=== PATIENT | male | born 1965 | race Caucasian/White ===

== ENCOUNTER → 2018-07-18 08:03 | Outpatient (CLI) | payer OTHER, SELFPAY ==
[2018-07-06 13:18] VITALS: BMI 31.9
--- NOTE | 2018-07-18 08:10 | US_ITS ---
STUDY: ABDOMINAL ULTRASOUND REASON FOR EXAM: Male, 53 years old. Abdominal pain. TECHNIQUE: Transabdominal ultrasound was performed with real-time and static gunn scale imaging. TECHNICAL QUALITY: Adequate. COMPARISON: None. FINDINGS: Liver: The liver measures 16.3 cm. There is normal echogenicity of the liver. The bile ducts are within normal limits. There is hepatic color flow. The direction of portal flow is hepatopetal. There is no demonstrated mass lesion. Gallbladder: Normal distended gallbladder. The gallbladder wall measures 2 mm. There is a negative sonographic Lewis's sign. There is no pericholecystic fluid. There are no gallstones. Common Bile Duct (C.B.D.): The common bile duct measures 4 mm. Pancreas: Normal size of the head, body and tail of the pancreas. There is normal echogenicity of the pancreas. There is no demonstrated pancreatic mass or cyst. Spleen: Normal size of the spleen. The spleen measures 11.6 cm. Right Kidney: Normal size of the right kidney. The right kidney measures 10.8 cm. Normal renal cortex. The right cortex measures 2.2 cm. There is no demonstrated renal mass or cyst. There is no right hydronephrosis. Left Kidney: Normal size of the left kidney. The left kidney measures 10.3 cm. Normal renal cortex. The left cortex measures 1.9 cm. There is no demonstrated renal mass or cyst. There is no left hydronephrosis. Aorta: Not dilated. I.V.C.: The IVC is patent. There is no ascites. US/Abdomen Complete IMPRESSION: Normal abdominal ultrasound examination. Electronically Signed: Jude Sawyer MD at 7:53 EDT , Service support ,
== END ==
PROVIDERS: Family Provider Family Medicine; PCP Family Medicine
DX: K21.9 Gastro-esophageal reflux disease without esophagitis (principal); R10.13 Epigastric pain
CPT/HCPCS: 76700

== ENCOUNTER → 2018-07-20 06:29 | Outpatient (CLI) | payer OTHER, SELFPAY ==
[2018-07-06 13:18] VITALS: BMI 31.9
--- NOTE | 2018-07-20 06:31 | ECHOD_ITS ---
Left Ventricle Normal size and thickness. The estimated ejection fraction is 60 %. Normal diastology for age. There is mild global hypokinesis of the left ventricle. Right Ventricle Mildly dilated right ventricle. Normal systolic function. Atria Normal left atrium. Normal right atrium. Normal atrial septum. Mitral Valve Mild diffuse mitral valve thickening. Equivocal mitral valve prolapse. Tricuspid Valve Normal tricuspid valve. Mild (1+) tricuspid valve insufficiency. Right ventricular systolic pressure estimated to be 29 mmHg. Aortic Valve Normal aortic valve. Trisinus/trileaflet aortic valve. Pulmonic Valve Normal pulmonic valve. Great Vessels Normal aortic root. Normal arch. Normal inferior vena cava. Inferior vena cava collapse with sniff. Pericardium/Pleural No pericardial effusion. MMode/2D Measurements & Calculations LVIDd: 4.8 cm IVSd: 1.1 cm LVOT diam: 2.0 cm LVIDs: 3.4 cm LVPWd: 1.0 cm LVOT area: 3.1 cm2 RVDd: 4.8 cm FS: 28.8 % Ao root diam: 3.0 cm LAV(MOD-sp4): 45.6 ml LVAd ap4: 34.0 cm2 EDV(MOD-sp4): 103.6 ml EDV(sp4-el): 105.3 ml LVAs ap4: 21.0 cm2 ESV(MOD-sp4): 48.6 ml ESV(sp4-el): 46.8 ml EF(MOD-sp4): 53.1 % EF(sp4-el): 55.5 % SV(MOD-sp4): 54.9 ml SV(sp4-el): 58.4 ml LA A4 area: 17.1 cm2 LA dimension(2D): 3.6 cm RA A4 area: 19.0 cm2 Time Measurements MV dec time: 0.19 sec Doppler Measurements & Calculations MV E max kvng: 77.7 cm/sec Lat Peak E' Kvng: 7.8 cm/sec Med Peak E' Kvng: 7.2 cm/sec MV A max kvng: 44.1 cm/sec E/E' lat: 10.0 E/E' med: 10.8 MV E/A: 1.8 Ao V2 max: 96.8 cm/sec LV V1 max: 84.0 cm/sec PA V2 max: 128.9 cm/sec Ao max P.7 mmHg LV V1 max P.8 mmHg SEE(V,D): 2.7 cm2 TR max kvng: 237.8 cm/sec TR max P.6 mmHg Interpretation Summary The estimated ejection fraction is 60 %. Normal diastology for age. There is mild global hypokinesis of the left ventricle. Mild (1+) tricuspid valve insufficiency. Right ventricular systolic pressure estimated to be 29 mmHg. Copared to echo report dated 12/15/2010, no appreciable changes noted. Ordering Physician: Gio Teixeira Referring Physician: Gio Teixeira
--- NOTE | 2018-07-20 10:33 | STRESSREP_ITS ---
Stress Test Report Exercise myocardial perfusion stress test. 53-year-old male with a history of chest pain. Medications Multivite vitamin D. Stress protocol: Resting EKG demonstrates sinus bradycardia with a rate of 57 bpm normal intervals noted resting blood pressure 110/80 mmHg. Patient exercised according to regular Alfred protocol for total duration of 10 minutes and 30 seconds the maximum heart rate attained was 162 bpm which was 97% of maximum predicted heart rate the maximum workload was 12.5 metabolic equivalents. Patient completed 1 minute and 30 seconds of stage IV of the Alfred protocol. At rest there were no ST or T wave changes noticed ischemia peak exercise upsloping ST changes only were noted with no meet the criteria for ischemia the resting blood pressure 110/80 with a peak blood pressure 158/72 mmHg rate pressure product was 23,000. Myocardial perfusion protocol. 11.1 mCi of technetium 99m sestamibi was injected at rest. The patient exercised according to regular Alfred protocol at peak exercise 33.4 mCi of technetium 99m sestamibi was injected stress images were obtained stress and rest images were reconstructed and compared in the short axis vertical and horizontal long axis. Gated images were also obtained Perfusion SPECT analysis: Review of the stress images demonstrate normal uptake of tracer noted in all a reas of myocardium the resting images similarly demonstrate normal uptake of tracer noted in all areas of the myocardium. No areas of reversibility are noted suggest ischemia no previous infarct is noted. Gated SPECT analysis: The gated ejection fraction is noted to be 68%. Conclusion: Normal exercise myocardial perfusion stress test at a high workload. Preserved ejection fraction.
== END ==
PROVIDERS: Family Provider Family Medicine; PCP Family Medicine; Referring Provider Internal Medicine Cardiovascular Disease; Visit Provider Internal Medicine Cardiovascular Disease
DX: R07.9 Chest pain, unspecified (principal); I48.0 Paroxysmal atrial fibrillation; I49.1 Atrial premature depolarization; I49.3 Ventricular premature depolarization; I34.1 Nonrheumatic mitral (valve) prolapse
CPT/HCPCS: 78452; 93017; 93306; A9500

== ENCOUNTER → 2018-07-25 09:02 | Outpatient (CLI) | payer OTHER, SELFPAY ==
[2018-07-06 13:18] VITALS: BMI 31.9
== END ==
PROVIDERS: Family Provider Family Medicine; PCP Family Medicine; Referring Provider Internal Medicine Cardiovascular Disease; Visit Provider Internal Medicine Cardiovascular Disease
DX: I34.1 Nonrheumatic mitral (valve) prolapse (principal); I48.0 Paroxysmal atrial fibrillation; I49.1 Atrial premature depolarization; I49.3 Ventricular premature depolarization; R07.9 Chest pain, unspecified
CPT/HCPCS: 93225; 93226

== ENCOUNTER 2020-07-09 16:00 | Outpatient (RCR) | payer OTHER, SELFPAY ==
[2018-07-06 13:18] VITALS: BMI 31.9
--- NOTE | 2020-04-21 10:14 | HP.PTEVAL_ITS ---
Patient's Visit Information JACINTO COSTA is a 55 year old M referred to Physical Therapy by Out of Town Doctor with a diagnosis of Left Total Hip Replacement. Date of Evaluation: 04/21/20 Physical Therapist: Maribel Wasserman DPT - Visit Plan Frequency: 3x /Week Duration: 4 Weeks Plan: Left THR posterior approch precautions-04/07/2020. Focus on LE and core strength/stabilization. Caution back issues - 2011 started running- 5K a month- sedentary prior to this-family runs. Shortly after he was having nerve pain in the hip- PT- was not helping- changed it to back therapy and hip pain went away. Continued to be active Triath[employer]- 5-6x a week lots of training- has had back pain for years. 1-1.5 years ago he started hip pain- tried to encorporate exercises again- did not help- was able to squat and deadlift but he was miserable the next day. 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 Left THR 04/07 by MD at [facility]. Did have home PT but is ready to get back to moving. Goals: back to running, gym and being active. Worst: 10 Hip Back: / Back is worse in the AM-gives some traction on his island and he can be straight. Prefers to be standing. Back pain is L3-4 and achy below the belt line. Incisional pain - groin pain thats getting better- No new radiating pain but does have achy with a side of electricity- when driving for long periods of time. Agg: being sedentary- lifting heavy items. Eases: being active, medication. Best: 06/18. Has had injections 2x in his left hip 1x in his backa nd 1x in the right hip. First time it was helpful 2nd time not so much. Numbness down to the knee. Has had recent MRI on his back- hopes that the hip takes care of his back. The back pain resumed Tuesday due to decrease in medication. Sleep: light sleeper- pain wakes him up- typically side sleeper- pillow between knees and ankles. Wear and Tear to his body vs. Trauma. PMHx: extra heart beat, potential valve issue, Bilateral Foot surgert (2008 and 2010). Meds: antidepressent, asprin. 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 Gait: antalgic- decreased stance on the left LE with flat foot progression- straight cane. Observation: incision healing well - no s/s of infection. Does not sit during evaluation and paces the room. ROM: Ankle/Knee: WNL, Hip: WNL to precautions of 90 degrees of hip flexion. Strength: Ankle: 5/5, Knee: 5/5, Hip: 4/5 throughout Core: fair minus. SLR: no lag. Flex: HS: mild, Gastroc: mild. Stairs: asc/desc 8 non recip with 1 HR and cane - Goals Goal 1:: Patient will be I with HEP and progression Goal 2:: Patient will ambulate >300 feet with a normalized gait pattern Goal Time Frame: 4-6 Weeks Goal 3:: Patient will asc/desc 8 stairs recip with 1 HR and good technique. Goal Time Frame: 4-6 Weeks Goal 4:: Patient will report 0/10 pain for 1 week with ADL's. - Rehabilitation Potential Physical Therapy Diagnosis: Patient presents with hypomobility- he has decreased painfree ROM, strength and muscular endurance s/p left THR Rehabilitation Potential: Good - Anticipated Interventions Patient/Client Instruction: Educate patient on: Benefits of Fitness Program Therapeutic Exercise to Include: Strength training, Endurance training, Balance training, Agility training, Body mechanics, Postural training, Flexibilty training, Gait and locomotor training, Neuromotor development, Passive ROM, Acti ve ROM, Dynamic Lumbar Stabilization, Scapular Strength/Stabilization For the Purpose of:: To improve muscle performance and motor function TENS: Yes Cryotherapy (ice pack, ice massage): Yes Thermo therapy (hot pack): Yes Ultrasound (thermal/non thermal): No For the Purpose of:: To improve muscle performance and motor function Thank you for the opportunity to evaluate your patient. For Medicare and Medicare HMO plans, please review the plan of care and approve it. It will need to be FAXED BACK to us at [phone] for Medicare purposes. For Medicare only, by signing this I certify the plan of care. Please let me know if there are questions or concerns regarding this plan of care. Physician Signature: Date:
--- NOTE | 2020-05-19 16:52 | HP.PTREVAL ---
ANTONINA MALDONADO, It has been my pleasure to treat JACINTO OCSTA over the last 12 visits for Left Total Hip Replacement. Please see the progress note below for an update on the physical therapy plan of care! Subjective: Patient reports that he had a good day. He feels like his back is stiff in the AM but he still has groin and anterior hip uncomfortable tight. Does have some pain when he gets in a certain point. His back is still the main issues- he feels like it get stuck. Every day his hip gets better. Went up/down stairs without his cane today. Multiple chiros, physiotherapist, PA's at Dr. Babatunde Lua. No has made his back better. Functionally he feels that he is 80-85%. Objective/Function: Posture: good throughout treatment session- does transition between sitting and standing frequently due to back. Gait: slightly antalgic- uses straight cane during the day but is able to go without. Decreased stride length on the right. ROM: Ankle/Knee: WNL, Hip: WNL to precautions of 90 degrees of hip flexion. Strength: Ankle: 5/5, Knee:flexion: 64.5, Extn: 108.7, Hip: flexion: 49.4 extn: 69.4 Core: fair minus. Flex: HS: mild, Gastroc: mild. Stairs: asc/desc 8 reciprocally with no HR- good control with descent. Slight inreased push off on the left. SLS: 30 sec without LOB. TU.98 WONMAC: 23.96 Plan Plan: IE: Left THR posterior approch precautions-04/07/2020. Focus on LE and core strength/stabilization. Caution back issues. 05/19/2020: Continue to progress towards POC goals- focus on HEP for continuation in gym and functional mobility Goals Goal 1:: Patient will be I with HEP and progression Goal Progress: Progressing Goal 2:: Patient will ambulate >300 feet with a normalized gait pattern Goal Time Frame: 4-6 Weeks Goal Progress: Progressing Goal 3:: Patient will asc/desc 8 stairs recip with 1 HR and good technique. Goal Time Frame: 4-6 Weeks Goal Progress: Progressing Goal 4:: Patient will report 0/10 pain for 1 week with ADL's. Goal Progress: Progressing Anticipated Interventions Patient/Client Instruction: Educate patient on: Benefits of Fitness Program Therapeutic Exercise to Include: Strength training, Endurance training, Balance training, Agility training, Body mechanics, Postural training, Flexibilty training, Gait and locomotor training, Neuromotor development, Passive ROM, Active ROM, Dynamic Lumbar Stabilization, Scapular Strength/Stabilization For the Purpose of:: To improve muscle performance and motor function TENS: Yes Cryotherapy (ice pack, ice massage): Yes Thermo therapy (hot pack): Yes Ultrasound (thermal/non thermal): No For the Purpose of:: To improve muscle performance and motor function Please do not hesitate to contact me at [phone] by phone or if you have questions or concerns regarding this new plan of care! Sincerely, PHILIP BarryT
--- NOTE | 2020-05-23 16:09 | HP.PTREVAL_ITS ---
ANTONINA MALDONADO, It has been my pleasure to treat JACINTO COSTA over the last 14 visits for Left Total Hip Replacement. Please see the progress note below for an update on the physical therapy plan of care! 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 Disability: NO. Present symptoms: SHAWN LOW BACK PAIN AND MUSCULAR TIGHTNESS. LLE PAIN BUTTOCK PAIN AND LEFT THIGH NUMBNESS. H/O LLE PAIN, NUMBNESS AND TINGLING TO THE ANKLE RECENT DEC 2019. PATIENT DENIES RIGHT LE SX'S. Present since: SINCE THE . Pain Scale: WORST 6/10, LEAST 0/10. Currently: 2/10 (IN SITTING). Commenced as a result of: NO APPARENT REASON. Symptoms at onset: LOW BACK. Worse: MANUAL LABOR, POOR POSTURE, BENDING OVER TO PICK THINGS UP, PROLONGED SITTING, PRONLONGED LYING, MOTION OF RAKING, RISING FROM SITTING, DRIVING, STANDING IN LINE, WEIGHT GAIN. IT IS ALWAYS WORSE IN THE MORNING. Better: SITTING IN CERTAIN CHAIRS, TRUCK SEAT, NARCOTICS, HEAT, LUMBAR SUPPORT, MASSAGE, SOMETIMES PRESS UPS, PT FOR HIP, HIP SURGERY. LYING DOWN. Disturbed sleep: YES. Previous history/Previous treatment: NO BACK SURGERY, ONE MARQUES - SOME BENEFIT (ABOUT A YEAR AGO), PRESCRIPTION MEDICATIONS - NOT CURRENTLY ON PAIN MEDS. ABOUT 10 YEARS AGO HAD PT FOR LEFT HIP FOR ABOUT 3-4 SESSIONS THEN CHANGED TO BACK THERAPY AND HELPED HIP PAIN. H/O CHIROPRACTOR OFF AND ON NEEDED FOR ABOUT 20 YEARS. LAST CHIROPRACTIC VISIT WAS ABOUT 2 YEARS AGO BECAUSE IT SEEMED TO STOP HELPING. CONSULT WITH PA AT DR. ERMIAS BETHEA OFFICE - IMAGING DONE BUT NO SURGERY RECOMMENDATED (ABOUT 18 MONTHS AGO). Treatment this episode: L THR. Coughing/sneezing/straining: POSITIVE WHEN IN PAIN. Gait: PATIENT REPORTS LEFT HIP STILL FEELS TIGHT AND LIMITS STRIDE COMPARED TO RIGHT. TIME AND DISTANCE LIMITED DUE TO BACK PAIN. Difficulty initiating urinatin: NO. Accidents: NO. Unexplained weight loss: NO. Imaging: NONE RECENT BUT DID HAVE X-RAYS AND MAYBE MRI OF LOW BACK THROUGH [facility] ABOUT 18 MONTHS AGO AND PATIENTS UNDERSTANDING WAS THAT THEY JUST SAW SOME ARTHRITIS. PARTIAL SACRALIZATION OF LAST VERTABREA FUSED ON THE RIGHT SIDE BUT NOT LEFT. PMH: ENLARGED THYROID, DEPRESSION. Recent major surgery: SHAWN FOOT SURGERIES. L THR. OTHER: PATIENT REPORTS HE HAS TO TAKE A LOT OF REST PERIODS AND THIS BACK PAIN IS REALLY LIMITING HIS FUNCTION. CAN NOT DO A LOT OF DOING WHAT HE ENJOYS DOING (TIATHALONES, WORKING OUT, HIKING, GARDENING, YARD WORK, RUNNING). STATES IT DOESN'T TAKE MUCH TO THROW BACK OUT. PATIENT REPORTS HE REALLY WANTS TO GET BACK TO RUNNING (6-8 MILES ON A TRAIL IN THE [place] BUT HIP DOCTOR NOT KEEN ON THAT). PATIENT HAS A HOME TENS UNIT BUT HASN'T BEEN USING IT. RESTRICTIONS: P ATTHERESA REPORTS HIP DOCTOR PRETTY MUCH LIFTED ALL RESTRICTIONS EXCEPT A LOT OF HIP OR BACK TWISITNG. Objective/Function: PATIENT WAS SEEN TODAY FOR RE-EVAL FOR LOW BACK PAIN RE FERRAL FROM DR. ROY. UPON EXAM TODAY: Sitting/Standing Posture: POOR. Lordosis: NORMAL. Lateral shift: NO. Relevant shift: NO. Active Correction of posture: A LITTLE BETTER. Other Observations: INDEP GAIT AND TRANSFERS LIMPING ON LLE AND USING CANE. Motor deficit: SHAWN LE'S GROSSLY 5/5 WITH MMT'ING EXCEPT L HIP 4/5. Sensory deficit: SHAWN LE LIGHT TOUCH SENSATION INTACT AND SYMMETRICAL EXCEPT DISTAL 2/3 OF L LATERAL THIGH. ROM deficit: TIGHT SHAWN HIP ROTATORS LEFT > RIGHT. Reflexes: NT. Dural Signs: POSITIVE LLE. Lumbar mvmt loss: flex - MIN. ext - MOD. R SG - MIN. L SG - MOD. PATIENT DENIES INCREASED LBP OR RADIATING PAIN WITH LUMBAR ROM TESTING ALL PLANES TODAY. Core strength: POOR. Palpation: TENDERNESS AND SOME SHOOTING BACK PAINS WITH LUMBAR PALPATION. TREATMENT: NEUROMUSCULAR REEDUCATION - RETRAINING OF MVMT AND POSTURE FOR SITTING, LYING AND STANDING ACTIVITIES. Plan Plan: CONT THR POC: IE: Left THR posterior approch precautions-04/07/2020. Focus on LE and core strength/stabilization. Caution back issues. 05/19/2020: Continue to progress towards POC goals- focus on HEP for continuation in gym and functional mobility. ADD: *NO US OR E-STIM*. POSTURE CORRECTION/STRENGTHENING, INSTRUCTION IN APPROPRIATE BODY MECHANICS AND ACTIVITY MODIFICATIONS. DLS STARTING WITH A NEUTRAL SPINE PROGRESSING ROM TOLERATED. SHAWN LE ROM, STRETCHING AND STRENGTHENING. HEP INSTRUCTION. Goals Goal 1:: Patient will be I with HEP and progression Goal Progress: Progressing Goal 2:: Patient will ambulate >300 feet with a normalized gait pattern Goal Time Frame: 4-6 Weeks Goal Progress: Progressing Goal 3:: Patient will asc/desc 8 stairs recip with 1 HR and good technique. Goal Time Frame: 4-6 Weeks Goal Progress: Progressing Goal 4:: Patient will report 0/10 pain for 1 week with ADL's. Goal Progress: Progressing Goal 5:: DECREASE C/O LBP Goal Time Frame: 4-6 Weeks Goal 6:: IMPROVE PERSONAL CARE, LIFTING, SITTING, STANDING, SLEEP, SOCIAL LIFE, TRAVEL, WORK AND HOMEMAKING FUNCTION. Anticipated Interventions Patient/Client Instruction: Educate patient on: Benefits of Fitness Program Therapeutic Exercise to Include: Strength training, Endurance training, Balance training, Agility training, Body mechanics, Postural training, Flexibilty training, Gait and locomotor training, Neuromotor development, Passive ROM, Active ROM, Dynamic Lumbar Stabilization, Scapular Strength/Stabilization For the Purpose of:: To improve muscle performance and motor function TENS: Yes Cryotherapy (ice pack, ice massage): Yes Thermo therapy (hot pack): Yes Ultrasound (thermal/non thermal): No For the Purpose of:: To improve muscle performance and motor function Please do not hesitate to contact me at [phone] by phone or if you have questions or concerns regarding this new plan of care! Sincerely, Jaquelin Rice, PT, Cert MDT
--- NOTE | 2020-06-09 16:34 | HP.PTREVAL ---
ANTONINA MALDONADO, It has been my pleasure to treat JACINTO COSTA over the last 20 visits for Left Total Hip Replacement. Please see the progress note below for an update on the physical therapy plan of care! Subjective: PATIENT REPORTS HIS HIP IS GETTING BETTER BUT HARD TO RATE CHANGE IN HIS BACK PAIN BECAUSE OF TIME OF DAY AND REHAB'ING HIP. PATIENT REPORTS FOLLOW UP WITH REFERRING DR (DR. ROY) IS NEEDED FOR HIS BACK AT THIS TIME. PATIENT DENIES ANY WORSENING OF HIS BACK SINCE BACK EVAL AND HIS BACK FEELS STRONGER. FEELS LIKE HE IS IN BETTER CONTROL WHEN HE HAS TO BEND, LIFT OR TWIST NOW BUT MORNINGS ARE STILL REALLY ROUGH. PROLONGED STANDING ALSO INCREASES BACK PAIN/TIGHTNESS. PATIENT REPORTS HE LOOKED UP HIS MRI AND IT SHOWED STENOSIS. Objective/Function: PATIENT WAS SEEN TODAY FOR RE-ASSESSMENT OF PROGRESS TOWARD THE SET PT GOALS AND THE NEED FOR FURTHER PHYSICAL THERAPY VS READINESS FOR DISCHARGE. PATIENT IS MAKING SOME SLOW PROGRESS IN TERMS OF INCREASED CORE STABILITY, BETTER POSTURE CONTROL AND INCREASED APPROPRIATE ACTIVITY MODIFICATION KNOWLEDGE BUT HIS BACK PAIN IS STILL EASILY PROVOKED WITH ADL'S. UPON EXAM TODAY: PATIENT DEMO'S. INDEP GAIT AND TRANSFERS BUT IT IS DIFFICULT FOR HIM TO STAND UP TALL AND INITIATE GAIT AFTER SITTING FOR EVEN SHORT PERIODS OF TIME AND THIS WAS OBVIOUS DURING SESSION TODAY. STILL MILDLY LIMPING ON LLE BUT NO LONGER NEEDING CANE. PATIENT REPORTS HIS GAIT IS MUCH WORSE AFTER GETTING OUT OF VEHICLE. GAIT IS BETTER NOW AFTER WARMING UP ON ELYPTICAL. Motor deficit: SHAWN LE'S GROSSLY 5/5 WITH MMT'ING EXCEPT L HIP 4/5. TESTING L HIP ADD PROVOKES SOME RIGHT GROIN PAIN AND PATIENT HAS STOPPED USING HIP ADD MACHINE DUE TO THIS. Sensory deficit: SHAWN LE LIGHT TOUCH SENSATION INTACT AND SYMMETRICAL EXCEPT DISTAL 2/3 OF L LATERAL THIGH. Dural Signs: NEGATIVE SHAWN LE'S. Lumbar mvmt loss: flex - MIN. ext - MOD. R SG - MIN. L SG - MOD. PATIENT DENIES INCREASED LBP OR RADIATING PAIN WITH LUMBAR ROM TESTING ALL PLANES TODAY BUT FLEXION IS VERY STIFF AND GUARDED. Core strength: FAIR. OTHER: PATIENT HAD A LOT OF GOOD QUESTIONS ABOUT HIS CONDITION TODAY AND THIS PT ANSWERED THEM TO THE BEST OF MY ABILITY. HE IS A GOOD CANDIDATE FOR AQUATIC THERAPY AND PROGRESSION OF LAND PT BASED ON PROGRESS MADE AND ROOM FOR FURTHER IMPROVEMENT. HE IS VERY INTERESTED IN AQUATIC TEHRAPY AND STATES HE HAS FELT SOME BENEFIT RECENTLY FROM GETTING IN A POOL BUT HAS JUST DONE SOME SWIMMING NOT SPECIFIC CORE EX'S. Plan Plan: RECOMMEND CONTINUED PT ON LAND AND IN THE WATER FOR BACK. RE-ASSESSMENT OF HIP PENDING THIS WEEK BY LISA Wilson DPT. BACK POC: CONTINUE PT 3X'S A WK X 4 WKS FOR LAND AND. AQUATIC THERAPY FOR PAIN RELEIF, POSTURE CORRECTION/STRENGTHENING, INSTRUCTION IN APPROPRIATE BODY MECHANICS AND ACTIVITY MODIFICATIONS. DLS STARTING WITH A NEUTRAL SPINE PROGRESSING ROM TOLERATED. SHAWN LE ROM, STRETCHING AND STRENGTHENING. HEP INSTRUCTION. ISSUE TBANDS INDICATED FOR HOME EX PROGRAM FOR WHEN PATIENT TRAVELS OR IS UNABLE TO GET TO GYM OR POOL. CONSIDER STANDING ROWING, LAT PULL DOWNS AND SIDE ROWS. EVEN CONSIDER MODIFIED PLANKS TOLERATED. PATIENT DENIES ANY PHYSICIAN RESTRICTIONS. Goals Goal 1:: Patient will be I with HEP and progression Goal Progress: Progressing Goal 2:: Patient will ambulate >300 feet with a normalized gait pattern Goal Time Frame: 4-6 Weeks Goal Progress: Progressing Goal 3:: Patient will asc/desc 8 stairs recip with 1 HR and good technique. Goal Time Frame: 4-6 Weeks Goal Progress: Progressing Goal 4:: Patient will report 0/10 pain for 1 week with ADL's. Goal Progress: Progressing Goal 5:: DECREASE C/O LBP Goal Time Frame: 4-6 Weeks Goal Progress: Progressing Goal 6:: IMPROVE PERSONAL CARE, LIFTING, SITTING, STANDING, SLEEP, SOCIAL LIFE, TRAVEL, WORK AND HOMEMAKING FUNCTION. Goal Time Frame: 4-6 Weeks Goal Progress: Progressing Anticipated Interventions Patient/Client Instruction: Educate patient on: Benefits of Fitness Program Therapeutic Exercise to Include: Strength training, Endurance training, Balance training, Agility training, Body mechanics, Postural training, Flexibilty training, Gait and locomotor training, Neuromotor development, Passive ROM, Active ROM, Dynamic Lumbar Stabilization, Scapular Strength/Stabilization For the Purpose of:: To improve muscle performance and motor function TENS: Yes Cryotherapy (ice pack, ice massage): Yes Thermo therapy (hot pack): Yes Ultrasound (thermal/non thermal): No For the Purpose of:: To improve muscle performance and motor function Please do not hesitate to contact me at [phone] by phone or if you have questions or concerns regarding this new plan of care! Sincerely, Jaquelin Rice, PT, Cert MDT
== END 2020-07-09 19:00 | disposition home or self-care (01) ==
LOC: PT 16:00
PROVIDERS: PCP Family Medicine
DX: Z47.1 Aftercare following joint replacement surgery (principal); M16.10 Unilateral primary osteoarthritis, unspecified hip; Z96.642 Presence of left artificial hip joint
CPT/HCPCS: 97014; 97110; 97112; 97113; 97161; 97164; G0283

== ENCOUNTER 2020-09-10 18:30 | Outpatient (RCR) | payer OTHER, SELFPAY ==
[2020-07-23 15:30] VITALS: BMI 32.7
--- NOTE | 2020-08-06 16:28 | HP.PTEVAL_ITS ---
Patient's Visit Information JACINTO COSTA is a 55 year old M referred to Physical Therapy by Dr. Trevon Almanzar DO with a diagnosis of R shoulder biceps tendonitis, labral tear chronic. 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 He used to be active and fit. He has chronic back issues and a L THR and has put on weight and has done some PT with hip and back and has done some moderate lifting and flared things up... sleeping on the R shoulder wakes him up. Now it aches throughout the day now. He is retiring at the end of the year. He is R handed. He says that the pain prohibits him from lifting he thinks. He generally has no N&T in that arm. 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 Injection to the shoulder has helped with the achiness throughout the day but still can not do much with lifting (saw etc). Driving his truck seems to bother his shoulder. Dr thinks that he has a torn labrum, chronic and small amount of arthritis, and bicep tendonitis. Dr said if old injury they will do injections and PT. Steering and picking up object are hard for the pateint. - Pain R shoulder pain Pain Intensity (Out of 10): 3 Pain Intensity Range: 7 Comment: with lifting - Objective R handed: R 140# L 137#. Shoulder MMT: ER on the R 3-/5, L 4/5, IR B 4/5, flex R 4-/5 and L 4/5, L shld abd 4-/5 and R 4/5, L shld flex 4/5 and R shld flex 4/5, B bicep 4+/5. +HK for pain on the R. + empty can for weakness on the R. Tender along the R bicep groove. Tender with PROM at end range abduction and end range flexion. Pt sits with rounded shoulders - Goals Goal 1:: I HEP Goal Time Frame: 4-6 Weeks Goal 2:: Be able to lift his saw without having to wince in pain and not have the strength to lift it with his R arm. Goal Time Frame: 4-6 Weeks Goal 3:: Be able to roll over onto his R shoulder at night and not wake up in pain Goal Time Frame: 4-6 Weeks Goal 4:: Increase R shoulder strength by 1/2 muscle grade (at time of the eval: Shoulder MMT: ER on the R 3-/5, L 4/5, IR B 4/5, flex R 4-/5 and L 4/5, L shld abd 4-/5 and R 4/5, L shld flex 4/5 and R shld flex 4/5, B bicep 4+/5). Goal Time Frame: 4-6 Weeks Goal 5:: Pt to report at home/work and observe upright posture here in the clinic Goal Time Frame: 4-6 Weeks - Rehabilitation Potential Rehabilitation Potential: Good - Anticipated Interventions Patient/Client Instruction: Educate patient on: Condition, Plan of Care For the Purpose of:: To decrease pain, To increase ROM, To improve nutrient delivery to tissue, To improve muscle performance and motor function, To improve ability to perform ADL's, To increase tolerance to activity/condition/position, To improve health of tissue, To decrease soft tissue restriction, To increase flexibility/ROM Therapeutic Exercise to Include: Strength training, Body mechanics, Postural training, Flexibilty training, Passive ROM, Active ROM, Scapular Strength/Stabilization For the Purpose of:: To decrease pain, To increase ROM, To improve muscle performance and motor function, To improve ability to perform ADL's, To improve performance and independence with ADL's, To decrease level of supervision to perform tasks, To improve ability of physical actions for home/community/work/leisure, To improve health of tissue, To decrease soft tissue restriction, To increase flexibility/ROM Manual Therapy Techniques to Include: Passive ROM, Soft tissue mobilization For the Purpose of:: To increase ROM, To improve nutrient delivery to tissue Thank you for the opportunity to evaluate your patient. For Medicare and Medicare HMO plans, please review the plan of care and approve it. It will need to be FAXED BACK to us at [phone] for Medicare purposes. For Medicare only, by signing this I certify the plan of care. Please let me know if there are questions or concerns regarding this plan of care. Physician Signature: Date:
--- NOTE | 2020-09-10 18:56 | HP.PTDCSUM ---
It has been my pleasure to treat JACINTO COSTA referred by Dr. Trevon Almanzar DO, with the diagnosis of R shoulder biceps tendonitis, labral tear chronic for a total of 7 visit(s). Discharge Date: 09/10/20 Please see the following information for a summary of their discharge status. Subjective: Pt reports that his constand pain is gone. Strength is not where it should be. He does not sleep because his shoulder discomfort wakes him up at night. Sleeping with a pillow under his shoulder helps when sleeping on the L side. 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 If someone kicks a ball at him and he reaches out with arm it will hurt.... and went back to aching for 2 days.... it was a reactive motion. He has not been the best pt and doing his HEP. 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 He was taking Celebrex and took one in AM and one at lunch and he feels great and thinks that might help with pain management.. R shoulder pain Pain Intensity (Out of 10): 0 % Improvement: 58 Objective/Function: Full shoulder AROM. R shoulder: ER 3+/5, IR 4/5, flex 4/5, abd 4/5. Pain at night if he rolls over on it. Pt sits with upright posture... Goal 1:: I HEP Goal 2:: Be able to lift his saw without having to wince in pain and not have the strength to lift it with his R arm. Goal Progress: Progressing Goal 3:: Be able to roll over onto his R shoulder at night and not wake up in pain Goal Progress: Goal Met Goal 4:: Increase R shoulder strength by 1/2 muscle grade (at time of the eval: Shoulder MMT: ER on the R 3-/5, L 4/5, IR B 4/5, flex R 4-/5 and L 4/5, L shld abd 4-/5 and R 4/5, L shld flex 4/5 and R shld flex 4/5, B bicep 4+/5). Goal 5:: Pt to report at home/work and observe upright posture here in the clinic Goal Progress: Goal Met Plan: DC PT at this time back to physician reassessment and possible further diagnostics Discharge Comments: DC PT to physician If there are questions or concerns regarding this patient's physical therapy, please feel free to call me at [phone]. Thank you for the referral of this patient. Sincerely, Kaley Quinn, MPT
== END 2020-09-10 19:00 | disposition home or self-care (01) ==
LOC: PT 18:30
PROVIDERS: PCP Family Medicine; Referring Provider Orthopaedic Surgery; Visit Provider Orthopaedic Surgery
DX: M75.21 Bicipital tendinitis, right shoulder (principal); S43.401D Unspecified sprain of right shoulder joint, subsequent encounter
CPT/HCPCS: 97110; 97113; 97161; 97164; 97530

== ENCOUNTER → 2020-10-08 14:19 | Outpatient (CLI) | payer OTHER, SELFPAY ==
[2020-07-23 15:30] VITALS: BMI 32.7
--- NOTE | 2020-10-08 14:28 | MRI_ITS ---
STUDY: MRI ARTHROGRAM RIGHT SHOULDER REASON FOR EXAM: Male, 55 years old. PAIN /PREV INJURY, SUP GLENOID LABRUM LESION TECHNIQUE: Intra-articular injection of 10 ml of YES YES mixed with additional contrast material was performed by Dr. Kinney. T1, T2, and fat suppressed images were obtained in all three orthogonal planes. COMPARISON: Right shoulder x-ray dated July 23, 2020. Right shoulder arthrogram dated OCTOBER 08, 2020 FINDINGS: There is intra-articular contrast distention of the glenohumeral articulation, secondary to the gadolinium injection, with adequate capsular distention. A high-grade partial tear of the supraspinatus tendon is present with preservation of the bursal surface fibers. Normal infraspinatus tendon. Normal subscapularis tendon. Normal teres minor tendon. Normal supraspinatus muscle. Normal infraspinatus muscle. Normal subscapularis muscle. Normal teres minor muscle. Normal glenohumeral articulation. There is a cortical erosion at the insertion of the supraspinatus tendon. Normal biceps labral complex. Normal intracapsular long biceps tendon. Normal labrum. Normal capsulo- ligamentous complex. Normal rotator interval. There is mild osteoarthritis of the acromioclavicular articulation. There is a Type II morphology (curved), with a neutral orientation. There is minimal fluid distention of the subacromial bursa, consistent with mild subacromial-subdeltoid bursitis. Normal visualized coracohumeral and coracoacromial ligaments. Normal quadrilateral space. Normal axillary space. Normal deltoid muscle. Normal trapezius muscle MRI/Upper Ext Jt Only W/Contrast IMPRESSION: 1. High-grade partial interstitial tear of the supraspinatus tendon. The overlying bursal surface fibers remains intact. Electronically Signed: Noé Cabrales MD at 20:35 EDT , Service support ,
--- NOTE | 2020-10-08 14:35 | RAD_ITS ---
CLINICAL HISTORY: Male, 55 years old. Chronic right shoulder pain. PROCEDURE: ARTHROGRAM - RIGHT SHOULDER CONSENT: The procedure as well as the benefits and possible complications including infection and bleeding were explained to the patient. Informed consent was obtained. FLUOROSCOPY TIME (if supplied): (30 seconds) minutes/seconds Injection Information: 10 cc of dilute MRI contrast. Number of images obtained: 5 TECHNIQUE: (All elements of maximal sterile barrier technique followed, including US elements as applicable) The patient was in the supine position. The overlying skin was prepped and draped in the usual sterile fashion. Following local anesthetic application and under direct fluoroscopic guidance, a 22-gauge spinal needle was placed into the shoulder joint. 2 cc of ISOVUE 300 was injected for confirmation. Following this, 10 cc of diluted MR contrast was injected. The patient tolerated the procedure well. RAD/Arthrogram Shoulder w/ MRI IMPRESSION: Successful right shoulder arthrogram with injection of 10 cc of dilute MRI contrast. Electronically Signed: Renny Kinney MD at 15:25 EDT , Service support ,
== END ==
PROVIDERS: PCP Family Medicine
DX: M25.511 Pain in right shoulder (principal); G89.29 Other chronic pain
CPT/HCPCS: 23350; 73222; 77002; A9575; Q9967

== ENCOUNTER 2021-07-21 10:32 | Day surgery (SDC) | payer OTHER, SELFPAY ==
--- NOTE | 2021-07-20 09:03 | EKG12_ITS ---
Test Reason : PREOP Blood Pressure : / mmHG Vent. Rate : 068 BPM Atrial Rate : 068 BPM P-R Int : 178 ms QRS Dur : 108 ms QT Int : 392 ms P-R-T Axes : 040 049 039 degrees QTc Int : 416 ms Normal sinus rhythm Normal ECG Confirmed by ANEUDY JENKINS, ЮЛИЯ ([id number]), managing editor MARYSOL BAHENA ([id number]) on 07/21/2021 9:21:11 AM Referred By: Trevon Almanzar Confirmed By:ЮЛИЯ AMADO MD
[2021-07-20 10:15] LABS: Hematocrit 39.4 % (40-54); Hemoglobin 13.9 g/dL (13.0-16.5); Mean Corp Hgb Conc 35.3 g/dL (32-36); Mean Corpuscular Hgb 32.8 pg (27.0-32.0); Mean Corpuscular Volume 92.9 fL (80-94); Platelet Count 177 K/mm3 (150-450); RBC Distribution Width CV 12.2 % (11.6-14.6); RBC Distribution Width SD 41.9 fl (35.1-43.9); Red Blood Count 4.24 M/mm3 (4.6-6.2); White Blood Count 4.7 K/mm3 (4.4-11.0)
[2021-07-20 10:57] LABS: Anion Gap 4 (5-15); BUN 18 mg/dL (7-18); BUN/Creat Ratio 21.4 RATIO (10-20); Calcium,Total 8.7 mg/dL (8.5-10.1); Chloride 106 mmol/L (98-107); Creatinine, Serum 0.84 mg/dL (0.70-1.30); EST Glomerular Filtration Rate 100 mL/min (>60); Est Glom Filt Rate - Afr Amer 121 mL/min (>60); Glucose 102 mg/dL (74-106); Potassium 4.3 mmol/L (3.5-5.1); Sodium Level 138 mmol/L (136-145)
[2021-07-21 11:01] VITALS: BP 137/96; PULSE 75; RESP 16; TEMP 35.7; O2SAT 100; BMI 34.8
[2021-07-21] MEDS: Lactated Ringers 1,000 ML 15 ML IV (11:15)
[2021-07-21] MEDS: Cefazolin 2 GM in 0.9% Normal Saline 100 ML IV (12:05)
[2021-07-21] MEDS: Lidocaine 1% /Epi 1:100 (50ml) 50 ML VIAL (12:19)
[2021-07-21] MEDS: Epinephrine (1 mg/ml) 1 MG/ML VIAL (12:19)
[2021-07-21] MEDS: Bupivacaine Mpf 0.5% 30 ML VIAL (13:15)
[2021-07-21] MEDS: MethylPREDNISolone Acetate 40 MG/ML Vial IM (13:15)
--- NOTE | 2021-07-21 13:25 | HP.PCM_ITS ---
History and Physical Date of Admission: 07/21/21 Date of Service: 05/25/21 MR#:[id number]:[id number]: JACINTO COSTA PRep #:[id number] Provider:Dr. Trevon Almanzar DOAge/Sex: 56/M Location:[facility]:Signed Intake Intake Visit Reasons: right shoulder Allergies No Known Allergies Allergy (Verified 11/28/20 08:43) Medications multivitamin 1 tab PO DAILY 07/06/18 [History Confirmed 05/25/21] omega-3 fatty acids 1,000 mg capsule 1,000 mg PO DAILY 07/06/18 [History Confirmed 05/25/21] duloxetine 30 mg capsule,delayed release ea PO 07/23/20 [History Confirmed 05/25/21] celecoxib 200 mg capsule 200 mg PO DAILY #30 cap 11/27/20 [Rx Confirmed 05/25/21] antiarthritic combination no.2 900 mg tablet mg PO 05/25/21 [History Confirmed 05/25/21] cholecalciferol (vitamin D3) 125 mcg (5,000 unit) capsule 125 mcg PO DAILY 05/25/21 [History Confirmed 05/25/21] coenzyme Q10 75 mg capsule 75 mg PO DAILY 05/25/21 [History Confirmed 05/25/21] [facility] Medical History (Updated 05/25/21 @ 10:[address] Trevon Almanzar DO) Lumbar radiculopathy Nonrheumatic mitral (valve) prolapse Palpitations Paroxysmal atrial fibrillation Premature atrial contraction Premature ventricular contraction Surgical History History of foot surgery History of nasal surgery Family History Father CAD (coronary artery disease) History of coronary artery bypass surgery, Onset Age: 53 Grandmother Diabetes Congestive heart failure Mother Diabetes Social History Smoking Status: Never smoker alcohol intake: current details: occasional HPI right shoulder Details: Parts of this documentation were recorded by a scribe, this documentation accurately reflects the service provided and the decisions made by pa, Dr. Trevon Almanzar DO 05/25/21 0837. JACINTO COSTA is a 56 year old M here today for follow up on right shoulder. Pt had subacromial injection on 10/21/20. Pt states injection was effective until about 3 weeks ago. Pt would like to discuss surgery options. Pt states he is having increased with most activities. Pt not sleeping well at night due to increased pain. Pain in anterior deltoid. Pt states he has tightness in trap. Pt also states he is having numbness and tingling into right arm and hands at times. Worse with overhead reaching and certain positions Ortho Exam General General: Yes no acute distress Neurologic: Yes alert and Yes oriented x3 Psychologic: Yes reasonable and appropriate Right Shoulder Skin/Wound: No ecchymosis, No erythema and No swelling Testing: Positive Hawkin's, Neer's, Speed's, TTP Biceps and belly press normal; Negative TTP AC Joint, Drop Arm or Apprehension Test SHOULDER: no ac joint tenderness 158 forward elevation 115 abduction 35 external rotation He has 5 out of 5 rotator cuff strength in all directions Supplemental Info 10/08/2020 MRI arthrogram right shoulder: High-grade partial tearing of the supraspinatus tendon, osteoarthritis of the AC joint with type II acromion morphology subdeltoid bursitis Coding Level of Care Code Off vis,est,level 3 Diagnoses Impingement syndrome of right shoulder M75.41 Incomplete rotator cuff tear M75.111 Rotator cuff tear trauma status: nontraumatic Laterality: right Biceps tendinitis of right shoulder M75.21 Assessment and Plan Assessment and Plan (1) Impingement syndrome of right shoulder: Status: Acute (2) Incomplete rotator cuff tear: Status: Acute Qualifiers: Rotator cuff tear trauma status: nontraumatic Laterality: right Qualified Code(s): M75.111 - Incomplete rotator cuff tear or rupture of right shoulder, not specified as traumatic (3) Biceps tendinitis of right shoulder: Status: Acute Comment: A refill was sent in for Celebrex. If he needs any after this, we will order labs. Plan - Dr. Trevon Almanzar, DO: Once again Jacinto is here for his right shoulder he feels this is an ongoing problem. We once again reviewed the MRI showing a high-grade partial-thickness tear of the supraspinatus as well as subdeltoid bursitis and AC joint arthritis clinically he also has some symptoms of biceps tendinitis. He also has polyarthralgia and we discussed consultation with rheumatology for which she wishes to proceed. He also does not have a primary care doctor and we did recommend some doctor for him to get established with. Specifically in regards to the shoulder we discussed repeat injection versus arthroscopy patient does wish to proceed with the surgical option at this point he understands risk benefits and alternatives of surgery including risk of bleeding infection nerve artery tissue damage need for further surgery continued pain postoperative stiffness and expected postoperative course course including physical therapy, Stroke. We discussed proceeding with a right shoulder arthroscopic evaluation of rotator cuff debridement versus repair subacromial decompression with acromioplasty possible biceps tenotomy and surgery as indicated. 05/25/21 1102<Electronically signed by Trevon Almanzar DO>Date Trevon Almanzar DO Cosigner Signature:Date (if applicable) I have examined the patient the following changes are noted:I have re-examined the patient. There are no clinical changes since date of exam
--- NOTE | 2021-07-21 13:27 | PCM.OPRPT ---
Report of Operation Date of Procedure: 07/21/21 Description of Surgical Findings:: Preoperative diagnosis: Right shoulder impingement bursitis biceps tendinitis partial-thickness subscapularis tear Postoperative diagnosis: Right shoulder type II SLAP degenerative labral tearing partial-thickness superior leading edge subscapularis tear partial-thickness undersurface anterior supraspinatus tear impingement, bursitis Procedure: Arthroscopic labral debridement biceps tenotomy rotator cuff debridement subscapularis and supraspinatus subacromial decompression Anesthesia: General with interscalane block; EBL: 10 cc Complications: none Indication for procedure: 56-year-old male with 30 years of right shoulder pain who had an injury 30 years ago where his arm was twisted behind his back and is had pain ever since he has failed conservative treatment including injection therapy and physical therapy he has had relief temporarily in the subacromial space and biceps tendon with injections he did have an MRI arthrogram which did not demonstrate any labral pathology but did demonstrate an undersurface partial-thickness tear of the supraspinatus as well as bursitis and impingement patient did wish to proceed with an arthroscopic subacromial decompression possible biceps tenotomy evaluation possible repair of rotator cuff. risks benefits and alternatives of the procedure were reviewed including risk of bleeding infection nerve artery tissue damage need for further surgery continued pain postoperative stiffness and need for postoperative physical therapy and continued pain. Procedure : Patient was met in the preoperative holding area the operative extremity was identified by both the patient and the physician and was marked. Patient was met by anesthesia and brought back to the operating room on a wheeled cart. She was transferred to the operating table in the supine position. Anesthesia was started. Patient was then positioned in the beachchair configuration. Bony prominences were well-padded. The patient was prepped and draped in the usual sterile fashion. A timeout was called to ensure the proper patient procedure and extremity were being contemplated. Anatomic landmarks were palpated and marked with a marking pen. A 0.25% Marcaine with epinephrine was injected into the planned portal sites. An 11 blade scalpel was used to make a stab incision in the posterior lateral portal. Arthroscope was inserted into the glenohumeral space with ease. Inflow and outflow tubes were attached and arthroscopic visualization began. An anterior portal was established with an 18-gauge spinal needle. Immediately there was noted to be circumferential degenerative tearing of the labrum and there was detachment of the superior labrum underneath the biceps labral anchor the biceps itself did have some degenerative changes as well with the use of an ArthroCare wand a biceps tenotomy was performed and the remainder of the degenerative labral tissue that was frayed was removed with a shaver. The subscapularis had a superior leading edge partial-thickness tear which was debrided with a shaver as well as the undersurface of the supraspinatus but was not full-thickness and was not more than 50% of thickness tear. The arthroscope was then repositioned into the subacromial space there was significant bursal thickening of acromial decompression of bursal tissue as well as acromioplasty were performed there is large anterior acromial spurring which was removed bursal side of the cuff was evaluated and there was no full-thickness tear seen or palpated with probe probe the wound was thoroughly irrigated through the scope followed by a subacromial injection with 40 mg Depo-Medrol 4 mg of morphine and 8 cc of 0.5% Marcaine plain. Suture portals were closed with 3-0 nylon arthroscopic stitches followed by Xeroform 4 x 4 ABD and a Ioban dressing. A regular sling was placed. Anesthesia was reversed and patient tolerated the procedure well was and was transferred to the PACU all counts were correct patient will follow-up in the office in 2 weeks patient may begin active range of motion immediately
--- NOTE | 2021-07-21 13:32 | EX.PCM.DISCH ---
Discharge Instructions Dressing / Incision Additional Dressing/Incision Instructions:: Leave the dressing on and intact for 48 hours. Then may remove and shower with warm water and antibacterial soap. But do not submerge in tub for 3 weeks. ice shoulder 15 min on and 15 mins off next 72 hrs. May remove sling for elbow range of motion and pendulum exercises may preform active range of motion of shoulder when pain allows. discontinue sling over the course to the week as pain allow. DC completely by 1 week. Do not lift push or pull greater then 1 lbs with operative extremity. Encourage finger and wrist range of motion. If any concerns call Dr. Almanzar's office. Follow Up Care Please Follow Up With: Trevon Almanzar DO When: 2 weeks Test Results: Test results from this visit will be discussed in further detail at your follow-up appointment, if applicable. Discharge Plan Admission Attending Provider: Trevon Almanzar Primary Care Provider: Roberta Stanford Discharge Orders/Prescriptions Prescriptions: New oxycodone 5 mg tablet 5 mg PO Q4H PRN (Reason: pain) 5 Days Qty: 40 RF: 0 No Action multivitamin tablet 1 tab PO DAILY RF: 0 omega-3 fatty acids [Fish Oil Concentrate] 1,000 mg capsule 1,000 mg PO DAILY RF: 0 duloxetine 30 mg capsule,delayed release(DR/EC) 30 mg PO DAILY RF: 0 cholecalciferol (vitamin D3) 125 mcg (5,000 unit) capsule 125 mcg PO DAILY RF: 0 glucosamine-chondroitin 900 mg tablet 900 mg PO DAILY RF: 0 Ultra CoQ10 75 mg capsule 75 mg PO DAILY RF: 0 acetaminophen 650 mg tablet extended release 1,300 mg PO Q12H PRN (Reason: pain) RF: 0 acetaminophen [Tylenol Arthritis] 650 mg Tablet Extended Release 1,300 mg PO Q12H PRN (Reason: Pain) RF: 0 vitamin B complex Tablet 1 tab PO DAILY RF: 0 turmeric 400 mg Capsule 400 mg PO DAILY RF: 0 Dim 400 mg PO/SL DAILY RF: 0 celecoxib [Celebrex] 200 mg capsule 200 mg PO DAILY Qty: 30 RF: 1 Referrals / Follow Up: Roberta Stanford MD [Primary Care Provider] - Disposition Disposition (needs filled in before D/C Order can be placed): Home, Self Care
[2021-07-21 13:41] VITALS: BP 126/89; BP 137/96; PULSE 71; RESP 16; TEMP 36.4; O2SAT 96
[2021-07-21 13:45] VITALS: BP 134/78; BP 137/96; PULSE 69; RESP 16; O2SAT 95
[2021-07-21 14:00] VITALS: BP 137/96; BP 145/74; PULSE 63; RESP 16; O2SAT 98
[2021-07-21 14:15] VITALS: BP 129/74; BP 137/96; PULSE 59; RESP 14; TEMP 36.4; O2SAT 98
[2021-07-21 15:04] VITALS: BP 137/96; BP 142/80; PULSE 60; RESP 16; TEMP 36.3; O2SAT 95
== END 2021-07-21 23:59 | disposition home or self-care (01) ==
LOC: SDC 10:37 → AC 10:37
PROVIDERS: Anesthesiology; Referring Provider Orthopaedic Surgery; Visit Provider Orthopaedic Surgery
PROC: (CPT 29827; principal; 2021-07-21 11:40)
DX: S43.431A Superior glenoid labrum lesion of right shoulder, initial encounter (principal); M75.41 Impingement syndrome of right shoulder; X50.1XXA Overexertion from prolonged static or awkward postures, initial encounter; M75.51 Bursitis of right shoulder; M75.111 Incomplete rotator cuff tear or rupture of right shoulder, not specified as traumatic; M75.21 Bicipital tendinitis, right shoulder; I48.0 Paroxysmal atrial fibrillation; E78.00 Pure hypercholesterolemia, unspecified; Z79.899 Other long term (current) drug therapy
CPT/HCPCS: 29826; 29822; 64415; 36415; 80048; 85027; 87426; 93005; C9803; J7120; J2405

== ENCOUNTER 2021-08-06 06:31 | Outpatient (CLI) | payer OTHER, SELFPAY ==
--- NOTE | 2021-08-06 06:42 | MRI_ITS ---
STUDY: MRI LUMBAR SPINE WITHOUT CONTRAST REASON FOR EXAM: Male, 56 years old. SPONDYLOLISTHESIS, STENOSIS, chronic low back pain TECHNIQUE: Standardized fat and water weighted pulse sequences were obtained in the sagittal and axial planes. COMPARISON: None FINDINGS: T12-L1: Normal endplates. Normal disc height, hydration and morphology. Normal bilateral facet joints. Normal central canal and bilateral lateral recesses. Normal bilateral intervertebral neural foramina. No marrow edema or fracture or compression deformity. Normal lumbar lordosis. There is a dextroscoliosis of the lumbar spine. Normal conus medullaris that terminates at the T12 level. L1-2: Normal endplates. Normal disc height, hydration and morphology. Normal bilateral facet joints. Normal central canal and bilateral lateral recesses. Normal bilateral intervertebral neural foramina. L2-3: Normal endplates. Diffuse disc desiccation. Moderate facet joint and ligamenta flava hypertrophy results in bilateral lateral recess stenosis with compression on the left but not on the right and moderate central canal stenosis. Posterior epidural lipomatosis contributes to central canal stenosis Normal bilateral intervertebral neural foramina. L3-4: Diffuse disc desiccation, mild disc space narrowing and diffuse disc spur complex combined with mild to moderate facet joint and ligamenta flava hypertrophy results in bilateral lateral recess stenosis with nerve root compression and mild to moderate central canal stenosis. Posterior epidural lipomatosis contributes to central canal stenosis. Normal bilateral intervertebral neural foramina. L4-5: Normal endplates. Diffuse disc desiccation and mild disc space narrowing and minimal annular bulging. Moderate central canal and bilateral lateral recess stenosis is present accentuated by posterior epidural lipomatosis and moderate facet joint and ligamenta flava hypertrophy. Normal bilateral intervertebral neural foramina. L5-S1: Normal endplates. Normal disc height, hydration and morphology. Normal bilateral facet joints. Normal central canal and bilateral lateral recesses. Normal bilateral intervertebral neural foramina. Normal visualized sacral ala. Normal visualized paraspinous soft tissue structures. MRI/Spine Lumbar (Routine) IMPRESSION: 1. Multilevel degenerative changes, as described above. 2. Mild to moderate central canal stenosis from L2-L3 down to L4-L5 primarily due to facet joint and ligament of flava hypertrophy. Electronically Signed: Noé Cabrales MD at 9:03 EDT ,
== END 2021-08-06 23:59 | disposition home or self-care (01) ==
PROVIDERS: Visit Provider Nurse Practitioner Acute Care
DX: M43.16 Spondylolisthesis, lumbar region (principal); M48.061 Spinal stenosis, lumbar region without neurogenic claudication
CPT/HCPCS: 72148

== ENCOUNTER 2021-09-07 08:30 | Outpatient (RCR) | payer OTHER, SELFPAY ==
--- NOTE | 2021-08-11 07:49 | HP.PTEVAL ---
Patient's Visit Information JACINTO COSTA is a 56 year old M referred to Physical Therapy by Dr. Trevon Almanzar DO with a diagnosis of S/P R SAD, debridement of subscap and supraspinatus a biceps tendonotomy. Date of Evaluation: 08/11/21 Physical Therapist: MODE Rivas - Visit Plan Frequency: 2x /Week Duration: 6 Weeks Plan: Dr ladd says to progress pt as pain limitations allow. 2X/ week for 4-6 weeks for PROM, AAROM, and AROM of the R shoulder, scapular stabilization, RC strengthening starting below 90 degrees and progressing as tolerated above 90 degrees, with HEP and modalities as needed.,. HEP: supine wand flex, standing wand abd, standing wand IR - Subjective On 07-21-2021 pt had subacromial decompression, debridement of subscap and supraspinatus and biceps tendotomy. He was in a sling for a few days. He is not sleeping well due to the pain. He has a 6 pillow system going. R handed. He has a constant ache. He reached for his sock a few weeks ago and he had a sharp pain and not sure if that was the bicep and Dr said it could have been. He is not on pain meds. He is retired. He is sleeping in his bed with 6 pillows. He was given restrictions of no more than 1#. then said that he could get back to biking 6 weeks post of surgery. - Pain R shoulder pain Pain Intensity (Out of 10): 4 - Objective R handed 105# and L handed 120#. R shoulder AROM: flex 130 degrees, ABD 110 degrees, ER 55 degrees, IR L1. L shoulder AROM: flex 145 degrees, ABD 150 degrees, ER 65 degrees, IR T12. R shoulder PROM: painful at end ranges (especially flex and abd). Posture: good upright posture - Balance/Special Test Scores Quick DASH Score: 31.8175 - Goals Goal 1:: I HEP Goal Time Frame: 6-8 Weeks Goal 2:: Increase R shoulder AROM flex and abd to equal that of the L (L shoulder flex 145 degrees and 150 degrees abd at initial eval). Goal Time Frame: 6-8 Weeks Goal 3:: Be able to have full use of R UE with all ADL's without pain Goal Time Frame: 6-8 Weeks - Rehabilitation Potential Rehabilitation Potential: Good - Anticipated Interventions Patient/Client Instruction: Educate patient on: Condition, Plan of Care For the Purpose of:: To decrease pain, To decrease swelling/inflammation, To increase ROM, To improve nutrient delivery to tissue, To improve muscle performance and motor function, To improve ability to perform ADL's, To increase tolerance to activity/condition/position, To improve performance and independence with ADL's, To decrease level of supervision to perform tasks, To improve ability of physical actions for home/community/work/leisure, To improve health of tissue, To decrease soft tissue restriction, To increase flexibility/ROM Therapeutic Exercise to Include: Strength training, Postural training, Flexibilty training, Neuromotor development, Passive ROM, Active ROM, Scapular Strength/Stabilization For the Purpose of:: To decrease pain, To increase ROM, To improve nutrient delivery to tissue, To increase oxygenation perfusion, To improve muscle performance and motor function, To improve ability to perform ADL's, To increase tolerance to activity/condition/position, To improve performance and independence with ADL's, To improve health of tissue, To decrease soft tissue restriction, To increase flexibility/ROM Manual Therapy Techniques to Include: Mobilization, Passive ROM For the Purpose of:: To decrease pain, To increase ROM, To improve nutrient delivery to tissue, To improve muscle performance and motor function, To increase tolerance to activity/condition/position, To improve health of tissue, To decrease soft tissue restriction, To increase flexibility/ROM IF ES: Yes Cryotherapy (ice pack, ice massage): Yes For the Purpose of:: To decrease pain, To increase ROM, To improve nutrient delivery to tissue, To improve muscle performance and motor function, To improve ability to perform ADL's, To increase tolerance to activity/condition/position, To improve performance and independence with ADL's, To decrease level of supervision to perform tasks, To improve ability of physical actions for home/community/work/leisure Thank you for the opportunity to evaluate your patient. For Medicare and Medicare HMO plans, please review the plan of care and approve it. It will need to be FAXED BACK to us at [phone] for Medicare purposes. For Medicare only, by signing this I certify the plan of care. Please let me know if there are questions or concerns regarding this plan of care. Physician Signature: Date:
--- NOTE | 2021-09-07 09:00 | HP.PTDCSUM ---
It has been my pleasure to treat JACINTO COSTA referred by Dr. Trevon Almanzar DO, with the diagnosis of S/P R SAD, debridement of subscap and supraspinatus a biceps tendonotomy for a total of 8 visit(s). Discharge Date: 09/07/21 Please see the following information for a summary of their discharge status. Subjective: Pt feels much better after the injection. He is going to have back surgery on October 02. He is ready to do HEP on his own after today. R shoulder pain Pain Intensity (Out of 10): 0 % Improvement: 92 Objective/Function: AROM R shoulder flex 162 degrees. AROM L shoulder abd 153. Pt still needs to work on posture. Goal 1:: I HEP Goal Progress: Goal Met Goal 2:: Increase R shoulder AROM flex and abd to equal that of the L (L shoulder flex 145 degrees and 150 degrees abd at initial eval). Goal Progress: Goal Met Goal 3:: Be able to have full use of R UE with all ADL's without pain Goal Progress: Goal Met Plan: DC PT to HEP Discharge Comments: DC PT to HEP If there are questions or concerns regarding this patient's physical therapy, please feel free to call me at [phone]. Thank you for the referral of this patient. Sincerely, Kaley Quinn, MPT Balance/Gait/Functional tests - Balance/Special Test Scores Quick DASH Score: [phone]
== END 2021-09-07 19:00 | disposition home or self-care (01) ==
LOC: PT 08:30
PROVIDERS: Referring Provider Orthopaedic Surgery; Visit Provider Orthopaedic Surgery
DX: Z98.890 Other specified postprocedural states (principal)
CPT/HCPCS: 97110; 97161; 97530

== ENCOUNTER 2021-12-18 07:00 | Outpatient (RCR) | payer OTHER, SELFPAY ==
--- NOTE | 2021-10-27 10:48 | HP.PTEVAL ---
Patient's Visit Information JACINTO COSTA is a 56 year old M referred to Physical Therapy by ARISTIDES Terrazas with a diagnosis of S/P L2-5 LAMINECTOMY, PARTIAL FACETECTOMY, FORAMINOTOMIES AND MICRODISECTOM. Date of Evaluation: 10/27/21 Physical Therapist: Jaquelin Rice, PT, Cert MDT - Visit Plan Frequency: 2-3x /Week Duration: 4-6 Weeks Plan: MH OR CP NEEDED. POSTURE CORRECTION/STRENGTHENING, INSTRUCTION IN APPROPRIATE BODY MECHANICS AND ACTIVITY MODIFICATIONS. DLS STARTING WITH A NEUTRAL SPINE PROGRESSING ROM (STARTING 11/17/21) TOLERATED. NEUTRAL SPINE ONLY X 3 WKS. AT 3 WKS CAN INITIATE SKTC AND LTR IN SUPINE LYING TOLERATED. SHAWN LE ROM, STRETCHING AND STRENGTHENING. HEP INSTRUCTION. - Subjective *DOS 09/30/21*. 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 Present symptoms: INTERMITTENT LOW BACK SORNESS/PAIN. NUMBNESS AND TINGLING LEFT THIGH. MY BIGGEST ISSUE IS THE INABILITY TO BEND, TWIST AND LIFT. PATIENT REPORTS DR. 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 SOMETIMES L THIGH PAIN IF FLARED UP. Present since: CHRONIC. Pain Scale: WORST 5/10 (DOESN'T LAST LONG), LEAST 1/10. Currently: 05/18. Commenced as a result of: NO APPARENT REASON OTHER THAN HS WRESTLING INJURY. Symptoms at onset: LOW BACK PAIN. Worse: BENDING, LISTING AND TWISTING. CARRYING GROCERIES TO THE TRUCK, SLIGHT BEND CUTTING VEGETABLES. Better: ICE, SITTING, RESTING, PAIN MEDS, CELEBREX. Disturbed sleep: NO - NOT DUE TO BACK OR LEG PAIN. Previous history/Previous treatment: PHYSICAL THERAPY, ABOUT 2 MARQUES'S, CHIROPRACTIC FOR YEARS. DRUGS AND DRINKING. Coughing/sneezing/straining: NEGATIVE NOW. Gait: NO AD'S. TIME AND DISTANCE LIMITED. ABLE TO STAND UP STRAIGHT NOW AND COULDN'T BEFORE SURGERY. MORE EVEN STRIDE NOW. FEELS WIERD WHEN HE WALKS. NOT SURE HOW TO DESCRIBE BUT GAIT FEELS UNCOORDINATED. Difficulty initiating urination: NO. Bowel or Bladder Dysfunction: NO. Unexplained weight loss: NO. Imaging: NO IMAGING SINCE SURGERY. PMH/Recent major surgery: MAR 2021 L THR. R SX AUGUST 2021. SHAWN FOOT SX'S. DEPRESSION. MILD ANGINA AT TIMES. - Objective Sitting/Standing Posture: FAIR. REDUCED LORDOSIS. Lordosis: REDUCED. Other Observations: THIS PATIENT AMBULATES INDEP'LY INTO PT TODAY WITHOUT ANY ASSISTVE DEVICES OR LOB. Sensory deficit: DECREASED L LATERAL THIGH LIGHT TOUCH SENSATION. ROM deficit: TIGHT SHAWN LE HS'S AND GASTROC SOLEUS COMPLEXS'. Motor deficit: SHAWN LE'S 5/5 EXCEPT HIPS 4/5. Reflexes: 2/3 SHAWN LE'S. Dural Signs: NEGATIVE SHAWN LE'S. Lumbar mvmt loss: NT. Core strength: POOR. Palpation: INCISION LOOKS GOOD WITHOUT ANY SIGNS OF INFECTION. TREATMENT: NEUROMUSCULAR REEDUCATION - INTRO TO RETRAINING OF MVMT AND POSTURE FOR SITTING, LYING AND STANDING ACTIVITIES. INITIATED HEP WITH SUPINE ISO ABDOMINALS AND SHAWN LE DURAL STRETCHING. TOLERATED EX WELL. EDUCATED PATIENT ON APPROPRIATE HEALING TIME AND PRECAUTIONS - AVOID BENDING, LIFTING AND TWISTING. OTHER: PATIENT REPORTS HE IS IN A HURRY TO GET BETTER. STATES HE EXPECTED TO BE ABLE TO GET BACK TO NORMAL ACTIVITY AT ABOUT 6 WKS POST OP. 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 - Balance/Special Test Scores Oswestry Low Back Score: 12 - Goals Goal 1:: DECREASE C/O LOW BACK AND LEFT THIGH SX'S. Goal Time Frame: 4-6 Weeks Goal 2:: IMPROVE PERSONAL CARE, LIFTING, WALKING, STANDING, SITTING, SOCIAL LIFE, TRAVEL AND WORK FUNCTION. Goal Time Frame: 4-6 Weeks Goal 3:: INSTRUCT IN PROPHYLAXIS Goal Time Frame: 4-6 Weeks - Anticipated Interventions Patient/Client Instruction: Educate patient on: Condition, Plan of Care, Risk Factors For the Purpose of:: To improve self management Therapeutic Exercise to Include: Strength training, Body mechanics, Postural training, Flexibilty training, Gait and locomotor training, Neuromotor development, In an aquatic setting, Dynamic Lumbar Stabilization Comment: CONSIDER AQUATIC THERAPY IN THE FUTURE IF NEEDED AND OK'D BY DR. BRIDGES. For the Purpose of:: To decrease pain, To increase ROM, To improve muscle performance and motor function, To increase tolerance to activity/condition/position, To improve ability of physical actions for home/community/work/leisure, To improve gait and locomotor functions Thank you for the opportunity to evaluate your patient. For Medicare and Medicare HMO plans, please review the plan of care and approve it. It will need to be FAXED BACK to us at [phone] for Medicare purposes. For Medicare only, by signing this I certify the plan of care. Please let me know if there are questions or concerns regarding this plan of care. Physician Signature: Date:
--- NOTE | 2022-02-16 12:57 | HP.PT.NRP ---
JACINTO COSTA was seen in my office for initial evaluation on 10/27/21. The following Plan of Care was established for this patient: Initial Frequency: 2-3x /Week Initial Duration: 4-6 Weeks Patient/Client Instruction: Educate patient on: Condition, Plan of Care, Risk Factors For the Purpose of:: To improve self management Therapeutic Exercise to Include: Strength training, Body mechanics, Postural training, Flexibilty training, Gait and locomotor training, Neuromotor development, In an aquatic setting, Dynamic Lumbar Stabilization For the Purpose of:: To decrease pain, To increase ROM, To improve muscle performance and motor function, To increase tolerance to activity/condition/position, To improve ability of physical actions for home/community/work/leisure, To improve gait and locomotor functions This patient was last seen in our office 12/18/21. Pertinent comments regarding their Physical therapy will appear below: This patient has not returned to Physical Therapy and is appropriate to return to MD for further follow-up as needed. At this point I will be discontinuing this patient from physical therapy. I would be happy to see this patient again in the future if found appropriate by the physician. Thank you! Jaquelin Rice, PT, Cert MDT Balance/Gait/Functional tests - Balance/Special Test Scores Oswestry Low Back Score: 12
== END 2021-12-18 19:00 | disposition home or self-care (01) ==
LOC: PT 07:00
PROVIDERS: Referring Provider Nurse Practitioner Acute Care; Visit Provider Nurse Practitioner Acute Care
DX: Z48.89 Encounter for other specified surgical aftercare (principal)
CPT/HCPCS: 97110; 97112; 97162; 97530

== ENCOUNTER → 2022-03-23 | Outpatient (CLI) | payer OTHER, SELFPAY ==
[2022-03-23 16:30] LABS: Bacteria 0 SEEN /hpf (None Seen); Mucous, Urine 0 SEEN /hpf (<or=2+); Red Blood Cells-Urine 0 SEEN /hpf (0-5); Squamous Epithelial Cells - UA 0 SEEN /hpf (0-5); White Blood Cells 0 SEEN /hpf (0-5)
[2022-03-23 17:04] LABS: Color, Urine Yellow (Yellow); Glucose, Dipstick Normal (Normal); Ketone-Dipstick 5 mg/dl (Negative); Leukocyte Esterase-Dipstick Negative /ul (Negative); Nitrite-Dipstick Negative (Negative); Occult Blood-Urine Negative /ul (Negative); Protein-Dipstick Negative (Negative); Urine Bilirubin Dipstick Negative (Negative); Urine Clarity Clear (Clear); Urine Urobilinogen Normal (Normal)
== END | disposition home or self-care (01) ==
LOC: LABSPEC 16:27
PROVIDERS: Referring Provider Physician Assistant; Visit Provider Physician Assistant
DX: N23 Unspecified renal colic (principal)
CPT/HCPCS: 81001; 87086; 87088

== ENCOUNTER 2022-03-28 01:48 | Emergency (ER) | payer OTHER, SELFPAY ==
[2022-03-28] VITALS (11 sets, daily range): BP systolic 106–160; BP diastolic 74–101; PULSE 61–144; RESP 14–20; TEMP 35.7; O2SAT 96–99; BMI 36.0
--- NOTE | 2022-03-28 02:21 | EKG12_ITS ---
Test Reason : DYSRYTHMIA Blood Pressure : / mmHG Vent. Rate : 126 BPM Atrial Rate : 129 BPM P-R Int : 000 ms QRS Dur : 096 ms QT Int : 320 ms P-R-T Axes : 000 058 025 degrees QTc Int : 463 ms Atrial fibrillation with RVR Nonspecific ST abnormality Abnormal ECG Confirmed by ANEUDY JENKINS, ЮЛИЯ ([id number]), editor continuity and script MARYSOL BAHENA ([id number]) on 03/30/2022 8:08:28 AM Referred By: MAGALI Confirmed By:ЮЛИЯ AMADO MD
[2022-03-28 02:30] LABS: Absolute Lymphocyte Count 2.53 X10^3/uL (0.83-4.51); Absolute Neutrophil Count 2.2 X10^3/uL (2.0-7.7); Basophil# 0.04 X10^3/uL; Basophil% 0.7 % (0-1); Eosinophil# 0.13 X10^3/uL; Eosinophils% 2.4 % (0-5); Hematocrit 42.5 % (40-54); Hemoglobin 14.9 g/dL (13.0-16.5); Lymphocyte # 2.53 X10^3/ul (0.83-4.51); Lymphocyte % 46.9 % (19-41); Mean Corp Hgb Conc 35.1 g/dL (32-36); Mean Corpuscular Hgb 31.9 pg (27.0-32.0); Mean Platelet Vol. 9.2 fl (6.2-12.0); Monocyte# 0.49 X10^3/uL; Monocyte% 9.1 % (0-10); NRBC Flagged by Analyzer 0 % (0-5); Neutrophil # 2.19 X10^3/uL (2.7-7.7); Neutrophil % 40.7 % (47-70); Platelet Count 210 K/mm3 (150-450); RBC Distribution Width CV 12.4 % (11.6-14.6); Red Blood Count 4.67 M/mm3 (4.6-6.2); White Blood Count 5.4 K/mm3 (4.4-11.0)
[2022-03-28] MEDS: dilTIAZem 25 MG/5 ML Vial 20 MG IV BOLUS (02:33)
[2022-03-28 02:39] LABS: International Normalized Ratio 0.9; Prothrombin Time (Protime)PT. 11.3 SECONDS (11.7-14.9)
[2022-03-28 02:40] LABS: Partial Thromboplast Time 31.4 Seconds (24.1-36.2)
[2022-03-28 02:54] LABS: Anion Gap 8 (5-15); BUN 13 mg/dL (7-18); BUN/Creat Ratio 13.6 RATIO (10-20); Calcium,Total 8.6 mg/dL (8.5-10.1); Chloride 108 mmol/L (98-107); Creatinine, Serum 0.96 mg/dL (0.70-1.30); EST Glomerular Filtration Rate 86 mL/min (>60); Est Glom Filt Rate - Afr Amer 104 mL/min (>60); Estimated Creatinine Clearance 97.52 ml/min; Glucose 163 mg/dL (74-106); Magnesium 2.2 mg/dL (1.6-2.6); Potassium 3.7 mmol/L (3.5-5.1); Sodium Level 140 mmol/L (136-145); Thyroid Stim Hormone (TSH) 3.32 uIU/mL (0.358-3.74); Troponin-I HS 8 pg/mL (3.0-78.0)
[2022-03-28 02:58] LABS: D-Dimer Quantitative (DVT/PE) 0.68 FEU/ug/m (0.27-0.49)
--- NOTE | 2022-03-28 03:22 | CT_ITS ---
EXAM: CT pulmonary angiogram. HISTORY: elevated d-dimer with chest pain TECHNIQUE: CTA Chest WO/W Contrast Injection A radiation dose optimization technique was used for this scan. Multiplanar reconstructions were obtained. 3-D postprocessing was performed. COMPARISON: None. LIMITATIONS: None. LUNGS: No confluent airspace disease. PULMONARY VESSELS: No pulmonary emboli identified. PLEURA: Normal. MEDIASTINUM: Normal. HEART: Not enlarged. Trace pericardial effusion. AORTA: No thoracic aortic aneurysm or dissection. UPPER ABDOMEN: Fatty infiltration of the liver. BONES/SOFT TISSUES: No acute fracture. OTHER: The thyroid gland is heterogeneous and likely contains several nodules including a punctate calcified nodule. CONCLUSION: No evidence of pulmonary embolism. Electronically Signed: Facundo Anderson MD at 4:25 EST , CT/CTA Chest W/WO Contrast IMPRESSION: undefined
[2022-03-28] MEDS: 0.9% Normal Saline 1,000 ML 999 ML IV (03:49)
[2022-03-28] MEDS: Metoprolol Tartrate 25 MG Tablet 50 MG PO (05:03)
--- NOTE | 2022-03-28 05:08 | ED.RN ---
cardizem drip stopped.
[2022-03-28] MEDS: dilTIAZem 60 MG Tablet PO (06:10)
[2022-03-28] MEDS: APIXABAN 5 MG TABLET PO (07:12)
--- NOTE | 2022-03-28 07:32 | EDS_ITS ---
HPI History of Present Illness Chief Complaint: Palpitations Narrative Narrative: Patient is a 57-year-old male with remote history of paroxysmal atrial fibrillation. He states he was at home this evening when he began to feel his heart race and checked his smart watch which recorded his heart rate up to 160. He states he is done this in the past multiple years ago but only lasted for few minutes and resolved. He states that this evening its been going on for a few hours. He denies any excessive stimulant or illicit drug use. He denies any chest pain or shortness of breath associated with this. He states there is been no excessive nausea vomiting diarrhea. He reports that as his irregular heart rate will not resolve he presents to the hospital for evaluation [facility] Medical History Alcohol use Anxiety Arthritis Back pain Back pain Bone fracture Cardiology follow-up encounter Chest pain Depression History of atrial fibrillation History of echocardiogram History of irregular heartbeat History of steroid therapy History of stress test Lumbar radiculopathy Nonrheumatic mitral (valve) prolapse Palpitations Paroxysmal atrial fibrillation Premature atrial contraction Premature ventricular contraction Thyroid disease Wears glasses Home Medications multivitamin 1 tab PO DAILY 07/06/18 [History Last Taken Unknown] omega-3 fatty acids 1,000 mg capsule (Fish Oil Concentrate) 1,000 mg PO DAILY 07/06/18 [History Last Taken Unknown] duloxetine 30 mg capsule,delayed release 30 mg PO DAILY 07/23/20 [History Last Taken Unknown] cholecalciferol (vitamin D3) 125 mcg (5,000 unit) capsule 125 mcg PO DAILY 05/25/21 [History Last Taken Unknown] coenzyme Q10 75 mg capsule (Ultra CoQ10) 75 mg PO DAILY 05/25/21 [History Last Taken Unknown] acetaminophen 650 mg tablet,extended release 1,300 mg PO Q12H PRN pain 07/02/21 [History Last Taken Unknown] Dim 400 mg PO/SL DAILY 07/07/21 [History Last Taken Unknown] turmeric 400 mg capsule 400 mg PO DAILY 07/07/21 [History Last Taken Unknown] vitamin B complex 1 tab PO DAILY 07/07/21 [History Last Taken Unknown] apixaban 5 mg tablet (Eliquis) 5 mg PO BID 30 days #60 tabs 03/28/22 [Rx Last Taken Unknown] apixaban 5 mg tablet (Eliquis) 5 mg PO BID 30 days #60 tabs 03/28/22 [Rx Last Taken Unknown] diltiazem HCl 60 mg tablet (Cardizem) 60 mg PO 4X/DAY 30 days #120 tabs 03/28/22 [Rx Last Taken Unknown] diltiazem HCl 60 mg tablet (Cardizem) 60 mg PO 4X/DAY 30 days #120 tabs 03/28/22 [Rx Last Taken Unknown] metoprolol tartrate 50 mg tablet 50 mg PO BID 30 days #60 tabs 03/28/22 [Rx Last Taken Unknown] metoprolol tartrate 50 mg tablet 50 mg PO BID 30 days #60 tabs 03/28/22 [Rx Last Taken Unknown] Allergy/AdvReac Type Severity Reaction Status Date / Time No Known Allergies Allergy Verified 03/28/22 01:52 Family History Father CAD (coronary artery disease) History of coronary artery bypass surgery, Onset Age: 53 Depression Hypertension COPD (chronic obstructive pulmonary disease) Grandmother Diabetes Congestive heart failure Myocardial infarction Mother Diabetes Thyroid disorder Sister Anxiety Radha's disease Depression Thyroid disorder Grandfather Parkinson disease Surgical History H/O foot surgery History of foot surgery History of hip replacement History of lumbar surgery History of nasal surgery Hx of colonoscopy Social History Smoking Status: Never smoker alcohol intake: current alcohol intake frequency: 0-2 drinks per day details: occasional substance use type: does not use ROS ROS ED Constitutional Constitutional ED: Denies chills or fever(s) ENT ENT ED: Denies sore throat Cardiovascular Cardiovascular: Reports palpitations and racing heartbeat; Denies chest pain Respiratory/Chest Respiratory/Chest: Denies cough or dyspnea Gastrointestinal Gastrointestinal: Denies abdominal pain, diarrhea, nausea or vomiting Genitourinary Genitourinary ED: Denies dysuria Musculoskeletal Musculoskeletal: Denies myalgias Integumentary Denies rash Neurologic Neurologic: Denies headache(s) Hematologic/Lymphatic Hematologic/Lymphatic: Denies easy bleeding or easy bruising EXAM Physical Exam Const Vital Signs: 03/28/22 01:49 03/28/22 01:51 03/28/22 01:53 Temperature 96.2 F L 96.2 F L Temperature Source Temporal Temporal Pulse Rate 61 67 Respiratory Rate 18 18 Respiratory Effort Normal Non-Labored Respiratory Pattern Normal Blood Pressure 160/101 H 160/101 H Blood Pressure Mean 120 120 Blood Pressure Source Blood Pressure Position Blood Pressure Location Pulse Ox 99 96 Oxygen Delivery Method Room Air Room Air 03/28/22 02:50 03/28/22 03:00 03/28/22 03:49 Temperature Temperature Source Pulse Rate 87 103 H 115 H Respiratory Rate 20 H 18 16 Respiratory Effort Respiratory Pattern Blood Pressure 106/82 H 113/86 H 140/87 H Blood Pressure Mean 90 95 104 Blood Pressure Source Monitor Blood Pressure Position Supine Blood Pressure Location Right Arm Pulse Ox 97 96 96 Oxygen Delivery Method Room Air Room Air Room Air 03/28/22 04:21 03/28/22 05:00 03/28/22 06:00 Temperature Temperature Source Pulse Rate 99 97 123 H Respiratory Rate 14 20 H 15 Respiratory Effort Respiratory Pattern Blood Pressure 116/81 H 117/88 H 109/92 H Blood Pressure Mean 92 97 97 Blood Pressure Source Blood Pressure Position Blood Pressure Location Pulse Ox 98 97 98 Oxygen Delivery Method Room Air Room Air Room Air 03/28/22 06:20 03/28/22 06:35 Temperature Temperature Source Pulse Rate 144 H 96 Respiratory Rate 18 Respiratory Effort Respiratory Pattern Blood Pressure 118/91 H Blood Pressure Mean 100 Blood Pressure Source Blood Pressure Position Blood Pressure Location Pulse Ox 97 Oxygen Delivery Method Room Air Positive well nourished and well developed General Appearance ED: well developed HEENT Reports moist mucous membranes Eyes PERRL and EOMs intact bilaterally Neck supple Neck Narrative: Thyroid is without nodule or goiter Resp normal respiratory effort and clear to auscultation bilaterally Cardio Rate: tachycardic and other Other Details: Irregularly irregular rhythm with tachycardic rate consistent with atrial fibrillation with RVR GI normal to inspection, nondistended, normoactive bowel sounds, non-tender and non-distended GI Narrative: No voluntary guarding or rigidity no pulsatile mass Auscultation: normoactive bowel sounds Palpation: soft Extremity normal to inspection Extremity Narrative: No asymmetric edema no pitting edema negative Homans' sign bilaterally Neuro oriented x3 and CN's II-XII intact bilaterally Sensorium / Orientation: alert Psych mental status grossly normal Skin no rashes or lesions noted MDM MDM MDM Narrative Medical decision making narrative: Patient presented to the ER in atrial fibrillation with RVR but otherwise in no acute distress. Secondary to his irregular heart rhythm a basic work-up was obtained to check for possible cause. Labs revealed no clinically significant findings but his D-dimer was slightly elevated so CTA was added. CTA showed no PE. Patient was initially started on Cardizem drip and this did reduce his heart rate to approximately 90 to 100 bpm. The case was discussed with cardiology on-call and they recommend trying the patient on oral rate control medication and observing for approximately 2 hours. They feel that if the oral medication controls his rate then he can be discharged with that medication and anticoagulation. Patient will start Eliquis and he was given oral metoprolol. This did not reduce the rate so approximately half hour to an hour after the metoprolol was given he was given oral Cardizem. With the addition of oral Cardizem his heart reduced into the 80s and remained this way for approximately 2 hours. Therefore at this time as he is now rate controlled on oral medication and is anticoagulated with the remainder of his work-up showing no acute findings he can follow-up on an outpatient basis Lab Data Attestation: I reviewed the patient's lab results. Labs: Laboratory Results - last 24 hr 03/28/22 03/28/22 03/28/22 02:05 02:05 02:05 WBC 5.4 RBC 4.67 Hgb 14.9 Hct 42.5 MCV 91.0 MCH 31.9 MCHC 35.1 RDW Std Deviation 41.0 RDW Coeff of Holger 12.4 Plt Count 210 MPV 9.2 Immature Gran % (Auto) 0.200 Neut % (Auto) 40.7 L Lymph % (Auto) 46.9 H Cottle % (Auto) 9.1 Eos % (Auto) 2.4 Baso % (Auto) 0.7 Absolute Neuts (auto) 2.2 Absolute Lymphs (auto) 2.53 Nucleated RBC % 0 PT 11.3 L INR 0.9 APTT 31.4 D-Dimer Quant (PE/DVT) 0.68 H* Sodium 140 Potassium 3.7 Chloride 108 H Carbon Dioxide 24.0 Anion Gap 8 BUN 13 Creatinine 0.96 Estim Creat Clear Calc 97.52 Est GFR (MDRD) Af Amer 104 Est GFR (MDRD) Non-Af 86 BUN/Creatinine Ratio 13.6 Glucose 163 H Calcium 8.6 Magnesium 2.2 Troponin I High Sens 8 TSH 3.32 Radiography Diagnostic Testing: Clinical Impression(s) from Imaging Studies Chest CTA 03/28/22 03:22 IMPRESSION: undefined Discharge Plan Triage Chief Complaint: Palpitations ED Provider: Yony Mccord Dx/Rx/DC Orders Clinical Impression: Atrial fibrillation with rapid ventricular response Instructions: AFib Dc Prescriptions: New metoprolol tartrate 50 mg tablet 50 mg PO BID 30 Days Qty: 60 0RF diltiazem HCl [Cardizem] 60 mg tablet 60 mg PO 4X/DAY 30 Days Qty: 120 0RF Eliquis 5 mg tablet 5 mg PO BID 30 Days Qty: 60 0RF Eliquis 5 mg tablet 5 mg PO BID 30 Days Qty: 60 0RF metoprolol tartrate 50 mg tablet 50 mg PO BID 30 Days Qty: 60 0RF diltiazem HCl [Cardizem] 60 mg tablet 60 mg PO 4X/DAY 30 Days Qty: 120 0RF No Action multivitamin tablet 1 tab PO DAILY omega-3 fatty acids [Fish Oil Concentrate] 1,000 mg capsule 1,000 mg PO DAILY duloxetine 30 mg capsule,delayed release(DR/EC) 30 mg PO DAILY Label Comments: TAKE 1 CAPSULE BY MOUTH EVERY DAY cholecalciferol (vitamin D3) 125 mcg (5,000 unit) capsule 125 mcg PO DAILY Ultra CoQ10 75 mg capsule 75 mg PO DAILY acetaminophen 650 mg tablet extended release 1,300 mg PO Q12H PRN (Reason: pain) vitamin B complex Tablet 1 tab PO DAILY turmeric 400 mg Capsule 400 mg PO DAILY Dim 400 mg PO/SL DAILY Primary Care Provider: Roberta Stanford Referrals: Melva Alvares MD [Med Staff - Active Staff] - Roberta Stanford MD [Primary Care Provider] - Activity Restrictions/Additional Instructions: Please take the medication as directed to control your heart rate and prevent blood clots. Follow-up with cardiology to discuss continuing or changing medication and possible cardioversion. If you have worsening symptoms or any further concerns return to the ER for repeat evaluation Disposition Disposition: Home, Self Care Discharge Date/Time: 03/28/22 07:54
== END 2022-03-28 07:54 | disposition home or self-care (01) ==
PROVIDERS: Emergency Provider Emergency Medicine; Visit Provider Emergency Medicine
DX: I48.0 Paroxysmal atrial fibrillation (principal); Z79.899 Other long term (current) drug therapy
CPT/HCPCS: 71275; 80048; 83735; 84443; 84484; 85025; 85379; 85610; 85730; 93005; 96365; 96366; 96376; 99284; J7030; Q9967; A4216

== ENCOUNTER → 2022-05-17 | Outpatient (CLI) | payer OTHER, SELFPAY ==
--- NOTE | 2022-05-17 16:52 | CT_ITS ---
STUDY: CT ABDOMEN AND PELVIS WITH CONTRAST REASON FOR EXAM: Male, 57 years old. Right flank pain, right lateral abdominal pain RADIATION DOSAGE (If Supplied By Facility): CTDIvol = ( 16.57 ) mGy, DLP = ( 1347.85 ) mGycm TECHNIQUE: Transaxial images were obtained from the dome of the diaphragm to the symphysis pubis with oral contrast. Oral and amp; IV Readi-CAT and amp; 100mL Isovue-370 was administered. Sagittal and coronal images were reconstructed. Individualized dose optimization techniques were used for this CT. COMPARISON: None. FINDINGS: The visualized lung bases are unremarkable. The visualized portions of the heart are within normal limits. There is decreased attenuation of the liver consistent with steatosis. Normal gallbladder and extrahepatic biliary system. Normal spleen. Normal pancreas. Normal bilateral adrenal glands. Normal right kidney. Normal left kidney. Normal visualized stomach. Normal small intestine. Normal colon. The appendix is visualized and appears normal. Appendix seen on coronal recon images 69 through 78 Normal abdominal aorta. Normal inferior vena cava. Normal retroperitoneum. Normal urinary bladder. Normal abdominal wall. Bony structures show degenerative change. Replaced left hip joint is free of complication CT/Abdomen/Pelvis WITH Contrast IMPRESSION: Fatty liver, no discrete lesion No obstructive uropathy or suspicious solid renal lesion. No free intraperitoneal fluid, air, or suspicious adenopathy, normal appendix visualized. Electronically Signed: Bigg Metcalf MD at 9:55 EST ,
== END | disposition home or self-care (01) ==
LOC: CT 16:45
PROVIDERS: Referring Provider Internal Medicine; Visit Provider Internal Medicine
DX: K76.0 Fatty (change of) liver, not elsewhere classified (principal); M19.90 Unspecified osteoarthritis, unspecified site; Z96.642 Presence of left artificial hip joint; R19.7 Diarrhea, unspecified; R10.9 Unspecified abdominal pain
CPT/HCPCS: 74177; Q9967

== ENCOUNTER → 2022-06-02 | Outpatient (CLI) | payer OTHER, SELFPAY ==
[2022-06-02 11:10] LABS: Hematocrit 44.1 % (40-54); Mean Corpuscular Hgb 31.3 pg (27.0-32.0); Mean Corpuscular Volume 92.1 fL (80-94); Mean Platelet Vol. 9.2 fl (6.2-12.0); Platelet Count 209 K/mm3 (150-450); RBC Distribution Width CV 12.4 % (11.6-14.6); RBC Distribution Width SD 42.3 fl (35.1-43.9); Red Blood Count 4.79 M/mm3 (4.6-6.2); White Blood Count 5.3 K/mm3 (4.4-11.0)
[2022-06-02 11:28] LABS: Hemoglobin A1c 5.4 % (3.8-5.6)
[2022-06-02 11:38] LABS: Insulin 8.5 mU/L (2.6-37.6); Vitamin D,25 Hydroxy 34.7 ng/mL
[2022-06-02 11:45] LABS: ALB/GLOB Ratio 0.9 RATIO (0.9-2.4); AST(SGOT) 29 U/L (15-37); Alanine Aminotransfer ALT/SGPT 59 U/L (16-61); Albumin, Serum 3.5 g/dL (3.2-5.0); Alkaline Phosphatase 57 U/L (45-117); Anion Gap 4 (5-15); BUN 11 mg/dL (7-18); BUN/Creat Ratio 11.9 RATIO (10-20); CRP, High Sensitivity Cardiac 2.66 mg/L; Calcium,Total 8.7 mg/dL (8.5-10.1); Chloride 105 mmol/L (98-107); Cholesterol 241 mg/dL (200); Creatinine, Serum 0.92 mg/dL (0.70-1.30); EST Glomerular Filtration Rate 90 mL/min (>60); Est Glom Filt Rate - Afr Amer 108 mL/min (>60); Glucose 116 mg/dL (74-106); High Density Lipoprotein 35 mg/dL; PSA,Total - Annual Screen 2.51 ng/mL (0.00-4.00); Potassium 4.5 mmol/L (3.5-5.1); Protein, Total 7.5 g/dL (6.4-8.2); Sodium Level 139 mmol/L (136-145); Thyroid Stim Hormone (TSH) 1.13 uIU/mL (0.358-3.74); Triglycerides 226 mg/dL; Very Low Density Lipoprotein 45 mg/dL (5-40)
== END | disposition home or self-care (01) ==
LOC: LAB 10:33
PROVIDERS: Visit Provider Internal Medicine
DX: I48.0 Paroxysmal atrial fibrillation (principal); I49.3 Ventricular premature depolarization; R07.9 Chest pain, unspecified; Z68.34 Body mass index [BMI] 34.0-34.9, adult; E55.9 Vitamin D deficiency, unspecified; Z12.5 Encounter for screening for malignant neoplasm of prostate; E78.1 Pure hyperglyceridemia; E07.9 Disorder of thyroid, unspecified; E78.00 Pure hypercholesterolemia, unspecified
CPT/HCPCS: 36415; 80053; 80061; 82306; 83036; 83525; 84153; 84443; 85027; 86141; G0103

== ENCOUNTER 2022-06-16 15:00 | Outpatient (RCR) | payer OTHER, SELFPAY ==
--- NOTE | 2022-03-23 15:40 | HP.PTEVAL ---
Patient's Visit Information JACINTO COSTA is a 57 year old M referred to Physical Therapy by Dr. Roberta Stanford MD with a diagnosis of dorsalgia. Date of Evaluation: 03/23/22 Physical Therapist: Liborio Rodríguez DPT, OCS, CSCS - Visit Plan Frequency: 2-3x /Week Duration: 4-6 Weeks Plan: 2-3x/week for 4-6 weeks for. 1. rollout and stretch quads. 2. teach core strengtyh and yoga stretches for HEP for LB ROM. 3. Teach gym based core and general strength and CV and progress to gym HEP. Pt has L JANE in history and recent back surgery this year. - Subjective Chronic pain. PT helped in past but backslid. Gets R sided LBP, typically his pain has been L LB and leg pain. R side started about a month ago. 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 Standing has always hurt him. Walking is not so bad. Pain gets up to 1-8/10 adn limping. Has cane in truck that he uses on bad days. Lying on back helps. Ice helps. He has a antiinflammatory prescription which helps., as well as vicodin. Typically things feel loose and needs to strengthen. 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 Basic ADLs are getting done at most times. Hobbies include property and lots of chores. Blowing leaves did not bother him too much. - Pain R LB Pain Intensity (Out of 10): 1 Pain Intensity Range: 1, 9 - Objective Walks normal and I today. transfers bed adn chair I. Steps reciprocal without rail. L/S AROM ext mod limited and flexion min limited with some tightness centrally posterior at end range of both, SB min deficits B without pain. Core strength abs 3+ and back extension 3. hip AROM WFL L to 100 flexion without pain. Careful with rotations. extension to about 8 B. knee AROM WFL but quads max tight and limits knee flexion in prone. HS min tight at -20 90/90 test. hip strength 4- ext adn abd B, flexion 3+ B with some back discomfort. knee strength 5/5, ankle strength 5/5 B. reflexes 2/3 patella and achilles. Sensation WNL in LE. PA pressure painful lower thoracic and lumbar generally but no soft tissue tenderness to palpation. - slumo. - SLR. - Balance/Special Test Scores Oswestry Low Back Score: 12 - Goals Goal 1:: Pt I in appropriate gym based core and general ex program and LB ROM, quad stretching ex to manage Goal Time Frame: 4-6 Weeks Goal 2:: Pain 2-3/10 at worst and manageable with ex Goal Time Frame: 4-6 Weeks Goal 3:: Pt feel 75% better overall activity and pain Goal Time Frame: 4-6 Weeks Goal 4:: Oswestry 5 or better Goal Time Frame: 4-6 Weeks - Rehabilitation Potential Physical Therapy Diagnosis: LB pain and tightness and stiffness causing pain and limiting funciton, poorly managed. Rehabilitation Potential: Good - Anticipated Interventions Patient/Client Instruction: Educate patient on: Condition, Plan of Care For the Purpose of:: To decrease pain, To increase ROM, To improve nutrient delivery to tissue, To improve muscle performance and motor function, To increase tolerance to activity/condition/position Therapeutic Exercise to Include: Strength training, Body mechanics, Postural training, Flexibilty training, Passive ROM, Active ROM, Dynamic Lumbar Stabilization For the Purpose of:: To decrease pain, To increase ROM, To improve nutrient delivery to tissue, To improve muscle performance and motor function, To increase tolerance to activity/condition/position, To improve ability of physical actions for home/community/work/leisure Manual Therapy Techniques to Include: Passive ROM, Soft tissue mobilization For the Purpose of:: To increase ROM Thank you for the opportunity to evaluate your patient. For Medicare and Medicare HMO plans, please review the plan of care and approve it. It will need to be FAXED BACK to us at [phone] for Medicare purposes. For Medicare only, by signing this I certify the plan of care. Please let me know if there are questions or concerns regarding this plan of care. Physician Signature: Date:
--- NOTE | 2022-05-12 16:45 | HP.PTREVAL_ITS ---
Dr. Roberta Stanford MD, It has been my pleasure to treat JACINTO COSTA over the last 3 visits for dorsalgia. Please see the progress note below for an update on the physical therapy plan of care! 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 Also had covid. Portfolio Analyst released him to moderate exe rcise and continue meds from ER. Had EKG and stress test to possibly get off meds but will have cardiac MRI. Stress test is next week. back has been doing pretty good. has not been very active in last 6 weeks. Less discomfort in back. Up to 3/10 in last week. Lying around when sick makes him worse. Sitting at desk(today was first day back to school) is still worse. Back still stiff in am and when still for a long time. Objective/Function: no c/o with exercises. Has been resting for last 6 weeks per doctor order due to afib and appropriate to continue POC from this point FW. Plan Plan: give today's ex via HEP and move on to gym core, LE postural and general strength adn CV ex, continue manual. 2-3x/week for 4-6 weeks for. 1. rollout and stretch quads. 2. teach core strengtyh and yoga stretches for HEP for LB ROM. 3. Teach gym based core and general strength and CV and progress to gym HEP. Pt has L JANE in history and recent back surgery this year. Balance/Gait/Functional tests - Balance/Special Test Scores Oswestry Low Back Score: 12 Goals Goal 1:: Pt I in appropriate gym based core and general ex program and LB ROM, quad stretching ex to manage Goal Time Frame: 4-6 Weeks Goal 2:: Pain 2-3/10 at worst and manageable with ex Goal Time Frame: 4-6 Weeks Goal 3:: Pt feel 75% better overall activity and pain Goal Time Frame: 4-6 Weeks Goal 4:: Oswestry 5 or better Goal Time Frame: 4-6 Weeks Anticipated Interventions Patient/Client Instruction: Educate patient on: Condition, Plan of Care For the Purpose of:: To decrease pain, To increase ROM, To improve nutrient delivery to tissue, To improve muscle performance and motor function, To increase tolerance to activity/condition/position Therapeutic Exercise to Include: Strength training, Body mechanics, Postural training, Flexibilty training, Passive ROM, Active ROM, Dynamic Lumbar Stabilization For the Purpose of:: To decrease pain, To increase ROM, To improve nutrient delivery to tissue, To improve muscle performance and motor function, To increase tolerance to activity/condition/position, To improve ability of physical actions for home/community/work/leisure Manual Therapy Techniques to Include: Passive ROM, Soft tissue mobilization For the Purpose of:: To increase ROM Please do not hesitate to contact me at [phone] by phone or if you have questions or concerns regarding this new plan of care! Sincerely, Liborio Rodríguez, DPT, OCS, CSCS
--- NOTE | 2022-08-18 10:31 | HP.PT.NRP ---
JACINTO COSTA was seen in my office for initial evaluation on 03/23/22. The following Plan of Care was established for this patient: Initial Frequency: 2-3x /Week Initial Duration: 4-6 Weeks Patient/Client Instruction: Educate patient on: Condition, Plan of Care For the Purpose of:: To decrease pain, To increase ROM, To improve nutrient delivery to tissue, To improve muscle performance and motor function, To increase tolerance to activity/condition/position Therapeutic Exercise to Include: Strength training, Body mechanics, Postural training, Flexibilty training, Passive ROM, Active ROM, Dynamic Lumbar Stabilization For the Purpose of:: To decrease pain, To increase ROM, To improve nutrient delivery to tissue, To improve muscle performance and motor function, To increase tolerance to activity/condition/position, To improve ability of physical actions for home/community/work/leisure Manual Therapy Techniques to Include: Passive ROM, Soft tissue mobilization For the Purpose of:: To increase ROM This patient was last seen in our office 06/16/22. Pertinent comments regarding their Physical therapy will appear below: Pt seen 11 visits of POC and was 50% improved. he did not attend his final visit. At this point, it has been over two months and I will discontinue due to nonattendance. At this point I will be discontinuing this patient from physical therapy. I would be happy to see this patient again in the future if found appropriate by the physician. Thank you! Liborio Rodríguez, DPT, OCS, CSCS Balance/Gait/Functional tests - Balance/Special Test Scores Oswestry Low Back Score: 4
== END 2022-06-16 19:00 | disposition home or self-care (01) ==
LOC: PT 15:00
PROVIDERS: Referring Provider Internal Medicine; Visit Provider Internal Medicine
DX: M54.9 Dorsalgia, unspecified (principal)
CPT/HCPCS: 97110; 97140; 97161; 97530

== ENCOUNTER 2023-02-09 14:58 | Emergency (ER) | payer OTHER, SELFPAY ==
[2023-02-09 14:59] VITALS: BP 148/89; PULSE 79; RESP 18; TEMP 36.2; O2SAT 98; BMI 34.7
--- NOTE | 2023-02-09 15:33 | EDS_ITS ---
HPI History of Present Illness HPI Narrative: Patient presents with a laceration to his left index finger that occurred today. Patient states he was using a saw when he accidentally cut his left index finger. Patient is unsure of his last tetanus. Patient denies any paresthesias or weakness. Patient states he applied a dressing immediately. Patient states he wrapped it fairly tightly. Patient states he was having throbbing pain initially. Patient states this has improved. Patient denies any paresthesias or weakness. Patient denies any other injuries. Chief Complaint: Laceration Informant: patient Occured/Mechanism Mechanism/Context: Yes work related Comment: Laceration with saw Onset/Context/Timing Onset: Today Context: Sudden Onset Timing: Continuous Quality of Pain: Throbbing Location: Left index finger. Worsened by: Nothing Relieved by: Nothing Associated Symptoms Associated Symptoms: Negative for Parasthesia or Weakness Narrative Tetanus Immunization: Unknown [facility] Medical History Afib Alcohol use Anxiety Arthritis Back pain Back pain Bone fracture Cardiology follow-up encounter Chest pain Depression History of atrial fibrillation History of echocardiogram History of irregular heartbeat History of steroid therapy History of stress test Lumbar radiculopathy Nonrheumatic mitral (valve) prolapse Palpitations Paroxysmal atrial fibrillation Premature atrial contraction Premature ventricular contraction Thyroid disease Wears glasses Home Medications acetaminophen 650 mg tablet,extended release 1,300 mg PO Q12H PRN pain 07/02/21 [History Last Taken Unknown] aspirin 81 mg tablet,delayed release 81 mg PO DAILY 08/23/22 [History Last Taken Unknown] duloxetine 40 mg capsule,delayed release 40 mg PO DAILY #90 caps 08/23/22 [Rx Last Taken Unknown] metoprolol tartrate 50 mg tablet 50 mg PO BID 08/23/22 [History Last Taken Unknown] olopatadine 0.1 % eye drops 1 drp ophthalmic (eye) BID PRN itching eyes #5 mL 08/23/22 [Rx Last Taken Unknown] Allergy/AdvReac Type Severity Reaction Status Date / Time Seasonal Allergies: Uncoded Allergy NEEDS Verified 01/03/23 10:50 FOLLOW-UP Family History Father CAD (coronary artery disease) History of coronary artery bypass surgery, Onset Age: 53 Depression Hypertension COPD (chronic obstructive pulmonary disease) Grandmother Diabetes Congestive heart failure Myocardial infarction Mother Diabetes Thyroid disorder Sister Anxiety Radha's disease Depression Thyroid disorder Grandfather Parkinson disease Surgical History H/O foot surgery History of foot surgery History of hip replacement History of lumbar surgery History of nasal surgery Hx of colonoscopy Social History Smoking Status: Never smoker alcohol intake: current alcohol intake frequency: 0-2 drinks per day details: occasional substance use type: does not use ROS ROS ED Constitutional Constitutional ED: Denies chills or fever(s) Eyes Eyes: Denies blurry vision or change in vision ENT ENT ED: Denies rhinorrhea or sore throat Cardiovascular Cardiovascular: Denies chest pain or palpitations Respiratory/Chest Respiratory/Chest: Denies cough or dyspnea Gastrointestinal Gastrointestinal: Denies nausea or vomiting Genitourinary Genitourinary ED: Denies dysuria or hematuria Musculoskeletal Musculoskeletal: Denies back pain or neck pain Integumentary Denies abscess or rash Neurologic Neurologic: Denies headache(s) or weakness Allergic/Immunologic Allergic/Immunologic ED: Denies mouth swelling or urticaria EXAM Physical Exam Const Vital Signs: 02/09/23 14:59 Temperature 97.2 F L Temperature Source Temporal Pulse Rate 79 Respiratory Rate 18 Blood Pressure 148/89 H Blood Pressure Mean 108 Pulse Ox 98 Oxygen Delivery Method Room Air Positive well nourished and well developed General Appearance ED: well developed and NAD HEENT Reports moist mucous membranes Neck full ROM and supple Neuro oriented x3, CN's II-XII intact bilaterally, moves all extremities, no focal motor deficits and no sensory deficits noted Sensorium / Orientation: alert Motor Exam: strength 5/5 throughout Psych mental status grossly normal Skin Skin Narrative: There is a 2.5 cm full-thickness curvilinear laceration over the dorsal aspect of the left index finger over the PIP joint. There is no bony crepitance or step-off. There is no obvious deformity noted. There is no tendon laceration noted. There is no joint involvement. Strength is 5/5 in flexion extension of the MP, PIP, and DIP joints of the left index finger. Sensation was intact to light touch in all digits. Capillary refill was less than 2 seconds in all digits. Strength is 5/5 in the radial, median, and ulnar areas. Radial pulses are equal bilaterally. MDM MDM MDM Narrative Medical decision making narrative: Patient was given a tetanus booster. The wound was cleaned and irrigated with copious amounts of normal saline. The wound was anesthetized with 1% plain l idocaine via digital block. The wound was closed with 6 simple interrupted #4-0 nylon sutures under sterile technique. Patient tolerated the procedure well. Bacitracin dressing was applied. Patient was instructed to keep the wound clean and dry. Patient was instructed to follow-up with his primary care physician or the [facility] in 7 days for wound recheck and suture removal. Patient unders tood and was agreeable with the plan. All questions were answered. Discharge Plan Triage Chief Complaint: Laceration ED Provider: Liborio Aguilar Dx/Rx/DC Orders Clinical Impression: Laceration of left index finger without foreign body without damage to nail Instructions: ED Laceration, Hand: All Closures Prescriptions: No Action acetaminophen 650 mg tablet extended release 1,300 mg PO Q12H PRN (Reason: pain) metoprolol tartrate 50 mg tablet 50 mg PO BID Patient Comments: ON HOLD aspirin 81 mg tablet,delayed release (DR/EC) 81 mg PO DAILY duloxetine 40 mg capsule,delayed release(DR/EC) 40 mg PO DAILY Qty: 90 3RF olopatadine 0.1 % drops 1 drp ophthalmic (eye) BID PRN (Reason: itching eyes) Qty: 5 1RF Rx Instructions: separate doses by at least 6-8 hours Stand Alone Forms: Work Status Form Primary Care Provider: Roberta Stanford Referrals: Roberta Stanford MD [Primary Care Provider] - 7 Days for suture removal [facility] [Non-Staff] - 7 Days for suture removal Disposition Disposition: Home, Self Care
[2023-02-09] MEDS: Diphth,Pertuss(Acell),Tet Vac 0.5 ML Vial IM (15:50)
[2023-02-09] MEDS: Lidocaine 1% (20 ml mdv) 20 ML Vial INFILT (15:51)
== END 2023-02-09 16:36 | disposition home or self-care (01) ==
PROVIDERS: Emergency Provider Emergency Medicine; PCP Internal Medicine; Visit Provider Emergency Medicine
DX: S61.211A Laceration without foreign body of left index finger without damage to nail, initial encounter (principal); W29.8XXA Contact with other powered hand tools and household machinery, initial encounter; Y99.0 Civilian activity done for income or pay; F41.9 Anxiety disorder, unspecified; F32.A Depression, unspecified; Z79.899 Other long term (current) drug therapy; Z96.649 Presence of unspecified artificial hip joint; Z23 Encounter for immunization
CPT/HCPCS: 12001; 90471; 90715; 99284

== ENCOUNTER → 2023-08-29 | Outpatient (CLI) | payer OTHER, SELFPAY ==
[2023-08-29 07:16] LABS: Absolute Neutrophil Count 2.1 X10^3/uL (2.0-7.7); Basophil# 0.06 X10^3/uL; Basophil% 1.1 % (0-1); Eosinophil# 0.21 X10^3/uL; Eosinophils% 3.7 % (0-5); Hematocrit 41.4 % (40-54); Hemoglobin 14.1 g/dL (13.0-16.5); Lymphocyte % 49.7 % (19-41); Mean Corp Hgb Conc 34.1 g/dL (32-36); Mean Corpuscular Hgb 31.4 pg (27.0-32.0); Mean Corpuscular Volume 92.2 fL (80-94); Mean Platelet Vol. 9.3 fl (6.2-12.0); Monocyte# 0.44 X10^3/uL; Monocyte% 7.8 % (0-10); NRBC Flagged by Analyzer 0 % (0-5); Neutrophil # 2.11 X10^3/uL (2.7-7.7); Neutrophil % 37.5 % (47-70); Platelet Count 195 K/mm3 (150-450); RBC Distribution Width CV 12.5 % (11.6-14.6); RBC Distribution Width SD 42.4 fl (35.1-43.9); Red Blood Count 4.49 M/mm3 (4.6-6.2); White Blood Count 5.6 K/mm3 (4.4-11.0)
[2023-08-29 07:38] LABS: Hemoglobin A1c 5.3 % (3.8-5.6)
[2023-08-29 07:55] LABS: AST(SGOT) 32 U/L (15-37); Alanine Aminotransfer ALT/SGPT 69 U/L (16-61); Albumin, Serum 3.5 g/dL (3.2-5.0); Alkaline Phosphatase 52 U/L (45-117); Anion Gap 3 (5-15); BUN 15 mg/dL (7-18); BUN/Creat Ratio 16.8 RATIO (10-20); Calcium,Total 8.3 mg/dL (8.5-10.1); Chloride 109 mmol/L (98-107); Cholesterol 235 mg/dL (200); Creatinine, Serum 0.89 mg/dL (0.70-1.30); EST Glomerular Filtration Rate 92 mL/min (>60); Est Glom Filt Rate - Afr Amer 112 mL/min (>60); Free T3 2.6 pg/mL (2.18-3.98); Globulin 3.4 g/dL (2.2-4.2); Glucose 104 mg/dL (74-106); High Density Lipoprotein 32 mg/dL; PSA,Total - Annual Screen 1.82 ng/mL (0.00-4.00); Potassium 4.1 mmol/L (3.5-5.1); Protein, Total 6.9 g/dL (6.4-8.2); Sodium Level 139 mmol/L (136-145); T4 Free Direct 0.83 ng/dL (0.76-1.46); Thyroid Stim Hormone (TSH) 3.92 uIU/mL (0.358-3.74); Triglycerides 206 mg/dL; Very Low Density Lipoprotein 41 mg/dL (5-40)
[2023-08-29 08:11] LABS: Vitamin D,25 Hydroxy 42.8 ng/mL
== END | disposition home or self-care (01) ==
LOC: LAB 06:00
PROVIDERS: PCP Internal Medicine; Referring Provider Internal Medicine; Visit Provider Internal Medicine
DX: Z12.5 Encounter for screening for malignant neoplasm of prostate (principal); I48.0 Paroxysmal atrial fibrillation; R73.9 Hyperglycemia, unspecified; F32.A Depression, unspecified; E78.00 Pure hypercholesterolemia, unspecified; E07.9 Disorder of thyroid, unspecified; E55.9 Vitamin D deficiency, unspecified
CPT/HCPCS: 36415; 80053; 80061; 82306; 83036; 84153; 84439; 84443; 84481; 85025; G0103

== ENCOUNTER → 2023-08-30 | Outpatient (CLI) | payer OTHER, SELFPAY ==
--- NOTE | 2023-08-30 16:10 | RAD_ITS ---
EXAM: XR CERVICAL SPINE, 4 OR 5 VIEWS CLINICAL INDICATION: CERVICALGIA TECHNIQUE: Frontal, lateral and bilateral oblique views of the cervical spine. COMPARISON: No relevant prior studies available. FINDINGS: VERTEBRAE: Multilevel facet, uncovertebral joint, and endplate osteophytosis. Maintained cervical lordosis. No fracture or traumatic subluxation. No spondylolisthesis. DISC SPACES: Multilevel intervertebral disc height loss. No critical osseous encroachment of the neural foramina is identified. SOFT TISSUES: No significant abnormality. No prevertebral soft tissue widening. LUNG APICES: Clear. RAD/Cerv Spine 4 or 5 Views IMPRESSION: Degenerative changes. No acute osseous findings. Electronically Signed: Marcelino Freedman DO at 0:05 EDT ,
== END | disposition home or self-care (01) ==
LOC: RAD 15:52
PROVIDERS: PCP Internal Medicine; Referring Provider Chiropractor; Visit Provider Chiropractor
DX: M50.93 Cervical disc disorder, unspecified, cervicothoracic region (principal); M99.05 Segmental and somatic dysfunction of pelvic region; M99.03 Segmental and somatic dysfunction of lumbar region; M54.17 Radiculopathy, lumbosacral region
CPT/HCPCS: 72050

== ENCOUNTER 2023-09-25 10:14 | Emergency (ER) | payer OTHER, SELFPAY ==
[2023-09-25 10:14] VITALS: BP 186/100; PULSE 85; RESP 16; TEMP 36.4; O2SAT 99; BMI 35.7
--- NOTE | 2023-09-25 10:40 | VDLE_ITS ---
Reason For Study: RLE Pain RIGHT LEFT GSV is normal. FV is compressible, spontaneous, phasic, CFV is compressible, spontaneous, phasic, competent and demonstrates normal competent and demonstrates normal augmentation. augmentation. FV is compressible, spontaneous, phasic, competent and demonstrates normal augmentation. POP V is compressible, spontaneous, phasic, competent and demonstrates normal augmentation. T/P Trunk is compressible. PTV is compressible. RT PerV is compressible. RT Distal medial thigh ASV/VV is dilated and NONCOMPRESSIBLE with intraluminal echoes. Procedure This is a venous duplex using B-mode, color flow and spectral Doppler. Exam performed portable in ED. The exam was diagnostic. A preliminary report was called and/or faxed to Dr. Chi. VL/Venous Duplex US, Unilateral Interpretation Summary There is no evidence of right lower extremity deep vein thrombosis. Superficial thrombophlebitis right distal medial thigh accessory saphenous vein and varicose veins. Normal flow patterns left common femoral vein Ordering Physician: Sammy Chi Referring Physician: Roberta Stanford M.D. Performed By: Jarred Siddiqi RVT
--- NOTE | 2023-09-25 10:41 | EX.ED.DYSGE1 ---
HPI History of Present Illness Chief Complaint: Lower Extremity Injury Informant: patient Narrative Narrative: 58-year-old male presenting to the emergency room out of concern for DVT. Patient states he has had some varicose veins in his distal medial right thigh. He states that he noticed yesterday that they became painful and more firm than normal. He is taking a bus trip with a local school to [facility] tomorrow was concerned about a possible DVT. He denies any distal swelling of the toes foot or lower leg. No calf pain. He denies any of the typical DVT risk factors. No chest pain shortness of breath. [facility] Medical History Thoracic myofascial strain Cervical myofascial strain Tension headache Afib Wears glasses Depression Anxiety Alcohol use History of steroid therapy Thyroid disease Arthritis Back pain History of echocardiogram History of stress test Chest pain History of irregular heartbeat History of atrial fibrillation Cardiology follow-up encounter Bone fracture Back pain Lumbar radiculopathy Nonrheumatic mitral (valve) prolapse Paroxysmal atrial fibrillation Premature ventricular contraction Premature atrial contraction Palpitations Home Medications ?Medication ?Instructions ?Recorded ?Last Taken ?Type duloxetine 40 mg capsule,delayed 40 mg PO DAILY #90 caps 08/23/22 Unknown Rx release cholecalciferol (vitamin D3) 25 25 mcg PO DAILY PRN 08/25/23 Unknown History mcg (1,000 unit) tablet cyclobenzaprine 10 mg tablet 10 mg PO TID PRN muscle spasm #30 09/21/23 Unknown Rx tabs prednisone 10 mg tablet 10 mg PO DAILY #30 tabs 09/21/23 Unknown Rx Allergy/AdvReac Type Severity Reaction Status Date / Time Seasonal Allergies: Uncoded Allergy NEEDS Verified 09/21/23 15:32 FOLLOW-UP Family History Father CAD (coronary artery disease) History of coronary artery bypass surgery, Onset Age: 53 Depression Hypertension COPD (chronic obstructive pulmonary disease) Grandmother Diabetes Congestive heart failure Myocardial infarction Mother Diabetes Thyroid disorder Sister Anxiety Radha's disease Depression Thyroid disorder Grandfather Parkinson disease Surgical History History of lumbar surgery Hx of colonoscopy H/O foot surgery History of hip replacement History of nasal surgery History of foot surgery Social History Smoking Status: Never smoker alcohol intake: current alcohol intake frequency: 0-2 drinks per day details: occasional substance use type: does not use ROS ROS ED Constitutional Constitutional ED: Denies chills, fever(s) or weight loss Eyes Eyes: Denies change in vision or diplopia ENT ENT ED: Denies ear pain, rhinorrhea or sore throat Cardiovascular Cardiovascular: Denies chest pain, orthopnea, palpitations or racing heartbeat Respiratory/Chest Respiratory/Chest: Denies cough, dyspnea or orthopnea Gastrointestinal Gastrointestinal: Denies abdominal pain, diarrhea, nausea or vomiting Genitourinary Genitourinary ED: Denies dysuria, hematuria or urinary frequency Musculoskeletal Musculoskeletal: Reports other Details: See history of present illness ; Denies arthralgias or myalgias Integumentary Denies abscess or rash Neurologic Neurologic: Denies headache(s) or weakness Psychiatric Psychiatric: Denies anxiety, depression, suicidal ideation or suicidal thoughts Endocrine Endocrinology: Denies polydipsia, polyphagia or polyuria Allergic/Immunologic Allergic/Immunologic ED: Denies mouth swelling, tongue swelling or urticaria EXAM Physical Exam Const Vital Signs: 09/25/23 10:14 Temperature 97.6 F L Temperature Source Oral Pulse Rate 85 Respiratory Rate 16 Blood Pressure 186/100 H Blood Pressure Mean 128 Pulse Ox 99 Oxygen Delivery Method Room Air Positive well nourished and well developed General Appearance ED: well developed HEENT Reports normocephalic, head/scalp atraumatic and moist mucous membranes Eyes PERRL and EOMs intact bilaterally Neck no lymphadenopathy, supple and no JVD Resp normal respiratory effort and clear to auscultation bilaterally Cardio regular rate, regular rhythm and no murmurs GI normal to inspection, nondistended, normoactive bowel sounds and non-tender Palpation: soft Back/Spine no CVA tenderness and normal ROM Extremity Extremity Narrative: Patient has tenderness along some varicose veins over the medial distal aspect of the right thigh. I do not appreciate significant erythema though the exam on this aspect is limited due to the patient's tattoo of a large Octopus. General Extremety ED: Negative for edema General Extremity: Negative for edema Neuro oriented x3 and CN's II-XII intact bilaterally Sensorium / Orientation: alert Motor Exam: strength 5/5 throughout Psych mental status grossly normal Mood & Affect: Negative for depressed or tearful Skin no rashes or lesions noted and no wounds MDM MDM MDM Narrative Medical decision making narrative: I performed a quick bedside ultrasound which appears to show a intact deep venous system. Superficially however there appears to be some thrombosis of the varicose vein right where the patient is noting pain. We obtained a formal duplex ultrasound. This was negative for DVT. There is some superficial thrombosis in the varicose vein. Home treatment was discussed. As well as the potential need for follow-up should he develop any worsening symptoms which were discussed with him. He was also advised to have frequent leg movement on his trip to [place]. Repeat blood pressure is improved. History & Record Review Discussion w/independent historian: Patient Discharge Plan Triage Chief Complaint: Lower Extremity Injury ED Provider: Sammy Chi Dx/Rx/DC Orders Clinical Impression: Acute pain of right thigh, Superficial thrombophlebitis Instructions: ED Thrombophlebitis, Superficial Prescriptions: No Action duloxetine 40 mg capsule,delayed release(DR/EC) 40 mg PO DAILY Qty: 90 3RF cholecalciferol (vitamin D3) 25 mcg (1,000 unit) tablet 25 mcg PO DAILY PRN prednisone 10 mg tablet 10 mg PO DAILY Qty: 30 0RF Rx Instructions: 4 tablets daily x3 days, then 3 tablets daily x3 days, then 2 tablets daily x3 days, then 1 tablet daily x3 days cyclobenzaprine 10 mg tablet 10 mg PO TID PRN (Reason: muscle spasm) Qty: 30 0RF Primary Care Provider: Roberta Stanford Referrals: Roberta Stanford MD [Primary Care Provider] - 3-5 Days if not improving Print Language: Faroese Disposition Disposition: Home, Self Care
[2023-09-25 13:16] VITALS: BP 159/99; PULSE 71; RESP 18; TEMP 36.4; O2SAT 98
== END 2023-09-25 13:17 | disposition home or self-care (01) ==
LOC: ED 11:06
PROVIDERS: Emergency Provider Emergency Medicine; PCP Internal Medicine; Visit Provider Emergency Medicine
DX: I80.01 Phlebitis and thrombophlebitis of superficial vessels of right lower extremity (principal); I48.0 Paroxysmal atrial fibrillation; Z79.899 Other long term (current) drug therapy
CPT/HCPCS: 93971; 99282

== ENCOUNTER → 2023-09-29 | Outpatient (CLI) | payer OTHER, SELFPAY ==
--- NOTE | 2023-09-29 15:33 | US_ITS ---
STUDY: THYROID ULTRASOUND REASON FOR EXAM: Male, 58 years old. Known nodules TECHNIQUE: Ultrasound evaluation of the thyroid was performed with real-time and static gunn-scale imaging. COMPARISON: Prior comparison studies are not available for review at this time. FINDINGS: RIGHT LOBE: The right lobe of the thyroid gland measures 7.8 x 1.8 x 2.4 cm. There is a heterogeneous echotexture. Multiple stable solid nodules largest measures 1.8 x 1.2 x 1.0 cm. LEFT LOBE: The left lobe of the thyroid gland measures 5.8 x 3.5 x 2.7 cm. There is a heterogeneous echotexture. There is a stable 3.6 x 2.8 x 2.3 cm solid hypoechoic nodule ISTHMUS: The isthmus measures 0.2 cm. There is a 0.9 x 0.6 x 0.7 cm solid mass The regional lymph nodes are normal. US/Thyroid IMPRESSION: Enlarged heterogeneous thyroid gland with bilateral solid nodules. These are apparently unchanged dating back to previous studies from 2019 but I do not have those studies or reports available for comparison. If they are stable and unchanged for that long, no specific intervention would be needed for yearly follow-up would be recommended. An addendum will be performed if/when previous studies are available for comparison Electronically Signed: Bigg Metcalf MD at 9:34 EDT ,
== END | disposition home or self-care (01) ==
PROVIDERS: PCP Internal Medicine; Referring Provider Internal Medicine; Visit Provider Internal Medicine
DX: E04.1 Nontoxic single thyroid nodule (principal)
CPT/HCPCS: 76536

== ENCOUNTER → 2023-10-05 | Outpatient (CLI) | payer OTHER, SELFPAY ==
--- NOTE | 2023-10-05 15:05 | VDLE_ITS ---
Reason For Study: Pain RLE RIGHT LEFT GSV is normal. CFV is compressible, spontaneous, phasic, CFV is compressible, spontaneous, phasic, competent, and demonstrates normal competent and demonstrates normal augmentation. augmentation. FV is compressible, spontaneous, phasic, competent and demonstrates normal augmentation. POP V is compressible, spontaneous, phasic, competent and demonstrates normal augmentation. T/P Trunk is compressible. PTV is compressible. RT PerV is compressible. Rt Varicose vein in the medial, distal thigh is dilated and NON COMPRESSIBLE consistent with acute SVT Rt ASV at distal calf is dilated and NON COMPRESSIBLE consistent with acute SVT; perferator noted at this location but SVT does not extend into PTV. Procedure This is a venous duplex using B-mode, color flow and spectral Doppler. Exam performed in department. A preliminary report was called and/or faxed to Dr. Stanford. VL/Venous Duplex US, Unilateral Interpretation Summary There is no evidence of right lower extremity deep vein thrombosis. Right great saphenous vein appears patent and compressible segmentally. Superficial thrombophlebitis right accessory saphenous vein at the distal calf and varicose veins in the medial distal thigh. Normal flow patterns left common femoral vein The varicose vein involvement is new since the previous examination of September 25, 2023 Ordering Physician: Roberta Stanford Referring Physician: Roberta Stanford Performed By: Nelly Christianson, HUMBLE, RVT
== END | disposition home or self-care (01) ==
PROVIDERS: PCP Internal Medicine; Referring Provider Internal Medicine; Visit Provider Internal Medicine
DX: I82.409 Acute embolism and thrombosis of unspecified deep veins of unspecified lower extremity (principal); M79.604 Pain in right leg
CPT/HCPCS: 93971

== ENCOUNTER 2023-11-12 18:43 | Emergency (ER) | payer OTHER, SELFPAY ==
[2023-11-12 18:44] VITALS: BP 171/93; PULSE 116; RESP 18; TEMP 37.2; O2SAT 99; BMI 37.0
--- NOTE | 2023-11-12 19:05 | EDS_ITS ---
HPI History of Present Illness Chief Complaint: General Illness Informant: patient Narrative Narrative: 58-year-old male states he woke up with pruritus on his abdomen today, reported showed up and noticed that he had would look like hives. Unknown etiology but sheba garcía [place] He states he took some Veronique and the itching went away for most of the day and then it came back. He woke up from a nap on a hammock and noticed that he had cold chills and a headache. He is felt a little nauseated denies any abdominal pain. No recent cough, runny nose or congestion, vomiting or diarrhea or any other symptoms of an illness. He denies neck stiffness he has chronic neck pain. He has had no confusion, changes in his vision, numbness or weakness in an arm or leg acutely with any of this or any other acute neurologic symptoms. He has not been bit by any ticks that he knows of. [facility] Medical History Thoracic myofascial strain Cervical myofascial strain Tension headache Afib Wears glasses Depression Anxiety Alcohol use History of steroid therapy Thyroid disease Arthritis Back pain History of echocardiogram History of stress test Chest pain History of irregular heartbeat History of atrial fibrillation Cardiology follow-up encounter Bone fracture Back pain Lumbar radiculopathy Nonrheumatic mitral (valve) prolapse Paroxysmal atrial fibrillation Premature ventricular contraction Premature atrial contraction Palpitations Home Medications ?Medication ?Instructions ?Recorded ?Last Taken ?Type duloxetine 40 mg capsule,delayed 40 mg PO DAILY #90 caps 08/23/22 Unknown Rx release cholecalciferol (vitamin D3) 25 25 mcg PO DAILY PRN 08/25/23 Unknown History mcg (1,000 unit) tablet cyclobenzaprine 10 mg tablet 10 mg PO TID PRN muscle spasm #30 09/21/23 Unknown Rx tabs prednisone 10 mg tablet 10 mg PO DAILY #30 tabs 09/21/23 Unknown Rx aspirin 81 mg tablet,delayed 243 mg PO DAILY 11/12/23 Unknown History release (Adult Aspirin Regimen) cyclobenzaprine 10 mg tablet 10 mg PO TID PRN muscle spasm #20 11/12/23 Unknown Rx tabs prednisone 20 mg tablet 40 mg (2 x 20 mg) PO DAILY 3 days 11/12/23 Unknown Rx #6 TABLETS Allergy/AdvReac Type Severity Reaction Status Date / Time Seasonal Allergies: Uncoded Allergy NEEDS Verified 11/12/23 18:46 FOLLOW-UP Family History Father CAD (coronary artery disease) History of coronary artery bypass surgery, Onset Age: 53 Depression Hypertension COPD (chronic obstructive pulmonary disease) Grandmother Diabetes Congestive heart failure Myocardial infarction Mother Diabetes Thyroid disorder Sister Anxiety Radha's disease Depression Thyroid disorder Grandfather Parkinson disease Surgical History History of lumbar surgery Hx of colonoscopy H/O foot surgery History of hip replacement History of nasal surgery History of foot surgery Social History Smoking Status: Never smoker alcohol intake: current alcohol intake frequency: 0-2 drinks per day details: occasional substance use type: does not use ROS ROS ED Constitutional Constitutional ED: Denies chills or fever(s) Eyes Eyes: Denies change in vision or diplopia ENT ENT ED: Denies rhinorrhea or sore throat Cardiovascular Cardiovascular: Denies chest pain or palpitations Respiratory/Chest Respiratory/Chest: Denies cough or dyspnea Gastrointestinal Gastrointestinal: Reports nausea; Denies abdominal pain, diarrhea or vomiting Genitourinary Genitourinary ED: Denies dysuria or hematuria Musculoskeletal Musculoskeletal: Denies back pain or neck pain Integumentary Reports as per HPI, pruritus and rash; Denies abscess or wounds Neurologic Neurologic: Reports headache(s); Denies paresthesias or weakness Psychiatric Psychiatric: Denies anxiety or suicidal thoughts EXAM Physical Exam Const Vital Signs: 11/12/23 18:44 11/12/23 18:55 11/12/23 19:24 Temperature 98.9 F Temperature Source Temporal Pulse Rate 116 H 97 Respiratory Rate 18 18 Respiratory Pattern Normal Blood Pressure 171/93 H 174/93 H Blood Pressure Mean 119 120 Pulse Ox 99 95 Oxygen Delivery Method Room Air Room Air 11/12/23 21:14 Temperature Temperature Source Pulse Rate 97 Respiratory Rate 16 Respiratory Pattern Blood Pressure 154/86 H Blood Pressure Mean 108 Pulse Ox 97 Oxygen Delivery Method Room Air Positive well nourished and well developed Constitutional Narrative: well-appearing General Appearance ED: well developed and NAD HEENT Reports moist mucous membranes HEENT Narrative: no oral mucosal lesions normocephalic and atraumatic Eyes PERRL and EOMs intact bilaterally Neck full ROM, no lymphadenopathy and supple Neck Narrative: Able to touch his chest with his chin without any difficulty. Chest Wall inspection of chest normal and palpation of chest normal Resp normal respiratory effort and clear to auscultation bilaterally Cardio regular rate, regular rhythm and no murmurs GI non-tender and non-distended GI Narrative: Scattered nontender blanching urticaria mid abdomen worse on the left than the right but it does cross the midline Auscultation: normoactive bowel sounds Palpation: soft Back/Spine no CVA tenderness General Back: other FROM Extremity normal to inspection General Extremety ED: Negative for edema, pulses abnormal or tenderness General Extremity: Negative for edema or pulses abnormal Neuro oriented x3, CN's II-XII intact bilaterally and no sensory deficits noted Sensorium / Orientation: awake and alert Motor Exam: strength 5/5 throughout Psych mental status grossly normal Skin no wounds Skin Narrative: Scattered urticaria on left abdominal wall, it does cross the midline and there are a few lesions on the right as well. No lesions on the back. No other rashes or lesions. Specifically there are no target lesions, purpura, petechia, bullae, or maculopapular rashes. MDM MDM MDM Narrative Medical decision making narrative: Given here in triage patient was having chills but his temperature is normal. He did not know if this was a fever or not. I am noticing his blood pressure is elevated 171/93. He states he does not take medicine for blood pressure and he usually does not have major issues, being in the 130-140 range whenever he goes to the doctor and gets it checked. I think his headache and the rash are unrelated. This looks like urticaria from an unknown reaction/cause, he states he had some shrimp but it was 3 days ago and none since, which should not be causing this now. It does not look like shingles and crosses the midline and is not blistering/painful. They responded to Veronique earlier today which is consistent with hives, perhaps Veronique causes blood pressure to go up temporarily. Veronique-D would be more likely to cause this he is not sure if that is what it was or not. In the meantime I am checking some basic labs, giving him some IV Benadryl as well as some labetalol for his blood pressure and I'll reevaluate him. Blood pressure really did not adjust very much so we gave him some clonidine, on reevaluation he is in the 150s, still has a headache, the rash is still there not changed. He does not have any [place] spots and I do not think this is measles as he suggested may be a possibility. I also do not think he has meningitis. Furthermore with regards to the headache is occipital, has had this before but it has been a few months, associated with neck problems in the past and I think may be associated with neck pain now. He states anti-inflammatories and cyclobenzaprine really seem to help the neck pain and headache, I am going to give him some prior to discharge and a prescription for cyclobenzaprine as well as some prednisone for a few days for the rash; he is comfortable with the plan of following up for blood pressure recheck in the near future. Lab Data Attestation: I reviewed the patient's lab results. Labs: Laboratory Results - last 24 hr 11/12/23 19:15 WBC 5.5 RBC 4.29 L Hgb 13.7 Hct 39.9 L MCV 93.0 MCH 31.9 MCHC 34.3 RDW Std Deviation 42.6 RDW Coeff of Holger 12.5 Plt Count 150 MPV 9.2 Immature Gran % (Auto) 0.400 Neut % (Auto) 72.8 H Lymph % (Auto) 14.7 L [place] % (Auto) 9.6 Eos % (Auto) 1.8 Baso % (Auto) 0.7 Absolute Neuts (auto) 4.0 Absolute Lymphs (auto) 0.81 L Nucleated RBC % 0 Sodium 138 Potassium 4.0 Chloride 104 Carbon Dioxide 27.0 Anion Gap 7 BUN 18 Creatinine 1.05 Estim Creat Clear Calc 108.90 Est GFR (MDRD) Af Amer 93 Est GFR (MDRD) Non-Af 77 BUN/Creatinine Ratio 17.1 Glucose 121 H Calcium 8.7 Discharge Plan Triage Chief Complaint: General Illness ED Provider: Scott Multani Dx/Rx/DC Orders Clinical Impression: Localized allergic contact urticaria, Cervical pain (neck), Headache, Episode of hypertension Instructions: Hypertension Dc, ED Hives (Adult) Prescriptions: New prednisone 20 mg tablet 40 mg PO DAILY 3 Days Qty: 6 0RF Continued duloxetine 40 mg capsule,delayed release(DR/EC) 40 mg PO DAILY Qty: 90 3RF cholecalciferol (vitamin D3) 25 mcg (1,000 unit) tablet 25 mcg PO DAILY PRN aspirin [Adult Aspirin Regimen] 81 mg tablet,delayed release (DR/EC) 243 mg PO DAILY cyclobenzaprine 10 mg tablet 10 mg PO TID PRN (Reason: muscle spasm) Qty: 20 0RF No Action prednisone 10 mg tablet 10 mg PO DAILY Qty: 30 0RF Rx Instructions: 4 tablets daily x3 days, then 3 tablets daily x3 days, then 2 tablets daily x3 days, then 1 tablet daily x3 days cyclobenzaprine 10 mg tablet 10 mg PO TID PRN (Reason: muscle spasm) Qty: 30 0RF Primary Care Provider: Roberta Stanford Referrals: Roberta Stanford MD [Primary Care Provider] - 3-5 Days if not improving Print Language: Ghanaian Disposition Disposition: Home, Self Care
[2023-11-12] MEDS: DiphenhydrAMINE 50 MG/ML Syringe 25 MG IV (19:17)
[2023-11-12] MEDS: Labetalol (Prefilled) 20 MG/4 ML 10 MG IV (19:18)
[2023-11-12 19:22] LABS: Absolute Lymphocyte Count 0.81 X10^3/uL (0.83-4.51); Basophil# 0.04 X10^3/uL; Basophil% 0.7 % (0-1); Eosinophils% 1.8 % (0-5); Hematocrit 39.9 % (40-54); Hemoglobin 13.7 g/dL (13.0-16.5); Lymphocyte # 0.81 X10^3/ul (0.83-4.51); Lymphocyte % 14.7 % (19-41); Mean Corp Hgb Conc 34.3 g/dL (32-36); Mean Corpuscular Hgb 31.9 pg (27.0-32.0); Mean Platelet Vol. 9.2 fl (6.2-12.0); Monocyte# 0.53 X10^3/uL; Monocyte% 9.6 % (0-10); NRBC Flagged by Analyzer 0 % (0-5); Neutrophil # 4.02 X10^3/uL (2.7-7.7); Neutrophil % 72.8 % (47-70); Platelet Count 150 K/mm3 (150-450); RBC Distribution Width CV 12.5 % (11.6-14.6); RBC Distribution Width SD 42.6 fl (35.1-43.9); Red Blood Count 4.29 M/mm3 (4.6-6.2); White Blood Count 5.5 K/mm3 (4.4-11.0)
[2023-11-12 19:24] VITALS: BP 174/93; PULSE 97; RESP 18; O2SAT 95
[2023-11-12 19:35] LABS: Anion Gap 7 (5-15); BUN 18 mg/dL (7-18); BUN/Creat Ratio 17.1 RATIO (10-20); Calcium,Total 8.7 mg/dL (8.5-10.1); Chloride 104 mmol/L (98-107); Creatinine, Serum 1.05 mg/dL (0.70-1.30); EST Glomerular Filtration Rate 77 mL/min (>60); Est Glom Filt Rate - Afr Amer 93 mL/min (>60); Glucose 121 mg/dL (74-106); Sodium Level 138 mmol/L (136-145)
[2023-11-12 21:14] VITALS: BP 154/86; PULSE 97; RESP 16; O2SAT 97
[2023-11-12] MEDS: cloNIDine HCl 0.2 MG Tablet PO (21:15)
[2023-11-12] MEDS: Ketorolac 15 MG/ML Vial IV (21:48)
[2023-11-12] MEDS: cycloBENZAPRine HCl 10 MG Tablet PO (21:49)
[2023-11-12] MEDS: predniSONE 20 MG Tablet 40 MG PO (21:49)
[2023-11-12 21:57] VITALS: BP 162/87; PULSE 81; RESP 18; TEMP 36.6; O2SAT 98
== END 2023-11-12 21:59 | disposition home or self-care (01) ==
PROVIDERS: Emergency Provider Emergency Medicine; PCP Internal Medicine; Visit Provider Emergency Medicine
DX: L50.0 Allergic urticaria (principal); I48.0 Paroxysmal atrial fibrillation; M54.2 Cervicalgia; I10 Essential (primary) hypertension; R51.9 Headache, unspecified; G89.29 Other chronic pain; F32.A Depression, unspecified; F41.9 Anxiety disorder, unspecified; Z79.82 Long term (current) use of aspirin; Z79.899 Other long term (current) drug therapy
CPT/HCPCS: 80048; 85025; 96374; 96375; 99284; A4216

== ENCOUNTER → 2024-10-15 | Outpatient (CLI) | payer OTHER, SELFPAY ==
[2024-10-15 13:17] LABS: Bacteria 0 SEEN /hpf (None Seen); Mucous, Urine 0 SEEN /hpf (<or=2+); Red Blood Cells-Urine 0 SEEN /hpf (0-5); Squamous Epithelial Cells - UA 0 SEEN /hpf (0-5); White Blood Cells 0 SEEN /hpf (0-5)
--- NOTE | 2024-10-15 13:25 | RAD_ITS ---
PROCEDURE: HIPS B/L MIN 2 VIEWS W/ PELVIS 10/15/2024 REASON FOR EXAM: BILATERAL HIP AND PELVIS PAIN, HX OF LEFT HIP REPLACEMENT TECHNIQUE: 6 view of the pelvis and bilateral hips COMPARISON: None. FINDINGS: Mild osteopenia. Moderate degenerative joint disease of the right hip. Left hip arthroplasty with unremarkable metallic prosthesis. Moderate arthrosis of the sacroiliac joints. No fracture or dislocation is seen. No lytic or blastic bone lesion is noted. RAD/Hips B/L min 2 views w/ Pelvis IMPRESSION: No evidence for acute abnormality. [facility]
[2024-10-15 14:01] LABS: Color, Urine Yellow (Yellow); Glucose, Dipstick Normal (Normal); Ketone-Dipstick Negative (Negative); Leukocyte Esterase-Dipstick Negative /ul (Negative); Nitrite-Dipstick Negative (Negative); Occult Blood-Urine Negative /ul (Negative); Protein-Dipstick 15 mg/dl (Negative); Urine Bilirubin Dipstick Negative (Negative); Urine Clarity Clear (Clear); Urine Urobilinogen Normal (Normal)
[2024-10-15 14:04] LABS: Absolute Lymphocyte Count 2.04 X10^3/uL (0.83-4.51); Absolute Neutrophil Count 3.1 X10^3/uL (2.0-7.7); Basophil# 0.03 X10^3/uL; Basophil% 0.5 % (0-1); Eosinophil# 0.12 X10^3/uL; Eosinophils% 2.1 % (0-5); Hematocrit 41.6 % (40-54); Hemoglobin 14.4 g/dL (13.0-16.5); Lymphocyte # 2.04 X10^3/ul (0.83-4.51); Lymphocyte % 35.5 % (19-41); Mean Corp Hgb Conc 34.6 g/dL (32-36); Mean Corpuscular Hgb 32.1 pg (27.0-32.0); Mean Corpuscular Volume 92.7 fL (80-94); Mean Platelet Vol. 9.3 fl (6.2-12.0); Monocyte# 0.46 X10^3/uL; NRBC Flagged by Analyzer 0 % (0-5); Neutrophil # 3.07 X10^3/uL (2.7-7.7); Neutrophil % 53.4 % (47-70); Platelet Count 226 K/mm3 (150-450); RBC Distribution Width CV 12.3 % (11.6-14.6); RBC Distribution Width SD 42.1 fl (35.1-43.9); Red Blood Count 4.49 M/mm3 (4.6-6.2); White Blood Count 5.8 K/mm3 (4.4-11.0)
[2024-10-15 14:24] LABS: Protein, Urine (Random) 12.7 mg/dL (0.0-12.0); Protein:Creat Ratio 126 mg/g CRE (0-200)
[2024-10-15 14:33] LABS: ALB/GLOB Ratio 1.4 RATIO (0.9-2.4); AST(SGOT) 47 U/L (<=37); Alanine Aminotransfer ALT/SGPT 79 U/L (<=46); Albumin, Serum 4.4 g/dL (3.4-4.8); Alkaline Phosphatase 62 U/L (40-129); Anion Gap 12 (5-15); BUN 14 mg/dL (4-19); BUN/Creat Ratio 14.4 RATIO (10-20); Calcium,Total 9.5 mg/dL (7.6-11.0); Carbon Dioxide 24.9 mmol/L (21.0-32.0); Chloride 102 mmol/L (98-108); Creatinine, Serum 0.94 mg/dL (0.70-1.20); EST Glomerular Filtration Rate 92 (>60); Globulin 3.2 g/dL (2.2-4.2); Glucose 122 mg/dL (70-99); Potassium 4.2 mmol/L (3.3-5.1); Protein, Total 7.6 g/dL (5.9-8.4); Sodium Level 138 mmol/L (133-145); Total Bilirubin 0.37 mg/dL (0.00-1.30)
[2024-10-15 17:32] LABS: Hemoglobin A1c 5.8 % (<=5.6)
[2024-10-17 08:11] LABS: Free T3 3.2 pg/mL (2.18-3.98)
== END | disposition home or self-care (01) ==
LOC: RAD 13:13
PROVIDERS: PCP Internal Medicine; Referring Provider Internal Medicine; Visit Provider Clinical Nurse Specialist Adult Health
DX: M25.551 Pain in right hip (principal); M25.552 Pain in left hip; Z96.642 Presence of left artificial hip joint; R80.9 Proteinuria, unspecified; E04.1 Nontoxic single thyroid nodule; R79.89 Other specified abnormal findings of blood chemistry
CPT/HCPCS: 36415; 73521; 80053; 81001; 82570; 83036; 84156; 84439; 84443; 84481; 85025

== ENCOUNTER → 2024-11-01 | Outpatient (CLI) | payer OTHER, SELFPAY ==
--- NOTE | 2024-11-01 12:51 | US_ITS ---
PROCEDURE: THYROID 11/01/2024 REASON FOR EXAM: MULTINODULAR GOITER TECHNIQUE: THYROID COMPARISON: Prior study dated October 01, 2023. FINDINGS: Right thyroid lobe size: 7.5 cm x 1.9 cm x 1.9 cm Left thyroid lobe size: 4.5 cm x 3 cm 2.8 cm Isthmus: 0.4 cm Background parenchymal echotexture is heterogeneous. Nodules: . Lobe: Right lobe, Location: Upper pole, Size: 1.5 cm x 1.2 cm x 1 cm cm, Stability: Stable Composition: Solid or almost completely solid (+2) Echogenicity: Hypoechoic (+2) Margin: Smooth (+0) Shape: Wider than tall (+0) Echogenic Foci: None (+0) TI-RADS: 4 . Lobe: Right, Location: Mid, Size: 1.3 cm by 1.4 cm 0.8 cm cm, Stability: Stable Composition: Mixed cystic and solid (+1) Echogenicity: Hypoechoic (+2) Margin: Smooth (+0) Shape: Wider than tall (+0) Echogenic Foci: TI-RADS: : 4 Stable 3.6 cm x 3 cm x 2.8 cm heterogeneous solid nodule in the midpole of the left lobe of the thyroid. Increased vascularity is seen. US/Thyroid IMPRESSION: Diffuse heterogeneous enlargement of both lobes of the thyroid gland. Stable b ilateral nodules. These are unchanged as compared to prior studies. RECOMMENDATION: Based on most suspicious nodule. Nodule size = largest diameter Only evaluate nodule if =>5 mm. Growth > 20% in 2 dimensions = worsening. Follow up to 4 nodules. Recommend biopsy for no more than 2 nodules. Reading Location: [facility]
--- OUTSIDE RECORDS SUMMARY | 2024-11-01 21:36 | XMS RPT_ITS | CCD ---
Author Organization [facility] CliniSysd Care Team Providers Care Forensic Materials Engineer Name Role Phone Cesar Cannon Unavailable Unavailable BlacknEeida Unavailable Unavailable Sam Roy Unavailable Unavailable Jamar, Gaby Unavailable Unavailable Guillermina Moody Unavailable Unavailable Jose M Alvarado Unavailable Unavailable Cesar Cannon Unavailable Unavailable Mel Ford Unavailable Unavailable Yessica SANDER PORTABLE MACHINE-TAX EXPERT, Mary Unavailable [phone] SAM ROY (DEVONTE) Primary Care Unavailable SELF, SELF Referring Unavailable Ewa BEAVER Attending Unavailable SAM ROY (DEVONTE) Primary Care Unavailable SELF, SELF Referring Unavailable Ewa BEAVER Attending Unavailable Ewa BEAVER Referring Unavailable SAM ROY (DEVONTE) Primary Care Unavailable Ewa BEAVER Attending Unavailable Ewa BEAVER Referring Unavailable SAM ROY (DEVONTE) Primary Care Unavailable Ewa BEAVER Attending Unavailable Dr. Sam Roy Primary Care Provider [phone] Dr. Sam Roy Referring Provider [phone] Trevon Almanzar Attending Provider [phone] Sushant Todd Attending Provider Dr. Trevon Almanzar Referring Provider [phone] Dr. Jerome Stanford Attending Provider [phone] MD Jerome Stanford Primary Care Provider Unavail able Dr. Trevon Almanzar Other Provider MD Jerome Stanford Referring Provider Unavailabl e Unavailable Primary Care Provider Unavailabl Jerome Cuello MD Primary Care Provider [phone] MD Jerome Stanford Primary Care Provider Unavail able MD Jerome Stanford Referring Provider Unavailabl e [facility] [place] Attending Provider Unavailab Jerome Landaverde MD Primary Care Provider JEROME STANFORD MD Primary Care Physician ARISTIDES Chamorro NP Attending Provider Dr. Jerome Stanford Attending Provider DEXTER CARDENAS MD Attending Unavailable DEXTER CARDENAS MD Primary Care Unavailable DEXTER CARDENAS MD Admitting Unavailable MD Jerome Berg Primary Care Provider Maritza vailable Dr. Jerome Stanford Attending Provider Dr. Jerome Stanford Primary Care Provider Dr. Jerome Stanford Referring Provider ESME Reed Attending Provider Dr. Jerome Stanford Attending Provider Jerome Stanford MD Primary Care Provider MD MARY GILL Attending Unavailable JEROME STANFORD MD Primary Care Unavailable JEROME STANFORD MD Primary Care Unavailable DR DEXTER CARDENAS MD Attending Unavailable JEROME STANFORD Primary Care Unavailable MARLEN RUFFIN Attending Unavailable JEROME STANFORD Primary Care Unavailable Dr. Jerome Stanford MD Primary Care Provider Dr. Jerome Stanford MD Attending Provider Dr. Jerome Stanford MD Referring Provider NP. Shahnaz Gooden Attending Provider Jerome Stanford Attending Unavailable Jerome Stanford Referring Unavailable Jerome Stanford Primary Care Unavailable Jerome Stanford Attending Unavailable Jerome Stanford Referring Unavailable Jerome Stanford Primary Care Unavailable Jerome Stanford Attending Unavailable Jerome Stanford Primary Care Unavailable NURSE, IMB Attending Unavailable Jerome Stanford Primary Care Unavailable Jreome Stanford Attending Unavailable Jerome Stanford Primary Care Unavailable Demetrius Reed Attending Unavailable Jerome Stanford Referring Unavailable Jerome Stanford Primary Care Unavailable Jerome Stanford Attending Unavailable Jerome Stanford Primary Care Unavailable Shahnaz Gooden Attending Unavailable Jerome Stanford Referring Unavailable Jerome Stanford Primary Care Unavailable Scott Multani Attending Unavailable Jerome Stanford Primary Care Unavailable Allergies Allergy Classification Reported Allergen(s) Allergy Type Date of Onset Reaction(s) Facility (1 source) Seasonal allergy; Translations: [SEASONAL] allergy to substance [address] [facility] Work Phone: (1 source) PLANT POLLENS (HAY FEVER); Translations: [PLANT POLLENS (HAY FEVER)] allergy to substance [address] [facility] Work Phone: (1 source) Seasonal Allergies: Uncoded; Translations: [Seasonal Allergies: Uncoded] Propensity to adverse reactions (disorder) 5 [facility] Repository Medications Current Medications Medication Drug Class(es) Dates Sig (Normalized) Sig (Original) acetaminophen 325 mg / HYDROcodone bitartrate 5 mg oral tablet (1 source) Opioid Agonist Start: 07-09-2021 End: 07-12-2021 take 1 tablet by mouth every six hours as needed for pain HYDROCODONE-ACET AMINOPHEN 5-325 MG TABS Take 1 tablet by mouth every six hours as needed for pain hydrocodone-acet aminophen [id number] Mary Juan SANDER PORTABLE MACHINE-TAX EXPERT amLODIPine 5 mg / valsartan 160 mg oral tablet (2 sources) Dihydropyridine Calcium Channel Jose, Angiotensin 2 Receptor Jose Start: 10-18-2024 Amlodipine-Valsa rtan 5-160 mg tablet Active 1 {tbl} PO daily October 18, 2024 12:00am aspirin 81 mg delayed release oral tablet (20 sources) Platelet Aggregation Inhibitor, Nonsteroidal Anti-inflammatory Drug Start: 11-12-2023 Aspirin (Adult Aspirin Regimen) 81 mg tablet,delayed release (DR/EC) Active 243 mg PO DAILY November 12, 2023 12:00am Start: 08-10-2022 End: 08-25-2023 take 1 tablet by mouth once daily Aspirin 81 mg tablet,delayed release (DR/EC) Discontinued 81 mg PO DAILY August 23, 2022 12:00am August 25, 2023 3:39pm Start: 08-08-2018 End: 05-25-2021 take 1 tablet by mouth once daily Aspirin 325 mg tablet,delayed release (/ERICA) Discontinued 325 mg PO DAILY August 08, 2018 12:00am May 25, 2021 10:49am Start: 06-21-2018 End: 07-06-2018 Aspirin (Adult Low Dose Aspi rin) 81 mg tablet,delayed release (/ERICA) Discontinued 81 mg PO DAILY June 21, 2018 1:00am July 06, 2018 2:19pm take 1 tablet by floresita th once daily aspirin 81 mg cap Take 1 tablet by mouth once daily. Active aspirin 81 mg ca p Take 3 to 4 capsules every morning. 0 Active atorvastatin 40 mg oral tablet (1 source) HMG-CoA Reductase Inhibitor Start: 08-10-2022 atorvastatin 40 mg oral tablet Dose : 40 mg = 1 tab(s), Oral, qDay, # 90 tab(s), 3 Refill(s), Pharmacy: [facility]/pharmacy #[id number], 188, cm, 07/19/22 12:20:00 EDT, Height Start Date: 08/10/22 Status: Ordered JUAN JOSE Scale (2 sources) Start: 09-26-2024 JUAN JOSE Scale Active 0 .Route .MEDSUPPLY 1 September 26, 2024 12:00am As directed cholecalciferol 0.025 mg oral tablet (16 sources) Vitamin D Start: 08-25-2023 take 1 tablet by mouth once daily as needed Cholecalciferol (Vitamin D3) 25 mcg (1,000 unit) tablet Active 25 ug PO DAILY as needed August 25, 2023 12:00am Start: 05-25-2021 End: 08-23-2022 take 1 capsule by mouth once daily Cholecalciferol (Vitamin D3) 125 mcg (5,000 unit) capsule Discontinued 125 ug PO DAILY May 25, 2021 1:00am August 23, 2022 9:29am Vitamin D TABS T HYACINTH 1 TABLET DAILY. Refills: 0 DO Active Dim (11 sources) Start: 07-07-2021 take 400 mg by mouth once daily Dim Active 400 MG SL/PO DAILY July 07, 2021 10:48am Start: 07-07-2021 End: 08-23-2022 take 400 mg by mouth once daily Dim Discontinued 400 mg SL/PO DAILY July 07, 2021 1:00am August 23, 2022 9:31am Start: 07-07-2021 End: 08-23-2022 take 400 mg by mouth once daily Dim Discontinued 400 MG SL/PO DAILY July 07, 2021 1:00am August 23, 2022 9:31am Start: 07-07-2021 take 400 mg by mouth once daily Dim Active 400 MG SL/PO DAILY July 07, 2021 1:00am Start: 07-07-2021 take 400 mg by mouth once daily Dim Active 400 MG SL/PO DAILY July 07, 2021 12:00am doxycycline hyclate 100 mg oral tablet (1 source) Tetracycline-class Drug Start: 02-05-2023 End: 02-12-2023 take 1 tablet by mouth twice daily doxycycline (VIBRA-TABS) 100 mg tablet Indications: Rhinosinusitis Take 1 tablet by mouth two times a day for 7 days. 14 tablet 0 02/05/2023 02/12/2023 Active Comment on above: Take 1 tablet by mouth two times a day f or 7 days. DULoxetine 40 mg delayed release oral capsule (20 sources) Serotonin and Norepinephrine Reuptake Inhibitor Start: 08-23-2022 End: 10-18-2024 take 1 capsule by mouth once daily Duloxetine 40 mg capsule,delayed release(DR/EC) Active 40 mg PO DAILY October 18, 2024 3:18pm Start: 12-28-2018 End: 08-23-2022 take 1 capsule by mouth once daily Duloxetine 30 mg capsule,delayed release(DR/EC) Discontinued 30 mg PO DAILY July 23, 2020 12:00am August 23, 2022 9:53am End: 05-10-2024 DULoxetine (CYMBALTA) 30 mg capsule Take 40 mg by mouth once daily. 05/10/2024 Discontinued (Course of therapy completed) Comment on above: Take 30 mg by mouth. Lactobacillus acidophilus (2 sources) take 1 capsule by mouth once daily Lactobacillus acidophilus (PROBIOTIC ORAL) Take 1 capsule by mouth once daily. Active take 1 capsule by mouth once kiesha ly Lactobacillus acidophilus (PROBIOTIC ORAL) Take 1 capsule by mouth once daily. 0 Active Multivitamin preparation (9 sources) Start: 07-06-2018 take 1 tablet by mouth once daily Multivitamin Active 1 TABLET PO DAILY July 06, 2018 2:19pm Start: 07-06-2018 End: 08-23-2022 take 1 tablet by mouth once daily Multivitamin Discontinued 1 TABLET PO DAILY July 06, 2018 1:00am August 23, 2022 9:30am Start: 07-06-2018 take 1 tablet by floresita th once daily Multivitamin Active 1 TABLET PO DAILY July 06, 2018 1:00am Start: 07-06-2018 take 1 tablet by floresita th once daily Multivitamin Active 1 TABLET PO DAILY July 06, 2018 12:00am [place]-3 Fatty Acids (Fish Oil Concentrate) 1,000 mg capsule (11 sources) Start: 07-06-2018 take 1 capsule by mouth once daily [place]-3 Fatty Acids (Fish Oil Concentrate) 1,000 mg capsule Active 1000 MG PO DAILY July 06, 2018 2:20pm Start: 07-06-2018 End: 08-23-2022 take 1 capsule by mouth once daily [place]-3 Fatty Acids (Fish Oil Concentrate) 1,000 mg capsule Discontinued 1000 mg PO DAILY July 06, 2018 1:00am August 23, 2022 9:30am Start: 07-06-2018 End: 08-23-2022 take 1 capsule by mouth once daily [place]-3 Fatty Acids (Fish Oil Concentrate) 1,000 mg capsule Discontinued 1000 MG PO DAILY July 06, 2018 1:00am August 23, 2022 9:30am Start: 07-06-2018 take 1 capsule by mo [facility] once daily [place]-3 Fatty Acids (Fish Oil Concentrate) 1,000 mg capsule Active 1000 MG PO DAILY July 06, 2018 1:00am Start: 07-06-2018 take 1 capsule by mo uth once daily [place]-3 Fatty Acids (Fish Oil Concentrate) 1,000 mg capsule Active 1000 MG PO DAILY July 06, 2018 12:00am oseltamivir 75 mg oral capsule (1 source) Neuraminidase Inhibitor Start: 04-04-2022 End: 04-09-2022 take 1 capsule by mouth twice daily oseltamivir (TAMIFLU) 75 mg capsule Take 1 capsule by mouth twice daily for 5 days. 10 capsule 0 04/04/2022 04/09/2022 Active Comment on above: Take 1 capsule by mo uth twice daily for 5 days. traMADol hydrochloride 50 mg oral tablet (2 sources) Opioid Agonist Start: 05-17-2024 take 1 tablet by mouth every six hours as needed Tramadol 50 mg tablet Active 50 mg PO EVERY 6 HOURS as needed May 17, 2024 1:00am Turmeric extract (11 sources) Start: 07-07-2021 take 400 mg by mouth once daily Turmeric Active 400 MG PO DAILY July 07, 2021 10:48am Start: 07-07-2021 End: 08-23-2022 take 1 capsule by mouth once daily Turmeric 400 mg Capsule Discontinued 400 mg PO DAILY July 07, 2021 1:00am August 23, 2022 9:30am Start: 07-07-2021 End: 08-23-2022 take 400 mg by mouth once daily Turmeric Discontinued 400 MG PO DAILY July 07, 2021 1:00am August 23, 2022 9:30am Start: 07-07-2021 take 400 mg by mouth once irene y Turmeric Active 400 MG PO DAILY July 07, 2021 1:00am Start: 07-07-2021 take 400 mg by mouth once irene y Turmeric Active 400 MG PO DAILY July 07, 2021 12:00am Vitamin B Complex (9 sources) Start: 07-07-2021 take 1 tablet by floresita once daily Vitamin B Complex Active 1 TABLET PO DAILY July 07, 2021 10:48am Start: 07-07-2021 End: 08-23-2022 take 1 tablet by mouth once daily Vitamin B Complex Discontinued 1 TABLET PO DAILY July 07, 2021 1:00am August 23, 2022 9:30am Start: 07-07-2021 take 1 tablet by floresita th once daily Vitamin B Complex Active 1 TABLET PO DAILY July 07, 2021 1:00am Start: 07-07-2021 take 1 tablet by floresita once daily Vitamin B Complex Active 1 TABLET PO DAILY July 07, 2021 12:00am Completed/Discontinued Medications Medication Drug Class(es) Dates Sig (Normalized) Sig (Original) 8 hr acetaminophen 650 mg extended release oral tablet (20 sources) Start: 07-02-2021 End: 08-25-2023 Acetaminophen (Tylenol Arthritis) 650 mg Tablet Extended Release Discontinued 1300 mg PO Q12H as needed for Pain July 07, 2021 1:00am August 05, 2021 8:17am Start: 07-02-2021 End: 08-25-2023 take 1300 mg by mouth every twelve hours Acetaminophen Discontinued 1300 MG PO Q12H July 02, 2021 1:00am August 25, 2023 3:39pm Tylenol 325 mg c apsule 3 tablet by mouth as directed as needed acetaminophen [id number] Herlinda DOLL amoxicillin 875 mg / clavulanate 125 mg oral tablet (2 sources) Penicillin-class Antibacterial Start: 02-16-2022 End: 02-26-2022 take 1 tablet by mouth twice daily amoxicillin-clavulanic acid (AUGMENTIN) 875-125 mg per tablet Take 1 tablet by mouth twice daily for 10 days. 20 tablet 02/16/2022 02/26/2022 Comment on above: Take 1 tablet by floresita th twice daily for 10 days. Antiarthritic Combination No.2 (Glucosamine-Louis droitin) 900 mg tablet (11 sources) Start: 05-25-2021 End: 09-02-2021 take 1 tablet by mouth once daily Antiarthritic Combination No.2 (Glucosamine-Chondroitin) 900 mg tablet Discontinued 900 MG PO DAILY May 25, 2021 10:51am September 02, 2021 8:09am Start: 05-25-2021 take 1 tablet by floresita th once daily Antiarthritic Combination No.2 (Glucosamine-Chondroitin) 900 mg tablet Active 900 MG PO DAILY May 25, 2021 10:51am Start: 05-25-2021 End: 09-02-2021 take 1 tablet by mouth once daily Antiarthritic Combination No.2 (Glucosamine-Chondroitin) 900 mg tablet Discontinued 900 mg PO DAILY May 25, 2021 1:00am September 02, 2021 8:09am Start: 05-25-2021 End: 09-02-2021 take 1 tablet by mouth once daily Antiarthritic Combination No.2 (Glucosamine-Chondroitin) 900 mg tablet Discontinued 900 MG PO DAILY May 25, 2021 1:00am September 02, 2021 8:09am Start: 05-25-2021 End: 09-02-2021 take 1 tablet by mouth once daily Antiarthritic Combination No.2 (Glucosamine-Chondroitin) 900 mg tablet Discontinued 900 MG PO DAILY May 25, 2021 12:00am September 02, 2021 7:09am apixaban 5 mg oral tablet (20 sources) Factor Xa Inhibitor Start: 03-28-2022 End: 10-06-2023 take 1 tablet by mouth twice daily Apixaban (Eliquis) 5 mg tablet Discontinued 5 mg PO TWICE A DAY 60 March 28, 2022 1:00am April 09, 2022 2:37pm Comment on above: Take 5 mg by mouth t wice daily. celecoxib 200 mg oral capsule (20 sources) Nonsteroidal Anti-inflammatory Drug Start: 07-23-2020 End: 10-14-2021 take 1 capsule by mouth once daily Celecoxib (Celebrex) 200 mg capsule Discontinued 200 mg PO DAILY November 27, 2020 10:23am October 14, 2021 8:18am cephalexin 500 mg oral capsule (4 sources) Cephalosporin Antibacterial Start: 02-17-2023 End: 02-27-2023 take 1 capsule by mouth three times daily Cephalexin 500 mg capsule Discontinued 500 mg PO THREE TIMES A DAY 07 03February 17, 2023 12:00am February 26, 2023 12:00am February 27, 2023 12:04am cyclobenzaprine hydrochloride 10 mg oral tablet (20 sources) Muscle Relaxant Start: 09-21-2023 End: 05-17-2024 take 1 tablet by mouth three times daily as needed for muscle spasms Cyclobenzaprine 10 mg tablet Discontinued 10 mg PO THREE TIMES A DAY as needed for muscle spasm November 12, 2023 9:32pm May 17, 2024 4:19pm Start: 06-20-2023 End: 08-25-2023 take 1 tablet by mouth three times daily as needed for muscle spasms Cyclobenzaprine 10 mg tablet Discontinued 10 mg PO THREE TIMES A DAY as needed for muscle spasm June 20, 2023 1:00am August 25, 2023 3:39pm Start: 07-23-2020 End: 11-28-2020 Cyclobenzaprine 5 mg tablet Discontinued NMA PO July 23, 2020 12:00am November 28, 2020 8:43am Start: 07-23-2020 End: 11-28-2020 Cyclobenzaprine Discontinued EACH PO July 23, 2020 12:00am November 28, 2020 8:43am diazePAM 5 mg oral tablet (2 sources) Benzodiazepine Start: 05-17-2024 End: 07-12-2024 take 1 tablet by mouth once daily as needed Diazepam 5 mg tablet Discontinued 5 mg PO daily as needed May 17, 2024 1:00am July 12, 2024 4:10pm dilTIAZem hydrochloride 60 mg oral tablet (20 sources) Calcium Channel Jose Start: 03-28-2022 End: 10-06-2023 take 1 tablet by mouth four times daily Diltiazem Hcl (Cardizem) 60 mg tablet Discontinued 60 mg PO 4 TIMES DAILY 120 March 28, 2022 1:00am April 09, 2022 2:37pm Start: 08-08-2018 End: 11-28-2020 take 1 capsule by mouth once daily Diltiazem Hcl 120 mg capsule,extended release 24hr Discontinued 120 mg PO DAILY August 08, 2018 10:10am November 28, 2020 8:43am Comment on above: Take 60 mg by mouth four times daily. Fish Oil OIL (7 sources) Fish Oil OIL USE DIRECTED. Refills: 0 DO Active Fish Oil OIL USE DIRECTED. Refills: 0 Active gabapentin 300 mg oral capsule (8 sources) Anti-epileptic Agent Start: 05-23-2019 take 1 capsule by mouth three times daily Gabapentin 300 MG Oral Capsule Increase dose as directed to 600 mg by mouth 3 times a day. Quantity: 180 Refills: 0 Cesar Cannon MD Start : 24-Oct-2019 Active Glucosamine Chond Complex/MSM Oral Tablet (6 sources) take 1 tablet by mouth once daily Glucosamine Chond Complex/MSM Oral Tablet TAKE 1 TABLET DAILY DIRECTED. Refills: 0 DO Active take 1 tablet by mouth once irene y Glucosamine Chond Complex/MSM Oral Tablet TAKE 1 TABLET DAILY DIRECTED. Refills: 0 Active hydroCHLOROthiazide 12.5 mg / lisinopril 20 mg oral tablet (4 sources) Thiazide Diuretic, Angiotensin Converting Enzyme Inhibitor Start: 07-12-2024 End: 10-18-2024 Lisinopril-Hydrochlorothiazi de 20-12.5 mg tablet Discontinued 1 {tbl} PO daily September 14, 2024 1:05pm October 18, 2024 8:23am meloxicam 7.5 mg oral tablet (1 source) Nonsteroidal Anti-inflammato ry Drug Start: 10-04-2019 take 1 tablet by mouth once daily as needed Meloxicam 7.5 MG Oral Tablet TAKE 1 TABLET DAILY NEEDED. Quantity: 30 Refills: 0 Haris WALLERMel Start : 04-Oct-2019 Active methylPREDNISolone acetate 40 mg/ml injectable suspension (4 sources) Corticosteroid Start: 10-20-2020 End: 10-20-2020 Depo-Medrol (methylprednisol one acetate) 40 mg/mL suspension for injection Discontinued 40 MG INTRAARTIC ONCE 1 October 20, 2020 7:56am October 20, 2020 8:24am Start: 07-23-2020 End: 07-23-2020 Depo-Medrol (methylprednisol one acetate) 40 mg/mL suspension for injection Discontinued 80 MG INTRAARTIC ONCE 2 July 23, 2020 3:22pm July 23, 2020 3:56pm metoprolol tartrate 50 mg oral tablet (20 sources) beta-Adrenergic Jose Start: 04-21-2022 metopr olol succinate 100 mg oral TABLET extended release Dose : 100 mg = 1 tab(s), Oral, qDay, # 90 tab(s), 3 Refill(s), Pharmacy: [facility]/pharmacy #[id number], 188, cm, 04/21/22 14:43:00 EST, Height Start Date: 04/21/22 Status: Ordered Start: 03-28-2022 End: 10-06-2023 take 1 tablet by mouth twice daily Metoprolol Tartrate 50 mg tablet Discontinued 50 mg PO TWICE A DAY August 23, 2022 9:29am August 25, 2023 3:40pm Comment on above: Take 50 mg by mouth twice daily. Multivitamin tablet (2 sources) Start: 9 End: 3 Multivitamin tablet Discontinued 1 {tbl} PO DAILY July 06, 2018 1:00am August 23, 2022 9:30am olopatadine 1 mg/ml ophthalmic solution (4 sources) Histamine-1 Receptor Inhibitor Start: 3 End: 4 Olopatadine 0.1 % drops Discontinued 1 NMA OPHTHALMIC TWICE A DAY as needed for itching eyes 5 August 23, 2022 12:00am August 25, 2023 3:40pm separate doses by at least 6-8 hours oxyCODONE hydrochloride 5 mg oral tablet (11 sources) Opioid Agonist Start: 2 End: 2 take 1 tablet by mouth every four hours as needed for pain Oxycodone 5 mg tablet Discontinued 5 mg PO Q4H as needed for pain 40 5 July 21, 2021 October 14, 2021 8:18am pantoprazole 40 mg delayed release oral tablet (11 sources) Proton Pump Inhibitor Start: 1 End: 1 Pantoprazole 40 mg tablet,delayed release (DR/EC) Discontinued NMA PO July 23, 2020 12:00am November 28, 2020 8:44am Start: 07-23-2020 End: 11-28-2020 Pantoprazole Discontinued EA CH PO July 23, 2020 12:00am November 28, 2020 8:44am predniSONE 20 mg oral tablet (10 sources) Start: 11-12-2023 End: 05-17-2024 take 2 tablets by mouth once daily Prednisone 20 mg tablet Discontinued 40 mg PO DAILY 14 November 13, 2023 12:00am May 17, 2024 4:20pm Start: 09-21-2023 End: 05-17-2024 take 4 tablets by mouth once daily, then take 3 tablets by mouth once daily, then take 2 tablets by mouth once daily, then take 1 tablet by mouth once daily Prednisone 10 mg tablet Discontinued 10 mg PO DAILY September 21, 2023 12:00am May 17, 2024 4:20pm 4 tablets daily x3 days, then 3 tablets daily x3 days, then 2 tablets daily x3 days, then 1 tablet daily x3 days Start: 02-16-2022 End: 12-21-2022 predniSONE (DELTASONE) 10 mg tablet Take 4 tabs daily for 3 days, then 2 tabs daily for 3 days, then 1 tab daily for 3 days with food. 21 tablet 02/16/2022 12/21/2022 Discontinued Comment on above: Take 4 tabs daily fo r 3 days, then 2 tabs daily for 3 days, then 1 tab daily for 3 days with food. pregabalin 50 mg oral capsule (1 source) Start: 03-14-20 24 End: 05-10-19 take 1 capsule by mouth three times daily pregabalin (LYRICA) 50 mg capsule Take 50 mg by mouth three times a day. 03/14/2024 05/10/2024 Discontinued (Course of therapy completed) sulindac 200 mg oral tablet (4 sources) Nonsteroidal Anti-inflammatory Drug Start: 06-20-19 End: 08-25-19 take 1 tablet by mouth once daily Sulindac 200 mg tablet Discontinued 200 mg PO DAILY June 20, 2023 1:00am August 25, 2023 3:40pm triamcinolone acetonide 40 mg/ml injectable suspension (1 source) Corticosteroid Start: 09-03-19 End: 09-03-19 Kenalog (triamcinolone acetonide) 40 mg/mL suspension for injection Discontinued 40 MG INTRAARTIC ONCE September 02, 2021 8:04am September 02, 2021 8:25am ubidecarenone 75 mg oral capsule (11 sources) Start: 05-25-19 End: 08-24-19 Coenzyme Q10 (Ultra Coq10) 75 mg capsule Discontinued 75 mg PO DAILY May 25, 2021 1:00am August 23, 2022 9:31am Vitamin B Complex Tablet (2 sources) Start: 07-08-19 End: 08-24-19 Vitamin B Complex Tablet Discontinued 1 {tbl} PO DAILY July 07, 2021 1:00am August 23, 2022 9:30am vitamin e 90 mg oral capsule (11 sources) Start: 07-06-19 End: 05-25-19 take 1 capsule by mouth once daily Vitamin E 200 unit capsule Discontinued 200 U PO DAILY July 06, 2018 1:00am May 25, 2021 10:50am Problems Active Problems Problem Classification Problem Date Documented Da te Episodic/Chronic Abdominal pain (20 sources) Unspecified abdominal pain; Translations: [Abdominal pain, other specified site] Episodic Allergic reactions (2 sources) Allergic urticaria; Translations: [Localized allergic contact urticaria] 11-20-2023 Episodic Anxiety disorders (1 source) Posttraumatic stress disorder; Translations: [Post-traumatic stress disorder, unspecified] 10-06-2023 Chronic Cardiac and circulatory congenital anomalies (1 source) Congenital abnormality of cardiac connection; 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] Onset: 04-30-2022 Chronic Cardiac dysrhythmias (20 sources) Ventricular premature beats; Translations: [Ventricular premature depolarization] 04-21-2022 Chronic Cardiac dysrhythmias (11 sources) Palpitations; Translations: [Palpitations] 06-21-2018 Episodic Diabetes mellitus without complication (7 sources) Hyperglycemia; Translations: [Hyperglycemia, unspecified] 05-18-2022 Episodic Diseases of white blood cells (4 sources) Lymphocytosis; Translations: [Lymphocytosis (symptomatic)] 08-29-2023 Chronic Disorders of lipid metabolism (20 sources) Hypercholesterolemia; Translations: [Pure hypercholesterolemia, unspecified] 07-02-2021 Chronic Esophageal disorders (4 sources) Gastro-esophageal reflux disease without esophagitis; Translations: [Esophageal reflux] Chronic Essential hypertension (8 sources) Elevated blood pressure; Translations: [Essential (primary) hypertension] 11-20-2023 Chronic Fever of unknown origin (1 source) Fever; Translations: [Fever, unspecified] Episodic Headache; including migraine (6 sources) Tension-type headache; Translations: [Tension-type headache, unspecified, not intractable] 06-20-2023 Chronic Headache; including migraine (2 sources) Headache; Translations: [Headache] 11-20-2023 Episodic Heart valve disorders (11 sources) Mitral valve prolapse; Translations: [Nonrheumatic mitral (valve) prolapse] 06-21-2018 Chronic Malaise and fatigue (6 sources) Fatigue 04-21-2022 Episodic Mood disorders (16 sources) Depressive disorder; Translations: [Depression] 08-23-2022 Chronic Noninfectious gastroenteritis (3 sources) Gastroenteritis; Translations: [Noninfective gastroenteritis and colitis, unspecified] Episodic Nonspecific chest pain (10 sources) Chest pain; Translations: [Chest wall pain] 04-21-2022 Episodic Open wounds of extremities (4 sources) Laceration of left index finger; Translations: [Laceration without foreign body of left index finger without damage to nail, initial encounter] 02-18-2023 Episodic Osteoarthritis (20 sources) Osteoarthritis of hip; Translations: [Arthritis] Chronic Other aftercare (11 sources) Follow-up status; Translations: [Encounter for other orthopedic aftercare] 08-05-2021 Episodic Other aftercare (3 sources) Encounter for other orthopedic aftercare; Translations: [Unspecified orthopedic aftercare] Episodic Other circulatory disease (1 source) Elevated blood-pressure reading without diagnosis of hypertension; Translations: [Elevated blood-pressure reading, without diagnosis of hypertension] 10-06-2023 Episodic Other circulatory disease (4 sources) Elevated blood pressure; Translations: [Elevated blood-pressure reading, without diagnosis of hypertension] 05-17-2024 Episodic Other connective tissue disease (11 sources) Lateral epicondylitis of left humerus; Translations: [Lateral epicondylitis, left elbow] 11-28-2020 Episodic Other connective tissue disease (11 sources) Impingement syndrome of shoulder region; Translations: [Impingement syndrome of right shoulder] 10-20-2020 Episodic Other connective tissue disease (11 sources) Partial thickness rotator cuff tear; Translations: [Incomplete rotator cuff tear or rupture of unspecified shoulder, not specified as traumatic] 05-25-2021 Episodic Other connective tissue disease (11 sources) Biceps tendinitis; Translations: [Bicipital tendinitis, right shoulder] 09-22-2020 Episodic Comment on above: A refill was sent in for Celebrex. If he needs any after this, we will order labs. Other connective tissue disease (2 sources) Bicipital tendinitis, right shoulder; Translations: [Bicipital tenosynovitis] Episodic Other connective tissue disease (2 sources) Impingement syndrome of right shoulder; Translations: [Other affections of shoulder region, not elsewhere classified] Episodic Other connective tissue disease (2 sources) Incomplete rotator cuff tear or rupture of unspecified shoulder, not specified as traumatic; Translations: [Rotator cuff (capsule) sprain] Episodic Other connective tissue disease (2 sources) Thigh pain; Translations: [Pain in right thigh] 10-03-2023 Episodic Other gastrointestinal disorders (14 sources) Diarrhea; Translations: [Diarrhea, unspecified] 05-06-2022 Episodic Other gastrointestinal disorders (3 sources) Diarrhea, unspecified; Translations: [Diarrhea] 05-06-2022 Episodic Other lower respiratory disease (1 source) Cough; Translations: [Acute cough] Episodic Other lower respiratory disease (1 source) Cough; Translations: [Acute cough] 02-16-2022 Episodic Other nervous system disorders (1 source) Chronic low back pain; Translations: [Other chronic pain] Onset: 06-22-2018 06-23-2018 Chronic Other nervous system disorders (11 sources) Acute postoperative pain; Translations: [Other acute postprocedural pain] 07-21-2021 Episodic Other non-traumatic joint disorders (2 sources) Arthritis of hip; Translations: [Arthritis of left hip] Chronic Other non-traumatic joint disorders (1 source) Hip pain; Translations: [Left hip pain] Episodic Other non-traumatic joint disorders (11 sources) Multiple joint pain; Translations: [Pain in unspecified joint] 05-26-2021 Episodic Other non-traumatic joint disorders (11 sources) Pain in elbow; Translations: [Pain in left elbow] 11-28-2020 Episodic Other non-traumatic joint disorders (1 source) Pain in right hip; Translations: [Pain in right hip] Onset: 10-19-2024 Episodic Other nutritional; endocrine; and metabolic disorders (7 sources) Body mass index 30+ - obesity; Translations: [Obesity, unspecified] 04-21-2022 Chronic Other nutritional; endocrine; and metabolic disorders (7 sources) H/O: raised blood lipids; Translations: [History of hyperlipidemia] Episodic Other nutritional; endocrine; and metabolic disorders (7 sources) H/O: thyroid disorder; Translations: [History of thyroid disorder] Episodic Other upper respiratory disease (11 sources) Allergy to pollen; Translations: [Allergic rhinitis due to pollen] 07-02-2021 Chronic Other upper respiratory disease (2 sources) Chronic rhinitis; Translations: [Unspecified sinusitis (chronic)] Chronic Peripheral and visceral atherosclerosis (2 sources) Vascular disorder of lower extremity 10-05-2023 Chronic Phlebitis; thrombophlebitis and thromboembolism (4 sources) Deep venous thrombosis; Translations: [Acute embolism and thrombosis of unspecified deep veins of unspecified lower extremity] 10-05-2023 Episodic Residual codes; unclassified (7 sources) Chronic pain; Translations: [Other chronic pain] Chronic Spondylosis; intervertebral disc disorders; other back problems (14 sources) Lumbar spondylosis; Translations: [Degeneration of lumbar intervertebral disc] Chronic Spondylosis; intervertebral disc disorders; other back problems (20 sources) Low back pain; Translations: [Spinal stenosis of lumbar region] Onset: 06-22-2018 12-28-2018 Episodic Sprains and strains (20 sources) Injury of superior glenoid labrum of shoulder joint; Translations: [Superior glenoid labrum lesion of right shoulder, subsequent encounter] 09-22-2020 Episodic Thyroid disorders (4 sources) Thyroid nodule; Translations: [Nontoxic single thyroid nodule] Onset: 05-17-2024 09-19-2023 Chronic Thyroid disorders (15 sources) Disorder of thyroid gland; Translations: [Disorder of thyroid, unspecified] Onset: 10-29-2024 07-02-2021 Episodic Comment on above: NODULES, ENLARGED-FO DANUTA NOYOLA Past or Other Problems Problem Classification Problem Date Documented Da te Episodic/Chronic Genitourinary symptoms and ill-defined conditions (7 sources) Dysuria; Translations: [Dysuria] Onset: 05-17-2024 Episodic Other acquired deformities (1 source) Spondylolisthesis ; Translations: [Spondylolisthesi s, lumbar region] Onset: 12-28-2018 12-28-2018 Episodic Other acquired deformities (5 sources) Lumbar spondylolisthesis ; Translations: [Spondylolisthesi s of lumbar region] Other connective tissue disease (1 source) Peroneal tendinitis; Translations: [Peroneal tendinitis, right leg] Onset: 06-06-2017 06-06-2017 Episodic Other screening for suspected conditions (not mental disorders or infectious disease) (10 sources) Increased glucose level; Translations: [Raised TSH level] Onset: 05-17-2024 08-10-2022 Episodic Other upper respiratory infections (3 sources) Sore throat symptom; Translations: [Acute pharyngitis, unspecified] Onset: 12-12-2023 Episodic Residual codes; unclassified (1 source) Illness, unspecified; Translations: [Illness, unspecified] Onset: 11-18-2023 Episodic Unclassified (1 source) Problem NEGATED: Highlighted row has not occurred!Residual codes; unclassified (20 sources) Disease Episodic Results Test Name Value Interpretation Reference Range Facility Inital Evaluation (1) - PTon 10-30-2024 Inital Evaluation (1) - PT [facility] [address] [place] [address] [address] [place] [address] / REHABILITATION SERVICES INITIAL EVALUATION MR#: [id number] Acct: [id number] Name: JACINTO COSTA Rep #: [id number] : 1965 59 From: Maribel Wasserman DPT Referring Dr.: Dr. Jerome Stanford MD Status: R EG RCR Insurance: R HILARY [id number] SELF PAY INSURANCE Patient's Visit Information Visit Information Visit Information: JACINTO COSTA is a 59 year old M referred to Physical Therapy by Dr. Jerome Stanford MD with a diagnosis of Low Back Pain. Date of Evaluation: 10/30/24 Physical Therapist: Maribel Wasserman DPT Visit Plan Frequency: 2-3x /Week Duration: 6 Weeks Plan: 1x a week in the pool and 2x a week on land- focus on LE and core strength/stabilization. Left Leg is significantly weaker and has poor balance- make sure to perform single leg and double leg exercises. Subjective Subjective: Patient reports that he is still having some back pain- he knows the best way to get back to having less back pain is getting back in shape and losing some weight. He is taking steps with his doctor for steroid injections last ones were about a month ago, nutrition and some medications. He likes to be active its just hard with the back pain. The pain is located along the low back- belt line just above and below- mostly on the left side. He always has numbness down the left side and when it gets back its painful and will travel to the knee- aggravated by standing. Worst: 6/10 Agg: being forward, carrying heavy objects, standing Eases: ice, rest, medication Best: 10. Describes the pain as dull and achy. He had Laminectomy 2021, Left THR in 2020. He feels that he is better since he had an injection and steroids and was active last week- which generally helps. 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 Sleep: disturbed- side sleeper. Has recent x-rays or bilateral hips- left is good but right has moderate OA. PMHx/Meds: in chart. Objective Objective: Posture: forward head, rounded shoulders- can correct but does not maintain Gait: no deviation noted- good arm swing and trunk rotation HR/TR: able but reports tightness with HR left>right SLS: Left: 3 seconds Right: 10 seconds both with increased sway ROM: Lumbar: WNL with Left SB and Right Rotation increased pain Strength: Core: fair minus, Hip: Left: 4-/5 throughout, Right: 4+/5 throughout, Knee: Right: Extn: 117 Flexion: 86 Left: Extn: 60 Flexion: 64. Ankle: 5/5 Flex: HS: severe, Gastroc: moderate Sensation: diminished left thigh to gross touch bilateral Palpation: tender along lumbar paraspinals Balance/Special Test Scores Oswestry Low Back Score: 18 Goals Goal 1:: Patient will be I with HEP and progression Goal Time Frame: 6-8 Weeks Goal 2:: Patient will maintain proper posture t/o tx session to demo increased core s/s Goal Time Frame: 6-8 Weeks Goal 3:: Patient will demo 15 sec without LOB in SLS bilateral Goal Time Frame: 6-8 Weeks Goal 4:: Patient will have strength within 10 lbs of force of each other Goal Time Frame: 6-8 Weeks Goal 5:: Patient will report 80% improvement Goal Time Frame: 6-8 Weeks Rehabilitation Potential Physical Therapy Diagnosis: Patient presents with decreased LE and core strength/stabilization, flex and muscular endurance leading to increased pain with ADL's. Rehabilitation Potential: Good Anticipated Interventions Patient/Client Instruction: Educate patient on: Benefits of Fitness Program Therapeutic Exercise to Include: Strength training, Endurance training, Balance training, Coordination, Agility training, Body mechanics, Postural training, Flexibilty training, Gait and locomotor training, Neuromotor development, In an aquatic setting, Dynamic Lumbar Stabilization and Scapular Strength/Stabilization For the Purpose of:: To improve ability to perform ADL's Text: Thank you for the opportunity to evaluate your patient. For Medicare and Medicare HMO plans, please review the plan of care and approve it. It will need to be FAXED BACK to us at [phone] for Medicare purposes. For Medicare only, by signing this I certify the plan of care. Please let me know if there are questions or concerns regarding this plan of care. Physician Signature: Date: ____ 10/30/24 [id number] CC: Dr. Jerome Stanford MD ELR Signed Normal [facility] MR/BMS.IMBon 10-18-2024 MR/BMS.IMB [facility] [address] [place], [place] [address] OFFICE VISIT Date of Service: 10/18/24 MR#: [id number] Acct: [id number] Name: JACINTO COSTA Rep #: [id number] : 1965 Provider: Dr. 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 Accompanied by: Self Is patient in pain?: Yes (Body pain) Pain scale (1-10): 2 Allergies Seasonal Allergies: Uncoded Allergy (Verified 10/18/24 08:01) NEEDS FOLLOW-UP Medications ???Medication ???Instructions ???Recorded ???Confirmed ???Type cholecalciferol (vitamin D3) 25 25 mcg PO DAILY PRN 08/25/2310/18 History mcg (1,000 unit) tablet aspirin 81 mg tablet,delayed 243 mg PO DAILY 11/12/23 10/18/24 History release (Adult Aspirin Regimen) cyclobenzaprine 10 mg tablet 10 mg PO TID PRN Muscle Spasm #20 11/13/23 10/18/24 Rx TABLETS duloxetine 40 mg capsule,delayed 40 mg PO DAILY #90 caps 04/13/24 0 10/18/24 Rx release tramadol 50 mg tablet 50 mg PO Q6 PRN 05/17/24 10/18/24 History JUAN JOSE Scale #1 ea 05/21/25 06/12/25 Rx amlodipine 5 mg-valsartan 160 mg 1 tab PO QDAY #90 tabs 10/18/24 Rx tablet PFSH Medical History (Updated 10/18/24 @ 12:[address] Jerome Stanford MD) Atypical chest pain Essential hypertension Elevated blood pressure reading Chest wall pain Urine protein increased Thoracic myofascial strain Cervical myofascial strain Tension headache Afib Wears glasses Depression Anxiety Alcohol use History of steroid therapy Thyroid disease Arthritis Back pain History of echocardiogram History of stress test Chest pain History of irregular heartbeat History of atrial fibrillation Cardiology follow-up encounter Bone fracture Back pain Lumbar radiculopathy Nonrheumatic mitral (valve) prolapse Paroxysmal atrial fibrillation Premature ventricular contraction Premature atrial contraction Palpitations Surgical History (Updated 10/18/24 @ 08:10 by Gisela Pop RN) History of shoulder surgery History of carpal tunnel surgery of right wrist History of carpal tunnel surgery of left wrist History of lumbar surgery Hx of colonoscopy H/O foot surgery History of hip replacement History of nasal surgery History of foot surgery Family History Father CAD (coronary artery disease) History of coronary artery bypass surgery, Onset Age: 53 Depression Hypertension COPD (chronic obstructive pulmonary disease) Grandmother Diabetes Congestive heart failure Myocardial infarction Mother Diabetes Thyroid disorder Sister Anxiety Radha's disease Depression Thyroid disorder Grandfather Parkinson disease Social History Smoking Status: Never smoker alcohol intake: current alcohol intake frequency: 0-2 drinks per day details: occasional substance use type: does not use HPI HPI Chief Complaint: 3 M FU Details: JACINTO COSTA, is a 59 M who presents to the office today for 6-month follow-up. 59-year-old gentleman who has a history of hypertension. At last visit his blood pressures were noted to be elevated. We monitored at home and he did have continued elevation of blood pressures and we started him on lisinopril???HCTZ 20???12.5. He has noted that he has had dry cough. This started approximately the time that he started on the medication. However he thought it might be related to the exposure to molds in the work environment but he has been out of that now since school has been out. The cough has persisted. He is not having cardiac type of chest pain but he has had some intermittent chest pain at rest. He had it on Tuesday. It has been roughly in a similar fashion to previous however he did think about going to ER because it did start at rest i.e. under different circumstances. He has felt it was stress before but never necessarily waking up with it. It persisted throughout the day and then did go away. Chest pain was not worsened with physical activity. He has not had it since. No nausea, vomiting, fever, chills, cough, congestion, dyspnea on exertion. Review of systems per chart. Physical exam. Vital signs on chart. PERRLA. Sclera are clear. (more content not included)... Normal [facility] Free T3on 10-17-2024 Free T3 [Mass/Vol] 3.2 pg/mL Normal 2.18-3.98 [facility] Comment on above: Order Comment: JESSICA Velazquez ADD ONTO LABS FROM 10/15/24-[facility] Performed By: #### L 506.0400, L501.07196, L501.9520 ####[facility] [address] [place], [place], [id number] Free I2Japaeqj By: Jerome masters on 10-17-2024 Free T3 [Mass/Vol] 3.2 pg/mL 2.18-3.98 [facility] T4 Free Directon 10-17-2024 T4 FREE DIRECT 0.90 ng/dL Normal 0.76-1.46 [facility] Comment on above: Order Comment: JESSICA Velazquez ADD ONTO LABS FROM 10/15/24- Performed By: #### L 506.0400, L501.25504, L501.9520 ####[facility] [address] [place], [place], [id number] T4 freeOrdered By: Jerome masters on 10-17-2024 Free T4 [Mass/Vol] 0.90 ng/dL 0.76-1.46 [facility] TSH DL <= 0.005 mIU/L QnOrde red By: Jerome Stanford on 10-17-2024 TSH Qn 1.190 uIU/mL 0.300-4.200 [facility] Thyroid Stim Hormone (TSH)on 10-17-2024 TSH 1.190 uIU/mL Normal 0.300-4.200 [facility] Comment on above: Order Comment: JESSICA Velazquez ADD ONTO LABS FROM 10/15/24-[facility] Performed By: #### L 506.0400, L501.28512, L501.9520 ####[facility] [address] [place], [address] Absolute lymphocyte countOrd ered By: Jerome Stanford on 10-15-2024 Lymphocytes Auto (Unsp spec) [#/Vol] 2.04 10*3/uL 0.83-4.51 [facility] Absolute neutrophil countOrd ered By: Jerome Stanford on 10-15-2024 Neutrophils (Bld) [#/Vol] 3.1 10*3/uL 2.0-7.7 [facility] Anion gap in Serum or Plasma Ordered By: Jerome Stanford on 10-15-2024 Anion gap [Moles/Vol] 12 mmol/L 5-15 [facility] Automated lymphocyte count a s percentage of total leukocytesOrdered By: Jerome Stanford on 10-15-2024 Lymphocytes/100 WBC Auto (Unsp spec) 35.5 % 19-41 [facility] BUN/creatinine ratioOrdered By: Jerome Stanford on 10-15-2024 Urea nitrogen/Creatinine [Mass ratio] 14.4 mg/mg 10-20 [facility] Basophil percentageOrdered B y: Jerome Stanford on 10-15-2024 Basophils/100 WBC (Bld) 0.5 % 0-1 [facility] Bilirubin Test strip Ql (U)O rdered By: Jerome Stanford on 10-15-2024 Bilirubin Ql (U) Negative Negative [facility] Bilirubin, totalOrdered By: Jerome Stanford on 10-15-2024 Bilirubin [Mass/Vol] 0.37 mg/dL 0.00-1.30 [facility] CBC W/Diff, Automatedon Absolute Lymph 2.04 X10 3/uL Normal 0.83-4.51 [facility] Comment on above: Performed By: #### L 100.0100, L500.4050, L501.0900, L400.0001 #### [facility] [address] [place], [address] Absolute Neut 3.1 X10 3/uL Normal 2.0-7.7 [facility] Comment on above: Performed By: #### L 100.0100, L500.4050, L501.0900, L400.0001 #### [facility] [address] [place], [address] Basophils/100 WBC (Bld) 0.5 % Normal 0-1 [facility] Comment on above: Performed By: #### L 100.0100, L500.4050, L501.0900, L400.0001 #### [facility] [address] [place], [address] Eosinophils/100 WBC (Bld) 2.1 % Normal 0-5 [facility] Comment on above: Performed By: #### L 100.0100, L500.4050, L501.0900, L400.0001 #### [facility] [address] [place], [address] Erythrocyte distribution width (RBC) [Ratio] 12.3 % Normal 11.6-14.6 [facility] Comment on above: Performed By: #### L 100.0100, L500.4050, L501.0900, L400.0001 #### [facility] [address] [place], [address] Hematocrit (Bld) [Volume fraction] 41.6 % Normal 40-54 [facility] Comment on above: Performed By: #### L 100.0100, L500.4050, L501.0900, L400.0001 #### [facility] [address] [place], [address] Hemoglobin (Bld) [Mass/Vol] 14.4 g/dL Normal 13.0-16.5 [facility] Comment on above: Performed By: #### L 100.0100, L500.4050, L501.0900, L400.0001 #### [facility] [address] [place], [address] IG% 0.500 Normal 0.0-0.9 [facility] Comment on above: Result Comment: IG% - Immature Granulocytes (promyelocytes, myelocytes and metamyelocytes) > 1% indicates that a LEFT SHIFT is Present. Performed By: #### L 100.0100, L500.4050, L501.0900, L400.0001 #### [facility] [address] [place], [address] Lymphocytes/100 WBC (Bld) 35.5 % Normal 19-41 [facility] Comment on above: Performed By: #### L 100.0100, L500.4050, L501.0900, L400.0001 #### [facility] [address] [place], [address] MCH (RBC) [Entitic mass] 32.1 pg High 27.0-32.0 [facility] Comment on above: Performed By: #### L 100.0100, L500.4050, L501.0900, L400.0001 #### [facility] [address] [place], [address] MCHC (RBC) [Mass/Vol] 34.6 g/dL Normal 32-36 [facility] Comment on above: Performed By: #### L 100.0100, L500.4050, L501.0900, L400.0001 #### [facility] [address] [place], [address] MCV (RBC) [Entitic vol] 92.7 fL Normal 80-94 [facility] Comment on above: Performed By: #### L 100.0100, L500.4050, L501.0900, L400.0001 #### [facility] [address] [place], [address] Monocytes/100 WBC (Bld) 8.0 % Normal 0-10 [facility] Comment on above: Performed By: #### L 100.0100, L500.4050, L501.0900, L400.0001 #### [facility] [address] [place], [address] Neutrophils/100 WBC (Bld) 53.4 % Normal 47-70 [facility] Comment on above: Performed By: #### L 100.0100, L500.4050, L501.0900, L400.0001 #### [facility] [address] [place], [address] Nucleated RBC (Bld) [#/Vol] 0 10*3/uL Normal 0-5 [facility] Comment on above: Performed By: #### L 100.0100, L500.4050, L501.0900, L400.0001 #### [facility] [address] [place], [address] Platelet mean volume (Bld) [Entitic vol] 9.3 fL Normal 6.2-12.0 [facility] Comment on above: Performed By: #### L 100.0100, L500.4050, L501.0900, L400.0001 #### [facility] [address] [place], [address] Platelets (Bld) [#/Vol] 226 10*3/uL Normal 150-450 [facility] Comment on above: Performed By: #### L 100.0100, L500.4050, L501.0900, L400.0001 #### [facility] [address] [place], [place], [id number] RBC (Bld) [#/Vol] 4.49 10*6/uL Low 4.6-6.2 [facility] Comment on above: Performed By: #### L 100.0100, L500.4050, L501.0900, L400.0001 #### [facility] [address] [place], [address] RDW SD 42.1 fl Normal 35.1-43.9 [facility] Comment on above: Performed By: #### L 100.0100, L500.4050, L501.0900, L400.0001 #### [facility] [address] [place], [address] WBC (Bld) [#/Vol] 5.8 10*3/uL Normal 4.4-11.0 [facility] Comment on above: Performed By: #### L 100.0100, L500.4050, L501.0900, L400.0001 #### [facility] [address] [place], [address] Carbon dioxide, total [Moles /volume] in Central venous bloodOrdered By: Jerome Stanford on 10-15-2024 CO2 [Moles/Vol] 24.9 mmol/L 21.0-32.0 [facility] Chloride assayOrdered By: Leslie Stanford on 10-15-2024 Chloride [Moles/Vol] 102 mmol/L 98-108 [facility] Comprehensive Metabolic Prof ilon 10-15-2024 Albumin [Mass/Vol] 4.4 g/dL Normal 3.4-4.8 [facility] Comment on above: Performed By: #### L 100.0100, L500.4050, L501.0900, L400.0001 #### [facility] [address] [place], [address] Albumin/Globulin [Mass ratio] 1.4 {ratio} Normal 0.9-2.4 [facility] Comment on above: Performed By: #### L 100.0100, L500.4050, L501.0900, L400.0001 #### [facility] [address] [place], [address] ALK PHOS 62 U/L Normal 40-129 [facility] Comment on above: Performed By: #### L 100.0100, L500.4050, L501.0900, L400.0001 #### [facility] [address] [place], [address] ALT [Catalytic activity/Vol] 79 U/L High <=46 [facility] Comment on above: Performed By: #### L 100.0100, L500.4050, L501.0900, L400.0001 #### [facility] [address] [place], [address] AST [Catalytic activity/Vol] 47 U/L High <=37 [facility] Comment on above: Performed By: #### L 100.0100, L500.4050, L501.0900, L400.0001 #### [facility] [address] [place], [address] Bilirubin [Mass/Vol] 0.37 mg/dL Normal 0.00-1.30 [facility] Comment on above: Performed By: #### L 100.0100, L500.4050, L501.0900, L400.0001 #### [facility] [address] [place], [address] BUN/CRE 14.4 RATIO Normal 10-20 [facility] Comment on above: Performed By: #### L 100.0100, L500.4050, L501.0900, L400.0001 #### [facility] [address] [place], [address] Calcium [Mass/Vol] 9.5 mg/dL Normal 7.6-11.0 [facility] Comment on above: Performed By: #### L 100.0100, L500.4050, L501.0900, L400.0001 #### [facility] [address] [place], [address] Chloride [Moles/Vol] 102 mmol/L Normal 98-108 [facility] Comment on above: Performed By: #### L 100.0100, L500.4050, L501.0900, L400.0001 #### [facility] [address] [place], [address] CO2 [Moles/Vol] 24.9 mmol/L Normal 21.0-32.0 [facility] Comment on above: Performed By: #### L 100.0100, L500.4050, L501.0900, L400.0001 #### [facility] [address] [place], [address] Creatinine [Mass/Vol] 0.94 mg/dL Normal 0.70-1.20 [facility] Comment on above: Performed By: #### L 100.0100, L500.4050, L501.0900, L400.0001 #### [facility] [address] [place], [address] GAP 12 Normal 5-15 [facility] Comment on above: Performed By: #### L 100.0100, L500.4050, L501.0900, L400.0001 #### [facility] [address] [place], [address] GFR/1.73 sq M.predicted among non-blacks MDRD (S/P/Bld) [Vol rate/Area] 92 mL/min/{1.73_m2} Normal >60 [facility] Comment on above: Result Comment: mL/m in/1.73m2 CKD-EPI Creatinine Equation (2020) Performed By: #### L 100.0100, L500.4050, L501.0900, L400.0001 #### [facility] [address] [place], [address] Globulin (S) [Mass/Vol] 3.2 g/dL Normal 2.2-4.2 [facility] Comment on above: Performed By: #### L 100.0100, L500.4050, L501.0900, L400.0001 #### [facility] [address] [place], [address] Glucose [Mass/Vol] 122 mg/dL High 70-99 [facility] Comment on above: Performed By: #### L 100.0100, L500.4050, L501.0900, L400.0001 #### [facility] [address] [place], [address] Potassium [Moles/Vol] 4.2 mmol/L Normal 3.3-5.1 [facility] Comment on above: Performed By: #### L 100.0100, L500.4050, L501.0900, L400.0001 #### [facility] [address] [place], [address] Sodium [Moles/Vol] 138 mmol/L Normal 133-145 [facility] Comment on above: Performed By: #### L 100.0100, L500.4050, L501.0900, L400.0001 #### [facility] [address] [place], [address] T PROT 7.6 g/dL Normal 5.9-8.4 [facility] Comment on above: Performed By: #### L 100.0100, L500.4050, L501.0900, L400.0001 #### [facility] [address] [place], [address] Urea nitrogen [Mass/Vol] 14 mg/dL Normal 4-19 [facility] Comment on above: Performed By: #### L 100.0100, L500.4050, L501.0900, L400.0001 #### [facility] [address] [place], [address] Eosinophil percentageOrdered By: Jerome Stanford on 10-15-2024 Eosinophils/100 WBC (Bld) 2.1 % 0-5 [facility] Erythrocyte distribution wid th ratioOrdered By: Jerome Stanford on 10-15-2024 Erythrocyte distribution width (RBC) [Ratio] 12.3 % 11.6-14.6 [facility] Erythrocyte distribution wid th standard deviationOrdered By: Jerometrinity Stanford on 10-15-2024 Erythrocyte distribution width (RBC) [Ratio] 42.1 fl 35.1-43.9 [facility] Glomerular filtration rate ( GFR) estimation/1.73 sq m using serum, plasma, or whole bOrdered By: Jerometrinity Stanford on 10-15-2024 GFR/1.73 sq M.predicted among non-blacks MDRD (S/P/Bld) [Vol rate/Area] 92 mL/min/{1.73_m2} >60 [facility] Comment on above: mL/min/1.73m2 CKD-EP I Creatinine Equation (2020) Hematocrit Auto (Bld) [Volum e fraction]Ordered By: Jermoe Stanford on 10-15-2024 Hematocrit (Bld) [Volume fraction] 41.6 % 40-54 [facility] Hemoglobin A1con 10-15-2024 HbA1c (Bld) [Mass fraction] 5.8 % High <=5.6 [facility] Comment on above: Order Comment: ADDA1 C Result Comment: Norm al < 5.7 % Prediabetic 5.7 - 6.4 % Diabetic >or= 6.5 % Please note range changes. Performed By: #### L 501.9985 ####[facility] [address] [place], [address] Hemoglobin A1c percentageOrd ered By: Jerome Stanford on 10-15-2024 HbA1c (Bld) [Mass fraction] 5.8 % High <5.7 [facility] Comment on above: Normal < 5.7 % Predi abetic 5.7 - 6.4 % Diabetic >or= 6.5 % Please note range changes. Hemoglobin measurementOrdere d By: Jerome Stanford on 10-15-2024 Hemoglobin (Bld) [Mass/Vol] 14.4 g/dL 13.0-16.5 [facility] Hips B/L min 2 views w/ Pelv oliver 10-15-2024 Hips B/L min 2 views w/ Pelvis [facility] [address] [place], [place] [address] Hips B/L min 2 views w/ Pelvis MR#: [id number] Acct: [id number] Name: JACINTO COSTA Rep #: [id number] : 1965 M 59 From: Leslie franklin MD PCP: Dr. Jerome Stanford MD Status: REG CLI Study: Hips B/L min 2 views w/ Pelvis Date of Exam: 0 10/15/24 Exam# [id number] Ordering Dr: Shahnaz Gooden PROCEDURE: HIPS B/L MIN 2 VIEWS W/ PELVIS 10/15/2024 REASON FOR EXAM: BILATERAL HIP AND PELVIS PAIN, HX OF LEFT HIP REPLACEMENT TECHNIQUE: 6 view of the pelvis and bilateral hips COMPARISON: None. FINDINGS: Mild osteopenia. Moderate degenerative joint disease of the right hip. Left hip arthroplasty with unremarkable metallic prosthesis. Moderate arthrosis of the sacroiliac joints. No fracture or dislocation is seen. No lytic or blastic bone lesion is noted. RAD/Hips B/L min 2 views w/ Pelvis IMPRESSION: No evidence for acute abnormality. Reading Location: [place] [address] CC: Shahnaz Gooden; Dr. Jerome Stanford MD Chief Of Staff Doctor: Signed Normal [facility] Immature granulocytes/100 WB C Auto (Bld)Ordered By: Jerome Stanford on 10-15-2024 Immature granulocytes/100 WBC (Bld) 0.500 % 0.0-0.9 [facility] Comment on above: IG% - Immature Granu locytes (promyelocytes, myelocytes and metamyelocytes) > 1% indicates that a LEFT SHIFT is Present. Ketones Test strip Ql (U)Ord ered By: Jerome Stanford on 10-15-2024 Ketones Ql (U) Negative Negative [facility] - Chemistry and C hemistry - challengeOrdered By: Jerome Stanford on 10-15-2024 AST [Catalytic activity/Vol] 47 U/L High <38 [facility] MCV (mean corpuscular volume ) determinationOrdered By: Jerome Stanford on 10-15-2024 MCV (RBC) [Entitic vol] 92.7 fL 80-94 [facility] Mean corpuscular hemoglobin (MCH) determinationOrdered By: Jerome Stanford on 10-15-2024 MCH (RBC) [Entitic mass] 32.1 pg High 27.0-32.0 [facility] Mean corpuscular hemoglobin concentration (MCHC) determinationOrdered By: Jerome Stanford on 10-15-2024 MCHC (RBC) [Mass/Vol] 34.6 g/dL 32-36 [facility] Mean platelet volume determi nationOrdered By: Jerome Stanford on 10-15-2024 Platelet mean volume (Bld) [Entitic vol] 9.3 fL 6.2-12.0 [facility] Microscopic analysis of urin e for red blood cells (RBC)Ordered By: Jerome Stanford on 10-15-2024 Microscopic analysis of urine for red blood cells (RBC) 0 SEEN /hpf 0-5 [facility] Monocyte percentageOrdered B y: Jerome Stanford on 10-15-2024 Monocytes/100 WBC (Bld) 8.0 % 0-10 [facility] Mucus LM Ql (Urine sed)Order ed By: Jerome Stanford on 10-15-2024 Mucus Ql (Urine sed) 0 SEEN /hpf [facility] Neutrophil percentageOrdered By: Jerome Stanford on 10-15-2024 Neutrophils/100 WBC (Bld) 53.4 % 47-70 [facility] Nitrite Test strip Ql (U)Ord ered By: Jerome Stanford on 10-15-2024 Nitrite Ql (U) Negative Negative [facility] Nucleated red blood cell per centageOrdered By: Jerome Stanford on 10-15-2024 Nucleated RBC/100 WBC (Bld) [Ratio] 0 % 0-5 [facility] Platelet countOrdered By: Leslie Stanford on 10-15-2024 Platelets (Bld) [#/Vol] 226 10*3/uL 150-450 [facility] Potassium measurement (mass/ volume)Ordered By: Jerome Stanford on 10-15-2024 Potassium (Unsp spec) [Mass/Vol] 4.2 mmol/L 3.3-5.1 [facility] Protein Test strip Ql (U)Ord ered By: Jerome Stanford on 10-15-2024 Protein Ql (U) 15 mg/dl High Negative [facility] Protein+Creatinine Ratio,Uri neon 10-15-2024 PROT:CRE RATIO 126 mg/g CRE Normal 0-200 [facility] Comment on above: Performed By: #### L 100.0100, L500.4050, L501.0900, L400.0001 #### [facility] [address] [place], [address] Protein (U) [Mass/Vol] 12.7 mg/dL High 0.0-12.0 [facility] Comment on above: Performed By: #### L 100.0100, L500.4050, L501.0900, L400.0001 #### [facility] [address] [place], [address] UR CREAT 101.00 mg/dL Normal 39.00-259.0 0 [facility] Comment on above: Performed By: #### L 100.0100, L500.4050, L501.0900, L400.0001 #### [facility] [address] [place], [address] RBC Auto (Bld) [#/Vol]Ordere d By: Jerome Stanford on 10-15-2024 RBC (Bld) [#/Vol] 4.49 10*6/uL Low 4.6-6.2 [facility] Random urine creatinine karis urement (mass/volume)Ordered By: Jerome Stanford on 10-15-2024 Creatinine Unsp time (U) [Mass/Vol] 101.00 mg/dL 39.00-259.0 0 [facility] Serum creatinine measurement (mass/volume)Ordered By: Jerome Stanford on 10-15-2024 Creatinine [Mass/Vol] 0.94 mg/dL 0.70-1.20 [facility] Serum globulin measurementOr dered By: Jerome Stanford on 10-15-2024 Globulin (S) [Mass/Vol] 3.2 g/dL 2.2-4.2 [facility] Serum glucose measurement (m ass/volume)Ordered By: Jerome Stanford on 10-15-2024 Glucose [Mass/Vol] 122 mg/dL High 70-99 [facility] Serum or plasma alanine solis otransferase (ALT) measurementOrdered By: Jerome Stanford on 10-15-2024 ALT [Catalytic activity/Vol] 79 U/L High <47 [facility] Serum or plasma albumin karis urement (mass/volume)Ordered By: Jerome Stanford on 10-15-2024 Albumin [Mass/Vol] 4.4 g/dL 3.4-4.8 [facility] Serum or plasma albumin/glob ulin mass ratioOrdered By: Jerome Stanford on 10-15-2024 Albumin/Globulin [Mass ratio] 1.4 {ratio} 0.9-2.4 [facility] Serum or plasma alkaline vazquez sphatase measurementOrdered By: Jerome Stanford on 10-15-2024 ALP [Catalytic activity/Vol] 62 U/L 40-129 [facility] Serum or plasma calcium karis urement (mass/volume)Ordered By: Jerome Stanford on 10-15-2024 Calcium [Mass/Vol] 9.5 mg/dL 7.6-11.0 [facility] Serum or plasma urea nitroge n measurement (mass/volume)Ordered By: Jerome Stanford on 10-15-2024 Urea nitrogen [Mass/Vol] 14 mg/dL 4-19 [facility] Sodium levelOrdered By: Demi Stanford on 10-15-2024 Sodium [Moles/Vol] 138 mmol/L 133-145 [facility] Squamous epithelial cells de tection in urine sediment by light microscopyOrdered By: Jerome Stanford on 10-15-2024 Epithelial cells.squamous LM Ql (Urine sed) 0 SEEN /hpf 0-5 [facility] Total proteinOrdered By: Christine Stanford on 10-15-2024 Protein [Mass/Vol] 7.6 g/dL 5.9-8.4 [facility] Urinalysis, Completeon 10-15 BACTERIA 0 SEEN Normal None Seen [facility] Comment on above: Order Comment: CECIL CTOR TO SPECIFY Performed By: #### L 100.0100, L500.4050, L501.0900, L400.0001 #### [facility] [address] [place], [address] EPI,SQUAMOUS 0 SEEN Normal 0-5 [facility] Comment on above: Order Comment: CECIL CTOR TO SPECIFY Performed By: #### L 100.0100, L500.4050, L501.0900, L400.0001 #### [facility] [address] [place], [address] Mucus Ql (Urine sed) 0 SEEN Normal [facility] Comment on above: Order Comment: CECIL CTOR TO SPECIFY Performed By: #### L 100.0100, L500.4050, L501.0900, L400.0001 #### [facility] [address] [place], [address] RBC 0 SEEN Normal [address] [place] [address] Comment on above: Order Comment: COLLE CTOR TO SPECIFY Performed By: #### L 100.0100, L500.4050, L501.0900, L400.0001 #### [facility] [address] [place], [address] WBC 0 SEEN Normal 0-[address] [place] [address] Comment on above: Order Comment: COLLE CTOR TO SPECIFY Performed By: #### L 100.0100, L500.4050, L501.0900, L400.0001 #### [facility] [address] [place], [address] Urine clarityOrdered By: Christine Stanford on 10-15-2024 Clarity (U) Clear Clear [facility] Urine color determinationOrd ered By: Jerome Stanford on 10-15-2024 Color (U) Yellow Yellow [facility] Urine glucose detectionOrder ed By: Jerome Stanford on 10-15-2024 Glucose Ql (U) Normal mg/dl Normal [facility] Urine leukocyte esterase det ection by dipstickOrdered By: Jerome Stanford on 10-15-2024 Leukocyte esterase Test strip Ql (U) Negative Negative [facility] Urine pHOrdered By: Jerome palafox on 10-15-2024 pH (U) 5.0 [pH] 5.0 - 8.0 [facility] Urine protein measurement (m ass/volume)Ordered By: Jerome Stanford on 10-15-2024 Protein (U) [Mass/Vol] 12.7 mg/dL High 0.0-12.0 [facility] Urine protein/creatinine mas s ratioOrdered By: Jerome Stanford on 10-15-2024 Protein/Creatinine (U) [Mass ratio] 126 mg/g CRE 0-200 [facility] Urine sediment bacteria coun t by microscopy (number/high power field)Ordered By: Jerome Stanford on 10-15-2024 Bacteria LM.HPF (Urine sed) [#/Area] 0 /[HPF] None Seen [facility] Urine specific gravity measu rementOrdered By: Jerome Stanford on 10-15-2024 Specific gravity (U) [Rel density] 1.020 1.002-1.030 [facility] Urine urobilinogen measureme ntOrdered By: Jerome Stanford on 10-15-2024 Urobilinogen Ql (U) Normal mg/dl Normal [facility] White blood cell (WBC) count Ordered By: Jerome Stanford on 10-15-2024 WBC (Bld) [#/Vol] 5.8 10*3/uL 4.4-11.0 [facility] White blood cell countOrdere d By: Jerome Stanford on 10-15-2024 White blood cell count 0 SEEN /hpf 0-5 [facility] MR/BMS.IMBon 07-12-2024 MR/BMS.IMB [facility] [address] [place] [address] OFFICE VISIT Date of Service: 07/12/24 MR#: [id number] Acct: [id number] Name: JACINTO COSTA Rep #: [id number] : 1965 Provider: Dr. 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 Accompanied by: Self Is patient in pain?: No Allergies Seasonal Allergies: Uncoded Allergy (Verified 07/12/24 15:07) NEEDS FOLLOW-UP Medications ???Medication ???Instructions ???Recorded ???Confirmed ???Type cholecalciferol (vitamin D3) 25 25 mcg PO DAILY PRN 08/25/2307/12 History mcg (1,000 unit) tablet aspirin 81 mg tablet,delayed 243 mg PO DAILY 11/12/23 07/12/24 History release (Adult Aspirin Regimen) cyclobenzaprine 10 mg tablet 10 mg PO TID PRN Muscle Spasm #20 11/13/23 07/12/24 Rx TABLETS duloxetine 40 mg capsule,delayed 40 mg PO DAILY #90 caps 04/13/24 0 07/12/24 Rx release tramadol 50 mg tablet 50 mg PO Q6 PRN 05/17/24 07/12/24 History lisinopril 20 1 tab PO QDAY #30 tabs 07/12/24 Rx mg-hydrochlorothiazide 12.5 mg tablet PFSH Medical History (Updated 07/15/24 @ 20:[address] Jerome Stanford MD) Essential hypertension Elevated blood pressure reading Chest wall pain Urine protein increased Thoracic myofascial strain Cervical myofascial strain Tension headache Afib Wears glasses Depression Anxiety Alcohol use History of steroid therapy Thyroid disease Arthritis Back pain History of echocardiogram History of stress test Chest pain History of irregular heartbeat History of atrial fibrillation Cardiology follow-up encounter Bone fracture Back pain Lumbar radiculopathy Nonrheumatic mitral (valve) prolapse Paroxysmal atrial fibrillation Premature ventricular contraction Premature atrial contraction Palpitations Surgical History History of lumbar surgery Hx of colonoscopy H/O foot surgery History of hip replacement History of nasal surgery History of foot surgery Family History Father CAD (coronary artery disease) History of coronary artery bypass surgery, Onset Age: 53 Depression Hypertension COPD (chronic obstructive pulmonary disease) Grandmother Diabetes Congestive heart failure Myocardial infarction Mother Diabetes Thyroid disorder Sister Anxiety Radha's disease Depression Thyroid disorder Grandfather Parkinson disease Social History Smoking Status: Never smoker alcohol intake: current alcohol intake frequency: 0-2 drinks per day details: occasional substance use type: does not use HPI HPI Chief Complaint: Acid reflux, BP Details: JACINTO COSTA, is a 59 M who presents to the office today for followup. Pt. is a 59 year old male, with history of DVT, elevated TSH without clear hypothyroidism, history of right shoulder pain/incomplete rotator cuff tear, low vitamin D. In June 02, presented for office followup for low back discomfort, after he was seen in urgent care. No major concerning findings were note in urgent care, had low amount protein in urine. See previous note for details. We did request labs to be completed, but not done yet. Main current issue is that of ongoing elevation of blood pressures. He brings in a few readings from late June 142/101; 160/106; 148/89; 139/81; 134/83; 171;93; 147;99; 153/93; and 144/96. Has had some KENDRICK when BP elevated. In addition, at dentist recently, he was told may have silent reflux. He denies ongoing heartburn, nightime reflux, abdominal pain, nausea, dyspepsia, early satiety, difficulty swallowing, change in BM. Vital signs on chart. Weight up to 294. Reviewed with patient. Office BP 159/96. Sclera clear. Neck supple. Lungs are clear, no wheeze, ronchi, rales. Heart regular, no gallops, rubs, murmur. Abdomen is soft, protuberant. No edema. ROS Const Constitutional: Positive for headache(s) and sleep problems; No body ache, chills, excessive sweating, fatigue, fever(s), frequent falls, snoring, weakness or change in appetite Eyes Eyes: No blurry vision, change in vision, eye pain or Light sensitivity (more content not included)... Normal [facility] MR/BMS.Bon 05-17-2024 MR/BMS.IMB [facility] [address] [place] [address] OFFICE VISIT Date of Service: 05/17/24 MR#: [id number] Acct: [id number] Name: JACINTO COSTA Rep #: [id number] : 1965 Provider: Dr. 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 Required: No Accompanied by: Self Is patient in pain?: Yes (right side/back) Pain scale (1-10): 1 Allergies Seasonal Allergies: Uncoded Allergy (Verified 05/17/24 15:00) NEEDS FOLLOW-UP Medications ???Medication ???Instructions ???Recorded ???Confirmed ???Type cholecalciferol (vitamin D3) 25 25 mcg PO DAILY PRN 08/25/23 05/17/24 History mcg (1,000 unit) tablet aspirin 81 mg tablet,delayed 243 mg PO DAILY 11/12/23 05/17/24 History release (Adult Aspirin Regimen) cyclobenzaprine 10 mg tablet 10 mg PO TID PRN Muscle Spasm #20 11/13/23 05/17/24 Rx TABLETS duloxetine 40 mg capsule,delayed 40 mg PO DAILY #90 caps 04/13/24 05/17/24 Rx release diazepam 5 mg tablet 5 mg PO QDAY PRN 05/17/24 05/17/24 History tramadol 50 mg tablet 50 mg PO Q6 PRN 05/17/24 05/17/24 History PFSH Medical History (Updated 05/17/24 @ 17:[address] Jerome Stanford MD) Elevated blood pressure reading Chest wall pain Urine protein increased Thoracic myofascial strain Cervical myofascial strain Tension headache Afib Wears glasses Depression Anxiety Alcohol use History of steroid therapy Thyroid disease Arthritis Back pain History of echocardiogram History of stress test Chest pain History of irregular heartbeat History of atrial fibrillation Cardiology follow-up encounter Bone fracture Back pain Lumbar radiculopathy Nonrheumatic mitral (valve) prolapse Paroxysmal atrial fibrillation Premature ventricular contraction Premature atrial contraction Palpitations Surgical History History of lumbar surgery Hx of colonoscopy H/O foot surgery History of hip replacement History of nasal surgery History of foot surgery Family History Father CAD (coronary artery disease) History of coronary artery bypass surgery, Onset Age: 53 Depression Hypertension COPD (chronic obstructive pulmonary disease) Grandmother Diabetes Congestive heart failure Myocardial infarction Mother Diabetes Thyroid disorder Sister Anxiety Radha's disease Depression Thyroid disorder Grandfather Parkinson disease Social History Smoking Status: Never smoker alcohol intake: current alcohol intake frequency: 0-2 drinks per day details: occasional substance use type: does not use HPI HPI Chief Complaint: kidney pain/elevated BP Details: JACINTO COSTA, is a 59 M who presents to the office today for follow-up. Patient has noted discomfort in the right side of his back area. Sometimes this radiates around the lateral and pos terior lateral back area and occasionally up under the right rib area. He does make note that a a number of months ago, he did have a fall where he banged the right lower rib area. He had a contusion he states and he did have that evaluated. However have been generally doing fine from that standpoint. He went and evaluated because prior to that he did have low back surgery and he wanted to make sure everything was okay. He does continue to follow with pain management at this point. He has had relatively recent injections in his lumbar spine and has generally had pretty good relief with those. He is status post more remote back surgery for lumbar stenosis. However this area is more to the right upper back, along the right lower rib cage area. Not accompanied by any chest pain, chest tightness, shortness of breath, cough, inspiration does not make this worse. He has not noted any blood in the urine. Relatively recently because of this he went to urgent care at [facility]. At that point this right-sided back pain have been persisting for perhaps a couple of months. Somewhat worse with movement he states but that is really not the clear precipitant. Pain is not severe or high intensity but rather moderate to lower intensity in nature. In the urgent care, they did a urine dip show (more content not included)... [facility] Office Visit (UCW[facility] ) -------- JACINTO COSTA ([id number]) 1965 M Date Time Provider Department 05/10/24 2:[address] [facility] During your visit today, we recorded the following information about you: Temperature Pulse Respiration Blood pressure 96.1 degrees 98/minute 20/minute 136/99 Weight 135 kg Silvana Scott PA 05/10/2024 2:49 PM Signed This note was created using NoteWriter. Subjective Jacinto Costa is a 59 year old male. HPI 59-year-old male presents for right sided back pain. Patient states that he has had right sided mid back pain for the past few months. Pain is worse with movement. He does have history of low back issues in the past with sciatica on the left side. No new numbness or tingling in the legs. He does get lumbar injections with his pain doctor. Has not had one for several months. States he does not normally have mid back pain. He denies any fall or injury. No cough. No fevers. No blood in the urine, dysuria. He denies any history of kidney stones. No other complaint. PAST MEDICAL HISTORY Diagnosis Date Depression Lumbar stenosis PAST SURGICAL HISTORY Procedure Laterality Date BACK SURGERY HX lumbar SHOULDER SURGERY HX Right labrum/rotator cuff repair TOTAL HIP REPLACEMENT Left VASECTOMY ALLERGIES Patient has no known allergies. MEDICATIONS cyclobenzaprine (FLEXERIL) 10 mg tablet DULoxetine (CYMBALTA) 40 mg cpDR Take 1 capsule by mouth every afternoon. aspirin 81 mg cap Take 1 tablet by mouth once daily. Lactobacillus acidophilus (PROBIOTIC ORAL) Take 1 capsule by mouth once daily. predniSONE (DELTASONE) 20 mg tablet Take 2 tablets by mouth once daily for 4 days. Take daily with food. No family history on file. Social History Tobacco Use Smoking status: Never Passive exposure: Never Smokeless tobacco: Never Review of Systems Constitutional: Negative for chills and fever. HENT: Negative for congestion and sore throat. Respiratory: Negative for cough and shortness of breath. Gastrointestinal: Negative for abdominal pain, diarrhea and vomiting. Genitourinary: Positive for flank pain. Musculoskeletal: Positive for back pain. Objective BP 136/99 Pulse 98 Temp (!) 35.6 ?C (96.1 ?F) Resp 20 Wt 135 kg (297 lb 9.9 oz) SpO2 99% BMI 38.21 kg/m? Physical Exam Vitals and nursing note reviewed. Constitutional: General: He is not in acute distress. Appearance: Normal appearance. He is not toxic-appearing. HENT: Nose: Nose normal. Mouth/Throat: Mouth: Mucous membranes are moist. Eyes: Conjunctiva/sclera: Conjunctivae normal. Cardiovascular: Rate and Rhythm: Normal rate and regular rhythm. Pulmonary: Effort: Pulmonary effort is normal. Breath sounds: Normal breath sounds. Abdominal: General: Abdomen is flat. Palpations: Abdomen is soft. Tenderness: There is no abdominal tenderness. There is no right CVA tenderness, left CVA tenderness, guarding or rebound. Musculoskeletal: Cervical back: Tenderness and bony tenderness present. Pain with movement present. Thoracic back: Tenderness present. Back: Comments: Patient has mild right sided lower thoracic/upper lumbar paraspinal muscle tenderness. No midline tenderness. No bony step-offs or deformities. Normal gait. Skin: General: Skin is warm and dry. Neurological: Mental Status: He is alert. Assessment and Plan ASSESSMENT/PLAN: 1. Acute right-sided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 [facility] Neutrophils/100 WBC (Bld) 37.5 % 47-70 [facility] Potassium [Moles/Vol] 4.1 mmol/L 3.5-5.1 [facility] Protein [Mass/Vol] 6.9 g/dL 6.4-8.2 [facility] Sodium [Moles/Vol] 139 mmol/L 136-145 [facility] Triglyceride [Mass/Vol] 206 mg/dL <199 [facility] Comment on above: The drugs N-Acetylcy steine and Metamizole may falsely depress this assay.Serum Triglycerides Reference Interval Normal <150 mg/dL Borderline high 150 - 199 mg/dL High 200 - 499 mg/dL Very High > or = 500 mg/dL WBC (Bld) [#/Vol] 5.6 10*3/uL 4.4-11.0 [facility] Determination of erythrocyte mean corpuscular volume (MCV)Ordered By: Jerome Stanford on 08-29-2023 MCV (RBC) [Entitic vol] 92.2 fL 80-94 [facility] Erythrocyte distribution wid th ratioOrdered By: Jerome Stanford on 08-29-2023 Erythrocyte distribution width (RBC) [Ratio] 12.5 % 11.6-14.6 [facility] Erythrocyte distribution wid th standard deviationOrdered By: Jerome Stafnord on 08-29-2023 Erythrocyte distribution width (RBC) [Entitic vol] 42.4 fL 35.1-43.9 [facility] Hematocrit Auto (Bld) [Volum e fraction]Ordered By: Jerome Stanford on 08-29-2023 Hematocrit (Bld) [Volume fraction] 41.4 % 40-54 [facility] Immature granulocytes/100 WB C Auto (Bld)Ordered By: Jerome Stanford on 08-29-2023 Immature granulocytes/100 WBC (Bld) 0.200 % 0.0-0.9 [facility] Comment on above: IG% - Immature Granu locytes (promyelocytes, myelocytes and metamyelocytes) > 1% indicates that a LEFT SHIFT is Present. Laboratory - Chemistry and C hemistry - challengeOrdered By: Jerome Stanford on 08-29-2023 Albumin/Globulin [Mass ratio] 1.0 {ratio} 0.9-2.4 [facility] ALP [Catalytic activity/Vol] 52 U/L 45-117 [facility] ALT [Catalytic activity/Vol] 69 U/L 16-61 [facility] Cholesterol in HDL [Mass/Vol] 32 mg/dL >40 [facility] Comment on above: The drugs N-Acetylcy steine and Metamizole may falsely depress this assay. Reference Range HDL <40 mg/dL Low HDL Cholesterol HDL >or= 60 mg/dL High HDL Cholesterol Cholesterol in LDL [Mass/Vol] 162 mg/dL 0-130 [facility] CO2 [Moles/Vol] 27.0 mmol/L 21.0-32.0 [facility] Globulin (S) [Mass/Vol] 3.4 g/dL 2.2-4.2 [facility] Urea nitrogen/Creatinine [Mass ratio] 16.8 mg/mg 10-20 [facility] Laboratory - Hematology and Cell countsOrdered By: Jerome Stanford on 08-29-2023 MCH (RBC) [Entitic mass] 31.4 pg 27.0-32.0 [facility] MCHC (RBC) [Mass/Vol] 34.1 g/dL 32-36 [facility] Nucleated RBC/100 WBC (Bld) [Ratio] 0 % 0-5 [facility] Platelet mean volume (Bld) [Entitic vol] 9.3 fL 6.2-12.0 [facility] Platelets (Bld) [#/Vol] 195 10*3/uL 150-450 [facility] No Panel InformationOrdered By: Jerome Stanford on 08-29-2023 Estimated GFR (MDRD) Amer 112 mL/min >60 [facility] Comment on above: GFR Calc Estimated GFR (MDRD) Non-Af Amer 92 mL/min >60 [facility] Comment on above: Non- GFR Calc Free Triiodothyronine (T3) pg/dL 2.6 pg/mL 2.18-3.98 [facility] Prostate Specific Antigen Screen 1.82 ng/mL 0.00-4.00 [facility] Comment on above: This test was perfor med using the TPSA assay method for the[facility]. Values obtained with differentassay methods cannot be used interchangably.When changing PSA assays in the course of monitoring apatient, additional sequential testing should be carriedout to confirm baseline values. Vitamin D 25-Hydroxy 42.8 ng/mL [facility] Comment on above: Vitamin D 25(OH) Sta tus Range Deficiency <20 ng/mL (50nmol/L) Insufficiency 20 - 30 ng/mL (50 - 75 nmol/L) Sufficiency 30 - 100 ng/mL (75 - 250 nmol/L) Toxicity >100 ng/mL (>250 nmol/L) VLDL Cholesterol 41 mg/dL 5-40 [facility] RBC Auto (Bld) [#/Vol]Ordere d By: Jerome Stanford on 08-29-2023 RBC (Bld) [#/Vol] 4.49 10*6/uL 4.6-6.2 [facility] Serum or plasma calcium karis urement (mass/volume)Ordered By: Jerome Stanford on 08-29-2023 Calcium [Mass/Vol] 8.3 mg/dL 8.5-10.1 [facility] Serum or plasma creatinine m easurement (mass/volume)Ordered By: Jerome Stanford on 08-29-2023 Creatinine [Mass/Vol] 0.89 mg/dL 0.70-1.30 [facility] Comment on above: The validity of the calculated GFR & GFRAA in patients over 70 years has not been determined. Clinical correlation is essential. Serum or plasma thyroid stim ulating hormone (TSH) measurement (units/volume)Ordered By: Jerome Stanford on 08-29-2023 TSH Qn 3.92 uIU/mL 0.358-3.74 [facility] Serum or plasma urea nitroge n measurement (mass/volume)Ordered By: Jerome Stanford on 08-29-2023 Urea nitrogen [Mass/Vol] 15 mg/dL 7-18 [facility] Thin prep Papanicolaou smear with manual screeningOrdered By: Jerome Stanford on 08-29-2023 Thin prep Papanicolaou smear with manual screening 3.5 g/dL 3.2-5.0 [facility] Thin prep Papanicolaou smear with manual screening 32 U/L 15-37 [facility] Thin prep Papanicolaou smear with manual screening 3 5-15 [facility] Thin prep Papanicolaou smear with manual screening 0.83 ng/dL 0.76-1.46 [facility] Whole blood hemoglobin A1c/t otal hemoglobin ratio (mass fraction)Ordered By: Jerome Stanford on 08-29-2023 HbA1c (Bld) [Mass fraction] 5.3 % 3.8-5.6 [facility] Comment on above: Normal < 5.7 % Predi abetic 5.7 - 6.4 % Diabetic >or= 6.5 % Please note range changes. Basophil percentageOrdered B y: Dr. Stanford on 06-02-2022 WBC (Bld) [#/Vol] 5.3 10*3/uL 4.4-11.0 [facility] Bilirubin [Mass/Vol] 0.70 mg/dL 0.20-1.00 [facility] Comment on above: For patients on eltr ombopag therapy, use of Dimension [place] TBIL is not recommended. Chloride [Moles/Vol] 105 mmol/L 98-107 [facility] Cholesterol [Mass/Vol] 241 mg/dL <200 [facility] Comment on above: <200 mg/dL Desirable 200-240 mg/dL Borderline >240 mg/dL High Risk Glucose [Mass/Vol] 116 mg/dL 74-106 [facility] Comment on above: Fasting Glucose resu lt from 100 to 125 mg/dL suggests IMPAIRED HOMEOSTASIS per A.D.A. criteria. Potassium [Moles/Vol] 4.5 mmol/L 3.5-5.1 [facility] Protein [Mass/Vol] 7.5 g/dL 6.4-8.2 [facility] Sodium [Moles/Vol] 139 mmol/L 136-145 [facility] Triglyceride [Mass/Vol] 226 mg/dL <199 [facility] Comment on above: The drugs N-Acetylcy steine and Metamizole may falsely depress this assay.Serum Triglycerides Reference Interval Normal <150 mg/dL Borderline high 150 - 199 mg/dL High 200 - 499 mg/dL Very High > or = 500 mg/dL Blood erythrocytes count (nu mber/volume)Ordered By: Dr. Stanford on 06-02-2022 RBC (Bld) [#/Vol] 4.79 10*6/uL 4.6-6.2 [facility] Blood hemoglobin measurement (mass/volume)Ordered By: Dr. Stanford on 06-02-2022 Hemoglobin (Bld) [Mass/Vol] 15.0 g/dL 13.0-16.5 [facility] Blood platelet mean volumeOr dered By: Dr. Stanford on 06-02-2022 Platelet mean volume (Bld) [Entitic vol] 9.2 fL 6.2-12.0 [facility] Determination of erythrocyte mean corpuscular volume (MCV)Ordered By: Dr. Stanford on 06-02-2022 MCV (RBC) [Entitic vol] 92.1 fL 80-94 [facility] Hematocrit Auto (Bld) [Volum e fraction]Ordered By: Dr. Stanford on 06-02-2022 Hematocrit (Bld) [Volume fraction] 44.1 % 40-54 [facility] Laboratory - Chemistry and C hemistry - challengeOrdered By: Dr. Stanford on 06-02-2022 ALP [Catalytic activity/Vol] 57 U/L 45-117 [facility] ALT [Catalytic activity/Vol] 59 U/L 16-61 [facility] CO2 [Moles/Vol] 30.0 mmol/L 21.0-32.0 [facility] Globulin (S) [Mass/Vol] 4.0 g/dL 2.2-4.2 [facility] Urea nitrogen/Creatinine [Mass ratio] 11.9 mg/mg 10-20 [facility] Laboratory - Hematology and Cell countsOrdered By: Dr. Stanford on 06-02-2022 Erythrocyte distribution width (RBC) [Entitic vol] 42.3 fL 35.1-43.9 [facility] Erythrocyte distribution width (RBC) [Ratio] 12.4 % 11.6-14.6 [facility] MCH (RBC) [Entitic mass] 31.3 pg 27.0-32.0 [facility] MCHC Auto (RBC) [Mass/Vol]Or dered By: Dr. Stanford on 06-02-2022 MCHC (RBC) [Mass/Vol] 34.0 g/dL 32-36 [facility] No Panel InformationOrdered By: Dr. Stanford on 06-02-2022 C-Reactive Protein High Sensitivity 2.66 mg/L <3.00 [facility] Comment on above: Low Relative Risk of CVD <1.0 mg/L Average Relative Risk of CVD 1.0 - 3.0 mg/L High Relative Risk of CVD >3.0 mg/L Estimated GFR (MDRD) Amer 108 mL/min >60 [facility] Comment on above: GFR Calc Estimated GFR (MDRD) Non-Af Amer 90 mL/min >60 [facility] Comment on above: Non- GFR Calc Insulin Level 8.5 mU/L 2.6-37.6 [facility] Prostate Specific Antigen Screen 2.51 ng/mL 0.00-4.00 [facility] Comment on above: This test was perfor med using the TPSA assay method for [email or web address] chemistry system. Values obtained with differentassay methods cannot be used interchangably.When changing PSA assays in the course of monitoring apatient, additional sequential testing should be carriedout to confirm baseline values. Thyroid Stimulating Hormone (TSH) 1.13 uIU/mL 0.358-3.74 [facility] Vitamin D 25-Hydroxy 34.7 ng/mL [facility] Comment on above: Vitamin D 25(OH) Sta tus Range Deficiency <20 ng/mL (50nmol/L) Insufficiency 20 - 30 ng/mL (50 - 75 nmol/L) Sufficiency 30 - 100 ng/mL (75 - 250 nmol/L) Toxicity >100 ng/mL (>250 nmol/L) Platelets bldOrdered By: Dr. Stanford on 06-02-2022 Platelets (Bld) [#/Vol] 209 10*3/uL 150-450 [facility] Serum or plasma albumin karis urement (mass/volume)Ordered By: Dr. Stanford on 06-02-2022 Albumin [Mass/Vol] 3.5 g/dL 3.2-5.0 [facility] Serum or plasma albumin/glob ulin mass ratioOrdered By: Dr. Stanford on 06-02-2022 Albumin/Globulin [Mass ratio] 0.9 {ratio} 0.9-2.4 [facility] Serum or plasma calcium karis urement (mass/volume)Ordered By: Dr. Stanford on 06-02-2022 Calcium [Mass/Vol] 8.7 mg/dL 8.5-10.1 [facility] Serum or plasma cholesterol in HDL measurement (mass/volume)Ordered By: Dr. Stanford on 06-02-2022 Cholesterol in HDL [Mass/Vol] 35 mg/dL >40 [facility] Comment on above: The drugs N-Acetylcy steine and Metamizole may falsely depress this assay. Reference Range HDL <40 mg/dL Low HDL Cholesterol HDL >or= 60 mg/dL High HDL Cholesterol Serum or plasma cholesterol in VLDL measurement (mass/volume)Ordered By: Dr. Stanford on 06-02-2022 Cholesterol in VLDL [Mass/Vol] 45 mg/dL 5-40 [facility] Serum or plasma creatinine m easurement (mass/volume)Ordered By: Dr. Stanford on 06-02-2022 Creatinine [Mass/Vol] 0.92 mg/dL 0.70-1.30 [facility] Comment on above: The validity of the calculated GFR & GFRAA in patients over 70 years has not been determined. Clinical correlation is essential. Serum or plasma low density lipoprotein (LDL) cholesterol measurement (mass/volume)Ordered By: Dr. Stanford on 06-02-2022 Cholesterol in LDL [Mass/Vol] 161 mg/dL 0-130 [facility] Serum or plasma urea nitroge n measurement (mass/volume)Ordered By: Dr. Stanford on 06-02-2022 Urea nitrogen [Mass/Vol] 11 mg/dL 7-18 [facility] Thin prep Papanicolaou smear with manual screeningOrdered By: Dr. Stanford on 06-02-2022 Thin prep Papanicolaou smear with manual screening 29 U/L 15-37 [facility] [place] Thin prep Papanicolaou smear with manual screening 4 5-15 [facility] [place] Whole blood hemoglobin A1c/t otal hemoglobin ratio (mass fraction)Ordered By: Dr. Stanford on 06-02-2022 HbA1c (Bld) [Mass fraction] 5.4 % 3.8-5.6 [facility] [place] Comment on above: Normal < 5.7 % Predi abetic 5.7 - 6.4 % Diabetic >or= 6.5 % Please note range changes. Absolute lymphocyte countOrd ered By: Yoyn Mccord on 03-28-2022 Lymphocytes Auto (Unsp spec) [#/Vol] 2.53 10*3/uL 0.83-4.51 [facility] [place] Basophil percentageOrdered B y: Yony Mccord on 03-28-2022 Basophils/100 WBC (Bld) 0.7 % 0-1 [facility] [place] Chloride [Moles/Vol] 108 mmol/L 98-107 [facility] Eosinophils/100 WBC (Bld) 2.4 % 0-5 [facility] [place] Glucose [Mass/Vol] 163 mg/dL 74-106 [facility] Comment on above: Slight Lipemia, Resu lt may be falsely increased.Fasting Glucose result greater than or equal to 126 mg/dL suggests DIABETES MELLITUS per A.D.A. criteria. Neutrophils (Bld) [#/Vol] 2.2 10*3/uL 2.0-7.7 [facility] [place] Neutrophils/100 WBC (Bld) 40.7 % 47-70 [facility] [place] Potassium [Moles/Vol] 3.7 mmol/L 3.5-5.1 [facility] Comment on above: Slight Hemolysis, Re sult may be falsely increased.-Slight Lipemia, Result may be falsely increased. Sodium [Moles/Vol] 140 mmol/L 136-145 [facility] WBC (Bld) [#/Vol] 5.4 10*3/uL 4.4-11.0 [facility] Blood erythrocytes count (nu mber/volume)Ordered By: Yoyn Mccord on 03-28-2022 RBC (Bld) [#/Vol] 4.67 10*6/uL 4.6-6.2 [facility] Blood hemoglobin measurement (mass/volume)Ordered By: Yony Mccord on 03-28-2022 Hemoglobin (Bld) [Mass/Vol] 14.9 g/dL 13.0-16.5 [facility] [place] Blood lymphocytes/100 leukoc ytesOrdered By: Yony Mccord on 03-28-2022 Lymphocytes/100 WBC (Bld) 46.9 % 19-41 [facility] [place] Blood monocytes/100 leukocyt esOrdered By: Yony Mccord on 03-28-2022 Monocytes/100 WBC (Bld) 9.1 % 0-10 [facility] [place] Blood platelet mean volumeOr dered By: Yony Mccord on 03-28-2022 Platelet mean volume (Bld) [Entitic vol] 9.2 fL 6.2-12.0 [facility] [place] Determination of erythrocyte mean corpuscular volume (MCV)Ordered By: Yony Mccord on 03-28-2022 MCV (RBC) [Entitic vol] 91.0 fL 80-94 [facility] [place] Hematocrit Auto (Bld) [Volum e fraction]Ordered By: Yony Mccord on 03-28-2022 Hematocrit (Bld) [Volume fraction] 42.5 % 40-54 [facility] [place] INR in Blood by Coagulation assayOrdered By: Yony Mccord on 03-28-2022 INR Coag (Bld) [Relative time] 0.9 {INR} [facility] [place] Laboratory - Chemistry and C hemistry - challengeOrdered By: Yony Mccord on 03-28-2022 CO2 [Moles/Vol] 24.0 mmol/L 21.0-32.0 [facility] [place] Comment on above: Slight Lipemia, Resu lt may be falsely increased. Magnesium [Mass/Vol] 2.2 mg/dL 1.6-2.6 [facility] Comment on above: Slight Hemolysis, Re sult may be falsely increased.-Slight Lipemia, Result may be falsely increased. Urea nitrogen/Creatinine [Mass ratio] 13.6 mg/mg 02-25 [facility] [place] Laboratory - CoagulationOrde red By: Yony Mccord on 03-28-2022 aPTT Coag (Bld) [Time] 31.4 s 24.1-36.2 [facility] PT Coag (PPP) [Time] 11.3 s 11.7-14.9 [facility] Laboratory - Hematology and Cell countsOrdered By: Yony cMcord on 03-28-2022 Erythrocyte distribution width (RBC) [Entitic vol] 41.0 fL 35.1-43.9 [facility] [place] Erythrocyte distribution width (RBC) [Ratio] 12.4 % 11.6-14.6 [facility] [place] Immature granulocytes/100 WBC (Bld) 0.200 % 0.0-0.9 [facility] [place] Comment on above: IG% - Immature Granu locytes (promyelocytes, myelocytes and metamyelocytes) > 1% indicates that a LEFT SHIFT is Present. MCH (RBC) [Entitic mass] 31.9 pg 27.0-32.0 [facility] [place] Nucleated RBC/100 WBC (Bld) [Ratio] 0 % 0-5 [facility] [place] MCHC Auto (RBC) [Mass/Vol]Or dered By: Yony Mccord on 03-28-2022 MCHC (RBC) [Mass/Vol] 35.1 g/dL 32-36 [facility] No Panel InformationOrdered By: Yony Mccord on 03-28-2022 D-Dimer Quantitative (PE/DVT) 0.68 FEU/ug/m 0.27-0.49 [facility] [place] Comment on above: D-Dimer ELEVATED (>0 .49): Additional studies and clinicalassessments are indicated to conclude diagnosis of:Deep Vein Thrombosis (DVT) or Pulmonary Embolism (PE)CRITICAL VALUE VERIFIED. CALLED TO EDITH CARPENTER05/28/21 0256 Kavon Cortez.RESULTS READ BACK BY SAME . Estimated Creatinine Clearance Calc 97.52 ml/min [facility] [place] Estimated GFR (MDRD) Amer 104 mL/min >60 [facility] [place] Comment on above: GFR Calc Estimated GFR (MDRD) Non-Af Amer 86 mL/min >60 [facility] [place] Comment on above: Non- GFR Calc Thyroid Stimulating Hormone (TSH) 3.32 uIU/mL 0.358-3.74 [facility] [place] Troponin I High Sensitivity 8 pg/mL 3.0-78.0 [facility] [place] Comment on above: Please Note: New Radha t Units and Gender Specific Reference Ranges. For more information see Policy Stat Procedure [place] High Sensitivity Troponin (TNIH) and attachments. Platelets bldOrdered By: Christophe Mccord on 03-28-2022 Platelets (Bld) [#/Vol] 210 10*3/uL 150-450 [facility] [place] Serum or plasma calcium karis urement (mass/volume)Ordered By: Yony Mccord on 03-28-2022 Calcium [Mass/Vol] 8.6 mg/dL 8.5-10.1 [facility] Comment on above: Slight Lipemia, Resu lt may be falsely increased. Serum or plasma creatinine m easurement (mass/volume)Ordered By: Yony Mccord on 03-28-2022 Creatinine [Mass/Vol] 0.96 mg/dL 0.70-1.30 [facility] Comment on above: Slight Lipemia, Resu lt may be falsely increased.The validity of the calculated GFR & GFRAA in patients over 70 years has not been determined. Clinical correlation is essential. Serum or plasma urea nitroge n measurement (mass/volume)Ordered By: Yony Mccord on 03-28-2022 Urea nitrogen [Mass/Vol] 13 mg/dL 7-18 [facility] [place] Comment on above: Slight Lipemia, Resu lt may be falsely increased. Thin prep Papanicolaou smear with manual screeningOrdered By: Yony Mccord on 03-28-2022 Thin prep Papanicolaou smear with manual screening 8 5-15 [facility] [place] Culture, urineOrdered By: Ra kye Luz on 03-25-2022 Bacteria identified Cx Nom (U) Presumptive Lactobacillus sp. [facility] Basophil percentageOrdered B y: Merline Luz on 03-23-2022 Basophil percentage 0 SEEN /hpf 0-5 [facility] Bilirubin Test strip Ql (U)O rdered By: Merline Luz on 03-23-2022 Bilirubin Ql (U) Negative Negative [facility] Ketones Test strip Ql (U)Ord ered By: Merline Luz on 03-23-2022 Ketones Ql (U) 5 mg/dl Negative [facility] Laboratory - Chemistry and C hemistry - challengeon 03-23-2022 Bilirubin Ql (U) Negative [facility] Glucose Ql (U) Negative [facility] Ketones Ql (U) Negative [facility] pH (U) 5.0 [pH] [facility] Specific gravity (U) [Rel density] 1.030 [facility] [place] Urobilinogen (U) [Mass/Vol] 0.9615377 mg/dL [facility] [place] Laboratory - Hematology and Cell countson 03-23-2022 Hemoglobin Ql (U) Negative [facility] Laboratory - Specimen inform ationon 03-23-2022 Clarity (U) Clear [facility] Color (U) RADHA [facility] [place] Laboratory - Urinalysison Nitrite Ql (U) Negative [facility] Protein Ql (U) Trace [facility] Mucus LM Ql (Urine sed)Order ed By: Merline Luz on 03-23-2022 Mucus Ql (Urine sed) 0 SEEN /hpf [facility] Nitrite Test strip Ql (U)Ord ered By: Merline Luz on 03-23-2022 Nitrite Ql (U) Negative Negative [facility] No Panel Informationon 03-23 Urine Leukocytes Negatve [facility] [place] Urine Non-Hemolyzed Blood Negative [facility] Protein Test strip Ql (U)Ord ered By: Merline Luz on 03-23-2022 Protein Ql (U) Negative Negative [facility] [place] Squamous epithelial cells de tection in urine sediment by light microscopyOrdered By: Merline Luz on 03-23-2022 Epithelial cells.squamous LM Ql (Urine sed) 0 SEEN /hpf 0-5 [facility] [place] Urine blood detectionOrdered By: Merline Luz on 03-23-2022 RBC Ql (U) Negative Negative [facility] RBC Ql (U) 0 SEEN /hpf 0-5 [facility] [place] Urine clarityOrdered By: René Luz on 03-23-2022 Clarity (U) Clear Clear [facility] [place] Urine color determinationOrd ered By: Merline Luz on 03-23-2022 Color (U) Yellow Yellow [facility] [place] Urine glucose detectionOrder ed By: Merline Luz on 03-23-2022 Glucose Ql (U) Normal mg/dl Normal [facility] [place] Urine leukocyte esterase det ection by dipstickOrdered By: Merline Luz on 03-23-2022 Leukocyte esterase Test strip Ql (U) Negative Negative [facility] [place] Urine pHOrdered By: Merline Luz on 03-23-2022 pH (U) 6.0 [pH] 5.0 - 8.0 [facility] [place] Urine sediment bacteria coun t by microscopy (number/high power field)Ordered By: Merline Luz on 03-23-2022 Bacteria LM.HPF (Urine sed) [#/Area] 0 /[HPF] None Seen [facility] Urine specific gravity measu rementOrdered By: Merline Luz on 03-23-2022 Specific gravity (U) [Rel density] 1.020 1.002-1.030 [facility] [place] Urobilinogen Auto test strip Ql (U)Ordered By: Merline Luz on 03-23-2022 Urobilinogen Ql (U) Normal mg/dl Normal [facility] XR CHEST 2V FRONTAL/LATon [facility] XR Chest PA and Lateralon IMPRESSION: No acute radiographic abnormality. Chief Of Staff Doctor: LEDA Transcribe Date/Time: Feb 16 2022 11:24A Dictated by : LUZ MARINA FELIPE MD This examination was interpreted and the report reviewed and electronically signed by: LUZ MARINA FELIPE MD on Feb 16 2022 11:25AM [facility] DIVISION OF RADIOLOGY * * *Final Report* * * DATE OF EXAM: Feb 16 2022 11:21AM WOX 5291 - XR CHEST 2V FRONTAL/LAT / PROCEDURE REASON: Acute cough * * * * Physician Interpretation * * * * EXAMINATION: CHEST RADIOGRAPH (2 VIEW FRONTAL & LATERAL) CLINICAL HISTORY: Acute cough MQ: XC2_6 EXAM DATE/TIME: 02/16/2022 11:21 AM COMPARISON: No relevant prior studies available. RESULT: Lines, tubes, and devices: None. Lungs and pleura: No consolidation. No lung mass. No pleural effusion. No pneumothorax. Cardiomediastinal silhouette: Unremarkable cardiomediastinal silhouette. Bones and soft tissues: Unremarkable. DIVISION OF RADIOLOGY Provider, [facility] - 02/16/2022 * * *Final Report* * * DATE OF EXAM: Feb 16 2022 11:21AM WOX 5291 - XR CHEST 2V FRONTAL/LAT / PROCEDURE REASON: Acute cough * * * * Physician Interpretation * * * * EXAMINATION: CHEST RADIOGRAPH (2 VIEW FRONTAL & LATERAL) CLINICAL HISTORY: Acute cough MQ: XC2_6 EXAM DATE/TIME: 02/16/2022 11:21 AM COMPARISON: No relevant prior studies available. RESULT: Lines, tubes, and devices: None. Lungs and pleura: No consolidation. No lung mass. No pleural effusion. No pneumothorax. Cardiomediastinal silhouette: Unremarkable cardiomediastinal silhouette. Bones and soft tissues: Unremarkable. IMPRESSION IMPRESSION: No acute radiographic abnormality. Chief Of Staff Doctor: LEDA Transcribe Date/Time: Feb 16 2022 11:24A Dictated by : LUZ MARINA FELIPE MD This examination was interpreted and the report reviewed and electronically signed by: LUZ MARINA FELIPE MD on Feb 16 2022 11:25AM EST [facility] Radiology Study observation (narrative) [facility] XR Chest PA and LateralOrder ed By: [facility] Provider on 02-16-[address] [facility] STREP A MOLECULAR (POC)on Procedural Control Valid [facility] Strep A (POCT) Negative Negative [facility] Basophil percentageon 2021 Chloride [Moles/Vol] 106 mmol/L 98-107 [facility] Work Phone: Glucose [Mass/Vol] 102 mg/dL 74-106 [facility] Work Phone: Comment on above: Fasting Glucose resu lt from 100 to 125 mg/dL suggests IMPAIRED HOMEOSTASIS per A.D.A. criteria. Potassium [Moles/Vol] 4.3 mmol/L 3.5-5.1 [facility] Work Phone: [phone] Sodium [Moles/Vol] 138 mmol/L 136-145 [facility] Work Phone: [phone] WBC (Bld) [#/Vol] 4.7 10*3/uL 4.4-11.0 [facility] Work Phone: [phone] Blood erythrocytes count (nu mber/volume)on 07-20-2021 RBC (Bld) [#/Vol] 4.24 10*6/uL 4.6-6.2 [facility] Work Phone: [phone] Blood hemoglobin measurement (mass/volume)on 07-20-2021 Hemoglobin (Bld) [Mass/Vol] 13.9 g/dL 13.0-16.5 [facility] [place] Work Phone: [phone] Blood platelet mean volumeon 07-20-2021 Platelet mean volume (Bld) [Entitic vol] 9.0 fL 6.2-12.0 [facility] [place] Work Phone: [phone] Determination of erythrocyte mean corpuscular volume (MCV)on 07-20-2021 MCV (RBC) [Entitic vol] 92.9 fL 80-94 [facility] [place] Work Phone: [phone] Hematocrit Auto (Bld) [Volum e fraction]on 07-20-2021 Hematocrit (Bld) [Volume fraction] 39.4 % 40-54 [facility] [place] Work Phone: [phone] Laboratory - Chemistry and C hemistry - challengeon 07-20-2021 CO2 [Moles/Vol] 28.0 mmol/L 21.0-32.0 [facility] [place] Work Phone: [phone] Urea nitrogen/Creatinine [Mass ratio] 21.4 mg/mg 10-20 [facility] [place] Work Phone: [phone] Laboratory - Hematology and Cell countson 07-20-2021 Erythrocyte distribution width (RBC) [Entitic vol] 41.9 fL 35.1-43.9 [facility] [place] Work Phone: [phone] Erythrocyte distribution width (RBC) [Ratio] 12.2 % 11.6-14.6 [facility] [place] Work Phone: [phone] MCH (RBC) [Entitic mass] 32.8 pg 27.0-32.0 [facility] [place] Work Phone: [phone] MCHC Auto (RBC) [Mass/Vol]on 07-20-2021 MCHC (RBC) [Mass/Vol] 35.3 g/dL 32-36 [facility] Work Phone: No Panel Informationon 07-20 Estimated GFR (MDRD) Amer 121 mL/min >60 [facility] [place] Work Phone: Comment on above: GFR Calc Estimated GFR (MDRD) Non-Af Amer 100 mL/min >60 [facility] Work Phone: Comment on above: Non- GFR Calc Platelets bldon 07-20-2021 Platelets (Bld) [#/Vol] 177 10*3/uL 150-450 [facility] [place] Work Phone: [phone] Serum or plasma calcium karis urement (mass/volume)on 07-20-2021 Calcium [Mass/Vol] 8.7 mg/dL 8.5-10.1 [facility] Work Phone: Serum or plasma creatinine m easurement (mass/volume)on 07-20-2021 Creatinine [Mass/Vol] 0.84 mg/dL 0.70-1.30 [facility] Work Phone: Comment on above: The validity of the calculated GFR & GFRAA in patients over 70 years has not been determined. Clinical correlation is essential. Serum or plasma urea nitroge n measurement (mass/volume)on 07-20-2021 Urea nitrogen [Mass/Vol] 18 mg/dL 7- [facility] Work Phone: Thin prep Papanicolaou smear with manual screeningon 07-20-2021 Thin prep Papanicolaou smear with manual screening 4 - [facility] Work Phone: XR HIP LEFT 2 VIEWSon 2021 XR HIP LEFT 2 VIEWS EXAM: XR HIP LEFT 3 VIEWS,, 07/14/2021 09:09 AM COMPARISON: Radiographs dated July 15, 2020 CLINICAL INDICATIONS: left hip pain RELEVANT CLINICAL HISTORY: Z96.642:Status post total hip replacement, left Standing AP Pelvis / Standing AP left hip / true lateral left hip -all views with 30 MM calibration marker. Please place close to affected hip at the level of the bone but without obscuring bone detail.; FINDINGS: 3 images obtained. Soft Tissue: There is no obvious soft tissue swelling. Bone: Bony pelvis is intact. SI joints and pubic symphysis are anatomic. Arthritic changes of the partially imaged right hip. Hip: Status post left total hip arthroplasty. No perioperative fracture or osteolysis. Mildly increased conspicuity of heterotopic ossification along the superolateral margin of the acetabular component and projecting along the superior margin of the lesser trochanter posteriorly. IMPRESSION: Stable left total hip arthroplasty. No acute osseous abnormality. Slight progression of heterotopic ossification at the lesser trochanter posteriorly. Normal [facility] Clinical Lists Update: Prelo ad Extendedon 07-09-2021 Tobacco smoking status Tobacco smoking status In valid Interpretation Code [facility] Work Phone: Clinical Summary: Supriya franklin 07-09-2021 MC75 OP Visit Invalid Interpretation Code [facility] Work Phone: Clinical Summary: Gagandeep Kernson 07-09-2021 adl form etoh alcohol performance beer, liquor Invalid Interpretation Code [facility] Work Phone: Beta HCG ( test) Ql (U) 2 or more times per year Invalid Interpretation Code [facility] Work Phone: consumes three or more drinks of alcohol (beer, wine, liquor) daily or almost daily 2 drinks per day Invalid Interpretation Code [facility] Work Phone: data entered by patient, alcohol (ethanol or ETOH) use Yes Invalid Interpretation Code [facility] Work Phone: Data entered by patient, allergy list I don't have any Drug Allergies Plant pollens (Hay Fever) Invalid Interpretation Code [facility] Work Phone: data entered by patient, drug (of abuse) use No Invalid Interpretation Code [facility] Work Phone: data entered by patient, Employer Name retired Invalid Interpretation Code [facility] Work Phone: data entered by patient, exercise history No Invalid Interpretation Code [facility] Work Phone: data entered by patient, father's medical history COPD Heart disease High blood pressure Invalid Interpretation Code [facility] Work Phone: Data entered by patient, history of past surgeries Foot surgery Hip replacement - total Invalid Interpretation Code [facility] Work Phone: Data entered by patient, medication list duloxetine hcl-Unknown Lmnjvxrl-1-Yilr daily celecoxib-Unknown Aqghkkrc-3-Kfng or twice daily tylenol-Unknown Nortpobc-8-Fv needed for pain Invalid Interpretation Code [facility] Work Phone: data entered by patient, mother's medical history Diabetes - insulin dependent High blood pressure Hypothyroidism Invalid Interpretation Code [facility] Work Phone: data entered by patient, past medical history Arthritis Depression Invalid Interpretation Code [facility] Work Phone: data entered by patient, social history, current smoker never smoker Invalid Interpretation Code [facility] Work Phone: data entered by patient, social history, marital status Invalid Interpretation Code [facility] Work Phone: father of patient is alive or Invalid Interpretation Code [facility] Work Phone: Housing Type: apartment, house, halfway, trailer, none house Invalid Interpretation Code [facility] Work Phone: housing unit size (asthma environmental history, housing) (from single family to don't know) 3 floors Invalid Interpretation Code [facility] Work Phone: medical history of patient's sister High blood pressure Hypothyroidism Invalid Interpretation Code [facility] Work Phone: medical history of patient's sister, comments Graves Hoshimotos Invalid Interpretation Code [facility] Work Phone: mother of patient is alive or Invalid Interpretation Code [facility] Work Phone: mother's medical history, comments Dimentia Invalid Interpretation Code [facility] Work Phone: Number of dependent children No Invalid Interpretation Code [facility] Work Phone: adl form etoh alcohol performance beer, liquor Invalid Interpretation Code [facility] Work Phone: Beta HCG ( test) Ql (U) 2 or more times per year Invalid Interpretation Code [facility] Work Phone: consumes three or more drinks of alcohol (beer, wine, liquor) daily or almost daily 2 drinks per day Invalid Interpretation Code [facility] Work Phone: data entered by patient, alcohol (ethanol or ETOH) use Yes Invalid Interpretation Code [facility] Work Phone: Data entered by patient, allergy list I don't have any Drug Allergies Plant pollens (Hay Fever) Invalid Interpretation Code [facility] Work Phone: data entered by patient, drug (of abuse) use No Invalid Interpretation Code [facility] Work Phone: data entered by patient, Employer Name retired Invalid Interpretation Code [facility] Work Phone: data entered by patient, exercise history No Invalid Interpretation Code [facility] Work Phone: data entered by patient, father's medical history COPD Heart disease High blood pressure Invalid Interpretation Code [facility] Work Phone: Data entered by patient, history of past surgeries Foot surgery Hip replacement - total Invalid Interpretation Code [facility] Work Phone: Data entered by patient, medication list duloxetine hcl-Unknown Dctquexm-0-Oerr daily celecoxib-Unknown Etjwkuif-2-Wtty or twice daily tylenol-Unknown Vfeftpft-4-Cp needed for pain Invalid Interpretation Code [facility] Work Phone: data entered by patient, mother's medical history Diabetes - insulin dependent High blood pressure Hypothyroidism Invalid Interpretation Code [facility] Work Phone: data entered by patient, past medical history Arthritis Depression Invalid Interpretation Code [facility] Work Phone: data entered by patient, social history, current smoker never smoker Invalid Interpretation Code [facility] Work Phone: data entered by patient, social history, marital status Invalid Interpretation Code [facility] Work Phone: father of patient is alive or Invalid Interpretation Code [facility] Work Phone: Housing Type: apartment, house, halfway, trailer, none house Invalid Interpretation Code [facility] Work Phone: housing unit size (asthma environmental history, housing) (from single family to don't know) 3 floors Invalid Interpretation Code [facility] [facility] Work Phone: medical history of patient's sister High blood pressure Hypothyroidism Invalid Interpretation Code [facility] Work Phone: medical history of patient's sister, comments Graves Hoshimotos Invalid Interpretation Code [facility] Work Phone: mother of patient is alive or Invalid Interpretation Code [facility] Work Phone: mother's medical history, comments Dimentia Invalid Interpretation Code [facility] Work Phone: Number of dependent children No Invalid Interpretation Code [facility] Work Phone: adl form etoh alcohol performance beer, liquor Invalid Interpretation Code [facility] Work Phone: Beta HCG ( test) Ql (U) 2 or more times per year Invalid Interpretation Code [facility] Work Phone: consumes three or more drinks of alcohol (beer, wine, liquor) daily or almost daily 2 drinks per day Invalid Interpretation Code [facility] Work Phone: data entered by patient, alcohol (ethanol or ETOH) use Yes Invalid Interpretation Code [facility] Work Phone: Data entered by patient, allergy list I don't have any Drug Allergies Plant pollens (Hay Fever) Invalid Interpretation Code [facility] Work Phone: data entered by patient, drug (of abuse) use No Invalid Interpretation Code [facility] Work Phone: data entered by patient, Employer Name retired Invalid Interpretation Code [facility] Work Phone: data entered by patient, exercise history No Invalid Interpretation Code [facility] Work Phone: data entered by patient, father's medical history COPD Heart disease High blood pressure Invalid Interpretation Code [facility] Work Phone: Data entered by patient, history of past surgeries Foot surgery Hip replacement - total Invalid Interpretation Code [facility] Work Phone: Data entered by patient, medication list duloxetine hcl-Unknown Vmdlowvk-5-Cuvg daily celecoxib-Unknown Xyalzsld-2-Nyyr or twice daily tylenol-Unknown Gwpjxnlj-2-Mu needed for pain Invalid Interpretation Code [facility] Work Phone: data entered by patient, mother's medical history Diabetes - insulin dependent High blood pressure Hypothyroidism Invalid Interpretation Code [facility] Work Phone: data entered by patient, past medical history Arthritis Depression Invalid Interpretation Code [facility] Work Phone: data entered by patient, social history, current smoker never smoker Invalid Interpretation Code [facility] Work Phone: data entered by patient, social history, marital status Invalid Interpretation Code [facility] Work Phone: father of patient is alive or Invalid Interpretation Code [facility] Work Phone: Housing Type: apartment, house, halfway, trailer, none house Invalid Interpretation Code [facility] Work Phone: housing unit size (asthma environmental history, housing) (from single family to don't know) 3 floors Invalid Interpretation Code [facility] Work Phone: medical history of patient's sister High blood pressure Hypothyroidism Invalid Interpretation Code [facility] Work Phone: medical history of patient's sister, comments Graves Hoshimotos Invalid Interpretation Code [facility] Work Phone: mother of patient is alive or Invalid Interpretation Code [facility] Work Phone: mother's medical history, comments Dimentia Invalid Interpretation Code [facility] Work Phone: Number of dependent children No Invalid Interpretation Code [facility] Work Phone: adl form etoh alcohol performance beer, liquor Invalid Interpretation Code [facility] Work Phone: Beta HCG ( test) Ql (U) 2 or more times per year Invalid Interpretation Code [facility] Work Phone: consumes three or more drinks of alcohol (beer, wine, liquor) daily or almost daily 2 drinks per day Invalid Interpretation Code [facility] Work Phone: data entered by patient, alcohol (ethanol or ETOH) use Yes Invalid Interpretation Code [facility] Work Phone: Data entered by patient, allergy list I don't have any Drug Allergies Plant pollens (Hay Fever) Invalid Interpretation Code [facility] Work Phone: data entered by patient, drug (of abuse) use No Invalid Interpretation Code [facility] Work Phone: data entered by patient, Employer Name retired Invalid Interpretation Code [facility] Work Phone: data entered by patient, exercise history No Invalid Interpretation Code [facility] Work Phone: data entered by patient, father's medical history COPD Heart disease High blood pressure Invalid Interpretation Code [facility] Work Phone: Data entered by patient, history of past surgeries Foot surgery Hip replacement - total Invalid Interpretation Code [facility] Work Phone: Data entered by patient, medication list duloxetine hcl-Unknown Zdnwevcn-2-Nuiz daily celecoxib-Unknown Aofaaiqp-3-Ywnl or twice daily tylenol-Unknown Xputuryk-6-Vz needed for pain Invalid Interpretation Code [facility] Work Phone: data entered by patient, mother's medical history Diabetes - insulin dependent High blood pressure Hypothyroidism Invalid Interpretation Code [facility] Work Phone: data entered by patient, past medical history Arthritis Depression Invalid Interpretation Code [facility] Work Phone: data entered by patient, social history, current smoker never smoker Invalid Interpretation Code [facility] Work Phone: data entered by patient, social history, marital status Invalid Interpretation Code [facility] Work Phone: father of patient is alive or Invalid Interpretation Code [facility] Work Phone: Housing Type: apartment, house, halfway, trailer, none house Invalid Interpretation Code [facility] Work Phone: housing unit size (asthma environmental history, housing) (from single family to don't know) 3 floors Invalid Interpretation Code [facility] Work Phone: medical history of patient's sister High blood pressure Hypothyroidism Invalid Interpretation Code [facility] Work Phone: medical history of patient's sister, comments Graves Hoshimotos Invalid Interpretation Code [facility] Work Phone: mother of patient is alive or Invalid Interpretation Code [facility] Work Phone: mother's medical history, comments Dimentia Invalid Interpretation Code [facility] Work Phone: Number of dependent children No Invalid Interpretation Code [facility] Work Phone: adl form etoh alcohol performance beer, liquor Invalid Interpretation Code [facility] Work Phone: Beta HCG ( test) Ql (U) 2 or more times per year Invalid Interpretation Code [facility] Work Phone: consumes three or more drinks of alcohol (beer, wine, liquor) daily or almost daily 2 drinks per day Invalid Interpretation Code [facility] Work Phone: data entered by patient, alcohol (ethanol or ETOH) use Yes Invalid Interpretation Code [facility] Work Phone: Data entered by patient, allergy list I don't have any Drug Allergies Plant pollens (Hay Fever) Invalid Interpretation Code [facility] Work Phone: data entered by patient, drug (of abuse) use No Invalid Interpretation Code [facility] Work Phone: data entered by patient, Employer Name retired Invalid Interpretation Code [facility] Work Phone: data entered by patient, exercise history No Invalid Interpretation Code [facility] Work Phone: data entered by patient, father's medical history COPD Heart disease High blood pressure Invalid Interpretation Code [facility] Work Phone: Data entered by patient, history of past surgeries Foot surgery Hip replacement - total Invalid Interpretation Code [facility] Work Phone: Data entered by patient, medication list duloxetine hcl-Unknown Qncecfro-0-Vwtc daily celecoxib-Unknown Hyevubxj-1-Axvf or twice daily tylenol-Unknown Tmorwsze-3-Nm needed for pain Invalid Interpretation Code [facility] Work Phone: data entered by patient, mother's medical history Diabetes - insulin dependent High blood pressure Hypothyroidism Invalid Interpretation Code [facility] Work Phone: data entered by patient, past medical history Arthritis Depression Invalid Interpretation Code [facility] Work Phone: data entered by patient, social history, current smoker never smoker Invalid Interpretation Code [facility] Work Phone: data entered by patient, social history, marital status Invalid Interpretation Code [facility] Work Phone: father of patient is alive or Invalid Interpretation Code [facility] Work Phone: Housing Type: apartment, house, halfway, trailer, none house Invalid Interpretation Code [facility] Work Phone: housing unit size (asthma environmental history, housing) (from single family to don't know) 3 floors Invalid Interpretation Code [facility] Work Phone: medical history of patient's sister High blood pressure Hypothyroidism Invalid Interpretation Code [facility] Work Phone: medical history of patient's sister, comments Graves Hoshimotos Invalid Interpretation Code [facility] Work Phone: mother of patient is alive or Invalid Interpretation Code [facility] Work Phone: mother's medical history, comments Dimentia Invalid Interpretation Code [facility] Work Phone: Number of dependent children No Invalid Interpretation Code [facility] Work Phone: Office Visit: Follow-up by tristan marrero Rm: 32on 07-09-2021 NEGATED: Highlighted rowxray history of the lumbar spine on 12/28/2018 at [facility] Invalid Interpretation Code [facility] Work Phone: Clinical Summary: Scanned Hi story Summaryon 07-08-2021 adl form etoh alcohol performance beer, liquor Invalid Interpretation Code [facility] Work Phone: Beta HCG ( test) Ql (U) 2 or more times per year Invalid Interpretation Code [facility] Work Phone: consumes three or more drinks of alcohol (beer, wine, liquor) daily or almost daily 2 drinks per day Invalid Interpretation Code [facility] Work Phone: data entered by patient, alcohol (ethanol or ETOH) use Yes Invalid Interpretation Code [facility] Work Phone: Data entered by patient, allergy list I don't have any Drug Allergies Plant pollens (Hay Fever) Invalid Interpretation Code [facility] Work Phone: data entered by patient, drug (of abuse) use No Invalid Interpretation Code [facility] Work Phone: data entered by patient, Employer Name retired Invalid Interpretation Code [facility] Work Phone: data entered by patient, exercise history No Invalid Interpretation Code [facility] Work Phone: data entered by patient, father's medical history COPD Heart disease High blood pressure Invalid Interpretation Code [facility] Work Phone: Data entered by patient, history of past surgeries Foot surgery Hip replacement - total Invalid Interpretation Code [facility] Work Phone: Data entered by patient, medication list duloxetine hcl-Unknown Jvcjnubb-6-Hwwh daily celecoxib-Unknown Pmpqhbed-9-Aqum or twice daily tylenol-Unknown Fnpwagwu-5-Ib needed for pain Invalid Interpretation Code [facility] Work Phone: data entered by patient, mother's medical history Diabetes - insulin dependent High blood pressure Hypothyroidism Invalid Interpretation Code [facility] Work Phone: data entered by patient, past medical history Arthritis Depression Invalid Interpretation Code [facility] Work Phone: data entered by patient, social history, current smoker never smoker Invalid Interpretation Code [facility] Work Phone: data entered by patient, social history, marital status Invalid Interpretation Code [facility] Work Phone: father of patient is alive or Invalid Interpretation Code [facility] Work Phone: Housing Type: apartment, house, halfway, trailer, none house Invalid Interpretation Code [facility] Work Phone: housing unit size (asthma environmental history, housing) (from single family to don't know) 3 floors Invalid Interpretation Code [facility] Work Phone: medical history of patient's sister High blood pressure Hypothyroidism Invalid Interpretation Code [facility] Work Phone: medical history of patient's sister, comments Graves Hoshimotos Invalid Interpretation Code [facility] Work Phone: mother of patient is alive or Invalid Interpretation Code [facility] Work Phone: mother's medical history, comments Dimentia Invalid Interpretation Code [facility] Work Phone: Number of dependent children No Invalid Interpretation Code [facility] Work Phone: LIPID PANEL, [facility] 12-07 Cholesterol [Mass/Vol] 259 mg/dL High <200 [facility] Comment on above: Performed By: #### 7 600, 5363 #### [facility] [address] Rip Machine Operator: Serafin Smyth MD Cholesterol in HDL [Mass/Vol] 43 mg/dL Normal > OR = 40 [facility] Comment on above: Performed By: #### 7 600, 5363 #### [facility] [address], [address] [place] [id number] Rip Machine Operator: Serafin Smyth MD Cholesterol in LDL [Mass/Vol] 185 mg/dL High [facility] Comment on above: Result Comment: Refe rence range: <100 Desirable range <100 mg/dL for primary prevention; <70 mg/dL for patients with CHD or diabetic patients with > or = 2 CHD risk factors. LDL-C is now calculated using the Alena calculation, which is a validated novel method providing better accuracy than the Friedewald equation in the estimation of LDL-C. Hieu CALDERÓN et al. SARA. 2013;310(19): 7900-1759 (http://[email or web address]/faq/[email or web address]) Performed By: #### 7 600, 5363 #### [facility] [address], [address] [place] [address] Rip Machine Operator: Serafin Smyth MD Cholesterol.total/Chol esterol in HDL [Mass ratio] 6.0 {ratio} High <5.0 [facility] Comment on above: Performed By: #### 7 600, 5363 #### [facility] [place] [address] Rip Machine Operator: Serafin Smyth MD NON HDL CHOLESTEROL 216 mg/dL (calc) High <130 [facility] Comment on above: Result Comment: For patients with diabetes plus 1 major ASCVD risk factor, treating to a non-HDL-C goal of <100 mg/dL (LDL-C of <70 mg/dL) is considered a therapeutic option. Performed By: #### 7 600, 5363 #### [facility] [address], [address] [place] [address] Rip Machine Operator: Serafin Smyth MD Triglyceride [Mass/Vol] 165 mg/dL High <150 [facility] Comment on above: Performed By: #### 7 600, 5363 #### [facility] [place] [address] Rip Machine Operator: Serafin Smyth MD PSA, TOTALon 12-18-2020 PSA, TOTAL 1.0 ng/mL Normal < OR = 4.0 [facility] Comment on above: Result Comment: The total PSA value from this assay system is standardized against the WHO standard. The test result will be approximately 20% lower when compared to the equimolar-standardized total PSA (Raven Mehul). Comparison of serial PSA results should be interpreted with this fact in mind. This test was performed using the Siemens chemiluminescent method. Values obtained from different assay methods cannot be used interchangeably. PSA levels, regardless of value, should not be interpreted as absolute evidence of the presence or absence of disease. Performed By: #### 7 600, 5363 #### [facility] [place] [address] Rip Machine Operator: Serafin Smyth MD CBC (INCLUDES DIFF/PLT)on Basophils (Bld) [#/Vol] 0.042 10*3/uL Normal 0-200 [facility] Comment on above: Performed By: #### 1 0231, 6399 #### [facility] [address], [address] [place] [address] Rip Machine Operator: Serafin Smyth MD Basophils/100 WBC (Bld) 0.8 % Normal [facility] Comment on above: Performed By: #### 1 023, 6399 #### [facility] [place] [address] Rip Machine Operator: Serafin Smyth MD Eosinophils (Bld) [#/Vol] 0.177 10*3/uL Normal 15-500 [facility] Comment on above: Performed By: #### 1 0231, 6399 #### [facility] [place] [address] Rip Machine Operator: Serafin Smyth MD Eosinophils/100 WBC (Bld) 3.4 % Normal [facility] Comment on above: Performed By: #### 1 230, 6399 #### [facility] [place] [address] Rip Machine Operator: Serafin Smyth MD Erythrocyte distribution width (RBC) [Ratio] 13.0 % Normal 11.0-15.0 [facility] Comment on above: Performed By: #### 1 0231, 6399 #### [facility] [place] [address] Rip Machine Operator: Serafin Smyth MD Hematocrit (Bld) [Volume fraction] 48.2 % Normal 38.5-50.0 [facility] Comment on above: Performed By: #### 1 0231, 6399 #### [facility] of [address], [address] [place] [address] Rip Machine Operator: Serafin Smyth MD Hemoglobin (Bld) [Mass/Vol] 16.2 g/dL Normal 13.2-17.1 [facility] Comment on above: Performed By: #### 1 0231, 6399 #### [facility] of [address], [address] [place] [address] Rip Machine Operator: Serafin Smyth MD Lymphocytes (Bld) [#/Vol] 1.794 10*3/uL Normal 850-3900 [facility] Comment on above: Performed By: #### 1 0231, 6399 #### [facility] of [address], [address] [place] [address] Rip Machine Operator: Serafin Smyth MD Lymphocytes/100 WBC (Bld) 34.5 % Normal [facility] Comment on above: Performed By: #### 1 0231, 6399 #### [facility] of [address], [address] [place] [address] Rip Machine Operator: Serafin Smyth MD MCH (RBC) [Entitic mass] 32.0 pg Normal 27.0-33.0 [facility] Comment on above: Performed By: #### 1 0231, 6399 #### [facility] of [place] [address] Rip Machine Operator: Serafin Smyth MD MCHC (RBC) [Mass/Vol] 33.6 g/dL Normal 32.0-36.[address] [facility] Comment on above: Performed By: #### 1 0231, 6399 #### [facility] of [address], [address] [place] [address] Rip Machine Operator: Serafin Smyth MD MCV (RBC) [Entitic vol] 95.3 fL Normal 80.0-100.0 [facility] Comment on above: Performed By: #### 1 0231, 6399 #### [facility] of [address], [address] [place] [address] Rip Machine Operator: Serafin Smyth MD Monocytes (Bld) [#/Vol] 0.546 10*3/uL Normal 200-950 [facility] Comment on above: Performed By: #### 1 0231, 6399 #### [facility] of [place] [address] Rip Machine Operator: Serafin Smyth MD Monocytes/100 WBC (Bld) 10.5 % Normal [facility] Comment on above: Performed By: #### 1 0231, 6399 #### [facility] of [place] [address] Rip Machine Operator: Serafin Smyth MD Neutrophils (Bld) [#/Vol] 2.642 10*3/uL Normal 4352-5801 [facility] Comment on above: Performed By: #### 1 0231, 6399 #### [facility] of [place] [address] Rip Machine Operator: Serafin Smyth MD Neutrophils/100 WBC (Bld) 50.8 % Normal [facility] Comment on above: Performed By: #### 1 0231, 6399 #### [facility] of [place] [address] Rip Machine Operator: Serafin Smyth MD Platelet mean volume (Bld) [Entitic vol] 9.0 fL Normal 7.5-12.5 [facility] Comment on above: Performed By: #### 1 0231, 6399 #### [facility] of [place] [address] Rip Machine Operator: Serafin Smyth MD Platelets (Bld) [#/Vol] 195 10*3/uL Normal 140-400 [facility] Comment on above: Performed By: #### 1 0231, 6399 #### [facility] of [place] [address] Rip Machine Operator: Serafin Smyth MD RBC (Bld) [#/Vol] 5.06 10*6/uL Normal 4.20-5.80 [facility] Comment on above: Performed By: #### 1 0231, 6399 #### [facility] of [address], [address] [place] [address] Rip Machine Operator: Serafin Smyth MD WBC (Bld) [#/Vol] 5.2 10*3/uL Normal 3.8-10.8 [facility] Comment on above: Performed By: #### 1 0231, 6399 #### [facility] of [address], [address] [place] [address] Rip Machine Operator: Serafin Smyth MD [facility] 12[facility]2020 Albumin [Mass/Vol] 4.5 g/dL Normal 3.6-5.1 [facility] Comment on above: Performed By: #### 1 0231, 6399 #### [facility] of [place] [address] Rip Machine Operator: Serafin Smyth MD Albumin/Globulin [Mass ratio] 1.6 {ratio} Normal 1.0-2.5 [facility] Comment on above: Performed By: #### 1 0231, 6399 #### [facility] of [place] [address] Rip Machine Operator: Serafin Smyth MD ALP [Catalytic activity/Vol] 50 U/L Normal 35-144 [facility] Comment on above: Performed By: #### 1 0231, 6399 #### [facility] of [address], [address] [place] [address] Rip Machine Operator: Serafin Smyth MD ALT [Catalytic activity/Vol] 37 U/L Normal 9-46 [facility] Comment on above: Performed By: #### 1 0231, 6399 #### [facility] of [place] [address] Rip Machine Operator: Serafin Smyth MD AST [Catalytic activity/Vol] 23 U/L Normal 10-35 [facility] Comment on above: Performed By: #### 1 0231, 6399 #### [facility] of [address], [address] [place] [address] Rip Machine Operator: Serafin Smyth MD Bilirubin [Mass/Vol] 0.9 mg/dL Normal 0.2-1.2 [facility] Comment on above: Performed By: #### 1 0231, 6399 #### [facility] [address], [address] [place] [address] Rip Machine Operator: Serafin Smyth MD BUN/CREATININE RATIO NOT APPLICABLE Normal 6-22 [facility] Comment on above: Performed By: #### 1 0231, 6399 #### [facility] of [address], [address] [place] [address] Rip Machine Operator: Serafin Smyth MD Calcium [Mass/Vol] 9.3 mg/dL Normal 8.6-10.3 [facility] Comment on above: Performed By: #### 1 0231, 6399 #### [facility] [address], [address] [place] [address] Rip Machine Operator: Serafin Smyth MD Chloride [Moles/Vol] 103 mmol/L Normal 98-110 [facility] Comment on above: Performed By: #### 1 0231, 6399 #### [facility] [address], [address] [place] [address] Rip Machine Operator: Serafin Smyth MD CO2 [Moles/Vol] 29 mmol/L Normal 20-32 [facility] Comment on above: Performed By: #### 1 0231, 6399 #### [facility] [address], [address] [place] [address] Rip Machine Operator: Serafin Smyth MD Creatinine [Mass/Vol] 0.95 mg/dL Normal 0.70-1.[address] [facility] [address] [facility] Comment on above: Result Comment: For patients >49 years of age, the reference limit for Creatinine is approximately 13% higher for people identified as -[place]. Performed By: #### 1 0231, 6399 #### [facility] [address], [address] [place] [address] Rip Machine Operator: Serafin Smyth MD eGFR NON-AFR. AUSTR[place] 89 mL/min/1.73m2 Normal > OR = 60 [facility] Comment on above: Performed By: #### 1 0231, 6399 #### [facility] of [place] [address] Rip Machine Operator: Serafin Smyth MD GFR/1.73 sq M.predicted among blacks MDRD (S/P/Bld) [Vol rate/Area] 103 mL/min/{1.73_m2} Normal > OR = 60 [facility] Comment on above: Performed By: #### 1 0231, 6399 #### [facility] of [address], [address] [place] [address] Rip Machine Operator: Serafin Smyth MD Globulin (S) [Mass/Vol] 2.9 g/dL Normal 1.9-3.7 [facility] Comment on above: Performed By: #### 1 230, 6399 #### [facility] of [place] [address] Rip Machine Operator: Serafin Smyth MD Glucose [Mass/Vol] 71 mg/dL Normal 65-99 [facility] Comment on above: Result Comment: Fasting reference interval Performed By: #### 1 0231, 6399 #### [facility] of [place] [address] Rip Machine Operator: Serafin Smyth MD Potassium [Moles/Vol] 4.3 mmol/L Normal 3.5-5.[address] [facility] Comment on above: Performed By: #### 1 0231, 6399 #### [facility] of [place] [address] Rip Machine Operator: Serafin Smyth MD Protein [Mass/Vol] 7.4 g/dL Normal 6.1-8.1 [facility] Comment on above: Performed By: #### 1 0231, 6399 #### [facility] of [place] [address] Rip Machine Operator: Serafin Smyth MD Sodium [Moles/Vol] 137 mmol/L Normal 135-146 [facility] Comment on above: Performed By: #### 1 0231, 6399 #### [facility] [address], [address] Rip Machine Operator: Serafin Smyth MD Urea nitrogen [Mass/Vol] 16 mg/dL Normal 7-25 [facility] Comment on above: Performed By: #### 1 0231, 6399 #### [facility] [address], [address] [place] [id number] Rip Machine Operator: Serafin Smyth MD History and Physical - Surge ry > 30 dayson 11-21-2019 History and Physical - Surgery > 30 days History of Present Illness: History Present Illness: Reason for surgery: left hip pain HPI: Longstanding recurrent left hip pain Allergies: Allergies: No Known Allergies: Home Medication Review: Home Medications Reviewed: yes Impression/Procedure: Impression and Planned Procedure: Left hip osteoarthritis and labral tear. Proceed with left hip intra-articular injection today. Physical Exam by System: Respiratory/Thorax: Patent airways, CTAB, normal breath sounds with good chest expansion, thorax symmetric Cardiovascular: Regular, rate and rhythm, no murmurs, 2+ equal pulses of the extremities, normal S 1and S 2 Consent: COVID-19 Consent: COVID-19 Risk ConsentSurgeon has reviewed moeller risks related to the risk of nic COVID-19 and if they contract COVID-19 what the risks are. Signatures/Attestation/C ertification: Note Completion: Attending Provider Inpatient Certification StatementObservation patient/other outpatient visits Electronic Signatures: Cesar Cannon) (Signed 21-Nov-2019 07:35) Authored: History of Present Illness, Allergies, Home Medication Review, Impression/Procedure, Physical Exam, Consent, Signatures/Attestation/C ertification Last Updated: 21-Nov-2019 07:35 by Cesar Cannon) [facility] MRI HIPS W/O CONTRASTon 0 10-31-2019 MRI HIPS W/O CONTRAST Patient Name: JACINTO COSTA STUDY: MRI HIPS W/O CONTRAST; 10/31/2019 8:31 am INDICATION: pain. Left hip pain COMPARISON: None. ACCESSION NUMBER(S): [id number] ORDERING CLINICIAN: DARIO NDIAYE TECHNIQUE: Multiplanar and multisequential MR images of the left hip and pelvis were performed. FINDINGS: There is a small left hip effusion. There are mild to moderate osteoarthritic changes of the left hip with irregular thinning of the articular cartilage, more pronounced at the superior joint space. There is mild narrowing of the superior joint space. Marginal spurring is identified at the femoral head/neck junction. There is a amorphous degenerative signal at the superolateral acetabulum and base of the superior labrum. There is minimal degenerative signal in the anterior labrum along the articular surface. There are mild osteoarthritic changes of the right hip at the superior joint space. There is no right hip effusion. The femoral articular surfaces are congruent with the acetabula bilaterally. There is no articular collapse. No significant scratch that is minor subcortical degenerative bone marrow signal is identified within the anterior aspect of both femoral necks. There is no acute osseous fracture, bone marrow edema, or osseous mass. There are no findings of avascular necrosis. There are findings of heterogenous hemopoietic marrow reconversion within the pelvis and lower lumbar spine. Schmorl's node deformity is identified the superior endplate of L5. There are discogenic degenerative changes at L4-5 which are poorly assessed on this examination. Partial sacralization of the last lumbar vertebra on the left. There is no evidence of intramuscular mass or fluid collection. There is no deep fascial fluid. The piriformis muscles are symmetric in appearance. There is no space-occupying lesion in the piriformis fossa. The hamstring and rectus femoris tendon origins are intact. There is intermediate increased T2 weighted signal within the right hamstring origin at the tendon/bone interface compatible with tendinopathy. The iliopsoas tendon insertions are intact. The gluteus medius and minimus tendon insertions are intact bilaterally. There is mild nonspecific edema and trace fluid lateral to both greater trochanters and superficial to the gluteal tendon insertions. This appearance is more pronounced at the gluteus minimus on the right. There is no full-thickness tendon tear or retraction. The remaining surrounding soft tissues are unremarkable. IMPRESSION: Moderate osteoarthritic changes of the left hip with small joint effusion. There is degenerative signal in the labrum though no linear labral tear or detachment. The need for further workup should be determined clinically. Mild osteoarthritic changes of the right hip. No evidence of acute osseous abnormality. Electronically signed by: POP MACK MD Normal [facility] MRI Hip without Contraston 0 10-31-2019 MR Hip WO contrast Interpreted by: POP MACK10/31/19 16:05MRN: [id number] Name: JACINTO COSTA STUDY:MRI HIPS W/O CONTRAST; 10/31/2019 8:31 am INDICATION:pain. Left hip pain COMPARISON:None. ORDERING CLINICIAN:DARIO NDIAYE TECHNIQUE:Multiplanar and multisequential MR images of the left hip and pelviswere performed. FINDINGS:There is a small left hip effusion. There are mild to moderateosteoarthritic changes of the left hip with irregular thinning of thearticular cartilage, more pronounced at the superior joint space.There is mild narrowing of the superior joint space. Marginalspurring is identified at the femoral head/neck junction. There is aamorphous degenerative signal at the superolateral acetabulum andbase of the superior labrum. There is minimal degenerative signal inthe anterior labrum along the articular surface. There are mild osteoarthritic changes of the right hip at thesuperior joint space. There is no right hip effusion. The femoral articular surfaces are congruent with the acetabulabilaterally. There is no articular collapse. No significant scratchthat is minor subcortical degenerative bone marrow signal isidentified within the anterior aspect of both femoral necks. There isno acute osseous fracture, bone marrow edema, or osseous mass. Thereare no findings of avascular necrosis. There are findings of heterogenous hemopoietic marrow reconversionwithin the pelvis and lower lumbar spine. Schmorl's node deformity isidentified the superior endplate of L5. There are discogenicdegenerative changes at L4-5 which are poorly assessed on thisexamination. Partial sacralization of the last lumbar vertebra on theleft. There is no evidence of intramuscular mass or fluid collection. Thereis no deep fascial fluid. The piriformis muscles are symmetric inappearance. There is no space-occupying lesion in the piriformisfossa. The hamstring and rectus femoris tendon origins are intact. There isintermediate increased T2 weighted signal within the right hamstringorigin at the tendon/bone interface compatible with tendinopathy. Theiliopsoas tendon insertions are intact. The gluteus medius andminimus tendon insertions are intact bilaterally. There is mildnonspecific edema and trace fluid lateral to both greater trochantersand superficial to the gluteal tendon insertions. This appearance ismore pronounced at the gluteus minimus on the right. There is nofull-thickness tendon tear or retraction. The remaining surrounding soft tissues are unremarkable. IMPRESSION:Moderate osteoarthritic changes of the left hip with small jointeffusion. There is degenerative signal in the labrum though no linearlabral tear or detachment. The need for further workup should bedetermined clinically. Mild osteoarthritic changes of the right hip. No evidence of acute osseous abnormality.Electronical ly signed by: POP MACK 10/31/19 16:05 Normal -[facility] [address] Work Phone: Comment on above: ORDER REVISED TO A B N MRI HIPS W/O CONTRAST BY RADIOLOGIST; Original Order Number: [id number] History and Physical - Surge ry > 30 dayson 09-12-2019 History and Physical - Surgery > 30 days History of Present Illness: History Present Illness: Reason for surgery: Low back pain HPI: Chronic worsening low back pain and fatigue in the legs while walking. Allergies: Allergies: No Known Allergies: Home Medication Review: Home Medications Reviewed: yes Impression/Procedure: Impression and Planned Procedure: Lumbar spinal stenosis with neurogenic claudication. Proceed with L2/3 epidural steroid injection today. Vital Signs: Temperature C: 36 degrees C Temperature F: 96.8 degrees F Heart Rate: 75 beats per minute Respiratory Rate: 16 breath per minute Blood Pressure Systolic: 133 mm/Hg Blood Pressure Diastolic: 93 mm/Hg Physical Exam: Respiratory/Thorax: Patent airways, CTAB, normal breath sounds with good chest expansion, thorax symmetric Cardiovascular: Regular, rate and rhythm, no murmurs, 2+ equal pulses of the extremities, normal S 1and S 2 Signatures/Attestation/C ertification: Note Completion: Attending Provider Inpatient Certification StatementObservation patient/other outpatient visits Electronic Signatures: Cesar Cannon) (Signed 12-Sep-2019 09:47) Authored: History of Present Illness, Allergies, Home Medication Review, Impression/Procedure, Physical Exam, Signatures/Attestation/C ertification Last Updated: 12-Sep-2019 09:47 by Cesar Cannon) Normal [facility] CORONAVIRUS 2019, SCREEN ASY MPTOMATICon 09-09-2019 CORONAVIRUS 2019,PCR NOT DETECTED Normal Not Detected [facility] Comment on above: Result Comment: This assay is designed to detect the ORF1ab and/or S genes of SARS-CoV-2 via nucleic acid amplification. A Not Detected result does not preclude 2019-nCoV infection since the adequacy of sample collection and/or low viral burden may result in presence of viral nucleic acids below the clinical sensitivity of this test method. Fact sheet for providers: www.fda.gov/media/503435/download Fact sheet for patients: www.fda.gov/media/520783/download This test has received FDA Emergency Use Authorization (EUA) and has been verified by [facility] ([facility]). This test is only authorized for the duration of time that circumstances exist to justify the authorization of the emergency use of in vitro diagnostic tests for the detection of SARS-CoV-2 virus and/or diagnosis of COVID-19 infection under section 564(b)(1) of the Act, 21 U.S.C. 360bbb-3(b)(1), unless the authorization is terminated or revoked sooner. [facility] is certified under CLIA-88 as qualified to perform high complexity testing. Testing is performed in the [facility] laboratories located at [address] [place] [address]. Performed By: #### C OVSC #### [address] [place] [address] CORONAVIRUS 2019, SCREEN ASY MPTOMATICon 09-08-2019 Lab Specimen Source Nasal, Nasopharyngeal Normal [facility] Comment on above: Performed By: #### C OVSC #### [place] [address] Therapy Communicationon 07-08 Therapy Communication Message JACINTO COSTA was (D/C)- last seen: . Jacinto has been seen in clinical physical therapy on 05/23 to 06/22/19 for 8 visit (s) ; there has been no further visits attended; D/C from clinic PT. Signatures Electronically signed by : Jose M Alvarado, PT; Aug 01 2019 7:36AM EST (Author) Normal [facility] PT Initial Evaluationon 07-08 PT Initial Evaluation Reason For Visit Initial Evaluation . spondylolisthesis; stenosis. Referred by: Dr [facility] Subjective Current Episode of Functional Impairment and/or Pain Date of onset: 05/09/2016 Mechanism of Injury:. insidious. Pain 5: Most Severe: 12/16/09. Location: L+R anterior hip pain; LBP; also L hip adductor area tightness. His pain is constant. Medical Screening: No signs of domestic/child or elder abuse . Fall risk no. Medical screening assessed. ID confirmed with B-day; speaks irish. Functional Assessment and Medical Management Functional limitations:. PAINFUL, DIFFICULT, OR ALTERED ADL (marked with an xx) sleep--XX sitting-XX- sit to standing transfers--XX car transfers--XX standing-- walking-- carrying--XX stairs-- dressing lowers--XX driving-- dressing uppers-- reaching---- handling objects-- other-- . 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 Current Status: worsening. Patient Awareness: Patient is aware of his diagnosis and prognosis. Current Medical Management:. has been in PT for hips in 2011; sees chirop; steroid injection at the R hip; films taken in . Patient stated goal(s) for treatment include: relieving pain , increasing mobility , reducing symptoms , reducing/preventing future occurrences and learning preventative care measures . Precautions: Fall Risk: none heart arrhythmia. Objective Ortho gr4 abdominals. Observation Palpation: negative B iliopsoas area tenderness ; negative lumbo-sacral PAs; only slight L/S step-off in stdg. ROM / Joint Mobility (Range of Motion in degrees) Lumbar: (Moeller = P! Denotes Pain with Movement) Extension: Active 60%. Flexion: Active WFL. Side Bend: R Active 75%, L Active 75%. The patient feels a hitch with SFB. Strength Hip: (Moeller: P! Denotes Pain with Movement) Extension: 5/5 on right and 5/5 on left. Flexion: 4+/5 on right, R anterior hip area sx and 5/5 on left. Abduction: 5/5 on right and 5/5 on left. 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 Clinical Presentation: Stable and/or uncomplicated characteristics. Level of Complexity: low Problem List: activity limitations, ADLs/IADLs/self care skills, decreased functional level, decreased knowledge of HEP, pain, strength and transfers. Therapy Diagnosis Assessed Low back pain (724.2) (M54.5) Treatment Time in clinic started at 10:45 am Time in clinic ended at 11:20 am Total time in clinic is 35 minutes. Total timed code time is 0 minutes. Treatment Performed Today:. eval only-no script and eval started 30 min late. Patient was able to complete today's treatment with ease. Evaluation Code: 68753 PT Eval: Low Complexity, 35 min(s). Resources provided today: eval only. Plan of Care Planned interventions include: aquatic therapy, cryotherapy, dry needling, education/instruction, home program, hot pack, kinesiotaping, manual therapy, mechanical traction, self care/home management and therapeutic exercises. Goals: Goals set and discussed today. 1. Independent HEP to allow for 50% reduction in max ADL C/C sx (8/10) 2-3wks 2. 0/10 night time sx to allow for uninterrupted sleep x1wk (11/12)2-3wks 3. Survey score improvement from 26% to 15% (PUNEET) 3-4wks 4. Strength increase to allow for improved ADL carrying (from gr4 to gr4+ abdominals) 3-4wks 5. Strength increase to allow for improved ADL dressing lowers (from gr4+ R hip flexion to gr5) 3-4wks Frequency and duration: 2 time(s) a week, for 4 weeks, for 8 visits. Potential to achieve rehab goals is fair: chronic syndrome Plan of care was developed with input and agreement by the patient. Insurance Insurance reviewed Visit number: 1 [employer] Evaluating therapist Josemanuel Alvarado PT. Signatures Electronically signed by : Jose M Alvarado, PT; Jul 27 2019 1:39PM EST (Author) [facility] Established Visit (Pain Medi cine)on 07-26-2019 Established Visit (Pain Medicine) Chief Complaint FUV B SIJ injection 90% relief in hips 3/10 aching pain in left hip today Reference Documentation See scanned note review of systems/opioid risk tool . History of Present Illness On a scale of 0 to 10, the patient rates the pain at 3. Pain Location: left hip/lbp . Pain Quality: Aching. Sensory/ Motor: Numbness and left leg into knee area. Timing/Duration: Constant. Patient is a 54-year-old male with a past medical history significant for lumbar degenerative disc disease, lumbar spondylosis, chronic pain, and bilateral hip pain and arthritis. He presents today for follow-up after undergoing bilateral hip x-rays. This was done on 07/11/2019 that gave him 90% relief of the pain in his ears. At this time he has some lower back pain with left buttock pain that he rates a 3/10. It is an aching type pain. It affects his ability to get comfortable and he feels it is a catching sensation in his lower back. He states that this was better for one week after the injection but that part has since returned. He has undergone physical therapy in December 2018 as well as May 2019 until June. This did not provide him with any relief. care mgr, physiology, and anti-inflammatory medications also did not help. Patient reports a 90% improvement in pain relief after last injection. Pain Scale: On a scale of 0 to 10, the patient rates the pain at 3. Please identify location of pain: left hip/low back. Pain Quality: aching. Advance directives: Living Will: No living will on file. Healthcare POA: No healthcare proxy on file. Domestic Violence Screen: Does not feel threatened or abused physically, emotionally or sexually. Do you feel UNSAFE? The patient feels safe in the home. The patient is comfortable filling out medical forms. Review of Systems All 13 systems were reviewed and are within normal levels except as noted below or per HPI. Positive and pertinent negative responses are noted below or in the HPI. Active Problems Low back pain (724.2) (M54.5) Lumbar spondylosis (721.3) (M47.816) Lumbar stenosis (724.02) (M48.061) Other chronic pain (338.29) (G89.29) Other intervertebral disc degeneration, lumbar region (722.52) (M51.36) Primary localized osteoarthritis of right hip (715.15) (M16.11) Spondylolisthesis of lumbar region (738.4) (M43.16) Past Medical History History of Depressive disorder (311) (F32.9) History of hyperlipidemia (V12.29) (Z86.39) History of thyroid disorder (V12.29) (Z86.39) Surgical History History of Foot surgery History of Intra-articular injection Bilat hip injection History of Sinus surgery Family History Family history of diabetes mellitus (V18.0) (Z83.3) Family history of thyroid disease (V18.19) (Z83.49) Family history of chronic obstructive pulmonary disease (V17.6) (Z82.5) Family history of hypertension (V17.49) (Z82.49) Social History Alcohol use (V49.89) (Z72.89) Does not have living will Does not use tobacco (V49.89) (Z78.9) Allergies No Known Drug Allergies Recorded By: Dylan Garcia; 05/23/2019 1:21:40 PM Current Meds Gabapentin 300 MG Oral Capsule; TAKE 1 CAPSULE 3 TIMES DAILY; Therapy: 23May2019 to (Evaluate:22Jul2019) Requested for: 23May2019; Last Rx:23May2019 Ordered Rx By: Cesar Cannon; Dispense: 30 Days ; #:90 Capsule; Refill: 1;For: Other chronic pain; NAOMI = N; Verified Transmission to [id number]; Last Updated By: hike; 05/23/2019 1:48:01 PM Chica HERRERA; TAKE DIRECTED; Therapy: (Recorded:26Jul2019) to Recorded Dispense: 0 Days ; #: Sufficient Each; Refill: 0; NAOMI = N; Record; Last Updated By: Dylan Garcia; 07/26/2019 3:00:07 PM DULoxetine HCl - 30 MG Oral Capsule Delayed Release Particles; TAKE 1 CAPSULE Daily; Therapy: (Recorded:23May2019) to Recorded Dispense: 30 Days ; #:30 Capsule; Refill: 0; NAOMI = N; Record; Last Updated By: Dylan Garcia; 05/23/2019 1:21:40 PM Fish Oil OIL; USE DIRECTED; Therapy: (Recorded:23May2019) to Recorded Dispense: 0 Days ; #: Sufficient Each; Refill: 0; NAOMI = N; Record; Last Updated By: Dylan Garcia; 05/23/2019 1:21:40 PM Vitamin D TABS; TAKE 1 TABLET DAILY; Therapy: (Recorded:26Jul2019) to Recorded Dispense: 0 Days ; #: Sufficient Tablet; Refill: 0; NAOMI = N; Record; Last Updated By: Dylan Garcia; 07/26/2019 3:00:07 PM Vitals Vital Signs Recorded: 26Jul2019 02:51PM Eqjhadvzyge73.5 F Heart Rate67 Ehaqwhggmbr23 Toghvdch827 Uyijfvlta31 Height6 ft 1 in Xsvnuw028 lb BMI Vhqktbppqv99.38 BSA Calculated2.38 Physical Exam Vitals: Reviewed HEENT: Unremarkable Heart and lungs: Nonlabored respirations. No edema Musculoskeletal Normal range of motion but some pain with internal and rotation. Positive Sergo test bilaterally. Skin: Unremarkable. Injection site well-healed Diagnoses/Problems Lumbar spondylosis (721.3) (M47.816) Lumbar stenosis (724.02) (M48.061) Other chronic pain (338.29) (G89.29) Low back pain (724.2) (M54.5) Primary localized osteoarthritis of right hip (715.15) (M16.11) Spondylolisthesis of lumbar region (738.4) (M43.16) Other intervertebral disc degeneration, lumbar region (722.52) (M51.36) Orders Low back pain, Lumbar spondylosis, Lumbar stenosis, Other chronic pain, Spondylolisthesis of lumbar region MRI L Spine without Contrast; Status:Hold For - Scheduling; Requested for:26Jul2019; Perform:[facility]; Due:24Oct2019;Ordered; For:Low back pain, Lumbar spondylosis, Lumbar stenosis, Other chronic pain, Spondylolisthesis of lumbar region; Ordered By:Mel Ford; Radiologist to Determine Optimal Study : Y What are the patient's signs and symptoms? : lower back and leg pain Low back pain, Lumbar spondylosis, Lumbar stenosis, Other intervertebral disc degeneration, lumbar region, Spondylolisthesis of lumbar region Xray Lumbosacral Spine Min 4 View; Status:Hold For - Scheduling; Requested for:26Jul2019; Perform:[facility]; Due:24Oct2019;Ordered; For:Low back pain, Lumbar spondylosis, Lumbar stenosis, Other intervertebral disc degeneration, lumbar region, Spondylolisthesis of lumbar region; Ordered By:Mel Ford; Radiologist to Determine Optimal Study : Y What are the patient's signs and symptoms? : lower back and leg pain Provider Impressions Patient is a 54-year-old male with a past medical history significant for lumbar spondylosis, lumbar neuritis, lumbar degenerative disc disease, and lateral hip arthritis, and chronic pain. He presents today for follow-up after undergoing bilateral hip injections on 07/11/2019 that gave him 90% relief of the pain in his hips. He still has a catching sensation in his left lower back with some left buttock pain. He is wondering about getting an MRI. He states that he has jumped through all the hoops to get this and just wants it done. He has undergone a full course of physical therapy without improvement, anti-inflammatory medications without improvement, and care clinician without improvement. We will obtain a lumbar MRI as well as x-rays. Follow-up after. Signatures Electronically signed by : Mel Ford PA-C; Jul 26 2019 3:16PM EST (Author) [facility] SPINE, LUMBOSACRAL MIN 4 VIE WSon 07-26-2019 SPINE, LUMBOSACRAL MIN 4 VIEWS Patient Name: JACINTO COSTA STUDY: SPINE, LUMBOSACRAL MIN 4 VIEWS;; 07/26/2019 3:36 pm INDICATION: lower back and leg pain. COMPARISON: None. ACCESSION NUMBER(S): [id number] ORDERING CLINICIAN: MEL FORD FINDINGS: Rudimentary 12th ribs are noted. 5 [id number] lumbar vertebral bodies are identified. No acute fracture or subluxation. Mild anterior spinal degenerative enthesopathy changes involve L2-L4. There is mild disc height loss at the L5-S1 level. No evidence of a pars interarticularis defect. Mild to moderate right side hypertrophy is noted at L5-S1 with mild hypertrophy at L4-5. Mild left-sided facet joint hypertrophy at L4-5 and L5-S1. Mild degenerative changes of the bilateral sacroiliac joints are noted. The soft tissues are unremarkable. IMPRESSION: 1. Rudimentary 12th ribs with 5 obr-[id number]-[id number] lumbar vertebral bodies. 2. Mild disc height loss L5-S1. 3. Mild to moderate right-sided hypertrophy at L5-S1 with mild hypertrophy at L4-5. Mild left-sided facet joint hypertrophy at L4-5 and L5-S1. 4. Mild degenerative changes of the bilateral sacroiliac joints. Electronically signed by: SAM BRIZUELA MD [facility] History and Physical - Surgi bradley Update < 30 dayson 07-11-2019 History and Physical - Surgical Update < 30 days History & Physical Reviewed: I have reviewed the History and Physical dated: 28-Jun-2019 History and Physical reviewed and relevant findings noted. Patient examined to review pertinent physical findings.: No significant changes Home Medications Reviewed: no changes noted Allergies Reviewed: no changes noted This patient has been seen and discussed with the attending physician responsible for performing the procedure: yes Signatures/Attestation/C ertification: Note Completion: Attending Provider Inpatient Certification StatementObservation patient/other outpatient visits Electronic Signatures: Cesar Cannon) (Signed 11-Jul-2019 07:29) Authored: History & Physical Reviewed, Signatures/Attestation/C ertification Last Updated: 11-Jul-2019 07:29 by Cesar Cannon) [facility] Established Visit (Pain Medi cine)on 07-04-2019 Established Visit (Pain Medicine) Chief Complaint FUV Low back pain 3/10 aching pain today radiating into left leg/ ankle Reference Documentation See scanned note review of systems/opioid risk tool . History of Present Illness On a scale of 0 to 10, the patient rates the pain at 3. Pain Location: Low Back Pain. Pain Quality: Aching. Pain Radiation: left leg/ankle . Sensory/ Motor: Numbness, Pins and [place] and left thigh/knee. Timing/Duration: Constant. Goals for Pain Management: Discuss alternative pain relief options for the patient (hot/cold application, exercise, outpatient therapy, counseling, referrals to other services as needed). BMI edu given at todays visit, ETOH edu given at todays visit. Patient Education:1 Discussed new medication and side effects1 . Inj. edu. completed writen and verbally with family at side.1 . Patient is a 54-year-old male with a past medical history significant for lumbar degenerative disc disease, lumbar spondylosis, chronic pain, and bilateral hip pain and arthritis. He presents today for follow-up after undergoing hip x-rays as well as starting gabapentin. He is using gabapentin with minimal improvement. He still has a lot of lower back pain with bilateral groin pain. He underwent some physical therapy with some improvement of his groin pain but he still has a lot of buttock pain. He rates the discomfort he rates his discomfort a 3/10. It is an aching type pain. He feels a catching type sensation in his buttock and groin when he walks. Pain Scale: On a scale of 0 to 10, the patient rates the pain at 3. Please identify location of pain: low back. Pain Quality: aching. Advance directives: Living Will: No living will on file. Healthcare POA: No healthcare proxy on file. Domestic Violence Screen: Does not feel threatened or abused physically, emotionally or sexually. Do you feel UNSAFE? The patient feels safe in the home. Depression/Suicide Screening: During the past 2 weeks, the patient has not felt down, depressed or hopeless. During the past 2 weeks, the patient has not felt little interest or pleasure in doing things. He has no thoughts of harming self. He has not had thoughts of harming others. Single alcohol screening question: In the past year the patient has had 5 or more drinks (men) or 4 or more drinks (women)? 6 time(s). The patient is comfortable filling out medical forms. 1 Amended By: Tegan El; Jun 28 2019 4:10 PM ESTReview of Systems All 13 systems were reviewed and are within normal levels except as noted below or per HPI. Positive and pertinent negative responses are noted below or in the HPI. Active Problems Low back pain (724.2) (M54.5) Lumbar spondylosis (721.3) (M47.816) Lumbar stenosis (724.02) (M48.061) Other chronic pain (338.29) (G89.29) Other intervertebral disc degeneration, lumbar region (722.52) (M51.36) Primary localized osteoarthritis of right hip (715.15) (M16.11) Spondylolisthesis of lumbar region (738.4) (M43.16) Past Medical History History of Depressive disorder (311) (F32.9) History of hyperlipidemia (V12.29) (Z86.39) History of thyroid disorder (V12.29) (Z86.39) Surgical History History of Foot surgery History of Sinus surgery Family History Family history of diabetes mellitus (V18.0) (Z83.3) Family history of thyroid disease (V18.19) (Z83.49) Family history of chronic obstructive pulmonary disease (V17.6) (Z82.5) Family history of hypertension (V17.49) (Z82.49) Social History Alcohol use (V49.89) (Z72.89) Does not have living will Does not use tobacco (V49.89) (Z78.9) Allergies No Known Drug Allergies Recorded By: Dylan Garcia; 05/23/2019 1:21:40 PM Current Meds Gabapentin 300 MG Oral Capsule; TAKE 1 CAPSULE 3 TIMES DAILY; Therapy: 23May2019 to (Evaluate:22Jul2019) Requested for: 23May2019; Last Rx:23May2019 Ordered Rx By: Cesar Cannon; Dispense: 30 Days ; #:90 Capsule; Refill: 1; For: Other chronic pain; NAOMI = N; Verified Transmission to [facility] #[id number]; Last Updated By: Katerin Chao; 05/23/2019 1:48:01 PM DULoxetine HCl - 30 MG Oral Capsule Delayed Release Particles; TAKE 1 CAPSULE Daily; Therapy: (Recorded:23May2019) to Recorded Dispense: 30 Days ; #:30 Capsule; Refill: 0; NAOMI = N; Record; Last Updated By: Dylan Garcia; 05/23/2019 1:21:40 PM Fish Oil OIL; USE DIRECTED; Therapy: (Recorded:[id number]) to Recorded Dispense: 0 Days ; #: Sufficient Each; Refill: 0; NAOMI = N; Record; Last Updated By: Dylan Garcia; 05/23/2019 1:21:40 PM Glucosamine Chond Complex/MSM Oral Tablet; TAKE 1 TABLET DAILY DIRECTED; Therapy: (Recorded:[id number]) to Recorded Dispense: 0 Days ; #: Sufficient Tablet; Refill: 0; NAOMI = N; Record; Last Updated By: Dylan Garcia; 05/23/2019 1:21:40 PM Vitals Vital Signs Recorded: [id number] 03:35PM Heart Rate67 Ejxtxxakiqb40 Fjtkscin093 Xwucsndre91 Height6 ft 1 in Boomdh439 lb BMI Rpgxrlovut15.38 BSA Calculated2.38 Physical Exam Vitals: Reviewed HEENT: Unremarkable Heart and lungs: Nonlabored respirations. No edema Musculoskeletal Normal range of motion but some pain with internal and rotation. Positive Sergo test bilaterally. Skin: Unremarkable Results/Data Radiology were obtained and reviewed. Mild to moderate bilateral hip arthritis Diagnoses/Problems Other intervertebral disc degeneration, lumbar region (722.52) (M51.36) Primary localized osteoarthritis of right hip (715.15) (M16.11) Spondylolisthesis of lumbar region (738.4) (M43.16) Other chronic pain (338.29) (G89.29) Lumbar stenosis (724.02) (M48.061) Lumbar spondylosis (721.3) (M47.816) Low back pain (724.2) (M54.5) Provider Impressions Patient is a 54-year-old male with a past medical history see me for bilateral hip arthritis, lumbar degenerative disease, chronic pain, and lumbar spondylosis. Unfortunately, we still have not been able to get the lumbar spine x-ray. We will work on getting this. We reviewed the bilateral hip x-rays and discussed his pain. I recommended to patient proceeding with bilateral intra-articular hip injections. Procedure was discussed. Risks, benefits, and concerns were discussed. He is agreeable. He will follow-up 2 weeks into the injection for reevaluation. Call the clinic with any interval questions or concerns. Signatures Electronically signed by : Mel Ford PA-C; Jul 04 2019 2:19PM EST (Author) [facility] PT Progress Noteon 0 PT Progress Note Therapy Diagnosis Assessed Low back pain (724.2) (M54.5) Insurance Insurance reviewed Visit number: 8 [employer] Evaluating therapist Josemanuel Alvarado PT. Subjective Patient reports: I feel like I have more stability. Not a lot of change with the pain. Precautions: heart arrhythmia. Treatment Time in clinic started at 3:22 pm Time in clinic ended at 3:55 pm Total time in clinic is 33 minutes. Total timed code time is 20 minutes. Therapeutic exercise (26523): timed minutes 20, units 1 . Nustep Lv 4 x5 mins UE/LE's for trunk rotation/ROM X Slantboard x1 min X Midrows Kaka Tube 2x15 X SH Ext Kaka Tube 2x15 X Palloff Press x15 purple X SKC w/strap 5 hold x10 B x6 on LLE X Reverse Crunch w/ yellow ball 5 hold x20 X LTR 5 hold x10 B X Hip Flexor Stretch 3 x 20 EOB X Flexband HS stretch 10 x10 B X TrA Isometric Bug with yellow ball (hooklying) 2 hold 2x10 X Hip Adduction, hooklying 2 x 10 5 hold (X) Hip Abduction, hooklying 2 x 10 Purple Band (P resistance) X Bridges with purple band 2 x 10 X seated pulldown Dk green 2x10 with TA set reviewed modofied HEP (see form) . Provided today: equipment provided . HEP handout; Tband. Assessment The marked B hip/butock sx have reduced. There is L SI area electric feeling that may run down the leg with sitting. Significant L SI area WBing while sitting continues to be problematic. There is also an ongoing local catch with immediate sx. Reviewed and added to present HEP today-seen in shortened session. Plan Planned interventions include: aquatic therapy, cryotherapy, dry needling, education/instruction, home program, hot pack, kinesiotaping, manual therapy, mechanical traction, self care/home management and therapeutic exercises. Goals: Goals set and discussed today. 1. Independent HEP to allow for 50% reduction in max ADL C/C sx (12/16) 2-3wks 7/10 max sx within the last 5 days; 06/22/19; PARTIALLY MET 2. 0/10 night time sx to allow for uninterrupted sleep x1wk (11/12)2-3wks no longer wakes at night; 06/22/19; MET 3. Survey score improvement from 26% to 15% (PUNEET) 3-4wks 24% as of 06/22/19; PARTIALLY MET 4. Strength increase to allow for improved ADL carrying (from gr4 to gr4+ abdominals) 3-4wks 5. Strength increase to allow for improved ADL dressing lowers (from gr4+ R hip flexion to gr5) 3-4wks gr4 R hip flexion today; mildly better dressing lowers; 06/22/19; PARTIALLY MET Frequency and duration: 2 time(s) a week, for 4 weeks, for 8 visits. Potential to achieve rehab goals is fair: chronic syndrome will continue with HEP monitoring and possible DN iniitation (will be 01/15 visits) . Progress with POC, as tolerated. Signatures Electronically signed by : Jose M Alvarado, PT; Jun 22 2019 4:06PM EST (Author) Normal [facility] [facility] [employer] PT Progress Noteon 0 PT Progress Note Therapy Diagnosis Assessed Low back pain (724.2) (M54.5) Insurance Insurance reviewed Visit number: 7 [employer] Evaluating therapist Josemanuel Alvarado PT. Subjective Patient reports: Patient reports driving 7+ hours to his 's appt and notes increased low back discomfort in lateral aspect of L hip, knee and ankle. States minimal compliance of HEP lately. Patient notes overall perceived improvement in pain intensity since starting PT sessions. Patient reports 3-5/10 average pain level throughout the day and notes sitting tasks increase symptoms stating I can't sit for more than 20 minutes at a time before I need to get up. Home program performing as directed: No. Precautions: heart arrhythmia. Treatment Time in clinic started at 3:45 pm Time in clinic ended at 4:30 pm Total time in clinic is 45 minutes. Total timed code time is 43 minutes. Therapeutic exercise (97894): timed minutes 43, units 3 . Nustep Lv 4 x5 mins UE/LE's for trunk rotation/ROM Slantboard x1 min Midrows Kaka Tube 2x15 SH Ext Kaka Tube 2x15 Palloff Press x15 purple SKC w/strap 5 hold x10 B x6 on LLE Reverse Crunch w/ yellow ball 5 hold x20 LTR 5 hold x10 B Hip Flexor Stretch 3 x 20 EOB Flexband HS stretch 10 x10 B TrA Isometric Bug with yellow ball (hooklying) 2 hold 2x10 Hip Adduction, hooklying 2 x 10 5 hold (X) Hip Abduction, hooklying 2 x 10 Purple Band (P resistance) Bridges with purple band 2 x 10 . Provided today: equipment provided. Assessment Zero c/o increased pain with added step ups and standing exercises today. Significant groin and hip adductor tightness noted and reported during SKC stretch. Plan Planned interventions include: aquatic therapy, cryotherapy, dry needling, education/instruction, home program, hot pack, kinesiotaping, manual therapy, mechanical traction, self care/home management and therapeutic exercises. Goals: Goals set and discussed today. 1. Independent HEP to allow for 50% reduction in max ADL C/C sx (12/16) 2-3wks 2. 0/10 night time sx to allow for uninterrupted sleep x1wk (11/12)2-3wks 3. Survey score improvement from 26% to 15% (PUNEET) 3-4wks 4. Strength increase to allow for improved ADL carrying (from gr4 to gr4+ abdominals) 3-4wks 5. Strength increase to allow for improved ADL dressing lowers (from gr4+ R hip flexion to gr5) 3-4wks Frequency and duration: 2 time(s) a week, for 4 weeks, for 8 visits. Potential to achieve rehab goals is fair: chronic syndrome Patient to f/u with supervising PT next visit, per patient request- would like to try dry needling on groin/hip adductors on L to decrease low back/hip discomfort. AM . Progress with POC, as tolerated. Signatures Electronically signed by : Guillermina Moody PTA; Jun 19 2019 4:54PM EST (Author) Electronically signed by : Jose M Alvarado PT; Jun 21 2019 8:03AM EST Normal [employer] Therapy Communicationon 06-09 Therapy Communication Message JACINTO COSTA no showed today . VMM left on 06/18; NS policy was reviewed and he was notified of his next appt. Signatures Electronically signed by : Jose M Alvarado PT; Jun 18 2019 12:06PM EST (Author) [facility] PT Progress Noteon 0 PT Progress Note Therapy Diagnosis Assessed Low back pain (724.2) (M54.5) Insurance Insurance reviewed Visit number: 5 [employer] Evaluating therapist Josemanuel Alvarado PT. Subjective Patient reports: Patient reports 1/10 low back discomfort at rest, 6/10 low back pain with ambulation and 4/10 seated low back pain. Reports taking 3 Tylenol and vicodin at 8am due to pain. States difficulty urinating this morning and noting increased low back pain when attempting to urinate at first and notes this is a new symptom for him. States staying home on Tuesday due to not feeling well. At exit patient denies any increase in pain. Precautions: heart arrhythmia. Treatment Time in clinic started at 4:15 pm Time in clinic ended at 5:00 pm Total time in clinic is 45 minutes. Total timed code time is 43 minutes. Therapeutic exercise (88863): timed minutes 43, units 3 . Nustep Lv 4 x5 mins UE/LE's for trunk rotation/ROM Slantboard x1 min Midrows Kaka Tube 2x15 SH Ext Kaka Tube 2x15 Palloff Press x15 purple SKC w/strap 5 hold x10 B x6 on LLE Reverse Crunch w/ yellow ball 5 hold x20 LTR 5 hold x10 B Hip Flexor Stretch 3 x 20 EOB Flexband HS stretch 10 x10 B TrA Isometric Bug with yellow ball (hooklying) 2 hold 2x10 Hip Adduction, hooklying 2 x 10 5 hold (X) Hip Abduction, hooklying 2 x 10 Purple Band (P resistance) Bridges with purple band 2 x 10 . Provided today: equipment provided. Assessment Held further progression due to patient reporting Flare up and not feeling well. Introduced flexband HS stretch to address HS tightness on L with patient tolerating well. Plan Planned interventions include: aquatic therapy, cryotherapy, dry needling, education/instruction, home program, hot pack, kinesiotaping, manual therapy, mechanical traction, self care/home management and therapeutic exercises. Goals: Goals set and discussed today. 1. Independent HEP to allow for 50% reduction in max ADL C/C sx (8/10) 2-3wks 2. 0/10 night time sx to allow for uninterrupted sleep x1wk (7/7)2-3wks 3. Survey score improvement from 26% to 15% (PUNEET) 3-4wks 4. Strength increase to allow for improved ADL carrying (from gr4 to gr4+ abdominals) 3-4wks 5. Strength increase to allow for improved ADL dressing lowers (from gr4+ R hip flexion to gr5) 3-4wks Frequency and duration: 2 time(s) a week, for 4 weeks, for 8 visits. Potential to achieve rehab goals is fair: chronic syndrome Plan to continue postural strengthening and core stabilization progression as tolerated to decrease episodes of low back discomfort with ambulation and standing tasks. AM . Progress with POC, as tolerated. Signatures Electronically signed by : Guillermina Moody ENTRY LEVEL RECRUITER; Jun 11 2019 5:36PM EST (Author) Electronically signed by : Jose M Alvarado PT; Jun 13 2019 9:46AM EST [facility] PT Progress Noteon 0 PT Progress Note Therapy Diagnosis Assessed Low back pain (724.2) (M54.5) Lumbar stenosis (724.02) (M48.061) Spondylolisthesis of lumbar region (738.4) (M43.16) Insurance Insurance reviewed Visit number: 4 [employer] Evaluating therapist Josemanuel Alvarado PT. Subjective Patient reports: Patient reports that he is in between sore and painful today. States that he had a rough weekend with higher pain levels. States that hip pain has been an issue, with L hip pain being worse than R. Home program performing as directed: Yes. Precautions: heart arrhythmia. Treatment Time in clinic started at 4:00 pm Time in clinic ended at 4:45 pm Total time in clinic is 45 minutes. Total timed code time is 43 minutes. Therapeutic exercise (00495): timed minutes 43, units 3 . Nustep Lv 4 x5 mins UE/LE's for trunk rotation/ROM Slantboard x1 min Midrows Kaka Tube 2x15 (P) SH Ext Kaka Tube 2x15 (P) Palloff Press x10 purple SKC w/strap 5 hold x10 B x6 on LLE Reverse Crunch w/ yellow ball 5 hold x20 LTR 5 hold x10 B Hip Flexor Stretch 3 x 20 TrA Isometric Bug with yellow ball (hooklying) 2 hold 2x10 Hip Adduction, hooklying 2 x 10 5 hold Hip Abduction, hooklying 2 x 10 orange tband Bridges 2 x 10 . Provided today: education and equipment provided . HEP for bridges, SKTC, Hip Flexor stretch. Assessment Good tolerance to increase in reps with midrows and shoulder extension. Added palloff press with cues for good form, no c/o of increased pain. Trialed seated on but patient c/o of Sx in L LE, DC'd after 10. Patient able to perform bug with yellow ball on lap and LEs off table. Interdisciplinary Team Communication: Physical Therapy . Response to treatment: decreased pain. Plan Planned interventions include: aquatic therapy, cryotherapy, dry needling, education/instruction, home program, hot pack, kinesiotaping, manual therapy, mechanical traction, self care/home management and therapeutic exercises. Goals: Goals set and discussed today. 1. Independent HEP to allow for 50% reduction in max ADL C/C sx (810) 2-3wks 2. 0/10 night time sx to allow for uninterrupted sleep x1wk (11/12)2-3wks 3. Survey score improvement from 26% to 15% (PUNEET) 3-4wks 4. Strength increase to allow for improved ADL carrying (from gr4 to gr4+ abdominals) 3-4wks 5. Strength increase to allow for improved ADL dressing lowers (from gr4+ R hip flexion to gr5) 3-4wks Frequency and duration: 2 time(s) a week, for 4 weeks, for 8 visits. Potential to achieve rehab goals is fair: chronic syndrome Plan to continue with core strengthening and lumbar ROM to allow for diminished back/hip pain with lifting and carrying objects. JW . Progress with POC, as tolerated. Signatures Electronically signed by : Gaby Roldan PTA; Jun 05 2019 5:06PM EST (Author) Electronically signed by : Jose M Alvarado PT; Jun 06 2019 8:14AM EST Normal [employer] PT Progress Noteon 0 PT Progress Note Therapy Diagnosis Assessed Low back pain (724.2) (M54.5) Lumbar stenosis (724.02) (M48.061) Spondylolisthesis of lumbar region (738.4) (M43.16) Insurance Insurance reviewed Visit number: 3 [employer] Evaluating therapist Josemanuel Alvarado PT. Subjective Patient reports: Pt. c/o mild pain with anterior groin/hip addutors, L>R. Pt. states back sx.'s are minimal this afternoon. States hips are stiff from sitting at the computer today. Home program performing as directed: Yes. Precautions: heart arrhythmia. Treatment Time in clinic started at 4:00 pm Time in clinic ended at 4:45 pm Total time in clinic is 45 minutes. Total timed code time is 43 minutes. Therapeutic exercise (63546): timed minutes 43, units 3 . Nustep Lv 4 x5 mins UE/LE's for trunk rotation/ROM Slantboard x1 min Midrows Kaka Tube 2x10 (P) SH Ext Kaka Tube 2x10 (P) SKC w/strap 5 hold x10 B x6 on LLE Reverse Crunch w/ yellow ball 5 hold x20 LTR 5 hold x10 B TrA Isometric Bug with yellow ball (hooklying) 2 hold 2x10 Hip Adduction, hooklying 2 x 10 5 hold (N) Hip Abduction, hooklying 2 x 10 orange tband (N) Bridges 2 x 10 (N) . Provided today: education and equipment provided . Provided patient with green theraband and instructions with mid rows and extensions. Not able to issue out hand out d/t computer issues this afternoon. Assessment Fair tolerance with supine exercises with verbal cues needed. Quick fatigue noted with bug exercises. Increased resistance tolerated well with mid rows. Pt. states he feel fine following session. Response to treatment: decreased pain. Plan Planned interventions include: aquatic therapy, cryotherapy, dry needling, education/instruction, home program, hot pack, kinesiotaping, manual therapy, mechanical traction, self care/home management and therapeutic exercises. Goals: Goals set and discussed today. 1. Independent HEP to allow for 50% reduction in max ADL C/C sx (8/10) 2-3wks 2. 0/10 night time sx to allow for uninterrupted sleep x1wk (11/12)2-3wks 3. Survey score improvement from 26% to 15% (PUNEET) 3-4wks 4. Strength increase to allow for improved ADL carrying (from gr4 to gr4+ abdominals) 3-4wks 5. Strength increase to allow for improved ADL dressing lowers (from gr4+ R hip flexion to gr5) 3-4wks Frequency and duration: 2 time(s) a week, for 4 weeks, for 8 visits. Potential to achieve rehab goals is fair: chronic syndrome Progress with POC, as tolerated. Signatures Electronically signed by : Eneida Nieves ENTRY LEVEL RECRUITER; Jun 01 2019 4:45PM EST (Author) Electronically signed by : Jose M Alvarado, PT; Jun 04 2019 4:58PM EST [facility] PT Progress Noteon 0 PT Progress Note Therapy Diagnosis Assessed Low back pain (724.2) (M54.5) Insurance Insurance reviewed Visit number: 2 [employer] Evaluating therapist Josemanuel Alvarado PT. Subjective Patient reports: Patient reports lifting/carrying boxes yesterday and notes increased low back pain 7-8/10 low back pain (R>L). Reports receiving Gabapentin prescription from pain clinic (3x/day) and notes decreased back and hip pain since starting medication. C/o consistent chronic tightness in L groin muscle It feels like it's pulling my hip out of socket sometimes. At best patient reports 2-3/10 low back discomfort stating everything depends on what I'm doing. At exit patient denies any increase in symptoms. Patient requesting dry needling on L groin/hip adductors within the next few sessions to decrease hip/back pain. Home program performing as directed:. No HEP previously issued. Precautions: heart arrhythmia. Treatment Time in clinic started at 4:00 pm Time in clinic ended at 4:45 pm Total time in clinic is 45 minutes. Total timed code time is 42 minutes. Therapeutic exercise (03415): timed minutes 42, units 3 . Nustep Lv 4 x5 mins UE/LE's for trunk rotation/ROM (N) Slantboard x1 min (N) Midrows Purple Tube 2x10 (N) SH Ext Purple Tube 2x10 (N) SKC w/strap 5 hold x10 B (N) Reverse Crunch w/ yellow ball 5 hold x20 (N) LTR 5 hold x10 B (N) TrA Isometric Bug with yellow ball (hooklying) 2 hold 2x10 (N) . Assessment Minimal c/o increased pain throughout session today with significant L hip stiffness noted and patient demonstrating difficulty extending L LE to plinth at times. Patient presenting with several questions of POC with ENTRY LEVEL RECRUITER spending several minutes providing patient education of POC established by supervising PT and ther. ex progression overall. Plan Planned interventions include: aquatic therapy, cryotherapy, dry needling, education/instruction, home program, hot pack, kinesiotaping, manual therapy, mechanical traction, self care/home management and therapeutic exercises. Goals: Goals set and discussed today. 1. Independent HEP to allow for 50% reduction in max ADL C/C sx (8/10) 2-3wks 2. 0/10 night time sx to allow for uninterrupted sleep x1wk (11/12)2-3wks 3. Survey score improvement from 26% to 15% (PUNEET) 3-4wks 4. Strength increase to allow for improved ADL carrying (from gr4 to gr4+ abdominals) 3-4wks 5. Strength increase to allow for improved ADL dressing lowers (from gr4+ R hip flexion to gr5) 3-4wks Frequency and duration: 2 time(s) a week, for 4 weeks, for 8 visits. Potential to achieve rehab goals is fair: chronic syndrome Plan to continue LE strengthening and flexibility exercises in addition to core stability training to decrease episodes of low back and hip discomfort with ADL's and sitting tasks. AM . Progress with POC, as tolerated. Reason For Visit Initial Evaluation . spondylolisthesis; stenosis. Referred by: Dr [facility] Signatures Electronically signed by : Guillermina Moody PTA; May 30 2019 10:27AM EST (Author) Electronically signed by : Jose M Alvarado PT; May 30 2019 1:33PM EST Normal Touchworks HIP, UNILATERAL W/PELVIS WHE N PERFORMED 2-3 VIEWSon 05-23-2019 HIP, UNILATERAL W/PELVIS WHEN PERFORMED 2-3 VIEWS Patient Name: JACINTO COSTA STUDY: HIP, UNILATERAL W/PELVIS WHEN PERFORMED 2-3 VIEWS; 05/23/2019 2:16 pm INDICATION: right groin pain. COMPARISON: None. ACCESSION NUMBER(S): [id number] ORDERING CLINICIAN: CESAR CANNON FINDINGS: Pelvis and right hip, three views There is moderate joint space narrowing with sclerosis and osteophytosis in the hips bilaterally. There is partial sacralization of L5 on the left. No fracture or dislocation seen. No evidence of osteonecrosis IMPRESSION: Moderate bilateral hip osteoarthritis Partial sacralization of L5 on the left Electronically signed by: YOGI MOORE MD [facility] Initial Visit (Pain Medicine )on 05-23-2019 Initial Visit (Pain Medicine) Chief Complaint LBP 3/10 aching pain x several years but has become worse in the past 3 years. Right hip pain patient states is worse. Reference Documentation See scanned note review of systems/opioid risk tool . History of Present Illness On a scale of 0 to 10, the patient rates the pain at 3. Pain Location: Low Back Pain. Pain Quality: Aching. Pain Radiation: left leg into ankle while driving . Sensory/ Motor: Numbness. Timing/Duration: Constant. Exacerbating Factors: lifting, repetitive motion and standing. Alleviating Factors: Cold Therapy, Repositioning, Other: ___. 24 Hour Behavior: Symptoms are the same in the am. Symptoms are the same as the day progresses. Symptoms are worse in the pm. Symptoms are the same when lying down. Effect of Movement on Symptoms: Bending doesn't change symptoms. okay with supporting self. Lying doesn't change symptoms. Rising from sitting doesn't change symptoms. getting out of vehicle left leg is weak. Sitting makes symptoms worse. Standing makes symptoms worse. Rising from supine to sitting doesn't change symptoms. Turning doesn't change symptoms. Walking makes symptoms better. Twisting doesn't change symptoms. Weather makes symptoms worse. Coughing/sneezing doesn't change symptoms. Pushing motion makes symptoms worse. Pulling motion makes symptoms worse. Lifting: Worse. Psychosocial Factors vs Last Visit: Physical Functioning: Worse. Family Relationships: Worse. Social Relationships: Worse. Mood: Worse. Sleep Patterns: Worse. Overall Functioning: Worse. Goals for Pain Management: Discuss alternative pain relief options for the patient (hot/cold application, exercise, outpatient therapy, counseling, referrals to other services as needed). ORT=1. The patient is being seen for an initial evaluation of back pain. The injury occurred 3 year(s) ago. Past evaluation has included spine x-rays. Past treatment has included physical therapy and manipulation. 54 yo male with longstanding intermittent low back pain and relatively new onset right groin pain. Has had back pain intermittently since high school. The right groin pain is worse with prolonged activity and at night. Treatments have included PT in December of this year as well as ibuprofen. NSAIDs bother his stomach. Back pain radiates to the sacrum. There is pain that radiates to the left lateral leg with driving. Treatments have included PT and care clinician with some benefit as well as the NSAIDs noted above. Advance directives: Living Will: No living will on file. Healthcare POA: No healthcare proxy on file. Do you feel UNSAFE? The patient feels safe in the home. Depression/Suicide Screening: During the past 2 weeks, the patient has not felt down, depressed or hopeless. During the past 2 weeks, the patient has not felt little interest or pleasure in doing things. He has no thoughts of harming self. He has not had thoughts of harming others. Single alcohol screening question: In the past year the patient has had 5 or more drinks (men) or 4 or more drinks (women)? 8 time(s). The patient is comfortable filling out medical forms. Review of Systems All 13 systems were reviewed and are within normal levels except as noted below or per HPI. Positive and pertinent negative responses are noted below or in the HPI. Active Problems Low back pain (724.2) (M54.5) Past Medical History History of Depressive disorder (311) (F32.9) History of hyperlipidemia (V12.29) (Z86.39) History of thyroid disorder (V12.29) (Z86.39) Surgical History History of Foot surgery History of Sinus surgery Family History Family history of diabetes mellitus (V18.0) (Z83.3) Family history of thyroid disease (V18.19) (Z83.49) Family history of chronic obstructive pulmonary disease (V17.6) (Z82.5) Family history of hypertension (V17.49) (Z82.49) Social History Alcohol use (V49.89) (Z72.89) Does not have living will Does not use tobacco (V49.89) (Z78.9) Allergies No Known Drug Allergies Recorded By: Dylan Garcia; 05/23/2019 1:21:40 PM Current Meds DULoxetine HCl - 30 MG Oral Capsule Delayed Release Particles; TAKE 1 CAPSULE Daily; Therapy: (Recorded:23May2019) to Recorded Dispense: 30 Days ; #:30 Capsule; Refill: 0; NAOMI = N; Record; Last Updated By: Dylan Garcia; 05/23/2019 1:21:40 PM Fish Oil OIL; USE DIRECTED; Therapy: (Recorded:23May2019) to Recorded Dispense: 0 Days ; #: Sufficient Each; Refill: 0; NAOMI = N; Record; Last Updated By: Dylan Garcia; 05/23/2019 1:21:40 PM Glucosamine Chond Complex/MSM Oral Tablet; TAKE 1 TABLET DAILY DIRECTED; Therapy: (Recorded:23May2019) to Recorded Dispense: 0 Days ; #: Sufficient Tablet; Refill: 0; NAOMI = N; Record; Last Updated By: Dylan Garcia; 05/23/2019 1:21:40 PM Vitals Vital Signs Recorded: 23May2019 12:58PM Heart Rate73 Heajxelmyaf08 Epoffyjh488 Iwpbopnwp06 Height6 ft 1 in [place]680 lb BMI Mzujyozpey57.64 BSA Calculated2.39 Physical Exam Constitutional: No acute distress, well appearing and well nourished. Patient appears stated age. Eyes: conjunctiva non-icteric and eye lids are without obvious rash or drooping. Pupils are symmetric. Ears, Nose, Mouth, and Throat: External ears and nose appear to be without deformity or rash. No lesions or masses noted. Hearing is grossly intact. Neck:. No JVD noted, tracheal position is midline. No goiter noted on assessment of thyroid. Head and Face: examination of the head and face revealed no abnormalities. Respiratory: No gasping or shortness of breath noted, no use of accessory muscles noted. Cardiovascular: Examination for edema is normal. Examination of lower extremities for varicosities is normal. Examination for varicosities in the upper extremities is normal. Abdomen: Non-tender, no masses. Lymphatic: No lymphadenopathy noted in the anterior cervical or supra/infraclavicular regions bilaterally. Skin: No rashes or open lesions/ulcers identified on skin. No induration/tightening noted with palpation of skin. Hair present on all extremities and digits. Nails are normal. Musculoskeletal: limited ROM flexion lumbar spine. Mild pain with ROM right hip. SLightly limited ROM right hip. SI joints non-tender to palpation. Digits/Nails show no clubbing or cyanosis. No asymmetry or masses noted in the head/neck. Examination of muscles/joints/bones show no gross atrophy and no abnormal/involuntary movements in the head/neck. muscle stability is abnormal. range of motion is abnormal. spine range of motion is abnormal. Gait is grossly normal. Neurologic: Cranial nerves II-XII are intact, motor strength was normal and sensation was grossly normal. Reflexes are normal. reflexes are abnormal. provocative testing is abnormal. Examination of Sensation: Normal Reflexes: Deep tendon reflexes: 0 right patella, 0 left patella, 0 right ankle jerk and 0 left ankle jerk. Provocative Tests: Provocative testing showed a positive straight leg raise (bilat 30 degrees- back pain). Psychiatric: Alert, orientation to person, place, and time. Recent/remote memory as evidenced through frve-wg-bffv interaction and discussion appear grossly intact. Mood and affect are normal. Diagnoses/Problems Family history of thyroid disease (V18.19) (Z83.49) : Mother Primary localized osteoarthritis of right hip (715.15) (M16.11) Other intervertebral disc degeneration, lumbar region (722.52) (M51.36) Other chronic pain (338.29) (G89.29) Lumbar spondylosis (721.3) (M47.816) Orders Start: Gabapentin 300 MG Oral Capsule; TAKE 1 CAPSULE 3 TIMES DAILY Rx By: Cesar Cannon; Dispense: 30 Days ; #:90 Capsule; Refill: 1;For: Other chronic pain; NAOMI = N; Sent To: [facility] Hip, unilateral w/ pelvis when performed, 2 or 3 view; Status:Hold For - Scheduling; Requested for:[id number]; Perform:[facility]; Due:21Aug2019;Ordered; For:Primary localized osteoarthritis of right hip; Ordered By:Cesar Cannon; Laterality : Right Radiologist to Determine Optimal Study : Y What are the patient's signs and symptoms? : right groin pain Provider Impressions Chronic low back pain consistent with lumbar degenerative disc disease and spondylosis. The patient may have an element of lumbosacral neuritis as well. The right groin pain may be due to degenerative disc disease versus osteoarthritis of the right hip. NSAIDs are not well tolerated and are ineffective in managing his symptoms. The patient just started physical therapy. I recommended reviewing his x-ray of the lumbar spine performed at the [facility] in December of last year. I also suggested that we obtain right hip x-ray for evaluation. I would like the patient to continue his physical therapy program and follow up after it is completed in approximately 6-8 weeks. Zabrina Heredia offered the patient a prescription for gabapentin for his pain. Possible side effects were reviewed. [place] automated Rx report was reviewed and is appropriate. PreScription sent to the patient's pharmacy. The patient's questions were addressed. He wishes to proceed with the above-noted treatment plan. The patient was invited to call the clinic with any questions or concerns. Signatures Electronically signed by : Cesar Cannon MD; May 23 2019 1:47PM EST (Author) Normal Touchworks Otheron 05-23-2019 Interpreted by: TOMGXM87/17/20 06:50MRN: [id number] Name: JACINTO COSTA STUDY:HIP, UNILATERAL W/PELVIS WHEN PERFORMED 2-3 VIEWS; 05/23/2019 2:16 pm INDICATION:right groin pain. COMPARISON:None. ORDERING CLINICIAN:CESAR CANNON FINDINGS:Pelvis and right hip, three views There is moderate joint space narrowing with sclerosis andosteophytosis in the hips bilaterally. There is partial sacralizationof L5 on the left. No fracture or dislocation seen. No evidence ofosteonecrosis IMPRESSION:Moderate bilateral hip osteoarthritisPartial sacralization of L5 on the leftElectronically signed by: TERESA 05/25/19 06:50 Normal [facility] Work Phone: Please click on the link to view the study images Normal [facility] Work Phone: Culture, urine Bacteria identified Cx Nom (U) Presumptive Lactobacillus sp. [facility] Work Phone: Vital Signs Date Time Vital Sign Value Performing Clinician Facility 10-18-2024 08:08-0400 Body height 187.[address] Jerome Stanford MD Work Phone: [facility] 10-18-2024 08:08-0400 Body mass index (BMI) [Ratio] 37.4 kg/m2 Dr. Jerome Stanford MD Work Phone: [facility] 10-18-2024 08:08-0400 Body temperature 98 [degF] Dr. Jerome Stanford MD Work Phone: [facility] 10-18-2024 08:08-0400 Body weight 132.[address] Jerome Stanford MD Work Phone: [facility] 10-18-2024 08:08-0400 Diastolic blood pressure 80 mm[Hg] Dr. Jerome Stanford MD Work Phone: [facility] 10-18-2024 08:08-0400 Heart rate 77 /min Dr. Jerome Stanford MD Work Phone: [facility] 10-18-2024 08:08-0400 Respiratory rate 16 /min Dr. Jerome Stanford MD Work Phone: [facility] 10-18-2024 08:08-0400 SaO2% (BldA) [Mass fraction] 97 % Dr. Jerome Stanford MD Work Phone: [facility] 10-18-2024 08:08-0400 Systolic blood pressure 128 mm[Hg] Dr. Jerome Stanford MD Work Phone: [facility] 07-12-2024 15:14-0500 Body mass index (BMI) [Ratio] 37.8 kg/m2 Dr. Jerome Stanford MD Work Phone: [facility] 07-12-2024 15:14-0500 Body temperature 98 [degF] Dr. Jerome Stanford MD Work Phone: [facility] 07-12-2024 15:14-0500 Body weight 133.[address] Jerome Stanford MD Work Phone: [facility] 07-12-2024 15:14-0500 Diastolic blood pressure 96 mm[Hg] Dr. Jerome Stanford MD Work Phone: [facility] 07-12-2024 15:14-0500 Heart rate 75 /min Dr. Jerome Stanford MD Work Phone: [facility] 07-12-2024 15:14-0500 Respiratory rate 16 /min Dr. Jerome Stanford MD Work Phone: [facility] 07-12-2024 15:14-0500 SaO2% (BldA) [Mass fraction] 94 % Dr. Jerome Stanford MD Work Phone: [facility] 07-12-2024 15:14-0500 Systolic blood pressure 159 mm[Hg] Dr. Jerome Stanford MD Work Phone: [facility] 05-10-2024 14:27-0500 Body mass index (BMI) [Ratio] 38.21 kg/m2 Krislyn Aberegg PA Work Phone: [facility] 05-10-2024 14:27-0500 Body temperature 96.1 [degF] Krislyn Aberegg PA Work Phone: [facility] 05-10-2024 14:27-0500 Body weight 135 kg Krislyn Aberegg PA Work Phone: [facility] 05-10-2024 14:27-0500 Diastolic blood pressure 99 mm[Hg] Krislyn Aberegg PA Work Phone: [facility] 05-10-2024 14:27-0500 Heart rate 98 /min Krislyn Aberegg PA Work Phone: [facility] 05-10-2024 14:27-0500 Respiratory rate 20 /min Krislyn Aberegg PA Work Phone: [facility] 05-10-2024 14:27-0500 SaO2% (BldA) [Mass fraction] 99 % Krislyn Aberegg PA Work Phone: [facility] 05-10-2024 14:27-0500 Systolic blood pressure 136 mm[Hg] Krislyn Aberegg PA Work Phone: [facility] 10-06-2023 11:02-0400 Body height 188 cm Marlen Ruffin MD Work Phone: [facility] 10-06-2023 11:02-0400 Body mass index (BMI) [Ratio] 36.8 kg/m2 Marlen Ruffin MD Work Phone: [facility] 10-06-2023 11:02-0400 Body weight 130 kg Marlen Ruffin MD Work Phone: [facility] 10-06-2023 11:02-0400 Diastolic blood pressure 97 mm[Hg] Marlen Ruffin MD Work Phone: [facility] 10-06-2023 11:02-0400 Heart rate 85 /min Marlen Ruffin MD Work Phone: [facility] 10-06-2023 11:02-0400 Systolic blood pressure 146 mm[Hg] Marlen Ruffin MD Work Phone: [facility] 08-25-2023 15:47-0400 Body height 187.[address] Jerome Stanford Work Phone: [facility] 08-25-2023 15:47-0400 Body mass index (BMI) [Ratio] 36.7 kg/m2 Dr. Jerome Stanford Work Phone: [facility] 08-25-2023 15:47-0400 Body temperature 98.6 [degF] Dr. Jerome Stanford Work Phone: [facility] 08-25-2023 15:47-0400 Body weight 129.[address] Jerome Stanford Work Phone: [facility] 08-25-2023 15:47-0400 Diastolic blood pressure 97 mm[Hg] Dr. Jerome Stanford Work Phone: [facility] 08-25-2023 15:47-0400 Heart rate 71 /min Dr. Jerome Stanford Work Phone: [facility] 08-25-2023 15:47-0400 Respiratory rate 18 /min Dr. Jerome Stanford Work Phone: [facility] 08-25-2023 15:47-0400 SaO2% (BldA) [Mass fraction] 96 % Dr. Jerome Stanford Work Phone: [facility] 08-25-2023 15:47-0400 Systolic blood pressure 151 mm[Hg] Dr. Jerome Stanford Work Phone: [facility] 06-20-2023 15:35-0500 Body mass index (BMI) [Ratio] 35.9 kg/m2 Dr. Jerome Stanford Work Phone: [facility] 06-20-2023 15:35-0500 Body temperature 98.4 [degF] Dr. Jerome Stanford Work Phone: [facility] 06-20-2023 15:35-0500 Body weight [address] Jerome Stanford Work Phone: [facility] 06-20-2023 15:35-0500 Diastolic blood pressure 86 mm[Hg] Dr. Jerome Stanford Work Phone: [facility] 06-20-2023 15:35-0500 Heart rate 70 /min Dr. Jerome Stanford Work Phone: [facility] 06-20-2023 15:35-0500 Respiratory rate 16 /min Dr. Jerome Stanford Work Phone: [facility] 06-20-2023 15:35-0500 SaO2% (BldA) [Mass fraction] 97 % Dr. Jerome Stanford Work Phone: [facility] 06-20-2023 15:35-0500 Systolic blood pressure 132 mm[Hg] Dr. Jerome Stanford Work Phone: [facility] 02-05-2023 13:10-0400 Body temperature 98.2 [degF] Oliva Jacobson APRN.TAX EXPERT Work Phone: [facility] 02-05-2023 13:10-0400 Body weight 126.73 kg Oliva Jacobson APRN.TAX EXPERT Work Phone: [facility] 02-05-2023 13:10-0400 Diastolic blood pressure 80 mm[Hg] Oliva Jacobson SANDER PORTABLE MACHINE.TAX EXPERT Work Phone: [facility] 02-05-2023 13:10-0400 Heart rate 77 /min Oliva Jacobson APRN.TAX EXPERT Work Phone: [facility] 02-05-2023 13:10-0400 Respiratory rate 16 /min Oliva Jacobson SANDER PORTABLE MACHINE.TAX EXPERT Work Phone: [facility] 02-05-2023 13:10-0400 SaO2% (BldA) [Mass fraction] 97 % Oliva Jacobson SANDER PORTABLE MACHINE.TAX EXPERT Work Phone: [facility] 02-05-2023 13:10-0400 Systolic blood pressure 132 mm[Hg] Oliva Jacobson SANDER PORTABLE MACHINE.TAX EXPERT Work Phone: [facility] 07-20-2022 15:19-0400 Diastolic Blood Pressure Non-Invasive [address] DEXTER CARDENAS MD [facility] 07-20-2022 15:19-0400 Heart rate 64 /min DR DEXTER CARDENAS MD [facility] 07-20-2022 15:19-0400 Respiratory rate 18 /min DR DEXTER CARDENAS MD [facility] 07-20-2022 15:19-0400 Systolic Blood Pressure Non-Invasive [address] DEXTER CARDENAS MD [facility] 07-20-2022 15:15-0400 Diastolic Blood Pressure Non-Invasive [address] DEXTER CARDENAS MD [facility] 07-20-2022 15:15-0400 Heart rate 59 /min DR DEXTER CARDENAS MD [facility] 07-20-2022 15:15-0400 Systolic Blood Pressure Non-Invasive [address] DEXTER CARDENAS MD [facility] 07-20-2022 14:42-0400 Diastolic Blood Pressure Non-Invasive [address] DEXTER CARDENAS MD [address] [place] [address] 07-20-2022 14:42-0400 Systolic Blood Pressure Non-Invasive [address] DEXTER CARDENAS MD [address] [place] [address] 07-20-2022 14:24-0400 Heart rate 58 /min DR DEXTER CARDENAS MD [address] [place] [address] 07-20-2022 13:20-0400 Blood Pressure Cuff Size DR DEXTER CARDENAS MD [address] [place] [address] 07-20-2022 13:20-[address] DEXTER CARDENAS MD [address] [place] [address] 07-20-2022 13:20-[address] DEXTER CARDENAS MD [address] [place] [address] 07-20-2022 13:20-0400 Body temperature 97.88 [degF] DR DEXTER CARDENAS MD [address] [place] [address] 07-20-2022 13:20-0400 Respiratory rate 18 /min DR DEXTER CARDENAS MD [address] [place] [address] 07-19-2022 12:20-0400 Body height [address] DEXTER CARDENAS MD [address] [place] [address] 07-19-2022 12:20-0400 Body weight 122.[address] DEXTER CARDENAS MD [address] [place] [address] 07-19-2022 12:20-0400 Body weight 34.72 kg/m2 DR DEXTER CARDENAS MD [address] [place] [address] 05-05-2022 10:18-0500 Body height 187.96 cm MD Jerome Stanford [facility] 05-05-2022 10:18-0500 Body mass index (BMI) [Ratio] 35.4 kg/m2 MD Jerome Stanford [facility] 05-05-2022 10:18-0500 Body temperature 97.3 [degF] MD Jerome Stanford [facility] 05-05-2022 10:18-0500 Body weight 125.41 kg MD Jerome Stanford [facility] 05-05-2022 10:18-0500 Diastolic blood pressure 74 mm[Hg] Jerometrinity Stanford [facility] 05-05-2022 10:18-0500 Heart rate 88 /min Jerome Abdoulaye [facility] 05-05-2022 10:18-0500 Respiratory rate 16 /min Jerome [facility] 05-05-2022 10:18-0500 SaO2% (BldA) [Mass fraction] 98 % Jerome [facility] 05-05-2022 10:18-0500 Systolic blood pressure 128 mm[Hg] Jerome [facility] 04-09-2022 15:34-0500 Body mass index (BMI) [Ratio] 34.4 kg/m2 Jerome [facility] 04-09-2022 15:34-0500 Body weight 121.56 kg Jerome Abdoulaye [facility] 04-09-2022 15:34-0500 Diastolic blood pressure 74 mm[Hg] Jerome [facility] 04-09-2022 15:34-0500 Heart rate 84 /min Jerome [facility] 04-09-2022 15:34-0500 Respiratory rate 18 /min Jerome [facility] 04-09-2022 15:34-0500 Systolic blood pressure 118 mm[Hg] Jerome [facility] 04-04-2022 10:32-0500 Body temperature 97.5 [degF] Gaby Miranda SANDER PORTABLE MACHINE.TAX EXPERT Work Phone: [facility] 04-04-2022 10:32-0500 Body weight 123.83 kg Gaby Miranda SANDER PORTABLE MACHINE.TAX EXPERT Work Phone: [facility] 04-04-2022 10:32-0500 Diastolic blood pressure 80 mm[Hg] Gaby Miranda SANDER PORTABLE MACHINE.TAX EXPERT Work Phone: [facility] 04-04-2022 10:32-0500 Heart rate 71 /min Gaby Miranda SANDER PORTABLE MACHINE.TAX EXPERT Work Phone: [facility] 04-04-2022 10:32-0500 Respiratory rate 16 /min Gaby Miranda SANDER PORTABLE MACHINE.TAX EXPERT Work Phone: [facility] 04-04-2022 10:32-0500 SaO2% (BldA) [Mass fraction] 98 % Gaby Miranda SANDER PORTABLE MACHINE.TAX EXPERT Work Phone: [facility] 04-04-2022 10:32-0500 Systolic blood pressure 112 mm[Hg] Gaby Miranda SANDER PORTABLE MACHINE.TAX EXPERT Work Phone: [facility] 03-28-2022 07:41-0500 Diastolic blood pressure 74 mm[Hg] Jerome [facility] 03-28-2022 07:41-0500 Heart rate 79 /min Jerome [facility] 03-28-2022 07:41-0500 Respiratory rate 16 /min Jerome [facility] 03-28-2022 07:41-0500 SaO2% (BldA) [Mass fraction] 97 % Jerome [facility] 03-28-2022 07:41-0500 Systolic blood pressure 118 mm[Hg] Jerome [facility] 03-28-2022 01:51-0500 Body temperature 96.2 [degF] Jerome [facility] 03-28-2022 01:49-0500 Body height 187.96 cm Jerome [facility] Work Phone: 03-28-2022 01:49-0500 Body mass index (BMI) [Ratio] 36 kg/m2 Jerome [facility] 03-28-2022 01:49-0500 Body weight 127.4 kg Jerome [facility] 03-23-2022 16:11-0500 Body temperature 96.1 [degF] Jerome [facility] 03-23-2022 16:11-0500 Body weight 123.43 kg Jerome [facility] 03-23-2022 16:11-0500 Diastolic blood pressure 76 mm[Hg] MD Granados [facility] 03-23-2022 16:11-0500 Heart rate 63 /min MD Granados [facility] 03-23-2022 16:11-0500 Respiratory rate 18 /min Jerome [facility] 03-23-2022 16:11-0500 SaO2% (BldA) [Mass fraction] 99 % Jerome [facility] 03-23-2022 16:11-0500 Systolic blood pressure 120 mm[Hg] Jerome [facility] 02-16-2022 10:44-0400 Body temperature 97.2 [degF] Gaby Miranda SANDER PORTABLE MACHINE.TAX EXPERT Work Phone: [facility] 02-16-2022 10:44-0400 Body weight 121.56 kg Gaby Miranda SANDER PORTABLE MACHINE.TAX EXPERT Work Phone: [facility] 02-16-2022 10:44-0400 Diastolic blood pressure 84 mm[Hg] Gaby Miranda SANDER PORTABLE MACHINE.TAX EXPERT Work Phone: [facility] 02-16-2022 10:44-0400 Heart rate 88 /min Gaby Miranda SANDER PORTABLE MACHINE.TAX EXPERT Work Phone: [facility] 02-16-2022 10:44-0400 Respiratory rate 16 /min Gaby Miranda SANDER PORTABLE MACHINE.TAX EXPERT Work Phone: [facility] 02-16-2022 10:44-0400 SaO2% (BldA) [Mass fraction] 98 % Gaby Miranda SANDER PORTABLE MACHINE.TAX EXPERT Work Phone: [facility] 02-16-2022 10:44-0400 Systolic blood pressure 142 mm[Hg] Gaby Miranda SANDER PORTABLE MACHINE.TAX EXPERT Work Phone: [facility] 01-21-2022 15:38-0400 Body temperature 97.2 [degF] Dhruv Tejada MD Work Phone: [facility] 01-21-2022 15:38-0400 Body weight 122.56 kg Dhruv Tejada MD Work Phone: [facility] 01-21-2022 15:38-0400 Diastolic blood pressure 80 mm[Hg] Dhruv Tejada MD Work Phone: [facility] 01-21-2022 15:38-0400 Heart rate 67 /min Dhruv Tejada MD Work Phone: [facility] 01-21-2022 15:38-0400 Respiratory rate 67 /min Dhruv Tejada MD Work Phone: [facility] 01-21-2022 15:38-0400 SaO2% (BldA) [Mass fraction] 20 % Dhruv Tejada MD Work Phone: [facility] 01-21-2022 15:38-0400 Systolic blood pressure 124 mm[Hg] Dhruv Tejada MD Work Phone: [facility] 07-21-2021 15:04-0400 Body temperature 97.3 [degF] Dr. Sam Roy Work Phone: [facility] Work Phone: 07-21-2021 15:04-0400 Diastolic blood pressure 80 mm[Hg] Dr. Sam Roy Work Phone: [facility] Work Phone: 07-21-2021 15:04-0400 Heart rate 60 /min Dr. Sam Roy Work Phone: [facility] Work Phone: 07-21-2021 15:04-0400 Respiratory rate 16 /min Dr. Sam Roy Work Phone: [facility] Work Phone: 07-21-2021 15:04-0400 SaO2% (BldA) [Mass fraction] 95 % Dr. Sam Roy Work Phone: [facility] Work Phone: 07-21-2021 15:04-0400 Systolic blood pressure 142 mm[Hg] Dr. Sam Roy Work Phone: [facility] Work Phone: 07-21-2021 11:01-0400 Body height 187.[address] Sam Roy Work Phone: [facility] Work Phone: 07-21-2021 11:01-0400 Body mass index (BMI) [Ratio] 34.8 kg/m2 Dr. Sam Roy Work Phone: [facility] Work Phone: 07-21-2021 11:01-0400 Body weight [address] Sam Roy Work Phone: [facility] Work Phone: 07-02-2021 07:23-0500 Body mass index (BMI) [Ratio] 34.7 kg/m2 Dr. Sam Roy Work Phone: [facility] Work Phone: 07-02-2021 07:23-0500 Body temperature 96.2 [degF] Dr. Sam Roy Work Phone: [facility] Work Phone: 07-02-2021 07:23-0500 Body weight 122.[address] Sam Roy Work Phone: [facility] Work Phone: 07-02-2021 07:23-0500 Diastolic blood pressure 92 mm[Hg] Dr. Sam Roy Work Phone: [facility] Work Phone: 07-02-2021 07:23-0500 Heart rate 75 /min Dr. Sam Roy Work Phone: [facility] Work Phone: 07-02-2021 07:23-0500 Respiratory rate 16 /min Dr. Sam Roy Work Phone: [facility] Work Phone: 07-02-2021 07:23-0500 SaO2% (BldA) [Mass fraction] 98 % Dr. Sam Roy Work Phone: [facility] Work Phone: 07-02-2021 07:23-0500 Systolic blood pressure 148 mm[Hg] Dr. Sam Roy Work Phone: [facility] Work Phone: 10-04-2019 17:03-0400 BMI (Body Mass Index) 33.59 kg/m2 Cesar Cannon [facility] Work Phone: 10-04-2019 17:03-0400 Body Temperature 98.7 [degF] Cesar Cannon [facility] Work Phone: 10-04-2019 17:03-0400 Body weight 115.5 kg Cesar Cannon [facility] Work Phone: 10-04-2019 17:03-0400 BP Diastolic 75 mm[Hg] Cesar Cannon [facility] Work Phone: 10-04-2019 17:03-0400 BP Systolic 131 mm[Hg] Cesar Cannon [facility] Work Phone: 10-04-2019 17:03-0400 BSA (Body Surface Area) 2.38 m2 Cesar Cannon [facility] Work Phone: 10-04-2019 17:03-0400 Height 185.42 cm Cesar Cannon [facility] Work Phone: 10-04-2019 17:03-0400 Pulse (Heart Rate) 81 /min Cesar Cannon [facility] Work Phone: 10-04-2019 17:03-0400 Respiratory Rate 16 /min Cesar Cannon [facility] Work Phone: 05-23-2019 14:58-0500 BMI (Body Mass Index) 33.64 kg/m2 Cesar Cannon [facility] Work Phone: 05-23-2019 14:58-0500 Body weight 115.67 kg Cesar [facility] Work Phone: 05-23-2019 14:58-0500 BP Diastolic 81 mm[Hg] Cesar [facility] Work Phone: 05-23-2019 14:58-0500 BP Systolic 132 mm[Hg] Cesar [facility] Work Phone: 05-23-2019 14:58-0500 BSA (Body Surface Area) 2.39 m2 Cesar [facility] Work Phone: 05-23-2019 14:58-0500 Height 185.42 cm Cesar [facility] Work Phone: 05-23-2019 14:58-0500 Pulse (Heart Rate) 73 /min Cesar [facility] Work Phone: 05-23-2019 14:58-0500 Respiratory Rate 16 /min Cesar [facility] Work Phone: NEGATED: Highlighted [id number] 13:09-0500 Body height 187.96 cm Herlinda Duecker AT [facility] Work Phone: NEGATED: Highlighted [id number] 13:09-0500 Body height 188 cm Herlinda Duecker AT [facility] Work Phone: NEGATED: Highlighted [id number] 13:09-0500 Body mass index (BMI) [Ratio] 34.92 kg/m2 Herlinda Duecker AT [facility] Work Phone: NEGATED: Highlighted [id number] 13:09-0500 Body temperature 96.9 [degF] Herlinda Duecker AT [facility] Work Phone: NEGATED: Highlighted [id number] 13:09-0500 Body temperature 96.98 [degF] Herlinda Duecker AT [facility] Work Phone: NEGATED: Highlighted [id number] 13:09-0500 Body weight 122.93 kg Herlinda Duecker AT [facility] Work Phone: NEGATED: Highlighted [id number] 13:09050 Body weight 123 kg Herlinda Duecker AT [facility] Work Phone: Encounters Encounter Date Encounter Type Care Provider Facility Start: 11-01-[address] [facility] Facility :[facility] Start: 10-31-2024 ambulatory Jerome Stanford Facility :[facility] Start: 10-18-2024 End: 10-18-[address] Jerome Stanford MD -[facility] [employer] [facility] Work Phone: Start: 10-18-2024 End: 10-18-[address] Jerome Stanford MD Work Phone: [facility] Work Phone: Start: 10-15-2024 End: 10-15-[address] Jerome Stanford MD Work Phone: [facility] Work Phone: Start: 10-15-2024 End: 10-15-[address] [facility] Work Phone: Start: 10-15-2024 End: 10-15-2024 ambulatory [facility] Facility:[facility] Start: 07-12-2024 End: 07-12-[address] Jerome Stanford MD -[facility] [employer] Work Phone: Start: 07-12-2024 End: 07-12-2024 ambulatory Jerome Stanford [facility] Start: 05-28-2024 ambulatory IMB NURSE Facility:[facility] Start: 05-17-2024 End: 05-17-2024 ambulatory Jerome Stanford [facility] Start: 05-10-2024 End: 05-10-2024 ambulatory JEROME STANFORD Facility:[facility] Start: 05-10-2024 End: 05-10-2024 Patient encounter procedure Silvana VICTORIA Work Phone: [facility] Comment on above: Acute right-sided th oracic back pain (Primary Dx); Flank pain Start: 12-12-2023 End: 12-12-2023 ambulatory Demetrius VICTORIA [facility] Start: 11-23-2023 End: 11-23-2023 ambulatory MD MARY GILL Facility:[facility] Start: 11-23-2023 End: 11-23-[address] DEXTER CARDENAS MD [facility] Start: 11-12-2023 End: 11-12-2023 Emergency department patient visit Scott aRngel Facility:[facility] Start: 10-06-2023 End: 10-06-2023 ambulatory JEROME Mayra STANFORD Facility:[facility] Start: 10-06-2023 End: 10-06-2023 Patient encounter procedure Marlen Ruffin MD Work Phone: [facility] Comment on above: Chronic midline low back pain, unspecified whether sciatica present (Primary Dx); Obesity (BMI 30-39.9); PTSD (post-traumatic stress disorder); Current mild episode of major depressive disorder, unspecified whether recurrent (HCC); Elevated LFTs; Elevated blood pressure reading without diagnosis of hypertension Start: 08-30-2023 End: 08-30-[address] Jerome Stanford Work Phone: [facility] Work Phone: Start: 08-30-2023 End: 08-30-[address] Jerome Stanford Work Phone: [facility]-Radiology, [facility] Work Phone: Start: 08-29-2023 End: 08-29-[address] Jerome Stanford Work Phone: [facility] Work Phone: Start: 08-29-2023 End: 08-29-[address] Jerome Stanford Work Phone: [facility]-Laboratory Work Phone: Start: 08-25-[address] Zarina Stanford Work Phone: [facility] Start: 08-25-2023 End: 08-25-2023 Encounter for general adult medical examination without abnormal findings Dr. Jerome Stanford Work Phone: [facility] Start: 08-25-2023 End: 08-25-[address] Jerome Stanford Work Phone: [facility] Work Phone: Start: 06-20-2023 End: 06-20-[address] Jerome Stanford Work Phone: [facility] Work Phone: Start: 02-05-2023 End: 02-05-2023 Patient encounter procedure Oliva Jacobson APRN.CNP Work Phone: [facility] Comment on above: Rhinosinusitis (Prim ana maria Dx) Start: 09-07-2022 End: 09-07-[address] DEXTER CARDENAS MD [facility] Start: 07-20-2022 End: 07-20-[address] DEXTER CARDENAS MD [facility] Start: 06-30-2022 End: 07-01-2022 ambulatory [facility] Start: 06-16-2022 End: 06-16-2022 ambulatory MD Jerome Stanford [facility] Work Phone: Start: 06-16-2022 End: 06-16-2022 Discharged Recurring MD Jerome Stanford [facility]-Physical Therapy Start: 06-10-2022 Registered Recurring MD Jerome Corona [facility] Therapy Start: 06-02-2022 End: 06-02-2022 [facility] Work [facility]: Start: 06-02-2022 End: 06-02-2022 Patient encounter procedure MD Jerome Stanford [facility]Laboratory Start: 06-01-2022 End: 06-01-[address] DEXTER CARDENAS MD [facility] Start: 05-25-2022 Registered Recurring MD Jerome Corona [facility]-Physical Therapy Start: 05-24-2022 End: 05-24-2022 Patient encounter procedure EDWIN GREEN KEVIN [facility] Start: 05-17-2022 End: 05-17-2022 ambulatory MD Granados [facility] Work Phone: Start: 05-17-2022 End: 05-17-2022 Patient encounter procedure MD Jerome Stafnord [facility] Start: 05-06-2022 End: 05-06-2022 Patient encounter procedure MD Jerome Stanford [facility] Start: 04-30-2022 End: 04-30-[address]EXTER CARDENAS MD [facility] Start: 04-09-2022 End: 04-09-2022 Patient encounter procedure MD Jerome Stanford [facility] Start: 04-04-2022 End: 04-04-2022 Patient encounter procedure Gaby Miranda APRN.TAX EXPERT Work Phone: [facility] Comment on above: Fever, unspecified f ever cause (Primary Dx); URI, acute Start: 03-28-2022 End: 03-28-2022 Emergency department patient visit MD Jerome Stanford [facility]-Emergency Department Start: 03-25-2022 Registered Recurring MD Jerome Corona [facility]-Physical Therapy Start: 03-23-2022 End: 03-23-2022 ambulatory [facility] Work Phone: Start: 03-23-2022 End: 03-23-2022 Patient encounter procedure MD Jerome Stanford [facility] Start: 02-16-2022 End: 02-16-2022 Subsequent hospital visit by physician Xr [facility] Work Phone: Radiology Comment on above: Acute cough [R05.1] Start: 02-16-2022 End: 02-16-2022 Patient encounter procedure Gaby Miranda APRN.TAX EXPERT Work Phone: [facility] Comment on above: Acute cough (Primary Dx); Rhinosinusitis Start: 01-22-2022 Telephone encounter Oliva Jacobson APRN.TAX EXPERT Work Phone: [facility] Comment on above: Results Start: 01-21-2022 End: 01-21-2022 Patient encounter procedure Dhruv Tejada MD Work Phone: [facility] Comment on above: Sore throat (Primary Dx); Gastroenteritis Start: 12-18-2021 End: 12-18-2021 Discharged Rec[facility]ring [facility] Start: 09-07-2021 End: 09-07-[address] [facility] Start: 09-02-2021 End: 09-02-[address] Sam Roy Work Phone: [facility] Start: 08-11-[address] Gonzalo Roy Work Phone: [facility]-Physical Therapy Start: 08-06-2021 End: 08-06-[address] Sam Roy Work Phone: [facility] Start: 08-05-2021 End: 08-05-[address] Sam Roy Work Phone: [facility] Start: 07-21-2021 Non-patient / Non-visit Dr. Lovely Roy Work Phone: [facility] Start: 07-21-2021 End: 07-21-2021 Admission to same day surgery center Dr. Sam Roy Work Phone: [facility]-Surgical Day Care Start: 07-20-2021 Non-patient / Non-visit Dr. Lovely Roy Work Phone: [facility] Start: 07-14-2021 ambulatory Ewa BEAVER Faci lity:[facility] Start: 07-02-2021 End: 07-02-[address] Sam Roy Work Phone: [facility] Start: 05-29-2021 End: 05-29-[address] Sam Roy Work Phone: [facility] Radiology Start: 05-25-2021 End: 05-25-[address] Sam Roy Work Phone: [facility] Start: 04-07-2021 ambulatory SAM Marin (ANDY) lity:[facility] Start: 10-24-2019 Patient encounter procedure [place] [id number] Work Phone: Start: 10-04-2019 Patient encounter procedure Cesar Kassandra [facility] Work Phone: Start: 07-26-2019 Patient encounter procedure Cesar Cannon [facility] Work Phone: Start: 06-28-2019 Patient encounter procedure Cesar Cannon [facility] Work Phone: Start: 06-22-2019 Patient encounter procedure Cesar Cannon [facility] Work Phone: Start: 06-19-2019 Patient encounter procedure Cesar Cannon [facility] Work Phone: Start: 06-15-2019 Patient encounter procedure Cesar Cannon [facility] Work Phone: Start: 06-11-2019 Patient encounter procedure Cesar Cannon [facility] Work Phone: Start: 06-05-2019 Patient encounter procedure Cesar Cannon [facility] Work Phone: Start: 06-01-2019 Patient encounter procedure Cesar Cannon [facility] Work Phone: Start: 05-29-2019 Patient encounter procedure Cesar Cannon [facility] Work Phone: Start: 05-23-2019 Patient encounter procedure Cesar Cannon -[facility] Work Phone: Procedures Date Procedure Procedure Detail Performing Clinician Start: 10-15-2024 Plain x-ray of pelvi s and lower extremity Dr. Jerome Stanford MD Work Phone: Start: 10-15-2024 Urnls dip stick/tabl et reagent auto microscopy Dr. Jerome Stanford MD Work Phone: Start: 05-10-2024 Urnls dip stick/tabl et rgnt auto w/o microscopy Kofi Loyola SANDER PORTABLE MACHINE.TAX EXPERT Work Phone: Start: 08-30-2023 X-ray of cervical spine Dr. Jerome Stanford Work Phone: Start: 05-17-2022 Computed tomography of abdomen and pelvis with contrast MD Jerome Stanford Start: 03-28-2022 CT angiography of ch est with contrast MD Jerome Stanford Start: 02-16-2022 Radiologic exam chest 2 views Gaby Ruth SANDER PORTABLE MACHINE.TAX EXPERT Work Phone: Start: 01-21-2022 STREP A MOLECULAR (POC) Dhruv Tejada MD Work Phone: Start: 08-06-2021 MRI of lumbar spine Dr. Sam Roy Work Phone: Start: 07-20-2021 End: 07-20-[address] Sam Roy Work Phone: Start: 07-09-2021 End: 07-10-2021 BP scrn no perf at interval Mary silver SANDER PORTABLE MACHINE-TAX EXPERT Work Phone: Start: 07-09-2021 End: 07-10-2021 Calc BMI out nrm benjamín nof/u Mary Wall SANDER PORTABLE MACHINE-TAX EXPERT Work Phone: Start: 07-09-2021 End: 07-10-2021 Current tobacco non-user cad cap copd pv dm Mary Juan SANDER PORTABLE MACHINE-TAX EXPERT Work Phone: Start: 07-09-2021 End: 07-10-2021 Docrev cur meds by carrie Wall SANDER PORTABLE MACHINE-TAX EXPERT Work Phone: Start: 07-09-2021 End: 07-10-2021 Pain doc pos and plan Mary Juan SANDER PORTABLE MACHINE-TAX EXPERT Work Phone: Start: 07-09-2021 End: 07-10-2021 Patient encounter procedure Mary silver SANDER PORTABLE MACHINE-TAX EXPERT Work Phone: Start: 07-09-2021 End: 07-09-2021 Radex spine lumbosacral minimum 4 views Mary Juan SANDER PORTABLE MACHINE-TAX EXPERT Work Phone: Start: 05-29-2021 X-ray of cervical spine Dr. Sam Roy Work Phone: Start: 03-09-2021 Back structure, excl uding neck (body structure) DR DEXTER CARDENAS MD Start: 07-27-2018 Electrocardiographic monitor and recorder, device (physical object) DR DEXTER CARDENAS MD Start: 07-20-[address] DEXTER CARDENAS MD Comment on above: Normal EF 68% Start: 07-20-[address] ROGER CARDENAS MD Comment on above: EF 60% Start: 12-22-[address] DEXTER CARDENAS MD Comment on above: Normal, EF 55% End: 09-12-2019 Epidural steroid injection Cesar Price r Foot structure (body structure) DR DEXTER CARDENAS MD End: 07-11-2019 Intra-articular injection Cesar Cannon Nasal (qualifier value) DR Nancy CARDENAS MD Comment on above: hx. of nasal surgery Nasal sinus procedure Cesar Cannon Operative procedure on foot Cesar Cannon Urine culture MD Jerome Felix ner Urine culture MD Jerome stanley NEGATED: Highlighted rowStart: 07-09-2021 End: 07-09-2021 Documentation of current medications Herlinda Powers AT Plan of Treatment Date Care Activity Detail Author Start: 02-21-2039 RSV Vaccine (1 - 1-d ose 75+ series) RSV Vaccine (1 - 1-dose 75+ series) [facility] Start: 02-09-2033 Urine microalbumin profile DTaP,Tdap,Td Vaccine (2 - Td or Tdap) [facility] Start: 03-15-2024 End: 03-15-2024 ambulatory 03/15/2024 8:00 AM [facility] Patient Outreach Functional [facility] [address] [id number] Carolann Fine, [facility] ED [address] [address] CHRONIC PAIN Functional Medicine Comment on above: CHRONIC PAIN Start: 03-01-2024 End: 03-01-2024 ambulatory 03/01/2024 2:30 PM EDT [facility] [address] CHRONIC PAIN Functional Medicine Comment on above: CHRONIC PAIN Start: 02-29-2024 End: 02-29-2024 ambulatory 02/29/2024 1:00 PM EDT [facility] [address] [place] [address] Eneida Sarmiento MD [address] [place] [address] CHRONIC PAIN Functional Medicine Comment on above: CHRONIC PAIN Start: 01-08-2024 Covid-19 Vaccine ( season) Covid-19 Vaccine () [facility] Start: 01-08-2024 Influenza vaccination C [facility] Start: 05-09-2023 Behavioral Health Screening Behavioral Health Screening [facility] Start: 04-07-2023 Diabetes Screening Diabetes Screenin g [facility] Start: 01-07-2023 Covid-19 Vaccine ( season) Covid-19 Vaccine () [facility] Start: 01-07-2023 Influenza vaccination Influenz a Vaccine (#1) [facility] Start: 05-09-2022 Depression Assessment Depression Ass essment [facility] Start: 04-04-2022 End: 04-18-2022 Influenza virus A and B RNA and SARS-CoV-2 (COVID-19) N gene panel - Respiratory specimen by JANINA with probe detection COVID WITH FLUA+B, ROUTINE Microbiology Routine Fever, unspecified fever cause URI, acute Expected: 04/04/2022, Expires: 04/18/2022 [facility] Work Phone: Comment on above: Expected: 04/04/2022 , Expires: 04/18/2022 Start: 01-21-2022 End: 02-04-2022 SARS-CoV-2 (COVID-19) RNA [Presence] in Respiratory specimen by JANINA with probe detection 2019 CORON[facility]IRUS Microbiology Routine Sore throat Expected: 01/21/2022, Expires: 02/04/2022 [facility] Work Phone: Comment on above: Expected: 01/21/2022 , Expires: 02/04/2022 Start: 01-07-2022 Influenza vaccination INFLUENZA (#1) [facility] Start: 07-21-2021 Anes arthrs humeral h/n strnclav & shoulder nos ANESTH SURGERY OF SHOULDER [facility] Work Phone: Start: 07-21-2021 Arthroscopy shoulder surg debridement limited MADDIE ARTHRS SRG LMTD DBRDMT [facility] Work Phone: Start: 07-21-2021 Arthroscopy shoulder w/coracoacrm ligmnt release MADDIE ARTHRS SRG DECOMPRESSION [facility] Work Phone: Start: 07-21-2021 Injection aa&/strd brachial plexus NJX AA&/STRD BRACH PLEXUS [facility] Work Phone: Start: 07-09-2021 End: 07-09-2021 Mri spinal canal lumbar w/o contrast material MRI lumbar without contrast [facility] Work Phone: Start: 05-26-2021 Patient referral [facility] Work Phone: Start: 05-09-2021 DEPRESSION ASSESSMENT DEPRESSION ASS ESSMENT [facility] Start: 02-21-2019 PROSTATE CANCER SCRE ENING DISCUSSION PROSTATE CANCER SCREENING DISCUSSION [facility] Start: 02-21-2019 Prostate specific an tigen measurement Prostate Cancer Screening Discussion [facility] Start: 02-21-2014 Pneumococcal Vaccine : 50+ (1 of 1 - PCV) Pneumococcal Vaccine: 50+ (1 of 1 - PCV) [facility] Start: 02-21-2014 SHINGRIX VACCINE (1 of 2) RODRIGUEZ GRIX VACCINE (1 of 2) [facility] Start: 02-21-2009 COLOGUARD (FIT-DNA) COLOGUARD (FIT-D NA) [facility] Start: 02-21-[address] [facility] Start: 02-21-2009 COLORECTAL CANCER SCREENING COLORECTAL CANCER SCREENING [facility] Start: 02-21-[address] COLONOGRAPHY [facility] Start: 02-21-2009 DIABETES SCREEN DIABETES SCREEN [facility] Start: 02-21-2009 Diabetes Screening Diabetes Screenin g [facility] Start: 02-21-2009 FECAL OCCULT BLOOD FECAL OCCULT BLOO D [facility] Start: 02-21-2009 Screening for malign ant neoplasm of colon [facility] Start: 02-21-2009 SIGMOIDOSCOPY SIGMOIDOSCOPY [facility] Start: 02-21-1999 Lipid 1996 panel - S emi or Plasma Lipid Screening [facility] Start: 02-21-1999 Lipid panel Lipid Screening [facility] Start: 02-21-1999 LIPID SCREEN LIPID SCREEN [facility] Start: 02-21-1983 Urine microalbumin profile [facility] Start: 02-21-1982 Anxiety Screening Anxiety Screening [facility] Start: 02-21-1982 Depression Screening Depression Scre ening [facility] Start: 02-21-1982 HEPATITIS C SCREENING HEPATITIS C [facility] Start: 02-21-1982 Hepatitis C screening Hepatitis C [facility] Start: 02-21-1982 HIV SCREENING HIV SCREENING [facility] Start: 02-21-1982 HIV screening HIV Screening [facility] Start: 1976 Adult depression screening assessment DEPRESSION SCREENING [facility] Start: 1965 COVID-19 VACCINE (#1) COVID-19 VACCI NE (#1) [facility] Start: 1965 HEPATITIS B (1 of 3 - 3-dose series) HEPATITIS B (1 of 3 - 3-dose series) [facility] Start: 1965 Hepatitis B Vaccine (1 of 3 - 3-dose series) Hepatitis B Vaccine (1 of 3 - 3-dose series) [facility] Gastrointestinal pathogens panel - Stool by JANINA with probe detection [facility] Patient Education AFib Dc [facility] Work Phone: Patient referral [facility] Work Phone: [facility] Work Phone: NEGATED: Highlighted row has been ruled out! Planned Goals not documented [facility] Work Phone: Immunizations Immunization Date Immunization Notes Care Provider Cecilio duran 02-09-2023 tetanus toxoid, redu marcela diphtheria toxoid, and acellular pertussis vaccine, adsorbed Dr. Jerome Stanford Work Phone: [facility] 10-18-2016 hepatitis A vaccine, adult dosage Silvana VICTORIA Work Phone: [facility] Payers Date Payer Category Payer Self-pay [id number] 2023 Private Health Insurance [facility] ALLIANCER CHOICE PLUS [id number] 2023-Present [phone] [address] [address] [place] [address] HMO [id number] 2023 Unknown [id number] 2021 Unknown [id number] 2021 Unknown [id number] 1965 Unknown [id number]. 2.594 1964 Unknown [id number]. 2.594 1964 Unknown [id number] .[id number]. 2.594 1964 Unknown [id number] .840.1.802924.3.579. 2.594 1964 Unknown [id number] .840.1.463789.3.579. 2.651 1965 Unknown [id number] 2.16.840.1.133745.3.579. 2.627 1965 Unknown [id number] 2.16.840.1.558597.3.579. 2.627 Private Health Insurance [id number] Unknown [facility] [employer] [id number] Unknown [facility] [id number] Unknown [id number] 2.16.840.1.095151.3.579. 2.462 Unknown [id number] 2.16.840.1.925203.3.579. 2.462 Unknown [id number] 2.16.840.1.257946.3.579. 2.462 Unknown [id number] 2.16.840.1.190469.3.579. 2.462 Unknown [id number] 2.16.840.1.879217.3.579. 2.462 Unknown [id number] 2.16.840.1.925599.3.579. 2.462 Unknown [id number] 2.16.840.1.732567.3.579. 2.462 Unknown [id number] 2.16.840.1.012940.3.579. 2.462 Unknown [id number] 2.16.840.1.422807.3.579. 2.462 Social History Date Type Detail Facility Assertion Unknown if ever smoked [facility] Work Phone: Start: 08-05-2021 End: 06-20-2023 Assertion Unknown if ever smoked [facility] Work Phone: Start: 1965 Sex Assigned At Male W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 discomfort Shortness of breath Dizziness or lightheaded Hives or itching If you experience any of these issues during the first 24 hours, please follow the instruction below or go to the Emergency Department: 8:00 am- 5:00 pm call [phone] After 24 hours, contact the physician who ordered this procedure for you. Obtaining test results: Please make an appointment with your doctor to obtain your test results. They are usually availablewithin 4 to 5 business days. Do not assume everything is normal if you have not heard from your doctor or medical facility. It is important for you to follow up on all of your test results. Special Instructions: Additional Information VACCINATE! IT SAVES LIVES! Members of the community who have not yet received the COVID-19 vaccine and would like to receive it can visit one of [facility] vaccine clinics. There are many vaccine clinic locations within the [facility]. For locations and available times, please visit [email or web address].[place].[email or web address] It is important to note that some COVID mobile vaccine clinics are held outdoors and may be canceled in rainy or stormy conditions. To learn more about pediatric vaccinations (ages 5-11), we invite you to visit the [facility] webpage. [email or web address]/[email or web address] learn more about the COVID-19 vaccine, we invite you to visit the CDC website for a list of frequently asked questions. https://www.cdc.gov/coronavirus/2019-ncov/vaccines/faq.html [facility] Patient Portal Access Instructions: Stay connected with your healthcare team and access your personal medical information anytime with the [facility] Patient Portal.If you would like a full copy of your medical records, please contact the [facility] Medical Records Department, Tuesday through Tuesday between 8a.m. and 4:30p.m. Please follow the directions below to access the portal: 1.Access the email account you provided upon registration to the [facility].2.Look for an invitation email from [facility].3.Open the email and access the invitation link: Accept Invitation to [facility]4.Fill in the required russell to create your account. Sign into [email or web address] with your username and password that you created in the above steps to stay up to date. You can then view a summary of results, a summary of your visits, and the ability to download your summaries to your computer or send the information securely to a physician. Remember that your healthcare information is confidential, so carefully consider who you will allow to register on the [facility] Patient Portal for access to your information. You can also access the [facility] Patient Portal on the [employer]. Simply click on Health Records under [employer] and then click on the [employer] logo. HOW TO SAFELY DISPOSE OF PRESCRIPTION MEDICATIONS Please use one of the following methods to safely dispose of your unused medications. 1.Use a drug disposal kit: the drug disposal pouch allows you to safely discard your old and unuseddrugs. Ask your nurse to give you one when you are discharged.2.Visit a local take-back location: Many local pharmacies and police departments have programs that collect old and unwanted prescriptiondrugs. Call your local pharmacy or go to http://bit.[employer]/9B7Ur8l to find one close to you.3.Make use of household items: Use cat litter or old coffee grounds to dispose medications if other options arenot available. Mix your drugs with these household products, seal them in an airtight container andthrow it into the garbage. Call [facility]: [phone] to be sure your drugs can be disposed of in this way. Some medicines may require a different approach.4.Never flush your medications down the toilet. IF YOU HAVE BEEN PRESCRIBED AN OPIOID FOR PAIN If you have been prescribed an opioid (such as hydrocodone, oxycodone or morphine), it is critical to understand the possible side effects and risks of opioid pain medications. Even when taken as directed, opioids can have several side effects including: Tolerance, meaning you might need to take more of a medication for the same pain relief. Nausea, vomiting and/or constipation. Sleepiness, dizziness, dry mouth, confusion, depression or itching. Physical dependence, meaning you have withdrawal symptoms when a medication is stopped, can develop within a few days. KNOW YOUR RESPONSIBILITIES It is important to know exactly how much and how often to take the opioid pain medications you are prescribed. Never take opioids in higher amounts or more often than prescribed. Do not combine opioids with alcohol or other drugs that cause drowsiness, such as benzodiazepines, also known as benzos, including diazepam and alprazolam, muscle relaxants or sleep aids. Never sell or share prescription opioids. This is illegal. Store opioids in a secure place and out of reach of others (including children, family, friends and visitors). The last page of this document has been signed and retained as a CHART COPY. Signatures Patient Education Materials Radiology- CT Coronary Angiogram (CUSTOM) Medication Leaflets My discharge plan and instructions have been reviewed and explained to me and I,JACINTO COSTA understand my current condition and have read and understand these discharge instructions. I have received a written copy of the plan/instructions. If I have questions, I am aware that I should contact my doctor. Patient/Role Player Signature: Date/Time: Relationship to Patient: Witness Name/Signature: Date/Time: [id number] Note ORIGINAL NM MYOCARDIAL SPECT STRESS/REST CLINICAL STATEMENT:paf, pvcs TECHNIQUE: Stress Protocol:Alfred Time Exercised:9 minutes Predicted Max HR:162 beats per minute Max HR Achieved:176 beats per minute. Percent Max HR:108 Peak Systolic BP:188 mmHg Rate-Pressure product: 29,100 Radiopharmaceutical(rest): Tc-99m Sestamibi IV Dose:10.4 mCi Radiopharmaceutical(stress): Tc-99m Sestamibi IV Dose:31.2 mCi SPECT acquisition:SPECT reconstruction and reorientation into short axis, vertical and horizontal long axis planes Quantitative LVEF assessment COMPARISON:None REPORT:The LEFT ventricle is normal in size. On gated imaging the ejection fraction is normal at 68% with normal wall motion. Stress images there is a decrease in the uptake of activity in the inferior and inferolateral wall. As extracardiac uptake of activity adjacent to the inferior wall on rest images. On rest images there is improvement in the uptake of activity in the basal to mid inferolateral wall otherwise is relatively homogenous uptake of activity in other areas the myocardium. IMPRESSION: 1. Technically difficult study due to extracardiac uptake of activity adjacent to the inferior wall 2. Reversible defect in the basal to mid inferolateral wall suggesting possible ischemia in this area. The adjacent uptake of activity in the inferior wall does diminish the specificity of these findings for ischemia. Ejection fraction of 68% with normal wall motion. Interpreted By: Edgar Villaseñor MD Preliminary Report By: Edgar Villaseñor MD Electronically Signed By: Edgar Villaseñor MD Dictated Date: 05/24/2022 1:39:14 PM Prelim Date: 05/24/2022 1:39:14 PM Sign Date: 05/24/2022 1:51:20 PM Ordering Provider:[facility]01[facility]16[facility]2023 Note ORIGINAL NM MYOCARDIAL SPECT STRESS/REST CLINICAL STATEMENT:paf, pvcs TECHNIQUE: Stress Protocol:Alfred Time Exercised:9 minutes Predicted Max HR:162 beats per minute Max HR Achieved:176 beats per minute. Percent Max HR:108 Peak Systolic BP:188 mmHg Rate-Pressure product: 29,100 Radiopharmaceutical(rest): Tc-99m Sestamibi IV Dose:10.4 mCi Radiopharmaceutical(stress): Tc-99m Sestamibi IV Dose:31.2 mCi SPECT acquisition:SPECT reconstruction and reorientation into short axis, vertical and horizontal long axis planes Quantitative LVEF assessment COMPARISON:None REPORT:The LEFT ventricle is normal in size. On gated imaging the ejection fraction is normal at 68% with normal wall motion. Stress images there is a decrease in the uptake of activity in the inferior and inferolateral wall. As extracardiac uptake of activity adjacent to the inferior wall on rest images. On rest images there is improvement in the uptake of activity in the basal to mid inferolateral wall otherwise is relatively homogenous uptake of activity in other areas the myocardium. IMPRESSION: 1. Technically difficult study due to extracardiac uptake of activity adjacent to the inferior wall 2. Reversible defect in the basal to mid inferolateral wall suggesting possible ischemia in this area. The adjacent uptake of activity in the inferior wall does diminish the specificity of these findings for ischemia. Ejection fraction of 68% with normal wall motion. Interpreted By: Edgar Villaseñor MD Preliminary Report By: Edgar Villaseñor MD Electronically Signed By: Edgar Villaseñor MD Dictated Date: 05/24/2022 1:39:14 PM Prelim Date: 05/24/2022 1:39:14 PM Sign Date: 05/24/2022 1:51:20 PM Ordering Provider:[facility]12-14-2022 Evaluation + Plan note Future Scheduled Tests Laboratory* Thyroid Stimulating Hormone 04/21/22 * Complete Blood Count 04/21/22 * CRP, High Sensitive 04/21/22 * Lipid Profile 11/09/22 * Lipid Profile 04/21/22 * Complete Metabolic Panel 11/09/22 * Complete Metabolic Panel 04/21/22 [facility] 11-27-2022 History of Present illness Narrative* Gaby Miranda APRN.TAX EXPERT - 04/04/2022 10:50 AM EST This note was created using NoteWriter. Subjective Jacinto Costa is a 57 year old male. 57 year old male with PMH afib presents with complaints of illness. Acute onset one day ago +fever +nausea +diarrhea +headache Denies CP. Denies SOB Denies emesis Denies tobacco usage. He is requesting a COVID test. 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 Had COVID mid January. The history is provided by the patient. No workers compensation claims analyst was used. Fever This is a new problem. The current episode started yesterday. The problem occurs constantly. The problem has not changed since onset.The maximum temperature noted was 100 to 100.9 F. Associated symptoms include diarrhea, congestion, headaches and muscle aches. Pertinent negatives include no chest pain, no vomiting and no cough. He has tried nothing for the symptoms. The treatment provided no relief. PAST MEDICAL HISTORY Diagnosis Date Depression Lumbar stenosis PAST SURGICAL HISTORY Procedure Laterality Date BACK SURGERY HX lumbar SHOULDER SURGERY HX Right labrum/rotator cuff repair TOTAL HIP REPLACEMENT Left VASECTOMY ALLERGIES Patient has no known allergies. MEDICATIONS ELIQUIS 5 mg tab(s) Take 5 mg by mouth twice daily. dilTIAZem (CARDIZEM) 60 mg tablet Take 60 mg by mouth four times daily. metoprolol tartrate, short acting, (LOPRESSOR) 50 mg tablet Take 50 mg by mouth twice daily. DULoxetine (CYMBALTA) 30 mg capsule Take 30 mg by mouth. oseltamivir (TAMIFLU) 75 mg capsule Take 1 capsule by mouth twice daily for 5 days. predniSONE (DELTASONE) 10 mg tablet Take 4 tabs daily for 3 days, then 2 tabs daily for 3 days, then 1 tab daily for 3 days with food. (Patient not taking: Reported on 04/04/2022) No family history on file. Social History Tobacco Use Smoking status: Never Passive exposure: Never Smokeless tobacco: Never Review of Systems Constitutional: Positive for fever. Negative for activity change, appetite change and chills. HENT: Positive for congestion. Eyes: Negative for discharge and itching. Respiratory: Negative for apnea, cough, choking and chest tightness. Cardiovascular: Negative for chest pain, palpitations and leg swelling. Gastrointestinal: Positive for diarrhea. Negative for vomiting. Musculoskeletal: Positive for myalgias. Negative for arthralgias and back pain. Skin: Negative for color change, pallor and rash. Allergic/Immunologic: Negative for environmental allergies, food allergies and immunocompromised state. Neurological: Positive for headaches. Negative for dizziness, seizures, facial asymmetry, light-headedness and numbness. Hematological: Negative for adenopathy. Does not bruise/bleed easily. Psychiatric/Behavioral: Negative for agitation and behavioral problems. Objective BP 112/80 Pulse 71 Temp 36.4 C (97.5 F) Resp 16 Wt 123.8 kg (273 lb) SpO2 98% Physical Exam Vitals and nursing note reviewed. Constitutional: General: He is not in acute distress. Appearance: Normal appearance. He is not ill-appearing, toxic-appearing or diaphoretic. HENT: Head: Normocephalic and atraumatic. Right Ear: External ear normal. Left Ear: External ear normal. Nose: Nose normal. No congestion or rhinorrhea. Mouth/Throat: Mouth: Mucous membranes are moist. Pharynx: Oropharynx is clear. No oropharyngeal exudate or posterior oropharyngeal erythema. Eyes: General: Right eye: No discharge. Left eye: No discharge. Extraocular Movements: Extraocular movements intact. Conjunctiva/sclera: Conjunctivae normal. Pupils: Pupils are equal, round, and reactive to light. Cardiovascular: Rate and Rhythm: Normal rate and regular rhythm. Pulses: Normal pulses. Heart sounds: Normal heart sounds. No murmur heard. No friction rub. No gallop. Pulmonary: Effort: Pulmonary effort is normal. No respiratory distress. Breath sounds: Normal breath sounds. No stridor. No wheezing, rhonchi or rales. Chest: Chest wall: No tenderness. Abdominal: General: Abdomen is flat. There is no distension. Palpations: Abdomen is soft. There is no mass. Tenderness: There is no abdominal tenderness. There is no guarding or rebound. Hernia: No hernia is present. Musculoskeletal: General: No swelling, tenderness, deformity or signs of injury. Normal range of motion. Cervical back: Normal range of motion and neck supple. No rigidity or tenderness. Right lower leg: No edema. Left lower leg: No edema. Lymphadenopathy: Cervical: No cervical adenopathy. Skin: General: Skin is warm and dry. Capillary Refill: Capillary refill takes less than 2 seconds. Coloration: Skin is not jaundiced or pale. Findings: No bruising, lesion or rash. Neurological: General: No focal deficit present. Mental Status: He is alert and oriented to person, place, and time. Cranial Nerves: No cranial nerve deficit. Sensory: No sensory deficit. Motor: No weakness. Coordination: Coordination normal. Gait: Gait normal. Deep Tendon Reflexes: Reflexes normal. Psychiatric: Mood and Affect: Mood normal. Behavior: Behavior normal. Thought Content: Thought content normal. Assessment and Plan ASSESSMENT/PLAN: 1. 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 URI, acute - ICD9: 465.9, ICD10: J06.9 - Discussed viral etiology and rationale for treatment. - Symptomatic treatment with prn analgesia - Supportive care with fluids and rest - The patient may also use OTC cough and cold meds as needed, warm salt water gargles, throat lozenges and/or OTC throat spray as needed, and nasal saline gtts and suction prn. - Follow up in 3-5 days if symptoms persist or sooner if worsening of symptoms - RX Tamiflu if patient tests positive. - COVID WITH FLUA+B, ROUTINE Gaby Miranda APRN.TAX EXPERT [facility] History of Present illness Narrative* Sachi Sneed, RT(R) - 02/16/2022 11:10 AM EDT Radiology Service Progress Note PATIENT NAME: Jacinto Costa DATE OF SERVICE: February 16, 2022 TIME: 11:10 AM PATIENT IDENTITY VERIFICATION COMPLETED USING TWO (2) IDENTIFIERS: Name and Date of confirmedby patient verbally. FALL SCREENING: Has the patient had 2 falls in the last year or 1 fall with injury or currently using an Ambulatory Assistive Device (Walker, Cane, Wheelchair, Crutches, etc.)? No PATIENT GENDER DATA: Male PATIENT RELEVANT IMPLANT DATA REVIEWED: Not Applicable RADIOLOGY DEPARTMENT: General X-ray: Exam(s) Completed: Chest X-Ray PERIPHERAL IV DATA: Not applicable SIGNED BY: RT Shelly(R) February 16, 2022 11:10 AM [facility] [address] [facility]10-11-2022 History of Present illness Narrative* Gaby Miranda APRN.TAX EXPERT - 02/16/2022 10:52 AM EDT This note was created using [employer]. Subjective Jacinto Costa is a 56 year old male. 56 year old male with no significant PMH presents for illness. States over past few days he has experienced sinus pressure +post nasal drainage +chest congestion Endorses that he has experienced recent illness. Endorses that he was positive for COVID 01/21. Denies SOB or dyspnea. Denies N/V/D Denies skin rash or lesions. The history is provided by the patient. No workers compensation claims analyst was used. Sinus Problem This is a new problem. The current episode started in the past 7 days. The problem occurs constantly. The problem has been waxing and waning. Associated symptoms include congestion and headaches. Pertinent negatives include no abdominal pain, anorexia, arthralgias, change in bowel habit, chest pain, chills, coughing, diaphoresis, fatigue, fever, joint swelling, myalgias, nausea, neck pain, numbness, rash, sore throat, swollen glands, urinary symptoms, vertigo, visual change, vomiting or weakness. Nothing aggravates the symptoms. He has tried nothing for the symptoms. The treatment provided norelief. PAST MEDICAL HISTORY Diagnosis Date Depression Lumbar stenosis PAST SURGICAL HISTORY Procedure Laterality Date BACK SURGERY HX lumbar SHOULDER SURGERY HX Right labrum/rotator cuff repair TOTAL HIP REPLACEMENT Left VASECTOMY ALLERGIES Patient has no known allergies. MEDICATIONS DULoxetine (CYMBALTA) 30 mg capsule Take 30 mg by mouth. amoxicillin-clavulanic acid (AUGMENTIN) 875-125 mg per tablet Take 1 tablet by mouth twice daily for 10 days. predniSONE (DELTASONE) 10 mg tablet Take 4 tabs daily for 3 days, then 2 tabs daily for 3 days, then 1 tab daily for 3 days with food. No family history on file. Social History Tobacco Use Smoking status: Never Passive exposure: Never Smokeless tobacco: Never Review of Systems Constitutional: Negative for chills, diaphoresis, fatigue and fever. HENT: Positive for congestion, postnasal drip, sinus pressure and sinus pain. Negative for ear discharge and sore throat. Eyes: Negative for pain, discharge and itching. Respiratory: Negative for apnea, cough, choking and chest tightness. Cardiovascular: Negative for chest pain, palpitations and leg swelling. Gastrointestinal: Negative for abdominal pain, anorexia, change in bowel habit, nausea and vomiting. Musculoskeletal: Negative for arthralgias, joint swelling, myalgias and neck pain. Skin: Negative for rash. Allergic/Immunologic: Negative for environmental allergies, food allergies and immunocompromised state. Neurological: Positive for headaches. Negative for dizziness, vertigo, facial asymmetry, weakness and numbness. Hematological: Negative for adenopathy. Does not bruise/bleed easily. Psychiatric/Behavioral: Negative for agitation and behavioral problems. Objective BP 142/84 Pulse 88 Temp 36.2 C (97.2 F) Resp 16 Wt 121.6 kg (268 lb) SpO2 98% Physical Exam Vitals and nursing note reviewed. Constitutional: General: He is not in acute distress. Appearance: Normal appearance. He is not ill-appearing, toxic-appearing or diaphoretic. HENT: Head: Normocephalic and atraumatic. Comments: +frontal +maxillary sinus TTP Right Ear: External ear normal. Left Ear: External ear normal. Nose: Nose normal. No congestion or rhinorrhea. Mouth/Throat: Mouth: Mucous membranes are moist. Pharynx: Oropharynx is clear. No oropharyngeal exudate or posterior oropharyngeal erythema. Eyes: General: Right eye: No discharge. Left eye: No discharge. Extraocular Movements: Extraocular movements intact. Conjunctiva/sclera: Conjunctivae normal. Pupils: Pupils are equal, round, and reactive to light. Cardiovascular: Rate and Rhythm: Normal rate and regular rhythm. Pulses: Normal pulses. Heart sounds: Normal heart sounds. No murmur heard. No friction rub. No gallop. Pulmonary: Effort: Pulmonary effort is normal. No respiratory distress. Breath sounds: Normal breath sounds. No stridor. No wheezing, rhonchi or rales. Chest: Chest wall: No tenderness. Abdominal: General: Abdomen is flat. There is no distension. Palpations: Abdomen is soft. There is no mass. Tenderness: There is no abdominal tenderness. There is no guarding or rebound. Hernia: No hernia is present. Musculoskeletal: General: No swelling, tenderness, deformity or signs of injury. Normal range of motion. Cervical back: Normal range of motion and neck supple. No rigidity or tenderness. Right lower leg: No edema. Left lower leg: No edema. Lymphadenopathy: Cervical: No cervical adenopathy. Skin: General: Skin is warm and dry. Capillary Refill: Capillary refill takes less than 2 seconds. Coloration: Skin is not jaundiced or pale. Findings: No bruising, lesion or rash. Neurological: General: No focal deficit present. Mental Status: He is alert and oriented to person, place, and time. Cranial Nerves: No cranial nerve deficit. Sensory: No sensory deficit. Motor: No weakness. Coordination: Coordination normal. Gait: Gait normal. Deep Tendon Reflexes: Reflexes normal. Psychiatric: Mood and Affect: Mood normal. Behavior: Behavior normal. Thought Content: Thought content normal. Assessment and Plan ASSESSMENT/PLAN: 1. Acute cough - ICD9: 786.2, ICD10: R05.1 (primary diagnosis) Ongoing No red flags Lungs CTA Had COVID 01/21/22 - XR CHEST 2V FRONTAL/LAT-negative 2. Rhinosinusitis - ICD9: 473.9, ICD10: J31.0, J32.9 - Will begin treatment with as per antibiotic as written, see orders - The patient should also be given OTC cough and cold meds as needed, warm salt water gargles, throat lozenges and/or OTC throat spray as needed, and nasal saline gtts and suction prn for the first 5-7 days of treatment. - Supportive care with plenty of fluids, rest, and analgesia prn. - Follow up in 3-5 days if symptoms persist or worsen. Gbay Miranda APRN.KRISTI [facility] Miscellaneous Notes* Telephone Encounter - Myrtle Tolentino MA - 01/22/2022 1:05 PM EDT Results left with identified VM, instructed to return call for any further questions. Myrtle Tolentino MA * Telephone Encounter - Oliva Jacobson APRN.CNP - 01/22/2022 7:40 AM EDT Patient is positive for COVID please instruct to quarantine for 5 days then mask for 5 days follow-up with primary care physician if symptoms are worsening thank you documented in [facility] History of Present illness Narrative* Dhruv Tejada MD - 01/21/2022 3:41 PM EDT Patient presents with: Diarrhea: Sore throat, swollen glands, dry cough, fatigue 1.5 weeks HPI: Feeling sick with GI symptoms for 1 1/2 weeks; those symptoms are improving. Sore throat and malaise since yesterday. Positive symptoms: dry Cough, Sore throat, swollen neck glands, Body Aches, Malaise, Fatigue,improved Diarrhea, resolved poor appetite, Negative symptoms: Shortness of breath, Wheezing, Fever, Vomiting, OTC: none. Home COVID tests negative twice; last tested couple days ago. PAST MEDICAL HISTORY Diagnosis Date Depression Lumbar stenosis PAST SURGICAL HISTORY Procedure Laterality Date BACK SURGERY HX lumbar SHOULDER SURGERY HX Right labrum/rotator cuff repair TOTAL HIP REPLACEMENT Left VASECTOMY MEDICATIONS: Current Outpatient Medications Medication Sig DULoxetine (CYMBALTA) 30 mg capsule Take 30 mg by mouth. No current facility-administered medications for this visit. ALLERGIES: ALLERGIES Not on File VITALS: BP 124/80 Pulse 67 Temp 36.2 C (97.2 F) Resp (!) 67 Wt 122.6 kg (270 lb 3.2 oz) SpO2 (!) 20% PHYSICAL EXAM: GEN: mildly ill appearing HEENT: PERRL, EOMI, conjunctiva clear Ears: canals clear. TMs without erythema, bulge, or effusion Sinuses: non-tender frontal sinus, non-tender maxillary sinuses Throat: moist mucous membranes, pharyngeal erythema, no exudate Neck: supple, no thyromegaly, tender anterior chain without discrete lymphadenopathy HEART: regular rate and rhythm, no murmurs LUNGS: clear to auscultation, no wheezes or crackles, no increased WOB ABD: Soft, non-distended, LLQ discomfort, otherwise non-tender, no masses ASSESSMENT/PLAN: 1. Sore throat - ICD9: 462, ICD10: J02.9 (primary diagnosis) 2. Gastroenteritis - ICD9: 558.9, ICD10: K52.9 Suspect to surveillances with onset of sore throat yesterday. - STREP A MOLECULAR (POC) - negative Repeat - 2019 CORONAVIRUS Continue supportive care. Dhruv Tejada MD documented in this encounter[facility] [address] [facility] + [facility] Future Appointments Appointment Date:05/24/2022 08:45:00 AM Scheduled Provider: Location:[facility] Appointment Type:NM Myocardial Spect Rest/Stress Appointment Date:07/16/2022 02:30:00 PM Scheduled Provider: Location:[facility] Appointment Type:CV OV Future Scheduled Tests Laboratory* Thyroid Stimulating Hormone 04/21/22 * Complete Blood Count 04/21/22 * CRP, High Sensitive 04/21/22 * Lipid Profile 04/21/22 * Complete Metabolic Panel 04/21/22 Radiology* NM Myocardial Spect Rest/Stress 05/24/22 [facility] Evaluation + Plan note Future Appointments Appointment Date:07/16/2022 02:30:00 PM Scheduled Provider: Location:[facility] Appointment Type:CV OV Future Scheduled Tests Laboratory* Thyroid Stimulating Hormone 04/21/22 * Complete Blood Count 04/21/22 * CRP, High Sensitive 04/21/22 * Lipid Profile 04/21/22 * Complete Metabolic Panel 04/21/22 [facility] Evaluation + Plan note Future Appointments Appointment Date:07/16/2022 02:30:00 PM Scheduled Provider: Location:[facility] Appointment Type:CV OV Appointment Date:07/20/2022 02:30:00 PM Scheduled Provider: Location:CT Appointment Type:CT Coronary Angiography w+w/o Contrast Future Scheduled Tests Laboratory* Thyroid Stimulating Hormone 04/21/22 * Complete Blood Count 04/21/22 * CRP, High Sensitive 04/21/22 * Lipid Profile 04/21/22 * Complete Metabolic Panel 04/21/22 Radiology* CT Coronary Angiography w+w/o Contrast 07/20/22 [facility] Evaluation + Plan note Future Appointments Appointment Date:08/10/2022 09:00:00 AM Scheduled Provider: Location:[facility] Appointment Type:CV OV Future Scheduled Tests Laboratory* Thyroid Stimulating Hormone 04/21/22 * Complete Blood Count 04/21/22 * CRP, High Sensitive 04/21/22 * Lipid Profile 04/21/22 * Complete Metabolic Panel 04/21/22 [facility] Evaluation noteThere may be information available, but it has not been provided by the sender.[facility] Work Phone: Evaluation note* Diagnosis Onset Date Resolution Status Biceps tendinitis of right shoulder acute Impingement syndrome of right shoulder acute Incomplete rotator cuff tear acute Orthopedic aftercare acute [facility] Work Phone: Evaluation note* Diagnosis Onset Date Resolution Status Biceps tendinitis of right shoulder acute Impingement syndrome of right shoulder acute Incomplete rotator cuff tear acute Orthopedic aftercare acute Inflammation of joint of right shoulder region acute Orthopedic aftercare acute [facility] Work Phone: Evaluation note* Diagnosis Sore throat- Primary Acute pharyngitis Gastroenteritis Other and unspecified noninfectious gastroenteritis and colitis documented in this encounter [facility] [place] [facility]* Diagnosis Acute cough- Primary Rhinosinusitis Unspecified sinusitis (chronic) documented in this encounter [facility] [place] [facility]* Diagnosis Onset Date Resolution Status Dysuria noneactive Flank pain noneactive Acid reflux noneactive [facility] Work Phone: Evaluation note* Diagnosis Fever, unspecified fever cause- Primary URI, acute Acute upper respiratory infections of unspecified site documented in this encounter [facility]* Diagnosis Onset Date Resolution Status Dysuria noneactive Flank pain noneactive Acid reflux noneactive Paroxysmal atrial fibrillation acute Acute gastroenteritis noneac tive Acute right flank pain acute Intermittent diarrhea acute Right lateral abdominal pain acute [facility] Work Phone: Evaluation note* Diagnosis Onset Date Resolution Status Acute right flank pain acute Intermittent diarrhea acute Right lateral abdominal pain acute [facility] Work Phone: Evaluation note* Diagnosis Rhinosinusitis- Primary Unspecified sinusitis (chronic) documented in this encounter [facility] note* Diagnosis Onset Date Resolution Status Cervical myofascial strain a cute Tension headache acute Thoracic myofascial strain a cute Depression acute Encounter for wellness examination in adult acute High cholesterol acute High triglycerides acute Paroxysmal atrial fibrillation acute Thyroid disease acute [facility] Work Phone: Evaluation note* Diagnosis Chronic midline low back pain, unspecified whether sciatica present- Primary Obesity (BMI 30-39.9) Obesity, unspecified PTSD (post-traumatic stress disorder) Posttraumatic stress disorder Current mild episode of major depressive disorder, unspecified whether recurrent (HCC) Elevated LFTs Other abnormal blood chemistry Elevated blood pressure reading without diagnosis of hypertension documented in this encounter [facility] note* Diagnosis Acute cough documented in this encounter [facility] note* Diagnosis Acute right-sided thoracic back pain- Primary Flank pain Abdominal pain, unspecified site [facility] Narrative No data available for this section [facility] Work Phone: [facility]WC[facility] Work Phone: Hospital Discharge instructions Additional Instructions Please take the medication as directed to control your heart rate and prevent blood clots. Follow-up with cardiology to discuss continuing or changing medication and possible cardioversion. If you have worsening symptoms or any further concerns return to the ER for repeat [facility]WC[facility] Work Phone: Hospital Discharge instructions No data available for this section [facility] Instructions* Instruction Description Start Date Completed [facility] Work Phone: Progress note No data available for this section [facility] Reason for referral (narrative)No reason for referral information availableNor[facility] Services Work Phone: Family History No Family History Records Found Mother Name Dates Details Family history of diabetes m ellitus(V18.0, Z83.3) Status:Active Family history of thyroid di sease(V18.19, Z83.49) Status:Active Father Name Dates Details Family history of hypertensi on(V17.49, Z82.49) Status:Active Family history of chronic ob structive pulmonary disease(V17.6, Z82.5) Status:Active Mother Name Dates Details Family history of diabetes m ellitus(V18.0, Z83.3) Status:Active Family history of thyroid di sease(V18.19, Z83.49) Status:Active Father Name Dates Details Family history of hypertensi on(V17.49, Z82.49) Status:Active Family history of chronic ob structive pulmonary disease(V17.6, Z82.5) Status:Active Mother Name Dates Details Family history of diabetes m ellitus(V18.0, Z83.3) Status:Active Family history of thyroid di sease(V18.19, Z83.49) Status:Active Father Name Dates Details Family history of hypertensi on(V17.49, Z82.49) Status:Active Family history of chronic ob structive pulmonary disease(V17.6, Z82.5) Status:Active Mother Name Dates Details Family history of diabetes m ellitus(V18.0, Z83.3) Status:Active Family history of thyroid di sease(V18.19, Z83.49) Status:Active Father Name Dates Details Family history of hypertensi on(V17.49, Z82.49) Status:Active Family history of chronic ob structive pulmonary disease(V17.6, Z82.5) Status:Active Mother Name Dates Details Family history of diabetes m ellitus(V18.0, Z83.3) Status:Active Family history of thyroid di sease(V18.19, Z83.49) Status:Active Father Name Dates Details Family history of hypertensi on(V17.49, Z82.49) Status:Active Family history of chronic ob structive pulmonary disease(V17.6, Z82.5) Status:Active Mother Name Dates Details Family history of diabetes m ellitus(V18.0, Z83.3) Status:Active Family history of thyroid di sease(V18.19, Z83.49) Status:Active Father Name Dates Details Family history of hypertensi on(V17.49, Z82.49) Status:Active Family history of chronic ob structive pulmonary disease(V17.6, Z82.5) Status:Active Mother Name Dates Details Family history of diabetes m ellitus(V18.0, Z83.3) Status:Active Family history of thyroid di sease(V18.19, Z83.49) Status:Active Father Name Dates Details Family history of hypertensi on(V17.49, Z82.49) Status:Active Family history of chronic ob structive pulmonary disease(V17.6, Z82.5) Status:Active Relationship Condition Age at Onset Recorded Date/T [place] father Coronary artery disease Unknown History of coronary artery bypass surgery 52 Depression Unknown Hypertension Unknown Chronic obstructive pulmonary disease Unk nown grandmother Diabetes mellitus Unknown Congestive heart failure Unknown Myocardial infarction Unknown mother Diabetes mellitus Unknown Disorder of thyroid Unknown sister Anxiety Unknown Radha's thyroiditis Unknown grandfather Parkinson's disease Unknown Summary Purpose Advance Directives No Advanced Directives Records Found Advance Directive Response Recorded Date/ Time Living Will No July 07, 2021 11:02am Power of Cleaning Maid No July 07 11:02am Advance Directive Response Recorded Date/ Time Living Will No March 28 1:53am Power of Cleaning Maid No March 28, 2022 1:53am Advance Directive Response Recorded Date/ Time Living Will No May 05 022 10:18am Power of Cleaning Maid No May 05, 2022 10:18am Advance Directive Response Recorded Date/ Time Living Will No May 05 11:18am Power of Cleaning Maid No May 05, 2022 11:18am Advance Directive Response Recorded Date/ Time Living Will No February 17 5:40pm Power of Cleaning Maid No February 17, 2023 5:40pm Procedure Findings Note Post Operative Note: Post-Pr ocedure Diagnosis: Bilateral hip osteoarthritis Procedure: 1. Bilateral hip joint injection under fluoroscopic guidance 2. 3. 4. 5. Surgeon: Kassandra Resident/Fellow/Other Bench Precision Assembler: None Anesthesia: Local Estimated Blood Loss (mL): none Specimen: no Findings: None Operative Report Dictated: Dictation: not applicable - note contains Operative Report Operative Report: The patient was identified in the preoperative holding area. Risks, benefits, and alternatives were reviewed with the patient. The patient wishes to proceed. Consent was signed and sites were marked. The patient was brought to the operating room placed in the supine position with a pillow between the knees. Time out was performed. The patient's skin was prepped and draped in surgical sterile fashion. Skin and subcutaneous tissues were anesthetized with total of 3 mL of 2% lidocaine through 25-gauge needle. A 22-gauge spinal needle was advanced under intermittent fluoroscopy into the hip joint ca (more content not included)... Note PROCEDURE DETAILS Preoperati ve Diagnosis: Lumbar spinal stenosis with neurogenic claudication Postoperative Diagnosis: Lumbar spinal stenosis with neurogenic claudication Surgeon: Kassandra Resident/Fellow/Other Bench Precision Assembler: None Procedure: L2/3 epidural steroid injection under fluoroscopic guidance Anesthesia: Local Estimated Blood Loss: 0 Findings: None Operative Report: The patient was identified in the preoperative holding area. Risks, benefits, and alternatives were reviewed with the patient. The patient wishes to proceed. Consent was signed and sites were marked. The patient was brought to the operating room placed in the prone position with a pillow underneath the abdomen to reduce lumbar lordosis. Time out was performed. The patient's skin was prepped and draped in surgical sterile fashion. Skin and subcutaneous tissues were anesthetized with total of 5 mL of 2% lidocaine through 25-gauge needle. An 18-gauge Touhy needle was advanced under intermittent fluoroscopy to the L2/3 epid (more content not included)... Note PROCEDURE DETAILS Preoperati ve Diagnosis: Osteoarthritis of left hip, M16.12 Postoperative Diagnosis: Osteoarthritis of left hip, M16.12 Surgeon: Cesar Cannon Resident/Fellow/Other Bench Precision Assembler: None of these were associated with this case Procedure: 1. Left HIP INJECTION with fluoroscopic guidance Anesthesia: Local Estimated Blood Loss: 0 Findings: None Operative Report: The patient was identified in the preoperative holding area. The procedure discussed detail: Risks, benefits, and alternatives. The patient wished to proceed. Consent was signed and site was marked. The patient was taken to the operating room and placed in the right lateral decubitus position with pressure points padded. Timeout was performed. The left hip area was prepped and draped in surgical sterile fashion. Skin and subcutaneous tissues were anesthetized with 3 mL of 2% lidocaine through a 25-gauge needle. A 22-gauge spinal needle was advanced into the left hip capsule under intermittent fluoroscopic artis (more content not included)... Chief Complaint Chief Complaint Description Start Date lower back pain Preliminary chief co mplaint data, not yet signed by the author as of Chief Complaint and Reason for Visit Chief Complaint right shoulder XRAY [facility], EST. CARE- [facility] REFERRED, NPP MAILED RT SHLDR ROTATOR CUFF EVAL DEBRIDE VS REPAIR ... RT SHLDR ROTATOR CUFF EVAL DEBRIDE VS REPAIR ... RT SHLDR ROTATOR CUFF EVAL DEBRIDE VS REPAIR ... right shoulder SPONDYLOLOISTHESIS RT SHOULDER . RX HERE Reason for Visit Biceps tendinitis of right shoulder Impingement syndrome of right shoulder Incomplete rotator cuff tear Orthopedic aftercare Chief Complaint right shoulder XRAY [facility], EST. CARE- [facility] REFERRED, NPP MAILED RT SHLDR ROTATOR CUFF EVAL DEBRIDE VS REPAIR ... RT SHLDR ROTATOR CUFF EVAL DEBRIDE VS REPAIR ... RT SHLDR ROTATOR CUFF EVAL DEBRIDE VS REPAIR ... right shoulder SPONDYLOLOISTHESIS RIGHT SHOULDER RT SHOULDER . RX HERE Reason for Visit Biceps tendinitis of right shoulder Impingement syndrome of right shoulder Incomplete rotator cuff tear Orthopedic aftercare Inflammation of joint of right shoulder region Orthopedic aftercare Chief Complaint BACK SX ON 10/02/21.P T TO BRING ORDER KIDNEY PAIN DORSALGIA/RX HERE PALPITATIONS Reason for Visit Dysuria Flank pain Acid reflux Chief Complaint KIDNEY PAIN PALPITATIONS diarrhea Lingering Covid Symptoms RIGHT FLANK PAIN DORSALGIA/RX HERE Reason for Visit Dysuria Flank pain Acid reflux Paroxysmal atrial fibrillation Acute gastroenteritis Acute right flank pain Intermittent diarrhea Right lateral abdominal pain Chief Complaint KIDNEY PAIN PALPITATIONS diarrhea Lingering Covid Symptoms RIGHT FLANK PAIN INT LABS/ORDERS DORSALGIA/RX HERE Reason for Visit Dysuria Flank pain Acid reflux Paroxysmal atrial fibrillation Acute gastroenteritis Acute right flank pain Intermittent diarrhea Right lateral abdominal pain Chief Complaint Lingering Covid Symp toms RIGHT FLANK PAIN INT LABS/ORDERS DORSALGIA/RX HERE Reason for Visit Acute right flank pa in Intermittent diarrhea Right lateral abdominal pain Chief Complaint KENDRICK/X 1WK Annual/Physical E ORDERS Reason for Visit Cervical myofascial strain Tension headache Thoracic myofascial strain Depression Encounter for wellness examination in adult High cholesterol High triglycerides Paroxysmal atrial fibrillation Thyroid disease Chief Complaint Admit Date Acid Reflux, BP July 12, 2024 3:06 pm XRAY HIP/PELVIS & ADDITL EORDER LAB DR.K MARHS October 15, 2024 1:10pm 3 M FU October 18, 2024 7:59 am Reason for Visit Admit Date Depression July 12, 2024 3:06 pm Elevated blood pressure reading July 3:06pm Elevated TSH July 12, 2024 3:06 pm Essential hypertension July 12, 2024 3 :06pm High cholesterol July 12, 2024 3:06 pm High triglycerides July 12, 2024 3:06 pm Essential hypertension October 18, 2024 7 :59am Reason for Visit Admit Date Depression July 12, 2024 3:06 pm Elevated blood pressure reading July 3:06pm Elevated TSH July 12, 2024 3:06 pm Essential hypertension July 12, 2024 3 :06pm High cholesterol July 12, 2024 3:06 pm High triglycerides July 12, 2024 3:06 pm Atypical chest pain October 18, 2024 7:59 am Essential hypertension October 18, 2024 7 :59am Health Concerns Infection Onset Date Last Indicated Resolved Time COVID-19 Rule-Out 01/21/2022 01/21/2022 Infection Onset Date Last Indicated Resolved Time COVID-19 Rule-Out 01/21/2022 01/21/2022 01/22/2022 5:08 AM EDT COVID-19 Confirmed 01/21/2022 01/21/2022 Infection Onset Date Last Indicated Resolved Time COVID-19 Rule-Out 04/04/2022 04/04/2022 Additional Source Comments (unrecognized sect ion and content) No Status Records FoundNo Status Records FoundNo Status Records FoundNo Status Records FoundNo Status Records FoundNo Status Records FoundNo Status Records FoundNo Status Records FoundNo Status Records Found INFORMATION SOURCE (unrecogn ized section and content) DATE CREATED AUTHOR 08/02/2019 [employer] DATE CREATED AUTHOR AUTHOR'S ORGANIZ ATION 10/24/2019 [facility] DATE CREATED AUTHOR AUTHOR'S ORGANIZ ATION 12/02/2019 [facility] DATE CREATED AUTHOR AUTHOR'S ORGANIZ ATION 03/08/2021 [facility] DATE CREATED AUTHOR AUTHOR'S ORGANIZ ATION 07/27/2021 [facility] DATE CREATED AUTHOR AUTHOR'S ORGANIZ ATION 07/02/2022 [facility] DATE CREATED AUTHOR AUTHOR'S ORGANIZ ATION 11/26/2023 [facility] ([place] DATE CREATED AUTHOR AUTHOR'S ORGANIZ ATION 05/17/2024 [facility] DATE CREATED AUTHOR AUTHOR'S ORGANIZ ATION 11/01/2024 [facility] Reason for Visit (unrecogniz ed section and content) Reason For Visit Description Follow-up by complaint Preliminary reason f or visit data, not yet signed by the author as of lower back pain Reason Comments Diarrhea Sore throat, swollen glands, dry cough, fatigue 1.5 weeks Specialty Diagnoses / Procedures Referred By Contac t Referred To Contact Family Practice / [facility] Diagnoses Diarrhea Diarrhea, sore throat, swollen glands, dry cough, fatigue Procedures OFFICE/OUTPATIENT NEW MODERATE MDM 45-59 MINUTES NEW SAME DAY Self Dhruv Tejada MD [address] [place] [address] Referral ID Status Reason Start Date Expiration Date Visits Re quested Visits Authorized [id number] Closed 01/21/2022 05/08/2022 1 1 Reason Comments Results Reason Comments Chest Congestion cough, sinus pressur e and drainage x 2 days Specialty Diagnoses / Procedures Referred By Contac t Referred To Contact Internal Medicine / [facility] Diagnoses Cough chest congestion, cough, sinus, sore throat Procedures EST SAME DAY Self [facility] [address] [place] [address] Referral ID Status Reason Start Date Expiration Date Visits Re quested Visits Authorized [id number] Closed 02/16/2022 05/08/2022 1 1 Reason Comments Fever With Diarrhea and he adache x 1 day Reason Comments New Patient Specialty Diagnoses / Procedures Referred By Contac t Referred To Contact Radiology / [facility] Diagnoses Acute cough xr chest rm 2 Procedures RADIOLOGIC EXAM CHEST 2 VIEWS XR CHEST Gaby Miranda, [employer] [address] [place] [address] Radio General [facility] [address] [place] [address] Referral ID Status Reason Start Date Expiration Date Visits Re quested Visits Authorized [id number] Closed 02/16/2022 05/08/2022 1 1 Reason Comments Pain R side pain x 1.5 mo nths, states feels like a aggravation in area,[place] area Goals (unrecognized section and content) Goals may be documented in a n alternate sectionGoals may be documented in an alternate sectionGoals may be documented in an alternate sectionGoals may be documented in an alternate section No data available for this section No data available for this sectionGoals may be documented in an alternate section No data available for this sectionGoals may be documented in an alternate section No data available for this sectionGoals may be documented in an alternate section No data available for this sectionGoals may be documented in an alternate sectionGoals may be documented in an alternate section No data available for this sectionGoals may be documented in an alternate sectionGoals may be documented in an alternate section Source Comments (unrecognize d section and content) In the event this informatio n is protected by the Federal Confidentiality of Alcohol and Drug Abuse Patient Records regulations: The Federal rules restrict any use of the information to criminally investigate or prosecute any alcohol or drug abuse patient.[facility] HospitalIn the event this information is protected by the Federal Confidentiality of Alcohol and Drug Abuse Patient Records regulations: The Federal rules restrict any use of the information to criminally investigate or prosecute any alcohol or drug abuse patient.[facility] HospitalIn the event this information is protected by the Federal Confidentiality of Alcohol and Drug Abuse Patient Records regulations: The Federal rules restrict any use of the information to criminally investigate or prosecute any alcohol or drug abuse patient.[facility] HospitalIn the event this information is protected by the Federal Confidentiality of Alcohol and Drug Abuse Patient Records regulations: The Federal rules restrict any use of the information to criminally investigate or prosecute any alcohol or drug abuse patient.[facility] HospitalIn the event this information is protected by the Federal Confidentiality of Alcohol and Drug Abuse Patient Records regulations: The Federal rules restrict any use of the information to criminally investigate or prosecute any alcohol or drug abuse patient.[facility] HospitalIn the event this information is protected by the Federal Confidentiality of Alcohol and Drug Abuse Patient Records regulations: The Federal rules restrict any use of the information to criminally investigate or prosecute any alcohol or drug abuse patient.[facility] HospitalIn the event this information is protected by the Federal Confidentiality of Alcohol and Drug Abuse Patient Records regulations: The Federal rules restrict any use of the information to criminally investigate or prosecute any alcohol or drug abuse patient.[facility] HospitalIn the event this information is protected by the Federal Confidentiality of Alcohol and Drug Abuse Patient Records regulations: The Federal rules restrict any use of the information to criminally investigate or prosecute any alcohol or drug abuse patient.[facility] Care Teams (unrecognized sec tion and content) Forensic Materials Engineer Relationship Specialty Start Date End Date Jerome Stanford MD [address] [facility] [place], [place] [address] PCP - General Internal Medicine 02/16/22 Forensic Materials Engineer Relationship Specialty Start Date End Date Jerome Stanford MD [address] [place] [address] PCP - General Internal Medicine 02/16/22 Team Status: Active Member Role Status Dates Dr. Sam Roy MD Family Provider Active Jerome Stanford MD Primary Care Provider Active Team Status: Inactive Member Role Status Dates Jerome Stanford MD Primary Care Provider, Referring P rovider Active [employer] Pickens Attending Provider Active Team Status: Inactive Member Role Status Wilfredo Stanford MD Primary Care Provider, Referring P rovider Active Harley Chamorro [employer], [employer] Attending Provider Active Team Status: Inactive Member Role Status Wilfredo Stanford MD Primary Care Provider Active Dr. Jerome Stanford MD Attending Provider Active Team Status: Active Member Role Status Wilfredo Stanford MD Primary Care Provider Active Dr. Jerome Stanford MD Attending Provider, Referring Provider Active Team Status: Inactive Member Role Status Dates Jerome Stanford MD Primary Care Provider Active [employer] [place] Attending Provider, Referring Pro vider Active Team Status: Inactive Member Role Status Wilfredo Stanford MD Primary Care Provider Active Dr. Yony Mccord DO Attending Provider, Emergency Pr ovider Active Team Status: Inactive Member Role Status Wilfredo Stanford MD Primary Care Provider Active Dr. Jerome Stanford MD Attending Provider, Referring Provider Active Team Status: Inactive Member Role Status Wilfredo Stanford MD Primary Care Provider, Referring P rovider Active Dr. Jerome Stanford MD Attending Provider Active Dr. Dexter Cardenas MD Other Provider Active Team Status: Active Member Role Status Dates Dr. Sam Roy MD Family Provider Active Jerome GLOVER MD Primary Care Provider Active Team Status: Inactive Member Role Status Wilfredo GLOVER MD Primary Care Provider Active Dr. Jerome Stanford MD Attending Provider Active Team Status: Inactive Member Role Status Wilfredo GLOVER MD Primary Care Provider Active Dr. Jerome Stanford MD Attending Provider, Referring Provider Active Team Status: Inactive Member Role Status Dates Jerome GLOVER MD Primary Care Provider, Referrin g Provider Active Dr. Jerome Stanford MD Attending Provider Active Dr. Dexter Cardenas MD Other Provider Active Forensic Materials Engineer Relationship Specialty Start Date End Date Jerome Stanford MD [address] [place] [address] PCP - General Internal Medicine 02/16/22 Team Status: Active Member Role Status Dates Dr. Sam Roy MD Family Provider Active Dr. Jerome Stanford MD Primary Care Provider Active Team Status: Inactive Member Role Status Dates Dr. Jerome Stanford MD Primary Care Provider, Referri ng Provider Active Demetrius Griffiths PA, PA Attending Provider Active Team Status: Inactive Member Role Status Dates Dr. Jerome Stanford MD Primary Care Provider, Attendi ng Provider Active Team Status: Inactive Member Role Status Dates Dr. Jerome Stanford MD Primary Care Pro vider, Attending Provider, Referring Provider Active Team Status: Active Member Role Status Dates Dr. Jerome Stanford MD Primary Care Provider Active Dr. Rosa Herr DC Attending Provider, Referrin g Provider Active Team Status: Inactive Member Role Status Dates Dr. Jerome Stanford MD Primary Care Provider Active Dr. Rosa Herr DC Attending Provider, Referrin g Provider Active Forensic Materials Engineer Relationship Specialty Start Date End Date Jerome Stanford MD [address] [place] [address] PCP - General Internal Medicine 02/16/22 Forensic Materials Engineer Relationship Specialty Start Date End Date Jerome Stanford MD [address] [place] [address] PCP - General Internal Medicine 02/16/22 Forensic Materials Engineer Relationship Specialty Start Date End Date Jerome Stanford MD [address] [place] [address] PCP - General Internal Medicine 02/16/22 Team Status: Inactive Member Role Status Dates Dr. Jerome Stanford MD Primary Care Provider Active Start: July 12, 2024 End: July 12, 2024 Dr. Jerome Stanford MD Attending Provider Active Start: July 12, 2024 End: July 12, 2024 Team Status: Active Member Role Status Dates Dr. Jerome Stanford MD Primary Care Provider Active Start: October 15, 2024 Dr. Jerome Stanford MD Referring Provider Active Start: October 15, 2024 NP. Shahnaz Gooden Attending Provider Active Star t: October 15, 2024 Team Status: Inactive Member Role Status Dates Dr. Jerome Stanford MD Primary Care Provider Active Start: October 18, 2024 End: October 18, 2024 Dr. Jerome Stanford MD Attending Provider Active Start: October 18, 2024 End: October 18, 2024 Team Status: Inactive Member Role Status Dates Dr. Jerome Stanford MD Primary Care Provider Active Start: October 15, 2024 End: October 15, 2024 Dr. Jerome Stanford MD Referring Provider Active Start: October 15, 2024 End: October 15, 2024 NP. Shahnaz Gooden Attending Provider Active Star t: October 15, 2024 End: October 15, 2024 Care Team (unrecognized sect ion and content) Care Team Personnel Name: JEROME STANFORD MD Member Role: Primary Care Physician Address: Address: [address] [place] [address]- Care Team Related Persons Name: NONE, NONE Care Team Personnel Name: JEROME STANFORD MD Member Role: Primary Care Physician Address: Address: [address] [place] [address]- Name: DEXTER CARDENAS MD Position: P4 Physician - Cardiology Member Role: Fire Observer Address: Address: [address] [place] [address]- Care Team Related Persons Name: NONE, NONE Care Team Personnel Name: JEROME STANFORD MD Member Role: Primary Care Physician Address: Address: [address] [place] [address]- Name: DEXTER CARDENAS MD Position: P4 Physician - Cardiology Member Role: Fire Observer Address: Address: [address] [place] [address] [place] [address]- Care Team Related Persons Name: NONE, NONE FOR RECORDS PERTAINING TO PATIENTS WHO ARE OR HAVE BEEN ENROLLED IN A CHEMICAL DEPENDENCY/SUBSTANCEABUSE PROGRAM, SOME INFORMATION MAY BE OMITTED. This clinical summary was aggregated from multiple sources. Caution should be exercised in using it in the provision of clinical care. This summary normalizes information from multiple sources, and as a consequence, information in this document may materially change the coding, format and clinical context of patient data. In addition, data may be omitted in some cases. CLINICAL DECISIONS SHOULD BE BASED ON THE PRIMARY CLINICAL RECORDS. [facility]. provides no warranty or guarantee of the accuracy or completeness of information in this document.
== END | disposition home or self-care (01) ==
LOC: US 12:48
PROVIDERS: PCP Internal Medicine; Referring Provider Internal Medicine; Visit Provider Internal Medicine
DX: E04.1 Nontoxic single thyroid nodule (principal)
CPT/HCPCS: 76536

== ENCOUNTER 2024-12-24 15:30 | Outpatient (RCR) | payer OTHER, SELFPAY ==
--- NOTE | 2024-10-30 16:32 | HP.PTEVAL_ITS ---
Patient's Visit Information Visit Information Visit Information: JACINTO COSTA is a 59 year old M referred to Physical Therapy by Dr. Roberta Stanford MD with a diagnosis of Low Back Pain. Date of Evaluation: 10/30/24 Physical Therapist: Maribel Wasserman DPT Visit Plan Frequency: 2-3x /Week Duration: 6 Weeks Plan: 1x a week in the pool and 2x a week on land- focus on LE and core strength/stabilization. Left Leg is significantly weaker and has poor balance- make sure to perform single leg and double leg exercises. Subjective Subjective: Patient reports that he is still having some back pain- he knows the best way to get back to having less back pain is getting back in shape and losing some weight. He is taking steps with his doctor for steroid injections last ones were about a month ago, nutrition and some medications. He likes to be active its just hard with the back pain. The pain is located along the low back- belt line just above and below- mostly on the left side. He always has numbness down the left side and when it gets back its painful and will travel to the knee- aggravated by standing. Worst: 10/16 Agg: being forward, carrying heavy objects, standing Eases: ice, rest, medication Best: 07/16. Describes the pain as dull and achy. He had Laminectomy 2021, Left THR in 2020. He feels that he is better since he had an injection and steroids and was active last week- which generally helps. 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 Sleep: disturbed- side sl eeper. Has recent x-rays or bilateral hips- left is good but right has moderate OA. PMHx/Meds: in chart. Objective Objective: Posture: forward head, rounded shoulders- can correct but does not maintain Gait: no deviation noted- good arm swing and trunk rotation HR/TR: able but reports tightness with HR left>right SLS: Left: 3 seconds Right: 10 seconds both with increased sway ROM: Lumbar: WNL with Left SB and Right Rotation increased pain Strength: Core: fair minus, Hip: Left: 4-/5 throughout, Right: 4+/5 throughout, Knee: Right: Extn: 117 Flexion: 86 Left: Extn: 60 Flexion: 64. Ankle: 5/5 Flex: HS: severe, Gastroc: moderate Sensation: diminished left thigh to gross touch bilateral Palpation: tender along lumbar paraspinals Balance/Special Test Scores Oswestry Low Back Score: 18 Goals Goal 1:: Patient will be I with HEP and progression Goal Time Frame: 6-8 Weeks Goal 2:: Patient will maintain proper posture t/o tx session to demo increased core s/s Goal Time Frame: 6-8 Weeks Goal 3:: Patient will demo 15 sec without LOB in SLS bilateral Goal Time Frame: 6-8 Weeks Goal 4:: Patient will have strength within 10 lbs of force of each other Goal Time Frame: 6-8 Weeks Goal 5:: Patient will report 80% improvement Goal Time Frame: 6-8 Weeks Rehabilitation Potential Physical Therapy Diagnosis: Patient presents with decreased LE and core strength/stabilization, flex and muscular endurance leading to increased pain with ADL's. Rehabilitation Potential: Good Anticipated Interventions Patient/Client Instruction: Educate patient on: Benefits of Fitness Program Therapeutic Exercise to Include: Strength training, Endurance training, Balance training, Coordination, Agility training, Body mechanics, Postural training, Flexibilty training, Gait and locomotor training, Neuromotor development, In an aquatic setting, Dynamic Lumbar Stabilization and Scapular Strength/St abilization For the Purpose of:: To improve ability to perform ADL's Text: Thank you for the opportunity to evaluate your patient. For Medicare and Medicare HMO plans, please review the plan of care and approve it. It will need to be FAXED BACK to us at [phone] for Medicare purposes. For Medicare only, by signing this I certify the plan of care. Please let me know if there are questions or concerns regarding this plan of care. Physician Signature: D ate:
== END 2024-12-24 19:00 | disposition home or self-care (01) ==
LOC: PT 15:30
PROVIDERS: PCP Internal Medicine; Referring Provider Internal Medicine; Visit Provider Internal Medicine
DX: M19.90 Unspecified osteoarthritis, unspecified site (principal); M54.9 Dorsalgia, unspecified
CPT/HCPCS: 97110; 97113; 97162

== ENCOUNTER → 2025-01-09 | Outpatient (CLI) | payer OTHER, SELFPAY ==
--- NOTE | 2025-01-09 14:00 | CYSPIN_PTH ---
PATIENT: JACINTO COSTA LOC: NEO U#:[id number] AGE/SX: 59/M ROOM: RE01/09/[address]: Dr. Marlon Cash MD : 1965 BED: DIS: 01/09/2025 SPEC #: [id number] RECD: 01/09/25 15:40 STATUS: ELIDA GINA #: [id number] MECHE: 01/09/25 14:[address]: Marlon Cash DEPT: CYTOLOGY RECD BY: Antonio Hightower ENTERED: 01/10/25 11:08 SP TYPE: CYSPIN FL OTHR DR: Dr. Roberta Stanford MD Tissues: A - Thyroid gland, NOS B - Thyroid gland, NOS Procedures: Pap Stain (control) Special Stain Group II Diff Quik Stain (control) Cytospin Fluid Cytology Other HEADER OPERATION: Fine needle aspiration of left and right thyroid nodules PRE-OP DIAGNOSIS: Left and right thyroid nodules TISSUE SUBMITTED: A- Left thyroid nodule, B- Right superior thyroid nodule DIAGNOSIS CYTOLOGY A. Left thyroid nodule, FNA (cytospin, smear x4): - Atypical cells of undetermined significance (TBS III). Note: Afirma testing will be submitted. A separate will follow. B. Right superior thyroid, FNA, (cytospin, smear x4): - Atypical cells of undetermined significance (TBS III). Note: Afirma testing will be submitted. A separate will follow. CYTOLOGY STUDY Slides are reviewed. CYTOLOGY GROSS A. Received is 30 ml of pale-pink cytolyt with particles and 4 smears labeled with the patient's name and and designated per the requisition as Left thyroid nodule. Submitted for cytology and cytospin. B. Received is 30 ml of pale-pink cytolyt with particles and 4 smears labeled with the patient's name and and designated per the requisition as Right superior thyroid. Submitted for cytology and cytospin. 01/10/2025 CPT: [id number] ADDENDUM ADDENDUM ADDENDUM ADDENDUM ADDENDUM ADDENDUM ADDENDUM ADDENDUM ADDENDUM ADDENDUM ADDENDUM ADDENDUM ADDENDUM ADDENDUM ADDENDUM ADDENDUM ADDENDUM ADDENDUM ADDENDUM 02/06/2025 09:30 ADDENDUM 02/06/2025 09:30 ADDENDUM 02/06/2025 09:30 ADDENDUM 02/06/2025 09:30 ADDENDUM 02/06/2025 09:30 AFIRMA RESULTS REPORT - A RESULTS INTERPRETATION: The result of this 3.6 cm [place] III nodule A is Afirma GSC benign, which suggests a low risk of cancer of approximately 4%. Treatment like a cytologically benign nodule may be appropriate, including clinical correlation. Afirma XA is not performed on GSC Benign nodules. TERT promoter region analysis is not performed on GSC Benign nodules. AFIRMA RESULTS REPORT - B RESULTS INTERPRETATION: The result of this 1.5 cm [place] III nodule A is Afirma GSC benign, which suggests a low risk of cancer of approximately 4%. Treatment like a cytologically benign nodule may be appropriate, including clinical correlation. Afirma XA is not performed on GSC Benign nodules. TERT promoter region analysis is not performed on GSC Benign nodules. Please see complete report in e-chart or EMR
== END | disposition home or self-care (01) ==
LOC: LABSPEC 15:46
PROVIDERS: PCP Internal Medicine; Visit Provider Surgery
DX: E04.2 Nontoxic multinodular goiter (principal)
CPT/HCPCS: 88108; 88161; 88313

== ENCOUNTER → 2025-03-29 | Outpatient (CLI) | payer OTHER, SELFPAY ==
--- NOTE | 2025-03-29 15:53 | CT_ITS ---
PROCEDURE: SOFT TISSUE NECK WITH CONTRAST 03/29/2025 REASON FOR EXAM: COMPRESSIVE SYMPTOMS TECHNIQUE: Procedure Code: CTNEW Modality: CT Procedure: SOFT TISSUE NECK WITH CONTRAST CONTRAST: Isovue 370 VOLUME: 75 mL One or more dose reduction techniques were used (e.g., Automated exposure control, adjustment of the mA and/or kV according to patient size, use of iterative reconstruction technique). RADIATION DOSE SUMMARY: CTDlvol: 18.74 mGy DLP: 646.09 mGycm COMPARISON: None. FINDINGS: Airway: Effacement of the right piriform sinus without abnormal mucosal or focal soft tissue enhancement. Salivary glands: Unremarkable. Lymph nodes: No lymphadenopathy. Thyroid: Unremarkable. Vasculature: Unremarkable. Orbits: Unremarkable. Paranasal sinuses and mastoids: Clear. Lung apices: Clear. Upper mediastinum: Unremarkable. Bones: No acute bony abnormalities. Other: CT/Soft Tissue Neck WITH Contrast IMPRESSION: Effacement of the right piriform sinus without abnormal mucosal or focal soft t issue enhancement. This is most likely physiological or due to mucous impaction. Follow-up with CT scan or MRI of the neck in 3 months is recommended to assure resolution. Reading Location: [id number]
== END | disposition home or self-care (01) ==
LOC: CT 15:52
PROVIDERS: PCP Internal Medicine; Referring Provider Surgery; Visit Provider Surgery
DX: E04.2 Nontoxic multinodular goiter (principal)
CPT/HCPCS: 70491; Q9967